=== PATIENT | female | born 1950 | race Caucasian/White ===

== ENCOUNTER 2022-12-08 08:47 | Outpatient (OUT) | payer MEDICARE, BC, SELFPAY ==
--- NOTE | 2022-12-08 08:59 | CT_ITS ---
[address] [address] Patient Name: ANDRZEJ SAAVEDRA MRN: [id number] date: 1950 Sex: F Assigned Patient Location: CT Current Patient Location: CT Accession/Order Number: [id number] Exam Date: 12/08/2022 08:55 Report Date: 12/08/2022 12:56 At the request of: RENE SANCHEZ Procedure: CT lung screening low-dose EXAMINATION: CT lung screening low-dose HISTORY: Nicotine dependence Z87.891 COMPARISON: CTA chest 11/28/2021 TECHNIQUE: Axial, Coronal, and Sagittal images were created without the administration of IV contrast material. Dose reduction techniques were achieved by using automated exposure control and/or adjustment of mA and/or kV according to patient size and/or use of iterative reconstruction technique. FINDINGS: LUNGS: Stable scarring within lateral left lung base. No acute infiltrates or mass. Stable appearance of a few tiny punctate nodules scattered bilaterally. PLEURA: No mass, effusion, or pneumothorax. VASCULATURE: No abnormality. SELIN: No mass or pathologic adenopathy. MEDIASTINUM: No mass or pathologic adenopathy. CARDIAC: No enlargement, pericardial thickening, or significant calcification. AORTA: Stable mild dilation of ascending aorta, 4.4 cm. CHEST WALL: No mass or axillary adenopathy BONES: No bone lesion or fracture. LIMITED ABDOMEN: No suspicious findings. Limited images of the upper abdomen. OTHER: Negative. CT/CT lung screening low-dose IMPRESSION: 1. Lung-RADS Category 1 Negative. No nodules and definitely benign nodules. Continue annual screening with LDCT in 12 months. 2. Stable mild aneurysmal dilation of the ascending aorta, 4.4 cm. Electronically authenticated by: RUTH LINDSEY Date: 12/08/2022 12:56
== END 2022-12-08 08:48 | disposition home or self-care (01) ==
LOC: CT 08:47
PROVIDERS: PCP Internal Medicine; Visit Provider Internal Medicine
DX: Z87.891 Personal history of nicotine dependence (principal)
CPT/HCPCS: 71271

== ENCOUNTER 2023-09-02 08:05 | Outpatient (OUT) | payer MEDICARE, BC, SELFPAY ==
--- NOTE | 2023-09-02 08:12 | MM_ITS ---
Patient Name: ANDRZEJ SAAVEDRA MR#: [id number] : 1950 Exam Date: 09/02/2023 Ordering Doctor: DR Collin Daniel D.O. RADIOLOGY REPORT PROCEDURE: MM TOMOSYNTHESIS SCREENING BI COMPARISON: MG MAMM SCREEN 3D BUZZ CAD, 08/20/2022. MG MAMM SCREEN 3D BUZZ CAD, 08/19/2021. INDICATIONS: Screening Calculator Name NCI Breast Cancer Risk Assessment Tool 5 Year Breast Cancer Risk 1.90% Lifetime Breast Cancer Risk 5.40% Personal Breast Cancer No Personal Ovarian Cancer No Treatments None Family Cancers Father with colon cancer at age 72. LOCATION: [facility] BREAST COMPOSITION: The breasts are heterogeneously dense,which may obscure small masses. FINDINGS: DIAGNOSTIC CATEGORY 2--BENIGN FINDING. NO CHANGE FROM COMPARISON. Scattered benign-appearing nodules are present. Scattered benign-appearing calcifications are present. Scattered benign-appearing lymph nodes are present. RIGHT BREAST: No significant suspicious finding. LEFT BREAST: No significant suspicious finding. RECOMMENDATIONS: ROUTINE MAMMOGRAM AND CLINICAL EVALUATION IN 12 MONTHS. PLEASE NOTE: A NORMAL MAMMOGRAM DOES NOT EXCLUDE THE POSSIBILITY OF BREAST CANCER. A CLINICALLY SUSPICIOUS PALPABLE LUMP SHOULD BE BIOPSIED. Dictated by: Balbir Ulloa MD on 09/02/2023 at 13:30 Approved by: Balbir Ulloa MD on 09/02/2023 at 13:32
[2023-09-02 08:44] LABS: Basophils Percent Auto 0.5 % (0.2-2.0); Eosinophils Absolute Auto 0.2 10^3/uL (0.0-0.7); Eosinophils Percent Auto 2.8 % (0.9-7.0); Hematocrit 42.9 % (36.0-48.0); Immature Granulocytes Abs Auto 0.02 10^3/uL (0.00-0.03); Immature Granulocytes Pct Auto 0.3 % (0.0-0.5); Lymphocytes Absolute Auto 2.2 10^3/uL (1.2-3.8); Lymphocytes Percent Auto 36.5 % (20.5-60.0); Mean Corpuscular HGB Conc 32.6 g/dL (29.9-35.2); Mean Corpuscular Hemoglobin 29.7 pg (26.7-34.0); Mean Corpuscular Volume 91.1 fL (81.0-99.0); Mean Platelet Volume 8.5 fL (9.5-13.5); Monocytes Absolute Auto 0.5 10^3/uL (0.3-0.8); Monocytes Percent Auto 7.4 % (1.7-12.0); Neutrophils Absolute Auto 3.2 10^3/uL (1.4-6.5); Neutrophils Percent Auto 52.5 % (43.0-75.0); Platelet Count 255 10^3/uL (150-450); Red Blood Count 4.71 10^6/uL (4.20-5.40); Red Cell Distribution Width 13.2 % (11.0-15.0); White Blood Count 6.1 10^3/uL (4.0-11.0)
[2023-09-02 09:20] LABS: Alanine Aminotransferase 18 U/L (14-59); Albumin Level 3.5 g/dL (3.4-5.0); Alkaline Phosphatase 52 U/L (46-116); Anion Gap 12.1; Aspartate Amino Transferase 18 U/L (15-37); BUN Creatinine Ratio 30.3; Bilirubin Total 0.7 mg/dL (0.2-1.0); Calcium 9.6 mg/dL (8.5-10.1); Carbon Dioxide 25.9 mmol/L (21.0-32.0); Chloride 105 mmol/L (98-107); Chol HDL Ratio 2.2; Cholesterol 172 mg/dL (<=200); Estimated GFR (African America >60 (>=60); Estimated GFR (Non-African Ame >60 (>=60); Globulin 3.6 g/dL; Glucose 109 mg/dL (74-106); HDL Cholesterol 79 mg/dL (40-60); Sodium 139 mmol/L (136-145); Total Protein 7.1 g/dL (6.4-8.2); Triglycerides 44 mg/dL (<=150); VLDL CHOLESTEROL 8.8 mg/dL
== END 2023-09-02 08:06 | disposition home or self-care (01) ==
LOC: MAMMO 08:07
PROVIDERS: PCP Internal Medicine; Visit Provider Internal Medicine
DX: Z12.31 Encounter for screening mammogram for malignant neoplasm of breast (principal); I10 Essential (primary) hypertension; E78.00 Pure hypercholesterolemia, unspecified; J41.1 Mucopurulent chronic bronchitis; K21.00 Gastro-esophageal reflux disease with esophagitis, without bleeding; Z80.0 Family history of malignant neoplasm of digestive organs
CPT/HCPCS: 36415; 77063; 77067; 80053; 80061; 85025

== ENCOUNTER 2023-12-29 08:30 | Outpatient (OUT) | payer MEDICARE, BC, SELFPAY ==
--- OUTSIDE RECORDS SUMMARY | 2023-12-29 08:33 | XMS_ITS | CCD ---
Author Organization [facility] Care Team Providers Care [place] Name Role Phone Elida Cuadra Unavailable Collin Sanchez Unavailable LAURA, DR LÓPEZ Consulting Unavailable BALL, DR LÓPEZ Primary Care Unavailable BALL, DR LÓPEZ Admitting Unavailable BALL, DR LÓPEZ Attending Unavailable WEST, DR JOAQUIN Crabtree Consulting Unavailable LAURA, DR LÓPEZ Primary Care Unavailable LAURA, DR LÓPEZ Admitting Unavailable BALL, DR LÓPEZ Attending Unavailable LAURA, DR LÓPEZ Consulting Unavailable KASHMIR, DR JOAQUIN Crabtree Consulting Unavailable BALL, DR LÓPEZ Consulting Unavailable LAURA, DR LÓPEZ Primary Care Unavailable BALL, DR LÓPEZ Admitting Unavailable BALL, DR LÓPEZ Attending Unavailable ROSALIA, DR RUTH Bethea Consulting Unavailable Allergies Allergy Classification Reported Allergen(s) Allergy Type Date of Onset Reaction(s) Facility (2 sources) Contrast media Propensity to adverse reactions Unknown [employer] Other (2 sources) Iodine Drug Allergy Unknown [employer] Other (1 source) Iodine (And Iodine Containting Drugs) Drug allergy (disorder) [facility] Repository (1 source) Allergies Reconciled Propensity to adverse reactions Unknown [employer] Other (1 source) patient allergy list reviewed by nurse or physicia Propensity to adverse reactions 3 Comment:Done [employer] Other Medications Current Medications Medication Drug Class(es) Dates Sig (Normalized) Sig (Original) ascorbic acid 1000 mg oral tablet (8 sources) Vitamin C take 1 tablet by mouth every twenty-four hours Vitamin C 1000 MG 1 tablet Orally Once a day Active Aspirin (10 sources) Platelet Aggregation Inhibitor, Nonsteroidal Anti-inflammatory Drug aspirin 81MG 1 daily Active atenolol 25 mg oral tablet (10 sources) beta-Adrenergic Tayler Atenolol 25 MG TAKE 1 TABLET DAILY for 90 Active colestipol hydrochloride 1000 mg oral tablet (10 sources) Bile Acid Sequestrant Colestipol HCl 1 GM TAKE 1 TABLET AT BREAKFAST AND EVENING MEAL for 90 Active CoQ-10 (10 sources) CoQ-10 Not-Takin g fenofibrate 160 mg oral tablet (18 sources) Peroxisome Proliferator Receptor alpha Agonist Start: 05-09-2022 take 1 tablet by mouth every twenty-four hours Fenofibrate 160 MG 1 tablet Orally Once a day for 90 days Apr, Active hydroCHLOROthiazide 25 mg / lisinopril 20 mg oral tablet (10 sources) Thiazide Diuretic, Angiotensin Converting Enzyme Inhibitor Lisinopril-hydr oCHLOROthiazide 20-25 MG TAKE 1 TABLET DAILY for 90 Active Lisinopril-hydro CHLOROthiazide 20-25 MG 1 daily Active Loratadine (10 sources) Loratadine 10MG 1 daily Active Multivitamins (10 sources) Multivitamins 1 daily Active pantoprazole 40 mg delayed release oral tablet (10 sources) Proton Pump Inhibitor take 1 tablet by mouth every twenty-four hours Pantoprazole Sodium 40 MG 1 tablet Orally Once a day Active Vitamin C 1000 MG (2 sources) take 1 tablet by mouth once daily Completed/Discontinued Medications Medication Drug Class(es) Dates Sig (Normalized) Sig (Original) Calcium (10 sources) Phosphate Binder, Calcium Calcium + D3 500 600 1 daily Not-Taking Calcium + D3 500 600 1 daily Active collagenase Clostridium histolyticum (10 sources) Start: 04-30-2022 Xiaflex Apr 0.58 mg doxycycline hyclate 100 mg oral capsule (10 sources) Tetracycline -class Drug Start: 05-02-2022 take 1 capsule by mouth every twelve hours Doxycycline Hyclate 100 MG 1 capsule Orally Twice a day for 5 day(s) Apr, Not-Taking Fish Oils (10 sources) Fish Oil 1000MG 1 daily Not-Taking Fish Oil 1000MG 1 daily Active triamcinolone acetonide 40 mg/ml injectable suspension (2 sources) Corticosteroid Start: 08-07-2022 Kenalog-40 Jul, 60 mg Problems Active Problems Problem Classification Problem Date Documented Date Episodic/Chronic Acute bronchitis (9 sources) Acute bronchitis; Translations: [Acute bronchitis] Episodic Allergic reactions (1 source) Radiographic dye allergy status; Translations: [Radiographic dye allergy status] Episodic Aortic; peripheral; and visceral artery aneurysms (1 source) Thoracic aortic aneurysm, without rupture; Translations: [THORACIC AORTIC ANEUR W/O RUPTURE] Onset: 2 Chronic Biliary tract disease (1 source) Postcholecystectomy syndrome; Translations: [Postcholecystectomy syndrome] Episodic Calculus of urinary tract (1 source) H/O: urinary stone; Translations: [Personal history of urinary calculi] Episodic Chronic obstructive pulmonary disease and bronchiectasis (5 sources) Mucopurulent chronic bronchitis; Translations: [Mucopurulent chronic bronchitis] Chronic Disorders of lipid metabolism (5 sources) Mixed hyperlipidemia; Translations: [Mixed hyperlipidemia] Onset: 3 Chronic Esophageal disorders (2 sources) Gastro-esophageal reflux disease with esophagitis; Translations: [Gastroesophageal reflux disease with esophagitis without hemorrhage] Chronic Esophageal disorders (3 sources) Esophageal disorders; Translations: [Gastro-esophageal reflux disease with esophagitis, without bleeding] Essential hypertension (5 sources) Essential hypertension; Translations: [Essential (primary) hypertension] Onset: 3 Chronic Other aftercare (5 sources) 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; Translations: [OTH LONG-TERM CURRENT DRUG THERAPY] Onset: 3 Episodic Other connective tissue disease (10 sources) Dupuytrens contracture of bilateral hands; Translations: [Palmar fascial fibromatosis [Dupuytren]] Episodic Other connective tissue disease (5 sources) Palmar fascial fibromatosis [Dupuytren] Episodic Other connective tissue disease (1 source) Contracture of palmar fascia; Translations: [Palmar fascial fibromatosis [Dupuytren]] Episodic Other diseases of veins and lymphatics (1 source) Peripheral venous insufficiency; Translations: [Venous insufficiency (chronic) (peripheral)] Episodic Other lower respiratory disease (2 sources) Nodule of lung; Translations: [Solitary pulmonary nodule] Episodic Other lower respiratory disease (2 sources) Solitary pulmonary nodule Episodic Other nutritional; endocrine; and metabolic disorders (1 source) Body mass index 30+ - obesity; Translations: [Obesity, unspecified] Chronic Other nutritional; endocrine; and metabolic disorders (1 source) Obesity, unspecified Chronic Other nutritional; endocrine; and metabolic disorders (1 source) Hypercalcemia; Translations: [Hypercalcemia] Onset: 2 Chronic Other screening for suspected conditions (not mental disorders or infectious disease) (2 sources) Encounter for screening mammogram for malignant neoplasm of breast; Translations: [ENC SCR MAMMO MALIG NEOPLASM BREAST] Onset: 3 Episodic Other upper respiratory disease (1 source) Allergic rhinitis due to pollen; Translations: [Allergic rhinitis due to pollen] Chronic Other upper respiratory disease (1 source) Allergic rhinitis due to pollen Chronic Residual codes; unclassified (3 sources) Obstructive sleep apnea syndrome; Translations: [Obstructive sleep apnea (adult) (pediatric)] Chronic Residual codes; unclassified (1 source) Obstructive sleep apnea (adult) (pediatric) Chronic Residual codes; unclassified (1 source) Family history of malignant neoplasm of digestive organs; Translations: [FAM HX MALIG NEOPLASM DIGESTIV ORGN] Onset: 3 Episodic Substance-related disorders (5 sources) Tobacco dependence in remission; Translations: [Nicotine dependence, cigarettes, in remission] Chronic Unclassified (1 source) Aneurysm of the ascending aorta, without rupture; Translations: [Aneurysm of the ascending aorta, without rupture] Past or Other Problems Problem Classification Problem Date Documented Da te Episodic/Chronic Spondylosis; intervertebral disc disorders; other back problems (4 sources) Dorsalgia, unspecified; Translations: [DORSALGIA UNSPECIFIED] Onset: 09-30-2021 Episodic Unclassified (1 source) Aneurysm of ascending aorta without rupture I71.21 Results Test Name Value Interpretation Reference Range Facil ity CBC AUTO DIFFon 08-20-2022 BASO # 0.0 103/ul Normal 0.0-0.1 [facility] Comment on above: Performed By: #### C BC #### [facility] [address] [place] [address] Dr. Breann Stubbs Basophils/100 WBC (Bld) 0.3 % Normal 0.2-2.0 [facility] Comment on above: Performed By: #### C BC #### [facility] [address] [place] [address] Dr. Breann Stubbs EO # 0.1 103/ul Normal 0.0-0.7 [facility] Comment on above: Performed By: #### C BC #### [facility] [address] [place] [address] Dr. Breann Stubbs Eosinophils/100 WBC (Bld) 1.6 % Normal 0.9-7.0 [facility] Comment on above: Performed By: #### C BC #### [facility] [address] [place] [address] Dr. Breann Stubbs Erythrocyte distribution width (RBC) [Ratio] 13.0 % Normal 11.0-15.0 [facility] Comment on above: Performed By: #### C BC #### [facility] [address] [place] [address] Dr. Breann Stubbs Hematocrit (Bld) [Volume fraction] 47.3 % Normal 36.0-48.0 [facility] Comment on above: Performed By: #### C BC #### [facility] [address] [place] [address] Dr. Breann Stubbs Hemoglobin (Bld) [Mass/Vol] 15.3 g/dL Normal 12.0-16.0 [facility] Comment on above: Performed By: #### C BC #### [facility] [address] [place] [address] Dr. Breann Stubbs IG # 0.03 10e3/ul Normal 0.00-0.03 [facility] Comment on above: Performed By: #### C BC #### [facility] [address] [place] [address] Dr. Breann Stubbs IG % 0.3 % Normal 0.0-0.5 [facility] Comment on above: Performed By: #### C BC #### [facility] [address] [place] [address] Dr. Breann Stubbs LYMPH # 2.8 103/ul Normal 1.2-3.8 [facility] Comment on above: Performed By: #### C BC #### [facility] [address] [place] [address] Dr. Breann Stubbs Lymphocytes/100 WBC (Bld) 32.8 % Normal 20.5-60.0 [facility] Comment on above: Performed By: #### C BC #### [facility] [address] [place] [address] Dr. Breann Stubbs MANUAL DIFF REQ NO Normal [facility] Comment on above: Performed By: #### C BC #### [facility] [address] [address] [address] Breann Stubbs MCH (RBC) [Entitic mass] 29.5 pg Normal 26.7-34.0 [facility] Comment on above: Performed By: #### C BC #### [facility] [address] [address] [address] Breann Stubbs MCHC (RBC) [Mass/Vol] 32.3 g/dL Normal 29.9-35.2 [facility] Comment on above: Performed By: #### C BC #### [facility] [address] [place] [address] Dr. Breann Stubbs MCV (RBC) [Entitic vol] 91.3 fL Normal 81.0-99.0 [facility] Comment on above: Performed By: #### C BC #### [facility] [address] [place] [address] Dr. Breann Stubbs MONO # 0.6 103/ul Normal 0.3-0.8 [facility] Comment on above: Performed By: #### C BC #### [facility] [address] [place] [address] Dr. Breann Stubbs Monocytes/100 WBC (Bld) 7.1 % Normal 1.7-12.0 [facility] Comment on above: Performed By: #### C BC #### [facility] [address] [place] [address] Dr. Breann Stubbs NEUT # 5.0 103/ul Normal 1.4-6.5 [facility] Comment on above: Performed By: #### C BC #### [facility] [address] [place] [address] Dr. Breann Stubbs Neutrophils/100 WBC (Bld) 57.9 % Normal 43.0-75.0 [facility] Comment on above: Performed By: #### C BC #### [facility] [address] [place] [address] Dr. Breann Stubbs Platelet mean volume (Bld) [Entitic vol] 9.1 fL Critically low 9.5-13.5 [facility] Comment on above: Performed By: #### C BC #### [facility] [address] [address] [address] Breann Stubbs PLT 354 103/ul Normal 150-450 [facility] Comment on above: Performed By: #### C BC #### [facility] [address] [place] [address] Dr. Breann Stubbs RBC 5.18 106/ul Normal 4.20-5.40 [facility] Comment on above: Performed By: #### C BC #### [facility] [address] [place] [address] Dr. Breann Stubbs WBC 8.6 103/ul Normal 4.0-11.0 [facility] Comment on above: Performed By: #### C BC #### [facility] [address] [place] [address] Dr. Breann Stubbs LIPID PROFILEon 08-20-2022 CHOL-HDL RATIO NORM SEE BELOW Normal [facility] Comment on above: Result Comment: 3.3 - 4.4 LOW RISK 4.4 - 7.1 AVERAGE RISK 7.1 - 11.0 MODERATE RISK >11.0 HIGH RISK Performed By: #### B MP, LIPID, ALT #### [facility] [address] [place] [address] Dr. Breann Stubbs Cholesterol [Mass/Vol] 152 mg/dL Normal <=200 [facility] Comment on above: Performed By: #### B MP, LIPID, ALT #### [facility] [address] [place] [address] Dr. Breann Stubbs Cholesterol in HDL [Mass/Vol] 61 mg/dL Critically high 40-60 [facility] Comment on above: Performed By: #### B MP, LIPID, ALT #### [facility] [address] [place] [address] Dr. Breann Stubbs Cholesterol in LDL [Mass/Vol] 76.2 mg/dL Normal [facility] Comment on above: Performed By: #### B MP, LIPID, ALT #### [facility] [address] [place] [address] Dr. Breann Stubbs Cholesterol.total/ Cholesterol in HDL [Mass ratio] 2.5 {ratio} Normal [facility] Comment on above: Performed By: #### B MP, LIPID, ALT #### [facility] [address] [address] [address] Breann Stubbs HDL NORMAL > or = 60 mg/dl - LO W CARDIOVASCULAR RISK <40 mg/dl - HIGH CARDIOVASCULAR RISK Normal [facility] Comment on above: Performed By: #### B MP, LIPID, ALT #### [facility] [address] [address] [address] Breann Stubbs LDL CALC NORMAL SEE BELOW Normal [facility] Comment on above: Result Comment: <100 mg/dl OPTIMAL 100 - 129 mg/dl NEAR OR ABOVE OPTIMAL 130 - 159 mg/dl BORDERLINE HIGH 160 - 189 mg/dl HIGH >190 mg/dl VERY HIGH Performed By: #### B MP, LIPID, ALT #### [facility] [address] [address] [address] Breann Stubbs Triglyceride [Mass/Vol] 74 mg/dL Normal <=150 [facility] Comment on above: Performed By: #### B MP, LIPID, ALT #### [facility] [address] [address] [address] Breann Stubbs VLDL CALC 14.8 mg/dL Normal [facility] Comment on above: Performed By: #### B MP, LIPID, ALT #### [facility] [address] [address] [address] Breann Stubbs MG MAMM SCREEN 3D BUZZ CADon 08-20-2022 MG MAMM SCREEN 3D BUZZ CAD Patient: ANDRZEJ SAAVEDRA Exam Date: 08/20/2022 : 1950 Gender:F Ordering : DR COLLIN SANCHEZ D.O. Admission #: [id number] Family : Order #: [id number] CLICK HERE TO VIEW EXAM RADIOLOGY REPORT PROCEDURE: MAMMOGRAM SCREENING 3D BILATERAL CAD COMPARISON: MG MAMM SCREEN 3D BUZZ CAD, 08/17/2020. MG MAMM SCREEN 3D BUZZ CAD, 08/19/2021. INDICATIONS: Screening mammography Calculator Name NCI Breast Cancer Risk Assessment Tool 5 Year Breast Cancer Risk 1.90% Lifetime Breast Cancer Risk 5.60% Personal Breast Cancer No Personal Ovarian Cancer No Treatments None Family Cancers Father with colon cancer at age 72. LOCATION: [facility] BREAST COMPOSITION: Heterogeneously dense,which may obscure small masses. FINDINGS: DIAGNOSTIC CATEGORY 2--BENIGN FINDING. NO CHANGE FROM COMPARISON. Scattered benign-appearing nodules are present. Scattered benign-appearing calcifications are present. Scattered benign-appearing lymph nodes are present. RIGHT BREAST: No significant suspicious finding. LEFT BREAST: No significant suspicious finding. RECOMMENDATIONS: ROUTINE MAMMOGRAM AND CLINICAL EVALUATION IN 12 MONTHS. PLEASE NOTE: A NORMAL MAMMOGRAM DOES NOT EXCLUDE THE POSSIBILITY OF BREAST CANCER. A CLINICALLY SUSPICIOUS PALPABLE LUMP SHOULD BE BIOPSIED. Dictated by: Joaquin Marlow MD on 08/20/2022 at 08:53 Approved by: Joaquin Marlow MD on 08/20/2022 at 08:55 Normal [facility] PROF CHEM 8 (BAS METB)on Anion gap [Moles/Vol] 9.2 mmol/L Normal [facility] Comment on above: Performed By: #### B MP, LIPID, ALT #### [facility] [address] [place] [address] Dr. Breann Stubbs Calcium [Mass/Vol] 9.9 mg/dL Normal 8.5-10.1 [facility] Comment on above: Performed By: #### B MP, LIPID, ALT #### [facility] [address] [place] [address] Dr. Breann Stubbs Chloride [Moles/Vol] 101 mmol/L Normal 98-107 [facility] Comment on above: Performed By: #### B MP, LIPID, ALT #### [facility] [address] [address] [address] Breann Stubbs CO2 [Moles/Vol] 33.7 mmol/L Critically high 21.0-32.0 [facility] Comment on above: Performed By: #### B MP, LIPID, ALT #### [facility] [address] [place] [address] Dr. Breann Stubbs Creatinine [Mass/Vol] 0.79 mg/dL Normal 0.55-1.02 [facility] Comment on above: Performed By: #### B MP, LIPID, ALT #### [facility] [address] [address] [address] Breann Stubbs EGFR-AF CYMRAES >60 Normal >=60 [facility] Comment on above: Performed By: #### B MP, LIPID, ALT #### [facility] [address] [address] [address] Breann Stubbs EGFR-NON AF CYMRAES >60 Normal >=60 [facility] Comment on above: Performed By: #### B MP, LIPID, ALT #### [facility] [address] [address] [address] Breann Stubbs Glucose [Mass/Vol] 97 mg/dL Normal 74-106 [facility] Comment on above: Performed By: #### B MP, LIPID, ALT #### [facility] [address] [address] [address] Breann Stubbs Potassium [Moles/Vol] 3.9 mmol/L Normal 3.5-5.1 [facility] Comment on above: Performed By: #### B MP, LIPID, ALT #### [facility] [address] [address] [address] Breann Stubbs Sodium [Moles/Vol] 140 mmol/L Normal 136-145 [facility] Comment on above: Performed By: #### B MP, LIPID, ALT #### [facility] [address] [address] [address] Breann Stubbs Urea nitrogen [Mass/Vol] 25.0 mg/dL Critically high 7.0-18.0 [facility] Comment on above: Performed By: #### B MP, LIPID, ALT #### [facility] [address] [address] [address] Breann Stubbs Urea nitrogen/Creatinin e [Mass ratio] 31.6 mg/mg Normal [facility] Comment on above: Performed By: #### B MP, LIPID, ALT #### [facility] [address] [address] [address] Breann Stubbs SGPTon 08-20-2022 ALT [Catalytic activity/Vol] 29 U/L Normal 14-59 [facility] Comment on above: Performed By: #### B MP, LIPID, ALT #### [facility] [address] [address] [address] Breann Stubbs CREATININEon 11-28-2021 Creatinine [Mass/Vol] 0.73 mg/dL Normal 0.55-1.02 [facility] Comment on above: Performed By: #### C MAYCOL #### [facility] [address] [address] [address] Breann Stubbs EGFR-AF CYMRAES >60 Normal >=60 [facility] Comment on above: Performed By: #### C MAYCOL #### [facility] [address] [address] [address] Breann Stubbs EGFR-NON AF CYMRAES >60 Normal >=60 [facility] Comment on above: Performed By: #### C MAYCOL #### [facility] [address] [address] [address] Breann Stubbs CTA CHEST WO W CONon 022 CTA CHEST WO W CON EXAMINATION: CTA CHEST WO W CON HISTORY: Aneurysm of ascending aorta , pulmonary nodules COMPARISON: CT lung cancer screening 11/05/2020 TECHNIQUE: Multi-planar CT images were created with IV contrast. Axial, Coronal, and Sagittal images. Dose reduction techniques were achieved by using automated exposure control and/or adjustment of mA and/or kV according to patient size and/or use of iterative reconstruction technique. 3-D reconstruction was performed on a separate workstation. FINDINGS: VASCULATURE: No pulmonary embolism or abnormal opacity. LUNGS: Mild chronic stranding within posterior left lung base. Minimal emphysematous changes. A few tiny punctate nodules scattered within the lungs, stable; no suspicious nodules. PLEURA: No mass, effusion, or pneumothorax. SELIN: No mass or adenopathy. MEDIASTINUM: No mass or adenopathy. CARDIAC: No enlargement, pericardial effusion, or pericardial thickening. AORTA: Mild dilation of ascending aorta, 4.5 cm. Mild dilation of the distal aortic arch, 3.6 cm. CHEST WALL: Prior resection of left thyroid lobe. No axillary mass or adenopathy. BONES: No bone lesion or fracture. LIMITED ABDOMEN: No suspicious findings. Limited images of the upper abdomen. OTHER: Negative. IMPRESSION: 1. Stable mild ectasia of the ascending aorta and distal aortic arch. 2. Stable appearance of a few tiny lung nodules. No suspicious nodules. Consider follow-up imaging in one year if patient is at increased risk for lung cancer. Electronically authenticated by: RUTH LINDSEY Date: 2021-11-28 11:21 Normal [facility] COVID-19 Antigenon 2 COVID-19 Antigen Healthcare Worker?: N Reference Range: Negative Negative results, from patients with symptom onset beyond five days, should be treated as presumptive and confirmation with a molecular assay, if necessary, for patient management, may be performed. Negative results do not rule out COVID-19 and should not be used as the sole basis for treatment or patient management decisions, including infection control decisions. Negative results should be considered in the context of a patient's recent exposures, history and the presence of clinical signs and symptoms consistent with COVID-19. The Jerilyn SARS Antigen ARMANI does not differentiate between SARS-CoV and SARS-CoV-2. This test was developed and its performance characteristic determined by [employer] and validated at [facility]. This test has not been FDA cleared or approved. This test has been authorized by FDA under an Emergency Use Authorization (EUA). This test has been validated in accordance with the FDA's Guidance Document (Policy for Diagnostics Testing in Laboratories Certified to Perform High Complexity Testing under CLIA prior to Emergency Use Authorization for Coronavirus Disease-2019 during the Public Health Emergency) issued on July 28, 2019. This test is only authorized for the duration of time the declaration that circumstances exist justifying the authorization of the emergency use of in vitro diagnostic tests for detection of SARS-CoV-2 virus and/or diagnosis of COVID-19 infection under section 564(b)(1) of the Act, 21 U.S.C. 360bbb-3(b)(1), unless the authorization is terminated or revoked sooner. SARS-CoV+SARS-CoV-2 (COVID-19) Ag [Presence] in Respiratory specimen by Rapid immunoassay Negative for SARS Antigen by ARMANI PERFORMED BY: [facility] [place] [id number] PATHOLOGIST GREENHOUSE TECHNICIAN AISHA LYONS M.D. Normal [facility] Comment on above: Performed By: #### C OVID-19 JERILYN, SOFIANEG #### [facility] [address] [id number] [facility] Jerilyn Ag Negativeon 10-05-19 22 Jerilyn Ag Negative Negative Normal Negative [facility] Comment on above: Result Comment: This is a duplicate Jerilyn SARS Antigen (ARMANI) result to be used for statistical tracking purpose only. PERFORMED BY: [facility] [address] [place] [address] PATHOLOGIST GREENHOUSE TECHNICIAN AISHA LYONS M.D. Performed By: #### C OVID-19 JERILYN, SOFIANEG #### [facility] [id number] [facility] CT ABD/PELVIS WO CONon 09-30 CT ABD/PELVIS WO CON EXAMINATION: CT ABD/PELVIS WO CON, 09/30/2021 11:56 AM EDT HISTORY: Pain in thoracic spine , flank pain COMPARISON: 01/20/2018 TECHNIQUE: CT scan of the abdomen and pelvis was performed without IV contrast. CT dose reduction technique was used, including Automated Exposure Control. FINDINGS: LUNG BASES: No visible pulmonary or pleural disease. LIVER: No enlargement, atrophy, abnormal density, or significant focal lesion. BILIARY: Surgical clips from cholecystectomy PANCREAS: No lesion, fluid collection, ductal dilatation, or atrophy. SPLEEN: No enlargement or focal lesion. ADRENALS: No mass or enlargement. KIDNEYS: Bilateral renal hypodensities, cortical and parapelvic cysts are favored. 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 No obstructing stones BOWEL/MESENTERY: Moderate colonic diverticulosis. Nonobstructive bowel gas pattern. Normal appendix. AORTA/VASCULAR: Moderate atherosclerosis. No aortic aneurysm. RETROPERITONEUM: No mass or adenopathy. LYMPH NODES: No adenopathy. URINARY BLADDER: No visible focal wall thickening, lesion, or calculus. PELVIC ORGANS: Lobular uterus containing calcifications, fibroids are statistically favored ABDOMINAL WALL: No mass or hernia. BONES: No bony lesion or fracture. OTHER: Negative. 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 Bilateral cortical parapelvic cysts with no obstructive uropathy Electronically authenticated by: JOAQUIN MARLOW Date: 2021-09-30 21:30 Normal [facility]19 Antigenon 1 COVID-19 Antigen Healthcare Worker?: N Jerilyn Reference Jerilyn Reference Negative SARS-CoV+SARS-CoV-2 (COVID-19) Ag [Presence] in Respiratory specimen by Rapid immunoassay Negative for SARS Antigen by ARMANI COVID19 Blank Space Jerilyn Disclaimer Negative results, from patients with symptom Jerilny Disclaimer onset beyond five days, should be treated as Jerilyn Disclaimer presumptive and confirmation with a molecular Jerilyn Disclaimer assay, if necessary, for patient management, Jerilyn Disclaimer may be performed. Negative results do not rule Jerilyn Disclaimer out COVID-19 and should not be used as the sole Jerilyn Disclaimer basis for treatment or patient management Jerilyn Disclaimer decisions, including infection control decisions. Jerilyn Disclaimer Negative results should be considered in the Jerilyn Disclaimer context of a patient's recent exposures, history Jerilyn Disclaimer and the presence of clinical signs and symptoms Jerilyn Disclaimer consistent with COVID-19. COVID19 Blank Space Jerilyn Disclaimer The Jerilyn SARS Antigen ARMANI does not differentiate Jerilyn Disclaimer between SARS-CoV and SARS-CoV-2. COVID19 Blank Space Jerilyn Disclaimer This test was developed and its performance Jerilyn Disclaimer characteristic determined by [employer] and Jerilyn Disclaimer validated at [facility]. This Jerilyn Disclaimer test has not been FDA cleared or approved. This Jerilyn Disclaimer test has been authorized by FDA under an Emergency Use Jerilyn Disclaimer Authorization (EUA). This test has been validated Jerilyn Disclaimer in accordance with the FDA's Guidance Document (Policy Jerilyn Disclaimer for Diagnostics Testing in Laboratories Certified to Jerilyn Disclaimer Perform High Complexity Testing under CLIA prior to Jerilyn Disclaimer Emergency Use Authorization for Coronavirus Jerilyn Disclaimer is during the Public Health Emergency) Jerilyn Disclaimer issued on July 28, 2019. This test is only authorized Jerilyn Disclaimer for the duration of time the declaration that Jerilyn Disclaimer circumstances exist justifying the authorization of Jerilyn Disclaimer the emergency use of in vitro diagnostic tests for Jerilyn Disclaimer detection of SARS-CoV-2 virus and/or diagnosis of Jerilyn Disclaimer COVID-19 infection under section 564(b)(1) of the Jerilyn Disclaimer Act, 21 U.S.C. 360bbb-3(b)(1), unless the Jerilyn Disclaimer authorization is terminated or revoked sooner. PERFORMED BY: [place] [address] PATHOLOGIST GREENHOUSE TECHNICIAN AISHA LYONS M.D. Normal [facility] Comment on above: Performed By: #### C OVID-19 JERILYN, SOFIANEG #### [facility] [address] [place] [address] Jerilyn Ag Negativeon 03-27-20 21 Jerilyn Ag Negative Negative Normal Negative [facility] Comment on above: Result Comment: This is a duplicate Jerilyn SARS Antigen (ARMANI) result to be used for statistical tracking purpose only. PERFORMED BY: [place] [address] PATHOLOGIST GREENHOUSE TECHNICIAN AISHA LYONS M.D. Performed By: #### C OVID-19 JERILYN, SOFIANEG #### [facility] [address] [place] [address] Vital Signs Date Time Vital Sign Value Performing Clinician Facility 08-07-2022 09:30-0400 Body height 172.72 cm Collin Ball Other [facility] Other 08-07-2022 09:30-0400 Body mass index (BMI) [Ratio] 36.88 kg/m2 Collin Ball Other [facility] Other 08-07-2022 09:30-0400 Body weight 110.04 kg Collin Ball Other [facility] Other 08-07-2022 09:30-0400 Diastolic blood pressure 84 mm[Hg] Collin Ball Other [facility] Other 08-07-2022 09:30-0400 Respiratory rate 12 /min Collin Ball Other [facility] Other 08-07-2022 09:30-0400 Systolic blood pressure 121 mm[Hg] Collin Ball Other [facility] Other 05-02-2022 09:30-0500 Body height 172.72 cm Elida Calvey Other [facility] Other 05-02-2022 09:30-0500 Body mass index (BMI) [Ratio] 38.01 kg/m2 Elida Calvey Other [facility] Other 05-02-2022 09:30-0500 Body weight 113.4 kg Elida Calvey Other [facility] Other 04-25-2022 11:45-0500 Body height 172.72 cm Elida Calvey Other [facility] Other 04-25-2022 11:45-0500 Body mass index (BMI) [Ratio] 38.01 kg/m2 Elida Calvey Other [facility] Other 04-25-2022 11:45-0500 Body weight 113.4 kg Elida Calvey Other [facility] Other Encounters Encounter Date Encounter Type Care Provider Facility Start: 12-08-2022 End: 12-08-2022 ambulatory Collin Sanchez Other [facility] Other Start: 12-08-2022 Telephone encounter Collin HERNANDEZ [facility] Start: 08-20-2022 End: 08-21-[address] COLLIN SANCHEZ Facility: Start: 08-07-2022 End: 08-07-2022 ambulatory Collin Sanchez Other [facility] Other Start: 08-07-2022 Patient encounter procedure Collin Sanchez [facility] Start: 06-13-2022 End: 06-13-2022 ambulatory Elida Millermay Other [facility] Other Start: 06-13-2022 Office outpatient vi sit 15 minutes Elida Cuadra [facility] Start: 05-16-2022 End: 05-16-2022 ambulatory Elida Cuadra Other [facility] Other Start: 05-16-2022 Postop follow up vis it related to original px Elida Cuadra [facility] Start: 05-14-2022 End: 05-14-2022 ambulatory Collin Sanchez Other [facility] Other Start: 05-14-2022 Telephone encounter Collin Sanchez [facility] Start: 05-09-2022 End: 05-09-2022 ambulatory Collin Sanchez Other [facility] Other Start: 05-09-2022 Telephone encounter Collin Sanchez [facility] Start: 05-02-2022 (Proc F/U) Procedure F/U Elida Cuadra [facility] Start: 05-02-2022 End: 05-02-2022 ambulatory Elida Cuadra Other [facility] Other Start: 05-02-2022 Telephone encounter Elida Cuadra [facility] Start: 04-30-2022 (Proc F/U) Procedure F/U Elida Cuadra [facility] Start: 04-30-2022 End: 04-30-2022 ambulatory Elida Cuadra Other [facility] Other Start: 04-25-2022 End: 04-25-2022 ambulatory Elida Cuadra Other [facility] Other Start: 04-25-2022 Office outpatient vi sit 15 minutes Elida Calvmay [facility] Start: 11-28-2021 End: 11-29-[address] COLLIN SANCHEZ Facility:[facility]1 Start: 09-30-2021 End: 10-01-[address] COLLIN SANCHEZ Facility:[facility] Immunizations Immunization Date Immunization Notes Care Provider [facility] 02-05-2022 influenza virus vaccine, split virus (incl. purified surface antigen) Collin Sanchez Other [facility] Other 02-05-2022 influenza, high dose seasonal, preservative-free Collin Sanchez Other [facility] Other 02-06-2021 influenza virus vaccine, split virus (incl. purified surface antigen) Collin Sanchez Other [facility] Other 07-11-2020 COVID-19 Vaccine Pfi zer - Documentation Purposes Only Collin Sanchez Other [facility] Other 06-25-2020 pneumococcal conjuga te vaccine, 13 valent Collin Sanchez Other [facility] Other 06-20-2020 COVID-19 Vaccine Pfi zer - Documentation Purposes Only Collin Sanchez Other [facility] Other 03-12-2020 influenza virus vaccine, split virus (incl. purified surface antigen) Collin Sanchez Other [facility] Other 03-12-2020 pneumococcal polysaccharide vaccine, 23 valent Collin Sanchez Other [facility] Other 01-26-2014 tetanus and diphther ia toxoids, adsorbed, preservative free, for adult use (5 Lf of tetanus toxoid and 2 Lf of diphtheria toxoid) Collin Sanchez Other [facility] Other 09-02-2013 tetanus toxoid, adsorbed Elida Cuadra Other [facility] Other 03-10-2013 tetanus and diphther ia toxoids, adsorbed, preservative free, for adult use (5 Lf of tetanus toxoid and 2 Lf of diphtheria toxoid) Collin Sanchez Other [facility] Other 03-04-2012 tetanus and diphther ia toxoids, adsorbed, preservative free, for adult use (5 Lf of tetanus toxoid and 2 Lf of diphtheria toxoid) Collin Sanchez Other [facility] Other Payers Date Payer Category Payer [facility] [id number] 1957 Medicare [id number] [id number] [id number] 1950 Unknown [id number] 1950 Unknown [id number] 1950 Unknown [id number] Social History Date Type Detail Facility Unknown if ever smoked [facility] Other Sex Assigned At Sex Assigned At Bir th [facility] Other Evaluation note 12-08-2022 Note Date & Type Note Facility 12-08-2022 Evaluation note Encounter Date Diagnosis Assessment Notes Nov, Simple chronic bronchitis (ICD-10 - J41.0) LDCT without suspicious nodules: 11/2022 14 Nov, 2022 Pulmonary nodule (ICD-10 - R91.1) LDCT: 2020, 11/2021, 11/2022 14 Nov, 2022 Nicotine dependence, cigarettes, in remission (ICD-10 - F17.211) LDCT w/o suspicious nodules: 11/2022Nov, Primary hypertension (ICD-10 - I10) Nov, Elevated cholesterol (ICD-10 - E78.00) Nov, Gastroesophageal reflux disease with esophagitis without hemorrhage (ICD-10 - K21.00) [facility] Other Evaluation note 08-07-2022 Note Date & Type Note Facility 08-07-2022 Evaluation note Encounter Date Diagnosis Assessment Notes Jul, Primary hypertension (ICD-10 - I10) This patient is instructed to consume a healthy, low-fat, low-salt diet. They are also encouraged to continue exercise to achieve/mainta in a normal BMI. Jul, Medicare annual wellness visit, subsequent (ICD-10 - Z00.00) Personalized health advice was given to the beneficiary including a written plan for screenings discussed and provided. Advanced care planning reviewed and/or information given as requested. Additional counseling was provided here today in regards to, [ ]. The above visit was performed by [ ], under direct supervision of [ ]. Document reviewed and amended by provider signed below. Healthy diet and exercise. Reviewed age-appropriat e preventive testing recommended. Jul, Mixed hyperlipidemia (ICD-10 - E78.2) Diet and exercise with continued statin therapy. Jul, Gastroesophageal reflux disease with esophagitis without hemorrhage (ICD-10 - K21.00) Diet instructions: Smaller portions, avoid eating and laying flat, avoid eating or drinking prior to bedtime. Weight loss. Jul, Mucopurulent chronic bronchitis (ICD-10 - J41.1) Mucinex as needed. AZALEA as needed, rare use, mainly w/ seasonal changes. No ER visits for acute exacerbation Jul, Aneurysm of ascending aorta without rupture (ICD-10 - I71.21) Echo: 4.2cm - 03/2021, CT: 4.5cm - 11/2021 Control BP Continue treatment and yearly surveillance CTA Jul, Pulmonary nodule (ICD-10 - R91.1) LDCT: 2020, 11/2021 Yearly LDCT Jul, LAMAR (obstructive sleep apnea) (ICD-10 - G47.33) This patient is aware of the benefits associated with LAMAR: With continued use, the patient reduces the risk for PR, CVA, HTN, cardiac dysrhythmias and sudden cardiac deaths.The patient is also aware of the association between LAMAR and morning headaches, daytime somnolence, fatigue and obesity, which also has been improved with continued use.The patient is compliant with treatment, wearing the equipment every night for greater than 4 hours.The patient is instructed to continue use of the CPAP for LAMAR treatment. Jul, Cigarette nicotine dependence in remission (ICD-10 - F17.211) Jul, Obesity (BMI 30-39.9) (ICD-10 - E66.9) Jul, Screening mammogram for breast cancer (ICD-10 - Z12.31) Jul, High risk medication use (ICD-10 - Z79.899) Jul, Seasonal allergic rhinitis due to pollen (ICD-10 - J30.1) [facility] Other Evaluation note 06-13-2022 Note Date & Type Note Facility 06-13-2022 Evaluation note Encounter Date Diagnosis Assessment Notes May, Dupuytren's contracture of both hands (ICD-10 - M72.0) Continue use of splint x 2 more months. [facility] Other Evaluation note 05-16-2022 Note Date & Type Note Facility 05-16-2022 Evaluation note Encounter Date Diagnosis Assessment Notes Apr, Dupuytren's contracture of both hands (ICD-10 - M72.0) Patient given new TKO splint for the right hand as the one she has is too big and bulky. She will continue to use at night and work on daily exercises [facility] Other Evaluation note 05-02-2022 Note Date & Type Note Facility 05-02-2022 Evaluation note Encounter Date Diagnosis Assessment Notes Apr, Dupuytren's contracture of both hands (ICD-10 - M72.0) Patient was prepped and lidocaine injected to bilateral hands under sterile conditions. Once patient was sufficiently numb, fingers were manipulated straight. Bandaging was applied to skin tears. Patient was instructed on wound care and provided a copy of Dr Cuadra's soaking protocol. Patient instructed to splint the right hand at night and during the day when not doing activities. Rx Doxycycline. Patient given TKO splint [facility] Other Evaluation note 04-30-2022 Note Date & Type Note Facility 04-30-2022 Evaluation note Encounter Date Diagnosis Assessment Notes Apr, Dupuytren's contracture of both hands (ICD-10 - M72.0) Patient was prepped and lidocaine was injected into the palmar aspect of the hand associated with bilateral small fingers under sterile conditions. Once sufficently numb, xiaflex was injected to the area of the bilateral dupuytrens cords under sterile conditions. Patient tolerated well. Will return on 05/02/22 for manipulation. [facility] Other Evaluation note 04-25-2022 Note Date & Type Note Facility 04-25-2022 Evaluation note Encounter Date Diagnosis Assessment Notes Mar, Dupuytren's contracture of both hands (ICD-10 - M72.0) Extensive discussion about current condition and treatment options available. We will plan to proceed with Xiaflex and manipulation. With the weekend following today, we will schedule this for sometime next week. [facility] Other Evaluation note Note Date & Type Note Facility Evaluation note No Information [employer] Other History general Narrative - Reported Note Date & Type Note Facility History general Narrative - Reported Type Medical History HTN Medical History GERD Medical History Allergies Medical History hypertriglyceridemia Medical History aneurysm Surgical History Elbow, left Surgical History Foot x3-benign tumor Surgical History cataract removal Surgical History cholecystectomy Surgical History knee arthroscopy Surgical History oophorectomy Surgical History left foot soft tissue tumor rem oval Hospitalization History See past surgical Hospitalization History Chest pain [facility] Other History general Narrative - Reported Note Date & Type Note Facility History general Narrative - Reported Type Medical History HTN Medical History GERD Medical History Allergies Medical History hypertriglyceridemia Medical History aneurysm Medical History LAMAR Surgical History Elbow, left Surgical History Foot x3-benign tumor Surgical History cataract removal Surgical History cholecystectomy Surgical History knee arthroscopy Surgical History oophorectomy Surgical History left foot soft tissue tumor rem oval Hospitalization History See past surgical Hospitalization History Chest pain [facility] Other Summary Purpose Family History No Family History Records FoundNo Family History Records Found Advance Directives No Advanced Directives Records FoundNo Advanced Directives Records Found Additional Source Comments INFORMATION SOURCE (unrecogn ized section and content) DATE CREATED AUTHOR 10/12/2021 [facility] DATE CREATED AUTHOR AUTHOR'S ORGANIZ ATION 08/23/2022 [facility] REASON FOR VISIT (unrecogniz ed section and content) med refillManipulation Bilat eral HandsXiaflex Right HandRecheck Right Handprescription refillprescription refillRecheck Bilateral HandsRecheck Right HandMEDICARE WELLNESSNo Information FOR RECORDS PERTAINING TO PATIENTS WHO ARE OR HAVE BEEN ENROLLED IN A CHEMICAL DEPENDENCY/SUBSTANCEABUSE PROGRAM, SOME INFORMATION MAY BE OMITTED. This clinical summary was aggregated from multiple sources. Caution should be exercised in using it in the provision of clinical care. This summary normalizes information from multiple sources, and as a consequence, information in this document may materially change the coding, format and clinical context of patient data. In addition, data may be omitted in some cases. CLINICAL DECISIONS SHOULD BE BASED ON THE PRIMARY CLINICAL RECORDS. [employer] provides no warranty or guarantee of the accuracy or completeness of information in this document.
--- NOTE | 2023-12-29 08:46 | CT_ITS ---
[address] [address] Patient Name: ANDRZEJ SAAVEDRA MRN: [id number] date: 1950 Sex: F Assigned Patient Location: CT Current Patient Location: Accession/Order Number: [id number] Exam Date: 12/29/2023 08:40 Report Date: 12/30/2023 06:22 At the request of: RENE SANCHEZ Procedure: CT lung screening low-dose EXAMINATION: CT lung screening low-dose HISTORY: History Of Tobacco Dependence COMPARISON: CT LUNG CANCER SCREENING 12/08/2022 TECHNIQUE: Axial, Coronal, and Sagittal images were created without the administration of IV contrast material. Dose reduction techniques were achieved by using automated exposure control and/or adjustment of mA and/or kV according to patient size and/or use of iterative reconstruction technique. FINDINGS: LUNGS: Stable left lateral lung base scarring. Stable appearance of a few tiny nodules scattered bilaterally. No acute infiltrates or mass. PLEURA: No mass, effusion, or pneumothorax. VASCULATURE: No abnormality. SELIN: No mass or pathologic adenopathy. MEDIASTINUM: No mass or pathologic adenopathy. CARDIAC: No enlargement, pericardial thickening, or pericardial effusion. Coronary Artery calcifications: Coronary calcifications are mild. AORTA: Dilation of ascending thoracic aorta, 4.6 cm. CHEST WALL: No mass or axillary adenopathy BONES: No bone lesion or fracture. LIMITED ABDOMEN: No suspicious findings. Limited images of the upper abdomen. OTHER: Negative. CT/CT lung screening low-dose IMPRESSION: 1. Lung-RADS Category 1 Negative. No nodules and definitely benign nodules. Continue annual screening with LDCT in 12 months. 2. Stable to slight increase in size of thoracic aortic aneurysm, 4.6 cm. Electronically authenticated by: RUTH LINDSEY Date: 12/30/2023 06:22
== END 2023-12-29 08:31 | disposition home or self-care (01) ==
LOC: CT 08:30
PROVIDERS: PCP Internal Medicine; Visit Provider Internal Medicine
DX: I71.20 Thoracic aortic aneurysm, without rupture, unspecified (principal); Z87.891 Personal history of nicotine dependence
CPT/HCPCS: 71271

== ENCOUNTER 2024-01-12 09:22 | Outpatient (OUT) | payer MEDICARE, BC, SELFPAY ==
--- NOTE | 2024-01-12 | XR_ITS ---
The [address] [address] Patient Name: ANDRZEJ SAAVEDRA MRN: [id number] date: 1950 Sex: F Assigned Patient Location: [facility] Current Patient Location: [facility] Accession/Order Number: [id number] Exam Date: 01/12/2024 09:45 Report Date: 01/12/2024 12:19 At the request of: RENE SANCHEZ Procedure: XR chest 2V PROCEDURE: XR chest 2V DATE: 01/12/2024 8:45 AM CDT COMPARISONS: CT chest 12/29/2023 CLINICAL INDICATION: 74 years Female COUGH FINDINGS: The heart is upper normal in size and is stable. The pulmonary vasculature is not congested. The lung alas show mild scattered chronic lung changes, stable. The lungs are otherwise clear. There is no evidence of pleural effusion or pneumothorax. Mild thoracic degenerative spondylosis, stable. XR/XR chest 2V IMPRESSION: Stable chest from 12/29/2023 Electronically authenticated by: HELENE VOGT Date: 01/12/2024 12:19
--- OUTSIDE RECORDS SUMMARY | 2024-01-12 09:43 | XMS_ITS | CCD ---
Author Organization [facility] Care Team Providers Care Hay Buckler Name Role Phone Elida Cuadra Unavailable Collin [...] Contrast media Propensity to adverse reactions Unknown [employer] Other (2 sources) Iodine Drug Allergy Unknown [employer] Other (1 source) Iodine (And Iodine Containting Drugs) Drug allergy (disorder) [facility] Repository (1 source) Allergies Reconciled Propensity to adverse reactions Unknown [employer] Other (1 source) patient allergy list reviewed by nurse or physicia Propensity to adverse reactions 3 Comment:Done [employer] Other Medications Current Medications Medication Drug Class(es) [...] 3 Chronic Other aftercare (5 sources) Other residential (current) drug therapy; Translations: [OTH LONG-TERM CURRENT [...] 08-20-2022 BASO # 0.0 103/ul Normal 0.0-0.1 [facility] Comment on above: Performed By: #### C BC #### [facility] [address] [place] [address] Dr. Breann Stubbs Basophils/100 WBC (Bld) 0.3 % Normal 0.2-2.0 [facility] Comment on above: Performed By: #### C BC #### [facility] [address] [place] [address] Dr. Breann Stubbs EO # 0.1 103/ul Normal 0.0-0.7 [facility] Comment on above: Performed By: #### C BC #### [facility] [address] [place] [address] Dr. Breann Stubbs Eosinophils/100 WBC (Bld) 1.6 % Normal 0.9-7.0 [facility] Comment on above: Performed By: #### C BC #### [facility] [address] [place] [address] Dr. Breann Stubbs Erythrocyte distribution width (RBC) [Ratio] 13.0 % Normal 11.0-15.0 [facility] Comment on above: Performed By: #### C BC #### [facility] [address] [place] [address] Dr. Breann Stubbs Hematocrit (Bld) [Volume fraction] 47.3 % Normal 36.0-48.0 [facility] Comment on above: Performed By: #### C BC #### [facility] [address] [place] [address] Dr. Breann Stubbs Hemoglobin (Bld) [Mass/Vol] 15.3 g/dL Normal 12.0-16.0 [facility] Comment on above: Performed By: #### C BC #### [facility] [address] [place] [address] Dr. Breann Stubbs IG # 0.03 10e3/ul Normal 0.00-0.03 [facility] Comment on above: Performed By: #### C BC #### [facility] [address] [place] [address] Dr. Breann Stubbs IG % 0.3 % Normal 0.0-0.5 [facility] Comment on above: Performed By: #### C BC #### [facility] [address] [place] [address] Dr. Breann Stubbs LYMPH # 2.8 103/ul Normal 1.2-3.8 [facility] Comment on above: Performed By: #### C BC #### [facility] [address] [place] [address] Dr. Breann Stubbs Lymphocytes/100 WBC (Bld) 32.8 % Normal 20.5-60.0 [facility] Comment on above: Performed By: #### C BC #### [facility] [address] [place] [address] Dr. Breann Stubbs MANUAL DIFF REQ NO Normal [facility] Comment on above: Performed By: #### C BC #### [facility] [address] [address] [address] Breann Stubbs MCH (RBC) [Entitic mass] 29.5 pg Normal 26.7-34.0 [facility] Comment on above: Performed By: #### C BC #### [facility] [address] [address] [address] Breann Stubbs MCHC (RBC) [Mass/Vol] 32.3 g/dL Normal 29.9-35.2 [facility] Comment on above: Performed By: #### C BC #### [facility] [address] [place] [address] Dr. Breann Stubbs MCV (RBC) [Entitic vol] 91.3 fL Normal 81.0-99.0 [facility] Comment on above: Performed By: #### C BC #### [facility] [address] [place] [address] Dr. Breann Stubbs MONO # 0.6 103/ul Normal 0.3-0.8 [facility] Comment on above: Performed By: #### C BC #### [facility] [address] [place] [address] Dr. Breann Stubbs Monocytes/100 WBC (Bld) 7.1 % Normal 1.7-12.0 [facility] Comment on above: Performed By: #### C BC #### [facility] [address] [place] [address] Dr. Breann Stubbs NEUT # 5.0 103/ul Normal 1.4-6.5 [facility] Comment on above: Performed By: #### C BC #### [facility] [address] [place] [address] Dr. Breann Stubbs Neutrophils/100 WBC (Bld) 57.9 % Normal 43.0-75.0 [facility] Comment on above: Performed By: #### C BC #### [facility] [address] [place] [address] Dr. Breann Stubbs Platelet mean volume (Bld) [Entitic vol] 9.1 fL Critically low 9.5-13.5 [facility] Comment on above: Performed By: #### C BC #### [facility] [address] [address] [address] Breann Stubbs PLT 354 103/ul Normal 150-450 [facility] Comment on above: Performed By: #### C BC #### [facility] [address] [place] [address] Dr. Breann Stubbs RBC 5.18 106/ul Normal 4.20-5.40 [facility] Comment on above: Performed By: #### C BC #### [facility] [address] [place] [address] Dr. Breann Stubbs WBC 8.6 103/ul Normal 4.0-11.0 [facility] Comment on above: Performed By: #### C BC #### [facility] [address] [place] [address] Dr. Breann Stubbs LIPID PROFILEon 08-20-2022 CHOL-HDL RATIO NORM SEE BELOW Normal [facility] Comment on above: Result Comment: 3.3 - 4.4 LOW RISK 4.4 - 7.1 AVERAGE RISK 7.1 - 11.0 MODERATE RISK >11.0 HIGH RISK Performed By: #### B MP, LIPID, ALT #### [facility] [address] [place] [address] Dr. Breann Stubbs Cholesterol [Mass/Vol] 152 mg/dL Normal <=200 [facility] Comment on above: Performed By: #### B MP, LIPID, ALT #### [facility] [address] [place] [address] Dr. Breann Stubbs Cholesterol in HDL [Mass/Vol] 61 mg/dL Critically high 40-60 [facility] Comment on above: Performed By: #### B MP, LIPID, ALT #### [facility] [address] [place] [address] Dr. Breann Stubbs Cholesterol in LDL [Mass/Vol] 76.2 mg/dL Normal [facility] Comment on above: Performed By: #### B MP, LIPID, ALT #### [facility] [address] [place] [address] Dr. Breann Stubbs Cholesterol.total/ Cholesterol in HDL [Mass ratio] 2.5 {ratio} Normal [facility] Comment on above: Performed By: #### B MP, LIPID, ALT #### [facility] [address] [address] [address] Breann Stubbs HDL NORMAL > or = 60 mg/dl - LO W CARDIOVASCULAR RISK <40 mg/dl - HIGH CARDIOVASCULAR RISK Normal [facility] Comment on above: Performed By: #### B MP, LIPID, ALT #### [facility] [address] [address] [address] Breann Stubbs LDL CALC NORMAL SEE BELOW Normal [facility] Comment on above: Result Comment: <100 mg/dl OPTIMAL 100 - 129 mg/dl NEAR OR ABOVE OPTIMAL 130 - 159 mg/dl BORDERLINE HIGH 160 - 189 mg/dl HIGH >190 mg/dl VERY HIGH Performed By: #### B MP, LIPID, ALT #### [facility] [address] [address] [address] Breann Stubbs Triglyceride [Mass/Vol] 74 mg/dL Normal <=150 [facility] Comment on above: Performed By: #### B MP, LIPID, ALT #### [facility] [address] [address] [address] Breann Stubbs VLDL CALC 14.8 mg/dL Normal [facility] Comment on above: Performed By: #### B MP, LIPID, ALT #### [facility] [address] [address] [address] Breann Stubbs MG MAMM SCREEN 3D BUZZ CADon 08-20-2022 MG MAMM SCREEN 3D BUZZ CAD Patient: ANDRZEJ SAAVEDRA Exam Date: 08/20/2022 : 1950 Gender:F Ordering : DR COLLIN SANCHEZ D.O. Admission #: [id number] Family : Order #: [id number] CLICK HERE TO VIEW EXAM RADIOLOGY REPORT [...] colon cancer at age 74. LOCATION: [facility] BREAST COMPOSITION: Heterogeneously dense,which may obscure [...] Marlow MD on 08/20/2022 at 08:55 Normal [facility] PROF CHEM 8 (BAS METB)on Anion gap [Moles/Vol] 9.2 mmol/L Normal [facility] Comment on above: Performed By: #### B MP, LIPID, ALT #### [facility] [address] [place] [address] Dr. Breann Stubbs Calcium [Mass/Vol] 9.9 mg/dL Normal 8.5-10.[address] [facility] Comment on above: Performed By: #### B MP, LIPID, ALT #### [facility] [address] [place] [address] Dr. Breann Stubbs Chloride [Moles/Vol] 101 mmol/L Normal 98-107 [facility] Comment on above: Performed By: #### B MP, LIPID, ALT #### [facility] [address] [address] [address] Breann Stubbs CO2 [Moles/Vol] 33.7 mmol/L Critically high 21.0-32.0 [facility] Comment on above: Performed By: #### B MP, LIPID, ALT #### [facility] [address] [place] [address] Dr. Breann Stubbs Creatinine [Mass/Vol] 0.79 mg/dL Normal 0.55-1.02 [facility] Comment on above: Performed By: #### B MP, LIPID, ALT #### [facility] [address] [address] [address] Breann Stubbs EGFR-AF UKRAINIAN >60 Normal >=[address] [facility] Comment on above: Performed By: #### B MP, LIPID, ALT #### [facility] [address] [address] [address] Breann Stubbs EGFR-NON AF UKRAINIAN >60 Normal >=60 [facility] Comment on above: Performed By: #### B MP, LIPID, ALT #### [facility] [address] [address] [address] Breann Stubbs Glucose [Mass/Vol] 97 mg/dL Normal 74-[address] [facility] Comment on above: Performed By: #### B MP, LIPID, ALT #### [facility] [address] [address] [address] Breann Stubbs Potassium [Moles/Vol] 3.9 mmol/L Normal 3.5-5.1 [facility] Comment on above: Performed By: #### B MP, LIPID, ALT #### [facility] [address] [address] [address] Breann Stubbs Sodium [Moles/Vol] 140 mmol/L Normal 136-145 [facility] Comment on above: Performed By: #### B MP, LIPID, ALT #### [facility] [address] [address] [address] Breann Stubbs Urea nitrogen [Mass/Vol] 25.0 mg/dL Critically high 7.0-18.0 [facility] Comment on above: Performed By: #### B MP, LIPID, ALT #### [facility] [address] [address] [address] Breann Stubbs Urea nitrogen/Creatinin e [Mass ratio] 31.6 mg/mg Normal [facility] Comment on above: Performed By: #### B MP, LIPID, ALT #### [facility] [address] [address] [address] Breann Stubbs SGPTon 08-20-2022 ALT [Catalytic activity/Vol] 29 U/L Normal 14-59 [facility] Comment on above: Performed By: #### B MP, LIPID, ALT #### [facility] [address] [address] [address] Breann Stubbs CREATININEon 11-28-2021 Creatinine [Mass/Vol] 0.73 mg/dL Normal 0.55-1.02 [facility] Comment on above: Performed By: #### C MAYCOL #### [facility] [address] [address] [address] Breann Stubbs EGFR-AF UKRAINIAN >60 Normal >=60 [facility] Comment on above: Performed By: #### C MAYCOL #### [facility] [address] [address] [address] Breann Stubbs EGFR-NON AF UKRAINIAN >60 Normal >=60 [facility] Comment on above: Performed By: #### C MAYCOL #### [facility] [address] [address] [address] Breann Stubbs CTA CHEST WO W [...] by: RUTH LINDSEY Date: 2021-11-28 11:21 Normal [facility] COVID-19 Antigenon 2 COVID-19 Antigen Healthcare [...] developed and its performance characteristic determined by [employer] and validated at [facility]. This test has not been [...] for SARS Antigen by ARMANI PERFORMED BY: [facility] [place] [address] PATHOLOGIST WASH BARREL LEADER AISHA LYONS M.D. Normal [facility] Comment on above: Performed By: #### C OVID-19 JERILYN, SOFIANEG #### [facility] [address] [id number] [facility] Jerilyn Ag Negativeon 10-05-19 22 Jerilyn Ag Negative Negative Normal Negative [facility] Comment on above: Result Comment: This is a duplicate Jerilyn SARS Antigen (ARMANI) result to be used for statistical tracking purpose only. PERFORMED BY: [facility] [address] [place] [address] PATHOLOGIST WASH BARREL LEADER AISHA LYONS M.D. Performed By: #### C OVID-19 JERILYN, SOFIANEG #### [facility] [id number] [facility] CT ABD/PELVIS WO CONon 09-30 CT ABD/PELVIS [...] by: JOAQUIN MARLOW Date: 2021-09-30 21:30 Normal [facility]19 Antigenon 1 COVID-19 Antigen Healthcare Worker?: N Jerilyn Reference Jerilyn Reference Negative SARS-CoV+SARS-CoV-2 (COVID-19) Ag [Presence] in Respiratory specimen by Rapid immunoassay Negative for SARS Antigen by ARMANI COVID19 Blank Space Jerilyn Disclaimer Negative results, from patients with symptom Jerilyn Disclaimer onset beyond five days, should be [...] its performance Jerilyn Disclaimer characteristic determined by [employer] and Jerilyn Disclaimer validated at [facility]. This Jerilyn Disclaimer test has [...] is terminated or revoked sooner. PERFORMED BY: [place] [address] PATHOLOGIST WASH BARREL LEADER AISHA LYONS M.D. Normal [facility] Comment on above: Performed By: #### C OVID-19 JERILYN, SOFIANEG #### [facility] [address] [place] [address] Jerilyn Ag Negativeon 03-27-20 21 Jerilyn Ag Negative Negative Normal Negative [facility] Comment on above: Result Comment: This is a duplicate Jerilyn SARS Antigen (ARMANI) result to be used for statistical tracking purpose only. PERFORMED BY: [place] [address] PATHOLOGIST WASH BARREL LEADER AISHA LYONS M.D. Performed By: #### C OVID-19 JERILYN, SOFIANEG #### [facility] [address] [place] [address] Vital Signs Date Time Vital Sign Value Performing Clinician Facility 08-07-2022 09:30-0400 Body height 172.72 cm Collin Ball Other [employer] Other 08-07-2022 09:30-0400 Body mass index (BMI) [Ratio] 36.88 kg/m2 Collin Ball Other [employer] Other 08-07-2022 09:30-0400 Body weight 110.04 kg Collni Ball Other [employer] Other 08-07-2022 09:30-0400 Diastolic blood pressure 84 mm[Hg] Collin Ball Other [employer] Other 08-07-2022 09:30-0400 Respiratory rate 12 /min Collin Ball Other [employer] Other 08-07-2022 09:30-0400 Systolic blood pressure 121 mm[Hg] Collin Ball Other [employer] Other 05-02-2022 09:30-0500 Body height 172.72 cm Elida Calvey Other [employer] Other 05-02-2022 09:30-0500 Body mass index (BMI) [Ratio] 38.01 kg/m2 Elida Calvey Other [employer] Other 05-02-2022 09:30-0500 Body weight 113.4 kg Elida Calvey Other [employer] Other 04-25-2022 11:45-0500 Body height 172.72 cm Elida Calvey Other [employer] Other 04-25-2022 11:45-0500 Body mass index (BMI) [Ratio] 38.01 kg/m2 Elida Calvey Other [employer] Other 04-25-2022 11:45-0500 Body weight 113.4 kg Elida Calvey Other [employer] Other Encounters Encounter Date Encounter Type Care Provider Facility Start: 12-08-2022 End: 12-08-2022 ambulatory Collin Sanchez Other [employer] Other Start: 12-08-2022 Telephone encounter Collin HERNANDEZ [facility] Start: 08-20-2022 End: 08-21-[address] COLLIN SANCHEZ Facility: Start: 08-07-2022 End: 08-07-2022 ambulatory Collin Sanchez Other [employer] Other Start: 08-07-2022 Patient encounter procedure Collin Sanchez [facility] Start: 06-13-2022 End: 06-13-2022 ambulatory Elida Millermay Other [employer] Other Start: 06-13-2022 Office outpatient vi sit 15 minutes Elida Cuadra [facility] Start: 05-16-2022 End: 05-16-2022 ambulatory Elida Cuadra Other [employer] Other Start: 05-16-2022 Postop follow up vis it related to original px Elida Cuadra [facility] Start: 05-14-2022 End: 05-14-2022 ambulatory Collin Sanchez Other [employer] Other Start: 05-14-2022 Telephone encounter Collin Sanchez [facility] Start: 05-09-2022 End: 05-09-2022 ambulatory Collin Sanchez Other [employer] Other Start: 05-09-2022 Telephone encounter Collin Sanchez [facility] Start: 05-02-2022 (Proc F/U) Procedure F/U Elida Cuadra [facility] Start: 05-02-2022 End: 05-02-2022 ambulatory Elida Cuadra Other [employer] Other Start: 05-02-2022 Telephone encounter Elida Cuadra [facility] Start: 04-30-2022 (Proc F/U) Procedure F/U Elida Cuadra [facility] Start: 04-30-2022 End: 04-30-2022 ambulatory Elida Cuadra Other [employer] Other Start: 04-25-2022 End: 04-25-2022 ambulatory Elida Cuadra Other [employer] Other Start: 04-25-2022 Office outpatient vi sit 15 minutes Elida Calvmay [facility] Start: 11-28-2021 End: 11-29-[address] COLLIN SANCHEZ Facility:[facility] Start: 09-30-2021 End: 10-01-[address] COLLIN SANCHEZ Facility:[facility] Immunizations Immunization Date Immunization Notes Care Provider Fa [facility] 02-05-2022 influenza virus vaccine, split virus (incl. purified surface antigen) Collin Sanchez Other [employer] Other 02-05-2022 influenza, high dose seasonal, preservative-free Collin Sanchez Other [employer] Other 02-06-2021 influenza virus vaccine, split virus (incl. purified surface antigen) Collin Sanchez Other [employer] Other 07-11-2020 COVID-19 Vaccine Pfi zer - Documentation Purposes Only Collin Sanchez Other [employer] Other 06-25-2020 pneumococcal conjuga te vaccine, 13 valent Collin Sanchez Other [employer] Other 06-20-2020 COVID-19 Vaccine Pfi zer - Documentation Purposes Only Collin Sanchez Other [employer] Other 03-12-2020 influenza virus vaccine, split virus (incl. purified surface antigen) Collin Sanchez Other [employer] Other 03-12-2020 pneumococcal polysaccharide vaccine, 23 valent Collin Sanchez Other [employer] Other 01-26-2014 tetanus and diphther ia toxoids, adsorbed, preservative free, for adult use (5 Lf of tetanus toxoid and 2 Lf of diphtheria toxoid) Collin Sanchez Other [employer] Other 09-02-2013 tetanus toxoid, adsorbed Elida Cuadra Other [employer] Other 03-10-2013 tetanus and diphther ia toxoids, adsorbed, preservative free, for adult use (5 Lf of tetanus toxoid and 2 Lf of diphtheria toxoid) Collin Sanchez Other [employer] Other 03-04-2012 tetanus and diphther ia toxoids, adsorbed, preservative free, for adult use (5 Lf of tetanus toxoid and 2 Lf of diphtheria toxoid) Collin Sanchez Other [employer] Other Payers Date Payer Category Payer [facility] [id number] 1957 Medicare [id number] [id number] [id number] 1950 Unknown [id number] 1950 Unknown [id number] 1950 Unknown [id number] Social History Date Type Detail Facility Unknown if ever smoked [employer] Other Sex Assigned At Sex Assigned At Bir th [employer] Other Evaluation note 12-08-2022 Note Date & [...] with esophagitis without hemorrhage (ICD-10 - K21.00) [employer] Other Evaluation note 08-07-2022 Note Date & [...] use, the patient reduces the risk for IL, CVA, HTN, cardiac dysrhythmias and sudden cardiac [...] 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 [employer] Other Evaluation note 05-16-2022 Note Date & Type Note Facility 05-16-2022 Evaluation note Encounter Date Diagnosis Assessment Notes Apr, Dupuytren's contracture of both hands (ICD-10 - M72.0) Patient given new TKO splint for the right hand as the one she has is too big and bulky. She will continue to use at night and work on daily exercises [employer] Other Evaluation note 05-02-2022 Note Date & [...] activities. Rx Doxycycline. Patient given TKO splint [employer] Other Evaluation note 04-30-2022 Note Date & [...] well. Will return on 05/02/22 for manipulation. [employer] Other Evaluation note 04-25-2022 Note Date & Type Note Facility 04-25-2022 Evaluation note Encounter Date Diagnosis Assessment Notes Mar, Dupuytren's contracture of both hands (ICD-10 - M72.0) Extensive discussion about current condition and treatment options available. We will plan to proceed with Xiaflex and manipulation. With the weekend following today, we will schedule this for sometime next week. [employer] Other Evaluation note Note Date & Type Note Facility Evaluation note No Information [employer] Other History general Narrative - Reported Note [...] See past surgical Hospitalization History Chest pain [facility] Other History general Narrative - Reported Note [...] See past surgical Hospitalization History Chest pain [facility] Other Summary Purpose Family History No Family History Records FoundNo Family History Records Found Advance Directives No Advanced Directives Records FoundNo Advanced Directives Records Found Additional Source Comments INFORMATION SOURCE (unrecogn ized section and content) DATE CREATED AUTHOR 10/12/2021 [facility] DATE CREATED AUTHOR AUTHOR'S ORGANIZ ATION 08/23/2022 [...] BE BASED ON THE PRIMARY CLINICAL RECORDS. [employer] provides no warranty or guarantee of the accuracy or completeness of information in this document.
== END 2024-01-12 09:23 | disposition home or self-care (01) ==
LOC: RAD 09:25
PROVIDERS: PCP Internal Medicine; Visit Provider Internal Medicine
DX: R05.9 Cough, unspecified (principal)
CPT/HCPCS: 71046

== ENCOUNTER 2024-06-29 08:15 | Outpatient (OUT) | payer MEDICARE, BC, SELFPAY ==
--- NOTE | 2024-06-29 08:32 | CT_ITS ---
The [address] [address] Patient Name: ANDRZEJ SAAVEDRA MRN: [id number] date: 1950 Sex: F Assigned Patient Location: LAB Current Patient Location: LAB Accession/Order Number: [id number] Exam Date: 06/29/2024 15:53 Report Date: 06/29/2024 15:56 At the request of: RENE SANCHEZ DO Procedure: CT angio chest CTA chest CLINICAL DATA: Aortic aneurysm.. TECHNIQUE: Intravenous contrast-enhanced CT angiography of the chest was performed. Axial, sagittal, coronal, and 3D-dimensional reconstructions were created and reviewed. These CT exams were performed using one or more of the following dose reduction techniques: Automated exposure control, adjustment of the mA and/or kV according to patient size, or use of iterative reconstruction technique. COMPARISON: CT chest 11/28/2021. FINDINGS: Chest: Mediastinum:Ascending thoracic aorta measures 4.2 cm on today's study. Mild constipation the thoracic aorta without dissection or rupture. Pulmonary trunk appears nondilated. No pleural effusion. No lymphadenopathy. The esophagus is grossly unremarkable. Lungs:No consolidation pneumothorax or pleural effusion. Bibasilar atelectasis. Abd: No acute findings.[ Soft tissues/Bones: No acute findings. Osseous structures demonstrate degenerative change. CT/CT angio chest IMPRESSION: No evidence of thoracic aortic aneurysm by ACR criteria. Impression dictated by: Radu Horowitz Jr., D.O.06/29/2024 3:56 PM Dictation Location: [facility] Electronically authenticated by: [id number] Y Date: 06/29/2024 15:56
[2024-06-29 08:40] LABS: Estimated GFR (African America >60 (>=60 mL/min/1.73m^2); Estimated GFR (Non-African Ame >60 (>=60 mL/min/1.73m^2)
== END 2024-06-29 08:16 | disposition home or self-care (01) ==
LOC: LAB 08:16
PROVIDERS: PCP Internal Medicine; Visit Provider Internal Medicine
DX: I71.21 Aneurysm of the ascending aorta, without rupture (principal)
CPT/HCPCS: 36415; 71275; 82565; Q9967

== ENCOUNTER 2024-09-12 07:36 | Outpatient (OUT) | payer MEDICARE, BC, SELFPAY ==
--- OUTSIDE RECORDS SUMMARY | 2024-09-12 07:43 | XMS_ITS | CCD ---
Author Organization [facility] Care Team Providers Care Applied Behavior Science Specialist Name Role Phone Elida Cuadra Unavailable Collin Sanchez Unavailable FREDY, DR LÓPEZ Consulting Unavailable BALL, DR LÓPEZ Primary Care Unavailable BALL, DR LÓPEZ Admitting Unavailable BALL, DR LÓPEZ Attending Unavailable WEST, DR JOAQUIN Crabtree Consulting Unavailable BALL, DR LÓPEZ Primary Care Unavailable BALL, DR LÓPEZ Admitting Unavailable BALL, DR LÓPEZ Attending Unavailable BALL, DR LÓPEZ Consulting Unavailable WEST, DR JOAQUIN Crabtree Consulting Unavailable FREDY, DR LÓPEZ Consulting Unavailable BALL, DR LÓPEZ Primary Care Unavailable BALL, DR LÓPEZ Admitting Unavailable BALL, DR LÓPEZ Attending Unavailable ROSALIA, DR RUTH Bethea Consulting Unavailable MARTINA BUI Attending Unavailable Unavailable Primary Care Provider Unavailabl e Allergies Allergy Classification Reported Allergen(s) Allergy Type Date of Onset Reaction(s) Facility (2 sources) Contrast media Propensity to adverse reactions Unknown [facility] Other (2 sources) Iodine Drug Allergy Unknown [facility] Other (1 source) Iodine (And Iodine Containting Drugs) Drug allergy (disorder) [facility] Repository (1 source) Allergies Reconciled Propensity to adverse reactions Unknown [facility] Other (1 source) patient allergy list reviewed by nurse or physicia Propensity to adverse reactions 3 Comment:Done [facility] Other (2 sources) Iodinated Contrast Media Drug Allergy 4 [facility] Medications Current Medications Medication Drug Class(es) Dates Sig (Normalized) Sig (Original) ascorbic acid 1000 mg oral tablet (11 sources) Vitamin C take 1 tablet by mouth once daily Ascorbic Acid (vitamin C) 1000 MG tablet Take 1,000 mg by mouth Daily Active aspirin 81 mg delayed release oral tablet (13 sources) Platelet Aggregation Inhibitor, Nonsteroidal Anti-inflammatory Drug take 1 tablet by mouth once daily aspirin (Aspirin Adult Low Dose) 81 MG EC tablet Take 81 mg by mouth Daily Active aspirin 81MG 1 d aily Active atenolol 25 mg oral tablet (13 sources) beta-Adrenergic Tayler take 1 tablet by mouth once daily atenolol (Tenormin) 25 MG tablet Take 25 mg by mouth Daily Active colestipol hydrochloride 1000 mg oral tablet (13 sources) Bile Acid Sequestrant take 2 tablets by mouth once daily colestipol (Colestid) 1 g tablet Take 2 tablets by mouth Daily Take at least 1 hour after or 4 hours before other medications. Active Colestipol HCl 1 GM TAKE 1 TABLET AT BREAKFAST AND EVENING MEAL for 90 Active CoQ-10 (10 sources) CoQ-10 Not-Takin g fenofibrate 160 mg oral tablet (20 sources) Peroxisome Proliferator Receptor alpha Agonist Start: 05-09-2022 take 1 tablet by mouth every twenty-four hours Fenofibrate 160 MG 1 tablet Orally Once a day for 90 days Apr, Active Fish Oils (13 sources) take 1 capsule by mouth once daily omega-3 (fish oil) 1200 MG capsule Take 1 capsule by mouth Daily Active Fish Oil 1000MG 1 daily Not-Taking Fish Oil 1000MG 1 daily Active hydroCHLOROthiazide 25 mg / lisinopril 20 mg oral tablet (13 sources) Thiazide Diuretic, Angiotensin Converting Enzyme Inhibitor take 1 tablet by mouth once daily lisinopril-hydroCHLOROthiazide 20-25 MG tablet Take 1 tablet by mouth Daily Active Lisinopril-hydro CHLOROthiazide 20-25 MG 1 daily Active loratadine 10 mg oral tablet (13 sources) take 1 tablet by once daily loratadine (Claritin) 10 MG tablet Take 10 mg by mouth Daily Active Loratadine 10MG 1 daily Active Multivitamins (10 sources) Multivitamins 1 daily Active pantoprazole 40 mg delayed release oral tablet (13 sources) Proton Pump Inhibitor take 1 tablet by mouth before mealtime pantoprazole (ProtoNix) 40 MG EC tablet Take 40 mg by mouth in the morning. Take before meals. Do not crush, chew, or split.. Active Vitamin C 1000 MG (2 sources) take 1 tablet by mouth once daily Completed/Discontinued Medications Medication Drug Class(es) Dates Sig (Normalized) Sig (Original) Calcium (10 sources) Phosphate Binder, Calcium Calcium + D3 500 600 1 daily Not-Taking Calcium + D3 500 600 1 daily Active collagenase Clostridium histolyticum (10 sources) Start: 04-30-2022 Xiaflex Apr, 0.58 mg doxycycline hyclate 100 mg oral capsule (10 sources) Tetracycline-class Drug Start: 05-02-2022 take 1 capsule by mouth every twelve hours Doxycycline Hyclate 100 MG 1 capsule Orally Twice a day for 5 day(s) Apr, Not-Taking triamcinolone acetonide 40 mg/ml injectable suspension (2 [...] 3 Chronic Other aftercare (5 sources) Other ad terminal 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 operator (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) drug therapy; Translations: [OTH CEMENTER HAND CURRENT DRUG THERAPY] Onset: 3 Episodic Other [...] (2 sources) Solitary pulmonary nodule Episodic Other lower respiratory disease (2 sources) Snoring; Translations: [Snoring] 01-28-2024 Episodic Other nutritional; endocrine; and metabolic disorders (1 source) Body mass index 30+ - obesity; Translations: [Obesity, unspecified] Chronic Other nutritional; endocrine; and metabolic disorders (1 source) Obesity, unspecified Chronic Other nutritional; endocrine; and metabolic disorders (1 source) Hypercalcemia; Translations: [Hypercalcemia] Onset: 2 Chronic Other nutritional; endocrine; and metabolic disorders (3 sources) Obesity caused by energy imbalance; Translations: [Other obesity due to excess calories] Onset: 4 01-24-2024 Chronic Other nutritional; endocrine; and metabolic disorders (2 sources) Obesity; Translations: [Obesity, unspecified] 01-28-2024 Chronic Other screening for suspected conditions (not [...] due to pollen Chronic Residual codes; unclassified (8 sources) Obstructive sleep apnea syndrome; Translations: [Obstructive sleep apnea (adult) (pediatric)] Onset: 4 01-24-2024 Chronic Residual codes; unclassified (1 source) Obstructive sleep apnea (adult) (pediatric) Chronic Residual codes; unclassified (5 sources) Hypersomnia; Translations: [Hypersomnia, unspecified] Onset: 4 01-24-2024 Chronic Residual codes; unclassified (1 source) Family history of malignant neoplasm of digestive organs; Translations: [FAM HX MALIG NEOPLASM DIGESTIV ORGN] Onset: Episodic Substance-related disorders (5 sources) Tobacco dependence [...] 08-20-2022 BASO # 0.0 103/ul Normal 0.0-0.1 [facility] [place] [facility] Comment on above: Performed By: #### C BC #### [facility] [address] [address] [address] Breann Stubbs Basophils/100 WBC (Bld) 0.3 % Normal 0.2-2.0 [facility] [place] [facility] Comment on above: Performed By: #### C BC #### [facility] [address] [address] [address] Breann Stubbs EO # 0.1 103/ul Normal 0.0-0.7 [facility] [place] [facility] Comment on above: Performed By: #### C BC #### [facility] [address] [address] [address] Breann Stubbs Eosinophils/100 WBC (Bld) 1.6 % Normal 0.9-7.0 [facility] [place] [facility] Comment on above: Performed By: #### C BC #### [facility] [address] [address] [address] Breann Stubbs Erythrocyte distribution width (RBC) [Ratio] 13.0 % Normal 11.0-15.0 [facility] [place] [facility] Comment on above: Performed By: #### C BC #### [facility] [address] [address] [address] Breann Stubbs Hematocrit (Bld) [Volume fraction] 47.3 % Normal 36.0-48.0 [facility] [place] [facility] Comment on above: Performed By: #### C BC #### [facility] [address] [address] [address] Breann Stubbs Hemoglobin (Bld) [Mass/Vol] 15.3 g/dL Normal 12.0-16.0 [facility] [place] [facility] Comment on above: Performed By: #### C BC #### [facility] [address] [address] [address] Breann Stubbs IG # 0.03 10e3/ul Normal 0.00-0.03 [facility] [place] [facility] Comment on above: Performed By: #### C BC #### [facility] [address] [place] [address] Dr. Breann Stubbs IG % 0.3 % Normal 0.0-0.5 [facility] [place] [facility] Comment on above: Performed By: #### C BC #### [facility] [address] [place] [address] Dr. Breann Stubbs LYMPH # 2.8 103/ul Normal 1.2-3.8 [facility] [place] [facility] Comment on above: Performed By: #### C BC #### [facility] [address] [place] [address] Dr. Breann Stubbs Lymphocytes/100 WBC (Bld) 32.8 % Normal 20.5-60.0 [facility] [place] [facility] Comment on above: Performed By: #### C BC #### [facility] [address] [place] [address] Dr. Breann Stubbs MANUAL DIFF REQ NO Normal [facility] Comment on above: Performed By: #### C BC #### [facility] [address] [place] [address] Dr. Breann Stubbs MCH (RBC) [Entitic mass] 29.5 pg Normal 26.7-34.0 [facility] Comment on above: Performed By: #### C BC #### [facility] [address] [place] [address] Dr. Breann Stubbs MCHC (RBC) [Mass/Vol] 32.3 g/dL Normal 29.9-35.2 [facility] Comment on above: Performed By: #### C BC #### [facility] [address] [address] [address] Breann Stubbs MCV (RBC) [Entitic vol] 91.3 fL Normal 81.0-99.0 [facility] [place] [facility] Comment on above: Performed By: #### C BC #### [facility] [address] [address] [address] Breann Stubbs MONO # 0.6 103/ul Normal 0.3-0.8 [facility] [place] [facility] Comment on above: Performed By: #### C BC #### [facility] [address] [place] [address] Dr. Breann Stubbs Monocytes/100 WBC (Bld) 7.1 % Normal 1.7-12.0 [facility] [place] [facility] Comment on above: Performed By: #### C BC #### [facility] [address] [place] [address] Dr. Breann Stubbs NEUT # 5.0 103/ul Normal 1.4-6.5 [facility] [place] [facility] Comment on above: Performed By: #### C BC #### [facility] [address] [place] [address] Dr. Breann Stubbs Neutrophils/100 WBC (Bld) 57.9 % Normal 43.0-75.0 [facility] [place] [facility] Comment on above: Performed By: #### C BC #### [facility] [address] [place] [address] Dr. Breann Stubbs Platelet mean volume (Bld) [Entitic vol] 9.1 fL Critically low 9.5-13.5 [facility] Comment on above: Performed By: #### C BC #### [facility] [address] [place] [address] Dr. Breann Stubbs PLT 354 103/ul Normal 150-450 [facility] Comment on above: Performed By: #### C BC #### [facility] [address] [place] [address] Dr. Breann Stubbs RBC 5.18 106/ul Normal 4.20-5.40 [facility] Comment on above: Performed By: #### C BC #### [facility] [address] [address] [address] Breann Stubbs WBC 8.6 103/ul Normal 4.0-11.0 [facility] [place] [facility] Comment on above: Performed By: #### C BC #### [facility] [address] [address] [address] Breann Stubbs LIPID PROFILEon 08-20-2022 CHOL-HDL RATIO NORM SEE BELOW Normal [facility] [place] [facility] Comment on above: Result Comment: 3.3 - 4.4 LOW RISK 4.4 - 7.1 AVERAGE RISK 7.1 - 11.0 MODERATE RISK >11.0 HIGH RISK Performed By: #### B MP, LIPID, ALT #### [facility] [address] [address] [address] Breann Stubbs Cholesterol [Mass/Vol] 152 mg/dL Normal <=200 [facility] [place] [facility] Comment on above: Performed By: #### B MP, LIPID, ALT #### [facility] [address] [address] [address] Breann Stubbs Cholesterol in HDL [Mass/Vol] 61 mg/dL Critically high 40-60 [facility] [place] [facility] Comment on above: Performed By: #### B MP, LIPID, ALT #### [facility] [address] [address] [address] Breann Stubbs Cholesterol in LDL [Mass/Vol] 76.2 mg/dL Normal [facility] [place] [facility] Comment on above: Performed By: #### B MP, LIPID, ALT #### [facility] [address] [address] [address] Breann Stubbs Cholesterol.total/ Cholesterol in HDL [Mass ratio] 2.5 {ratio} Normal [facility] [place] [facility] Comment on above: Performed By: #### B MP, LIPID, ALT #### [facility] [address] [address] [address] Breann Stubbs HDL NORMAL > or = 60 mg/dl - LO W CARDIOVASCULAR RISK <40 mg/dl - HIGH CARDIOVASCULAR RISK Normal [facility] Comment on above: Performed By: #### B MP, LIPID, ALT #### [facility] [address] [address] [address] Breann Stubbs LDL CALC NORMAL SEE BELOW Normal [facility] Comment on above: Result Comment: <100 mg/dl OPTIMAL 100 - 129 mg/dl NEAR OR ABOVE OPTIMAL 130 - 159 mg/dl BORDERLINE HIGH 160 - 189 mg/dl HIGH >190 mg/dl VERY HIGH Performed By: #### B MP, LIPID, ALT #### [facility] [address] [place], [place] [address] Dr. Breann Stubbs Triglyceride [Mass/Vol] 74 mg/dL Normal <=150 [facility] Comment on above: Performed By: #### B MP, LIPID, ALT #### [facility] [address] [place], [place] [address] Dr. Breann Stubbs VLDL CALC 14.8 mg/dL Normal [facility] [place] [facility] Comment on above: Performed By: #### B MP, LIPID, ALT #### [facility] [address] [place], [place] [address] Dr. Breann Stubbs MG MAMM SCREEN 3D BUZZ CADon 08-20-2022 MG MAMM SCREEN 3D BUZZ CAD Patient: KELLY CHOUAntonia Exam Date: 08/20/2022 : 1950 Gender:F Ordering : DR COLLIN SANCHEZ D.O. Admission #: [id number] Family : Order #: [id number] CLICK HERE TO VIEW EXAM RADIOLOGY REPORT [...] colon cancer at age 74. LOCATION: [facility] BREAST COMPOSITION: Heterogeneously dense,which may obscure [...] Marlow MD on 08/20/2022 at 08:55 Normal [facility] PROF CHEM 8 (BAS METB)on Anion gap [Moles/Vol] 9.2 mmol/L Normal [facility] [place] [facility] Comment on above: Performed By: #### B MP, LIPID, ALT #### [facility] [address] [place] [address] Dr. Breann Stubbs Calcium [Mass/Vol] 9.9 mg/dL Normal 8.5-10.1 [facility] Comment on above: Performed By: #### B MP, LIPID, ALT #### [facility] [address] [place] [address] Dr. Breann Stubbs Chloride [Moles/Vol] 101 mmol/L Normal 98-107 [facility] [place] [facility] Comment on above: Performed By: #### B MP, LIPID, ALT #### [facility] [address] [place] [address] Dr. Breann Stubbs CO2 [Moles/Vol] 33.7 mmol/L Critically high 21.0-32.0 [facility] [place] [facility] Comment on above: Performed By: #### B MP, LIPID, ALT #### [facility] [address] [place] [address] Dr. Breann Stubbs Creatinine [Mass/Vol] 0.79 mg/dL Normal 0.55-1.02 [facility] [place] [facility] Comment on above: Performed By: #### B MP, LIPID, ALT #### [facility] [address] [place] [address] Dr. Breann Stubbs EGFR-AF SERBIAN >60 Normal >=60 [facility] Comment on above: Performed By: #### B MP, LIPID, ALT #### [facility] [address] [place] [address] Dr. Breann Stubbs EGFR-NON AF SERBIAN >60 Normal >=60 [facility] [place] [facility] Comment on above: Performed By: #### B MP, LIPID, ALT #### [facility] [address] [place] [address] Dr. Breann Stubbs Glucose [Mass/Vol] 97 mg/dL Normal 74-106 [facility] Comment on above: Performed By: #### B MP, LIPID, ALT #### [facility] [address] [address] [address] Breann Stubbs Potassium [Moles/Vol] 3.9 mmol/L Normal 3.5-5.1 [facility] Comment on above: Performed By: #### B MP, LIPID, ALT #### [facility] [address] [address] [address] Breann Stubbs Sodium [Moles/Vol] 140 mmol/L Normal 136-145 [facility] Comment on above: Performed By: #### B MP, LIPID, ALT #### [facility] [address] [address] [address] Breann Stubbs Urea nitrogen [Mass/Vol] 25.0 mg/dL Critically high 7.0-18.0 [facility] [place] [facility] Comment on above: Performed By: #### B MP, LIPID, ALT #### [facility] [address] [place] [address] Dr. Breann Stubbs Urea nitrogen/Creatinin e [Mass ratio] 31.6 mg/mg Normal [facility] Comment on above: Performed By: #### B MP, LIPID, ALT #### [facility] [address] [place] [address] Dr. Breann Stubbs SGPTon 08-20-2022 ALT [Catalytic activity/Vol] 29 U/L Normal 14-59 [facility] Comment on above: Performed By: #### B MP, LIPID, ALT #### [facility] [address] [place] [address] Dr. Breann Stubbs CREATININEon 11-28-2021 Creatinine [Mass/Vol] 0.73 mg/dL Normal 0.55-1.02 [facility] Comment on above: Performed By: #### C MAYCOL #### [facility] [address] [place] [address] Dr. Brenan Stubbs EGFR-AF SERBIAN >60 Normal >=60 [facility] Comment on above: Performed By: #### C MAYCOL #### [facility] [address] [place], [place] [address] Dr. Breann Stubbs EGFR-NON AF SERBIAN >60 Normal >=60 [facility] [place] [facility] Comment on above: Performed By: #### C MAYCOL #### [facility] [address] [place], [place] [address] Dr. Breann Stubbs CTA CHEST WO W [...] by: RUTH LINDSEY Date: 2021-11-28 11:21 Normal [facility] COVID-19 Antigenon 2 COVID-19 Antigen Healthcare [...] developed and its performance characteristic determined by [employer] and validated at [facility]. This test has not been FDA cleared [...] for SARS Antigen by ARMANI PERFORMED BY: [place] [address] PATHOLOGIST FOOD HANDLER AISHA LYONS M.D. Normal [facility] Comment on above: Performed By: #### C OVID-19 JERILYN, SOFIANEG #### [address] Jerilyn Ag Negativeon 10-05-19 22 Jerilyn Ag Negative Negative Normal Negative [facility] Comment on above: Result Comment: This is a duplicate Jerilyn SARS Antigen ([employer]MAN[employer]) result to be used for statistical tracking purpose only. PERFORMED BY: [place] [address] PATHOLOGIST FOOD HANDLER AISHA LYONS M.D. Performed By: #### C OVID-19 JERILYN, SOFIANEG #### [address] [place] [address] [facility] CT ABD/PELVIS WO CONon 09-30 CT ABD/PELVIS [...] by: JOAQUIN MARLOW Date: 2021-09-30 21:30 Normal [facility] COVID-19 Antigenon 1 COVID-19 Antigen Healthcare Worker?: N [...] its performance Jerilyn Disclaimer characteristic determined by [employer] and Jerilyn Disclaimer validated at [facility]. This Jerilyn Disclaimer test has not been [...] Emergency Use Authorization for Coronavirus Jerilyn Disclaimer iseas2019 during the Public Health Emergency) Jerilyn Disclaimer [...] is terminated or revoked sooner. PERFORMED BY: [place] [address] PATHOLOGIST FOOD HANDLER AISHA LYONS M.D. Normal [facility] Comment on above: Performed By: #### C OVID-19 JERILYN, SOFIANEG #### [address] Jerilyn Ag Negativeon 03-27-20 21 Jerilyn Ag Negative Negative Normal Negative [facility] Comment on above: Result Comment: This is a duplicate Jerilyn SARS Antigen ([employer]MANI) result to be used for statistical tracking purpose only. PERFORMED BY: [place] [address] PATHOLOGIST FOOD HANDLER AISHA LYONS M.D. Performed By: #### C OVID-19 JERILYN, SOFIANEG #### [place] [id number] [facility] Vital Signs Date Time Vital Sign Value Performing Clinician Facility 01-28-2024 08:220400 Body height 172.7 cm Martina Bui [employer] Work Phone: [facility] 01-28-2024 08:22-0400 Body mass index (BMI) [Ratio] 36.04 kg/m2 Martina Bui [employer] Work Phone: [facility] 01-28-2024 [id number] Body weight 107.5 kg Martina Bui [employer] Work Phone: [facility] 01-28-2024 08:22-0400 Diastolic blood pressure 78 mm[Hg] Martina Bui [employer] Work Phone: [facility] 01-28-2024 08:22-0400 Systolic blood pressure 122 mm[Hg] Martina Bui [employer] Work Phone: [facility] 08-07-2022 09:30-0400 Body height 172.72 cm Collin Ball Other [facility] Other 08-07-2022 09:30-0400 Body mass index (BMI) [Ratio] 36.88 kg/m2 Collin Ball Other [facility] Other 08-07-2022 09:30-0400 Body weight 110.04 kg Collin Ball Other [facility] Other 08-07-2022 09:30-0400 Diastolic blood pressure 84 mm[Hg] Collin Ball Other [facility] Other 08-07-2022 09:30-0400 Respiratory rate 12 /min Collin Ball Other [facility] Other 08-07-2022 09:30-0400 Systolic blood pressure 121 mm[Hg] Collin Ball Other [facility] Other 05-02-2022 09:30-0500 Body height 172.72 cm Elidacallum Cuadra Other [facility] Other 05-02-2022 09:30-0500 Body mass index (BMI) [Ratio] 38.01 kg/m2 Elida Calvey Other [facility] Other 05-02-2022 09:30-0500 Body weight 113.4 kg Elida Calvmay Other [facility] Other 04-25-2022 11:45-0500 Body height 172.72 cm Elida Calvmay Other [facility] Other 04-25-2022 11:45-0500 Body mass index (BMI) [Ratio] 38.01 kg/m2 Elida Cuadra Other [facility] Other 04-25-2022 11:45-0500 Body weight 113.4 kg Elida Cuadra Other [facility] Other Encounters Encounter Date Encounter Type Care Provider Facility Start: 01-28-2024 End: 01-28-2024 Bamboo flowsheet Martina Bui [employer] Work Phone: [facility] Start: 01-28-2024 End: 01-28-2024 Bamboo flowsheet Martina Bui [employer] Work Phone: [facility] Start: 01-28-2024 End: 01-28-2024 Office outpatient visit 25 minutes Martina Bui [employer] Work Phone: [facility] Comment on above: LAMAR (obstructive sle ep apnea) (Primary Dx); Hypersomnia; Snoring; Obesity, unspecified class, unspecified obesity type, unspecified whether serious comorbidity present Start: 01-28-2024 End: 01-28-2024 ambulatory MARTINA BUI Not Available Start: 12-08-2022 End: 12-08-2022 ambulatory Collin Sanchez Other [facility] Other Start: 12-08-2022 Telephone encounter [facility] Start: 08-20-2022 End: 08-21-[address] COLLIN SANCHEZ Facility: Start: 08-07-2022 End: 08-07-2022 ambulatory Collin Sanchez Other [facility] Other Start: 08-07-2022 Patient encounter procedure [facility] Start: 06-13-2022 End: 06-13-2022 ambulatory Elida Cuadra Other [facility] Other Start: 06-13-2022 Office outpatient vi sit 15 minutes Elida Calvey [facility] [place] [facility] Start: 05-16-2022 End: 05-16-2022 ambulatory Elida Calvey Other [facility] Other Start: 05-16-2022 Postop follow up vis it related to original px Elidacallum Cuadra [facility] [place] [facility] Start: 05-14-2022 End: 05-14-2022 ambulatory Collin Sanchez Other [facility] Other Start: 05-14-2022 Telephone encounter Collin Sanchez [facility] Start: 05-09-2022 End: 05-09-2022 ambulatory Collin Sanchez Other [facility] Other Start: 05-09-2022 Telephone encounter Collin Sanchez FP [facility] Start: 05-02-2022 (Proc F/U) Procedure F/U Elida Angelaey [facility] Start: 05-02-2022 End: 05-02-2022 ambulatory Elida Calvey Other [facility] Other Start: 05-02-2022 Telephone encounter Elida Cuadra [facility] Start: 04-30-2022 (Proc F/U) Procedure F/U Elida Calvey [facility] Start: 04-30-2022 End: 04-30-2022 ambulatory Elida Calvey Other [facility] Other Start: 04-25-2022 End: 04-25-2022 ambulatory Elida Calvmay Other [facility] Other Start: 04-25-2022 Office outpatient vi sit 15 minutes Elida Angelaey [facility] Start: 11-28-2021 End: 11-29-[address] COLLIN SANCHEZ Facility:[facility] Start: 09-30-2021 End: 10-01-[address] COLLIN SANCHEZ Facility:[facility] Plan of Treatment Date Care Activity Detail Author Start: 03-14-2025 End: 03-14-2025 Patient encounter procedure 03/14/2025 8:15 AM EST [facility] [address] [place] [address] Breana Mullins [address] [place] [address] [facility] [address] Start: 01-28-2024 End: 01-28-2024 Patient encounter procedure 01/28/2024 8:20 AM EDT [facility] [address] [place] [address] Martina Bui NP [address] [place] Arrived [facility] [address] Comment on above: Arrived Start: 12-27-2023 Influenza vaccination Influenz a Vaccine (#1) [facility] Start: 1992 Screening for malign ant neoplasm of breast Mammogram [facility] Start: 1950 Screening for malign ant neoplasm of colon [facility] Immunizations Immunization Date Immunization Notes Care Provider Fa cili 02-06-2023 influenza virus vaccine, unspecified formulation Martina Bui NP Work Phone: [facility] 02-05-2022 influenza virus vaccine, split virus (incl. purified surface antigen) Collin Sanchez Other [facility] Other 02-05-2022 influenza, high dose seasonal, preservative-free Collin Sanchez Other [facility] Other 02-06-2021 influenza virus vaccine, split virus (incl. purified surface antigen) oCllin Sanchez Other [facility] Other 07-11-2020 COVID-19 Vaccine Pfi zer - Documentation Purposes Only Collin Sanchez Other [facility] Other 06-25-2020 pneumococcal conjuga te vaccine, 13 valent Collin Sanchez Other [facility] Other 06-20-2020 COVID-19 Vaccine Pfi zer - Documentation Purposes Only Collin Sanchez Other [facility] Other 03-12-2020 influenza virus vaccine, split virus (incl. purified surface antigen) Collin Sanchez Other [facility] Other 03-12-2020 pneumococcal polysaccharide vaccine, 23 valent Collin Sanchez Other [facility] Other 01-26-2014 tetanus and diphther ia toxoids, adsorbed, preservative free, for adult use (5 Lf of tetanus toxoid and 2 Lf of diphtheria toxoid) Collin Fredy Other [facility] Other 09-02-2013 tetanus toxoid, adsorbed Elidacallum Cuadra Other [facility] Other 03-10-2013 tetanus and diphther ia toxoids, adsorbed, preservative free, for adult use (5 Lf of tetanus toxoid and 2 Lf of diphtheria toxoid) Collin Fredy Other [facility] Other 03-04-2012 tetanus and diphther ia toxoids, adsorbed, preservative free, for adult use (5 Lf of tetanus toxoid and 2 Lf of diphtheria toxoid) Collin Sanchez Other [facility] Other Payers Date Payer Category Payer Medicare MEDICARE MEDICAR E PART B [id number] 2016-Present [address] [address] [place] [address] Medicare [id number] 2016 Unknown BCBS BCBS [id number] 2016-Present [phone] [address] [place] [address] [id number] [facility]92 [id number] 1957 Medicare [id number] 1952 Unknown [id number] 1952 Unknown [id number] 1952 Unknown [id number] 1950 Unknown [id number] Social History Date Type Detail Facility Unknown if ever smoked [facility] Other Start: 01-24-2024 End: 01-28-2024 Sex Assigned At [facility] Other Start: 01-24-2024 End: 01-28-2024 Tobacco smoking status [facility] Ex-smoker [facility] History of tobacco use Current smoker [facility] History of tobacco use Cigarette Smoker [facility] Start: 01-24-2024 End: 01-28-2024 Alcoholic beverage intake Current drinker of alcohol (finding) [facility] Start: 01-24-2024 End: 01-28-2024 History of Social function [facility] How often to you hav e a drink containing alcohol? Monthly or less [facility] How many standard drinks containing alcohol do you have on a typical day? 1 or 2 [facility] How often do you hav e 6 or more drinks on 1 occasion? Never [facility] Start: 01-24-2024 Alcohol Comment caffeine: 1-2 cups per day [facility] Start: 1950 Sex assigned at Not on file [facility] Start: 01-28-2024 Tobacco use and exposure Smokeless tobacco non-user [facility] Clinical Notes 04-25-2022 to 12-08-2022 Note Date & Type Note Facility [...] with esophagitis without hemorrhage (ICD-10 - K21.00) [facility] Other 04-13-2023 Evaluation note* Encounter Date Diagnosis Assessment Notes Treatment Notes Treatment Clinical Notes Jul, Primary hypertension (ICD-10 - I10) This patient is instructed to consume a healthy, low-fat, low-salt diet. They are also encouraged to continue exercise to achieve/maintain a normal BMI. Jul, Medicare annual wellness [...] signed below. Healthy diet and exercise. Reviewed age-appropriate preventive testing recommended. Jul, Mixed hyperlipidemia (ICD-10 [...] visits for acute exacerbation Jul, Aneurysm of ascendin g aorta without rupture (ICD-10 - I71.21) Echo: 4.2cm - 03/2021, CT: 4.5cm - 11/2021 Control BP Continue treatment and yearly surveillance CTA Jul, Pulmonary nodule (ICD-10 - R91.1) LDCT: 2020, 11/2021 Yearly LDCT Jul, LAMAR (obstructive sle ep apnea) (ICD-10 - G47.33) This patient is aware of the benefits associated with LAMAR: With continued use, the patient reduces the risk for DE, CVA, HTN, cardiac dysrhythmias and sudden cardiac [...] remission (ICD-10 - F17.211) Jul, Obesity (BMI 30-39.9 ) (ICD-10 - E66.9) Jul, Screening mammogram for breast cancer (ICD-10 - Z12.31) Jul, High risk medication use (ICD-10 - Z79.899) Jul, Seasonal allergic rhinitis due to pollen (ICD-10 - J30.1) [facility] Other 02-17-2023 Evaluation note* Encounter Date Diagnosis Assessment Notes Treatment Notes Treatment Clinical Notes May, Dupuytren's contracture of both hands (ICD-10 - M72.0) Continue use of splint x 2 more months. [facility] Other 01-20-2023 Evaluation note* Encounter Date Diagnosis Assessment Notes Treatment Notes Treatment Clinical Notes Apr, Dupuytren's contracture of both hands (ICD-10 - M72.0) Patient given new TKO splint for the right hand as the one she has is too big and bulky. She will continue to use at night and work on daily exercises [facility] Other 01-06-2023 Evaluation note* Encounter Date Diagnosis Assessment Notes Treatment Notes Treatment Clinical Notes 06 Leon, 2023 Dupuytren's contracture of both hands (ICD-10 - [...] activities. Rx Doxycycline. Patient given TKO splint [facility] Other 01-04-2023 Evaluation note* Encounter Date Diagnosis Assessment Notes Treatment Notes Treatment Clinical Notes Apr, Dupuytren's contracture of both hands (ICD-10 - M72.0) Patient was prepped and lidocaine was injected into the palmar aspect of the hand associated with bilateral small fingers under sterile conditions. Once sufficently numb, xiaflex was injected to the area of the bilateral dupuytrens cords under sterile conditions. Patient tolerated well. Will return on 05/02/22 for manipulation. [facility] Other 12-30-2022 Evaluation note* Encounter Date Diagnosis Assessment Notes Treatment Notes Treatment Clinical Notes Mar, Dupuytren's contracture of both hands (ICD-10 - M72.0) Extensive discussion about current condition and treatment options available. We will plan to proceed with Xiaflex and manipulation. With the iday weekend following today, we will schedule this for sometime next week. [facility] Other Evaluation noteNo InformationNort Outline Other Evaluation note* Diagnosis LAMAR (obstructive sleep apnea)- Primary Obstructive sleep apnea (adult) (pediatric) Hypersomnia Hypersomnia, unspecified Snoring Other dyspnea and respiratory abnormality Obesity, unspecified class, unspecified obesity type, unspecified whether serious comorbidity present documented in this encounter [facility] - Reported* Type Description Date Medical History HTN Medical History GERD Medical History Allergies Medical History hypertriglyceridemia Medical History aneurysm Surgical History Elbow, left Surgical History Foot x3-benign tumor Surgical History cataract removal Surgical History cholecystectomy Surgical History knee arthroscopy Surgical History oophorectomy Surgical History left foot soft tissue tumor rem oval Hospitalization History See past surgical Hospitalization History Chest pain [facility] Other History general Narrative - Reported* Type Description Date Medical History HTN Medical History GERD Medical History Allergies Medical History hypertriglyceridemia Medical History aneurysm Medical History LAMAR Surgical History Elbow, left Surgical History Foot x3-benign tumor Surgical History cataract removal Surgical History cholecystectomy Surgical History knee arthroscopy Surgical History oophorectomy Surgical History left foot soft tissue tumor rem oval Hospitalization History See past surgical Hospitalization History Chest pain [facility] Other Summary Purpose Family History No Family History Records FoundNo Family History Records FoundNo Family History Records Found Advance Directives No Advanced Directives Records FoundNo Advanced Directives Records FoundNo Advanced Directives Records Found Additional Source Comments INFORMATION SOURCE (unrecogn ized section and content) DATE CREATED AUTHOR 10/12/2021 [facility] DATE CREATED AUTHOR AUTHOR'S ORGANIZ ATION 08/23/2022 [facility] DATE CREATED AUTHOR AUTHOR'S ORGANIZ ATION 01/29/2024 [facility] EPIC REASON FOR VISIT (unrecogniz ed section and content) Reason Comments Sleep Apnea FOR RECORDS PERTAINING TO PATIENTS WHO ARE [...] BE BASED ON THE PRIMARY CLINICAL RECORDS. [employer] provides no warranty or guarantee of the accuracy or completeness of information in this document.
[2024-09-12 07:55] LABS: Basophils Percent Auto 0.6 % (0.2-2.0); Eosinophils Absolute Auto 0.2 10^3/uL (0.0-0.7); Eosinophils Percent Auto 4.1 % (0.9-7.0); Hematocrit 40.8 % (36.0-48.0); Hemoglobin 14.1 g/dL (12.0-16.0); Immature Granulocytes Abs Auto 0.01 10^3/uL (0.00-0.03); Immature Granulocytes Pct Auto 0.2 % (0.0-0.5); Lymphocytes Percent Auto 41.8 % (20.5-60.0); Mean Corpuscular HGB Conc 34.6 g/dL (29.9-35.2); Mean Corpuscular Volume 89.7 fL (81.0-99.0); Monocytes Absolute Auto 0.4 10^3/uL (0.3-0.8); Monocytes Percent Auto 7.5 % (1.7-12.0); Neutrophils Absolute Auto 2.1 10^3/uL (1.4-6.5); Neutrophils Percent Auto 45.8 % (43.0-75.0); Platelet Count 239 10^3/uL (150-450); Red Blood Count 4.55 10^6/uL (4.20-5.40); Red Cell Distribution Width 12.8 % (11.0-15.0); White Blood Count 4.7 10^3/uL (4.0-11.0)
--- NOTE | 2024-09-12 07:56 | MM_ITS ---
Patient Name: ANDRZEJ SAAVEDRA MR#: [id number] : 1950 Exam Date: 09/12/2024 Ordering Doctor: DR RENE SANCHEZ D.O. RADIOLOGY REPORT PROCEDURE: MM TOMOSYNTHESIS SCREENING BI COMPARISON: MM TOMOSYNTHESIS SCREENING BI, 09/02/2023. MG MAMM SCREEN 3D BUZZ CAD, 08/20/2022. MG MAMM SCREEN 3D BUZZ CAD, 08/19/2021. MG MAMM BUZZ SCRN W CAD DIG, 07/22/2013. INDICATIONS: Screening Calculator Name NCI Breast Cancer Risk Assessment Tool 5 Year Breast Cancer Risk 2.00% Lifetime Breast Cancer Risk 5.10% Personal Breast Cancer No Personal Ovarian Cancer No Treatments None Family Cancers Father with colon cancer at age 72. LOCATION: [facility] BREAST COMPOSITION: The breasts are almost entirely fatty. FINDINGS: RIGHT BREAST: No significant suspicious finding. Similar focal asymmetries are present. Benign-appearing calcifications are present. Benign-appearing lymph nodes are noted along the chest wall. LEFT BREAST: No significant suspicious finding. Similar focal asymmetries are present. Benign-appearing calcifications are present. Benign-appearing lymph nodes are noted along the chest wall. DIAGNOSTIC CATEGORY 2--BENIGN FINDING: RECOMMENDATIONS: ROUTINE MAMMOGRAM AND CLINICAL EVALUATION IN 12 MONTHS. PLEASE NOTE: A NORMAL MAMMOGRAM DOES NOT EXCLUDE THE POSSIBILITY OF BREAST CANCER. A CLINICALLY SUSPICIOUS PALPABLE LUMP SHOULD BE BIOPSIED. Dictated by: Srini Osullivan MD on 09/12/2024 at 17:00 Approved by: Srini Osullivan MD on 09/12/2024 at 17:03
[2024-09-12 08:54] LABS: Alanine Aminotransferase 31 U/L (14-59); Albumin Level 3.4 g/dL (3.4-5.0); Alkaline Phosphatase 59 U/L (46-116); Aspartate Amino Transferase 25 U/L (15-37); BUN Creatinine Ratio 21.7; Bilirubin Total 0.5 mg/dL (0.2-1.0); Calcium 9.1 mg/dL (8.5-10.1); Chloride 107 mmol/L (98-107); Chol HDL Ratio 3.1; Cholesterol 154 mg/dL (<=200); Estimated GFR (African America >60 (>=60 mL/min/1.73m^2); Estimated GFR (Non-African Ame >60 (>=60 mL/min/1.73m^2); Globulin 3.5 g/dL; Glucose 106 mg/dL (74-106); HDL Cholesterol 50 mg/dL (40-60); Potassium 3.5 mmol/L (3.5-5.1); Sodium 144 mmol/L (136-145); Total Protein 6.9 g/dL (6.4-8.2); Triglycerides 140 mg/dL (<=150)
[2024-09-12 09:01] LABS: Anion Gap 12.4; Carbon Dioxide 28.1 mmol/L (21.0-32.0)
== END 2024-09-12 07:37 | disposition home or self-care (01) ==
LOC: LAB 07:39
PROVIDERS: PCP Internal Medicine; Visit Provider Internal Medicine
DX: Z12.31 Encounter for screening mammogram for malignant neoplasm of breast (principal); I71.21 Aneurysm of the ascending aorta, without rupture; I10 Essential (primary) hypertension; E78.00 Pure hypercholesterolemia, unspecified; J41.1 Mucopurulent chronic bronchitis; Z78.0 Asymptomatic menopausal state; Z80.0 Family history of malignant neoplasm of digestive organs; M85.80 Other specified disorders of bone density and structure, unspecified site
CPT/HCPCS: 36415; 77063; 77067; 77080; 80053; 80061; 85025

== ENCOUNTER 2024-11-17 09:51 | Outpatient (OUT) | payer MEDICARE, BC, SELFPAY ==
--- OUTSIDE RECORDS SUMMARY | 2024-11-17 09:56 | XMS_ITS | Clinical Summary ---
Author Organization [facility] Address [address] [place] [address] Care Team Providers Care Clother In Name Role Phone Unavailable Primary Care Provider Unavailabl e Social History Tobacco Use Types Packs/Day Years Used Date Smoking Tobacco: Never Assessed [place] Safety & Environment Answer Date Rec orded Fear of Current or Ex-Partner Not on file Emotionally Abused Not on file 06/18/2023 Physically Abused Not on file 06/18/2023 Sexually Abused Not on file 06/18/2023 Physically or Sexually Abused Not on file Comments Unknown Sex and Gender Information Value Date Recorded Sex Assigned at Not on file Legal Sex Female 11:23 PM EDT Gender Identity Not on file Sexual Orientation Not on file Plan of Treatment Not on file
--- OUTSIDE RECORDS SUMMARY | 2024-11-17 09:56 | XMS_ITS | Clinical Summary ---
Author Organization [facility] Address [address] [place] [address] Care Team Providers Care Transport Engineer Name Role Phone Unavailable Primary Care Provider Unavailabl e Allergies Active Allergy Reactions Criticality Noted Date Comments Iodinated Contrast Media 01/12/2024 Other Reaction(s): Unknown Reaction Medications Ascorbic Acid (vitamin C) 1000 MG tablet Take 1,000 mg by mouth Daily Active omega-3 (fish oil) 1200 MG capsule Take 1 capsule by mouth Daily Active aspirin (Aspirin Adult Low Dose) 81 MG EC tablet Take 81 mg by mouth Daily Active colestipol (Colestid) 1 g tablet Take 2 tablets by mouth Daily Take at least 1 hour after or 4 hours before other medications. Active fenofibrate (Triglide) 160 MG tablet Take 160 mg by mouth Daily Active atenolol (Tenormin) 25 MG tablet Take 25 mg by mouth Daily Active pantoprazole (ProtoNix) 40 MG EC tablet Take 40 mg by mouth in the morning. Take before meals. Do not crush, chew, or split.. Active loratadine (Claritin) 10 MG tablet Take 10 mg by mouth Daily Active lisinopril-hydr oCHLOROthiazide 20-25 MG tablet Take 1 tablet by mouth Daily Active Active Problems Problem Noted Date Diagnosed Date LAMAR (obstructive sleep apnea) 01/24/2024 Hypersomnia 01/24/2024 Obesity due to excess calories 01/24/2024 Family History Medical History Relation Name Comments Cancer Father Hypertension Father Coronary artery disease Mother Diabetes Mother Hypertension Mother Osteoporosis Mother Relation Name Status Comments Father Mother Social History Tobacco Use Types Packs/Day Years Used Date Smoking Tobacco: Former Cigarettes Smokeless Tobacco: Never Tobacco Cessation:Counseling Given: Not Answered Alcohol Use Standard Drinks/Week Comments Yes 0 (1 standard drink = 0.6 oz pur e alcohol) caffeine: 1-2 cups per day AUDIT-C Answer Date Recorded Q1: How often do you have a drink containing alc ohol? Monthly or less 01/24/2024 Q2: How many drinks containi ng alcohol do you have on a typical day when you are drinking? 1 or 2 01/24/2024 Q3: How often do you have si x or more drinks on one occasion? Never 01/24/2024 Comments Unknown Sex and Gender Information Value Date Recorded Sex Assigned at Not on file Legal Sex Female 6:36 PM EDT Gender Identity Not on file Sexual Orientation Not on file Last Filed Vital Signs Vital Sign Reading Time Taken Comments Blood Pressure 122/78 01/28/2024 8:22 AM EDT Pulse - - Temperature - - Respiratory Rate - - Oxygen Saturation - - Inhaled Oxygen Concentration - - Weight 108 kg (237 lb) 01/28/2024 8:22 AM EDT Height 172.7 cm (5' 8 ) 01/28/2024 8:22 AM EDT Body Mass Index 36.04 01/28/2024 8:22 AM EDT Plan of Treatment Health Maintenance Due Date Last Done Comments CT Colonography 1950 Colonoscopy 1950 Colorectal Cancer Screening 1950 FIT-DNA 1950 FIT 1950 FOBT 1950 Sigmoidoscopy 1950 Mammogram 1992 Influenza Vaccine (#1) 2024 02/05/2022, 2019 Pneumococcal Vaccine: 65+ Years Completed , 03/12/2020 Insurance MEDICARE [facility]
--- OUTSIDE RECORDS SUMMARY | 2024-11-17 10:11 | XMS_ITS | CCD ---
Author Organization [facility] ion Partnership [facility] Care Team Providers Care Fuel Cell Repairer Name Role Phone Elida Cuadra Unavailable Collin Daniel Unavailable FREDY, DR LÓPEZ Consulting Unavailable FREDY, DR LÓPEZ Primary Care Unavailable FREDY, DR LÓPEZ Admitting Unavailable FREDY, DR LÓPEZ Attending Unavailable KASHMIR, DR JOAQUIN Crabtree Consulting Unavailable FREDY, DR LÓPEZ Primary Care Unavailable FREDY, DR LÓPEZ Admitting Unavailable BALL, DR LÓPEZ Attending Unavailable BALL, DR LÓPEZ Consulting Unavailable WEST, DR JOAQUIN Crabtree Consulting Unavailable FREDY, DR LÓPEZ Consulting Unavailable FREDY, DR LÓPEZ Primary Care Unavailable FREDY, DR LÓPEZ Admitting Unavailable BALL, DR LÓPEZ Attending Unavailable ANNYEBCHEYANNE, DR RUTH Bethea Consulting Unavailable GILLMORMARTINA Attending Unavailable Unavailable Primary Care Provider Unavailabl e Collin Daniel DO Primary Care Provider [phone] Collin Daniel DO Attending Provider Allergies Allergy Classification Reported Allergen(s) Allergy Type Date of Onset Reaction(s) Facility (2 sources) Contrast media Propensity to adverse reactions Unknown [facility] Other (2 sources) Iodine Drug Allergy Unknown [facility] Other (1 source) Iodine (And Iodine Containting Drugs) Drug allergy (disorder) [facility] (1 source) Allergies Reconciled Propensity to adverse reactions Unknown [facility]ot[facility] Other (1 source) patient allergy list reviewed by nurse or physicia Propensity to adverse reactions 3 Comment:Done [facility]Quotient Other (3 sources) Iodinated Contrast Media Drug Allergy 4 Unknown Reaction [facility] (1 source) Gadolinium-Cont aining Contrast Medi Allergy to substance 5 Unknown Reaction [facility] Medications Current Medications Medication Drug Class(es) Dates Sig (Normalized) Sig (Original) [id number] 200 actuat albuterol 0.09 mg/actuat metered dose inhaler (1 source) beta2-Adrenergic Agonist Start: 01-06-2024 take 1 puff(s) by inhalation every six hours as needed for wheezing Albuterol Sulfate 90 mcg/actuation HFA aerosol inhaler Active 2 PUFF INHALATION Every 6 hours as needed for shortness of breath or wheezing 8.5 30 January 06, 2024 12:00am Complies with drug therapy ascorbic acid 500 mg oral tablet (12 sources) Vitamin C Start: 10-07-2021 take 1 tablet by mouth once daily Ascorbic Acid (Vitamin C) (Vitamin C) 500 mg Tablet Active 500 MG PO Daily October 07, 2021 12:00am Complies with drug therapy take 1 tablet by mouth once yordy y Ascorbic Acid (vitamin C) 1000 MG tablet Take 1,000 mg by mouth Daily Active aspirin 81 mg chewable tablet (14 sources) Platelet Aggregation Inhibitor, Nonsteroidal Anti-inflammatory Drug Start: 10-07-2021 take 1 tablet by mouth once daily Aspirin 81 mg Tablet,Chewable Active 81 MG PO Daily October 07, 2021 12:00am Complies with drug therapy take 1 tablet by mouth once yordy y aspirin (Aspirin Adult Low Dose) 81 MG EC tablet Take 81 mg by mouth Daily Active aspirin 81MG 1 d aily Active atenolol 25 mg oral tablet (16 sources) beta-Adrenergic Tayler Start: 08-04-2023 End: 06-10-2024 take 1 tablet by mouth once daily Atenolol 25 mg tablet Active 0 .ROUTE .COMPLEX June 10, 2024 2:12pm TAKE 1 TABLET BY MOUTH DAILY Complies with drug therapy Start: 10-07-2021 End: 08-04-2023 take 1 tablet by mouth once daily Atenolol 25 mg tablet Discontinued 25 MG PO Daily October 07, 2021 12:00am August 04, 2023 12:58pm calcium carbonate 1500 mg / cholecalciferol 0.01 mg oral tablet (1 source) Vitamin D Start: 10-07-2021 take 1 tablet by mouth once daily Calcium Carbonate-Vitamin D3 (Calcium 600 + D(3)) 600 mg-10 mcg (400 unit) Tablet Active 1 TAB PO Daily October 07, 2021 12:00am Complies with drug therapy colestipol hydrochloride 1000 mg oral tablet (16 sources) Bile Acid Sequestrant Start: 06-21-2024 take 1 tablet by mouth at dinner Colestipol 1 gram tablet Active 0 .ROUTE .COMPLEX 180 June 21, 2024 7:55am TAKE 1 TABLET BY MOUTH AT BREAKFAST AND EVENING MEAL Complies with drug therapy Start: 08-07-2023 End: 06-21-2024 Colestipol 1 gram tablet Discontinued 1 GM PO Twice daily August 07, 2023 8:35am June 21, 2024 7:55am Start: 10-07-2021 End: 08-07-2023 Colestipol 1 gram tablet Discontinued 1 GM PO Daily October 07, 2021 12:00am August 07, 2023 8:36am take 2 tablets by mo uth once daily colestipol (Colestid) 1 g tablet Take 2 tablets by mouth Daily Take at least 1 hour after or 4 hours before other medications. Active Colestipol HCl 1 GM TAKE 1 TABLET AT BREAKFAST AND EVENING MEAL for 90 Active CoQ-10 (10 sources) CoQ-10 Not-Takin g [place] 3-Amk-Ebz-Fish Oil (1 source) Start: 10-07-2021 take 300-1000 mg by mouth once daily [place] 4-Rie-Fuc-Fish Oil (Fish Oil) 300-1,000 mg Capsule Active 1 CAP PO Daily October 07, 2021 12:00am Complies with drug therapy doxycycline hyclate 100 mg oral capsule (11 sources) Tetracyclin e-class Drug Start: 06-03-2024 take 1 capsule by mouth twice daily Doxycycline Hyclate 100 mg capsule Active 100 MG PO Twice daily June 03, 2024 1:00am Complies with drug therapy Start: 05-02-2022 take 1 capsule by mo ut every twelve hours Doxycycline Hyclate 100 MG 1 capsule Orally Twice a day for 5 day(s) Apr, Not-Taking fenofibrate 160 mg oral tablet (20 sources) Peroxisome Proliferator Receptor alpha Agonist Start: 02-08-2024 take 1 tablet by mouth once daily Fenofibrate 160 mg tablet Active 0 .ROUTE .COMPLEX 90 February 08, 2024 5:50pm TAKE 1 TABLET BY MOUTH ONCE DAILY Complies with drug therapy Start: 10-07-2021 End: 02-08-2024 take 1 tablet by mouth every twenty-four hours Fenofibrate 160 MG 1 tablet Orally Once a day for 90 days Apr, Active Fish Oils (13 sources) take 1 capsule by [facility] once daily omega-3 (fish oil) 1200 MG capsule Take 1 capsule by mouth Daily Active Fish Oil 1000MG 1 daily Not-Taking Fish Oil 1000MG 1 daily Active hydroCHLOROthiazide 12.5 mg / lisinopril 10 mg oral tablet (17 sources) Thiazide Diuretic, Angiotensin Converting Enzyme Inhibitor Start: 02-12-2024 End: 04-05-2024 take 1 tablet by mouth once daily Lisinopril-Hydrochlorothiazide 10-12.5 mg tablet Active 1 TAB PO Daily April 05, 2024 11:01am Complies with drug therapy Start: 08-04-2023 End: 02-12-2024 take 1 tablet by mouth once daily Lisinopril-Hydrochlorothiazide 20-25 mg tablet Discontinued 0 .ROUTE .COMPLEX August 04, 2023 12:58pm February 12, 2024 12:10pm TAKE 1 TABLET BY MOUTH DAILY Start: 10-07-2021 End: 08-04-2023 take 1 tablet by mouth once daily Lisinopril-Hydrochlorothiazide 20-25 mg tablet Discontinued 1 TAB PO Daily October 07, 2021 12:00am August 04, 2023 12:58pm Lisinopril-hydro CHLOROthiazide 20-25 MG 1 daily Active loratadine 10 mg oral tablet (14 sources) Start: 10-07-2021 take 1 tablet by mouth once daily as needed Loratadine 10 mg Tablet Active 10 MG PO Daily as needed for Allergy Symptoms October 07, 2021 12:00am Complies with drug therapy Loratadine 10MG 1 daily Active Multivitamin Tablet (1 source) Start: 10-07-2021 take 1 tablet by mouth once daily Multivitamin Tablet Active 1 TAB PO Daily October 07, 2021 12:00am Complies with drug therapy Multivitamins (10 sources) Multivitamins 1 daily Active pantoprazole 40 mg delayed release oral tablet (15 sources) Proton Pump Inhibitor Start: 02-03-2024 take 1 tablet by mouth once daily Pantoprazole 40 mg tablet,delayed release (DR/EC) Active 0 .ROUTE .COMPLEX February 03, 2024 10:31am TAKE 1 TABLET BY MOUTH DAILY Complies with drug therapy Start: 10-07-2021 End: 02-03-2024 take 1 tablet by mouth once daily Pantoprazole 40 mg tablet,delayed release (DR/EC) Discontinued 40 MG PO Daily October 07, 2021 12:00am February 03, 2024 10:31am ubidecarenone 100 mg oral capsule (1 source) Start: 08-07-2023 Coenzyme Q10 (Coq-10) 100 mg capsule Active 100 MG PO Daily August 07, 2023 12:00am Complies with drug therapy Vitamin C 1000 MG (2 sources) take 1 tablet by mouth once daily Completed/Discontinued Medications Medication Drug Class(es) Dates Sig (Normalized) Sig (Original) amoxicillin 875 mg / clavulanate 125 mg oral tablet (1 source) Penicillin-class Antibacterial Start: 01-12-2024 End: 06-03-2024 take 1 tablet by mouth every twelve hours Amoxicillin-Pot Clavulanate 875-125 mg tablet Discontinued 1 TAB PO Every 12 hours 10 January 12, 2024 12:00am June 03, 2024 3:17pm azithromycin 250 mg oral tablet (1 source) Macrolide Antimicrobial Start: 01-06-2024 End: 01-12-2024 Azithromycin 250 mg tablet Discontinued 250 MG PO As Directed 09 29January 06, 2024 12:00am January 12, 2024 11:29am Calcium (10 sources) Phosphate Binder, Calcium Calcium + D3 500 600 1 daily Not-Taking Calcium + D3 500 600 1 daily Active collagenase Clostridium histolyticum (10 sources) Start: 04-30-2022 Xiaflex Apr 0.58 mg predniSONE 10 mg oral tablet (3 sources) Start: 06-27-2024 End: 08-09-2024 take 5 tablets by mouth every hour Prednisone 10 mg tablet Discontinued 10 MG PO .COMPLEX 15 June 27, 2024 1:00am August 09, 2024 9:12am 5 tabs (50mg) taken 13, 7 and 1 hour w/ food prior to CT scan. Start: 01-12-2024 End: 08-09-2024 Prednisone 20 mg tablet Disc ontinued 20 MG PO As Directed June 03, 2024 1:00am August 09, 2024 9:12am 1 tab tid w/ food x 3 days, then bid w/ food x 3 days, then qd w/ food x 3 days triamcinolone acetonide 40 mg/ml injectable suspension (2 sources) Corticosteroid Start: 08-07-2022 Kenalog-40 Jul, 60 mg Problems Active Problems Problem Classification Problem Date Documented Date Episodic/Chronic Acute bronchitis (9 sources) Acute bronchitis; Translations: [Acute bronchitis] Episodic Allergic reactions (1 source) Radiographic dye allergy status; Translations: [Radiographic dye allergy status] Episodic Aortic; peripheral; and visceral artery aneurysms (5 sources) Thoracic aortic aneurysm, without rupture; Translations: [Aortic aneurysm] Onset: 2 10-30-2024 Chronic Comment on above: CT ascending aorta: 4.4cm - 11/2022, 4.6cm - 11/2023.CTA ascending aorta: 4.2cm - 06/2024 Biliary tract disease (1 source) Postcholecystectomy syndrome; Translations: [Postcholecystectomy syndrome] Episodic Calculus of urinary tract (1 source) H/O: urinary stone; Translations: [Personal history of urinary calculi] Episodic Chronic obstructive pulmonary disease and bronchiectasis (8 sources) Mucopurulent chronic bronchitis; Translations: [Mucopurulent chronic bronchitis] Chronic Disorders of lipid metabolism (8 sources) Mixed hyperlipidemia; Translations: [Mixed hyperlipidemia] Onset: 3 Chronic Esophageal disorders (5 sources) Gastro-esophageal reflux disease with esophagitis; Translations: [Gastroesophageal reflux disease with esophagitis without hemorrhage] 08-08-2023 Chronic Esophageal disorders (3 sources) Esophageal disorders; Translations: [Gastro-esophageal reflux disease with esophagitis, without bleeding] Essential hypertension (8 sources) Essential hypertension; Translations: [Essential (primary) hypertension] Onset: 3 Chronic Other aftercare (5 sources) Other long-term (current) drug therapy; Translations: [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 EHR Cmte Other connective tissue disease (10 sources) Dupuytrens [...] (chronic) (peripheral)] Episodic Other lower respiratory disease (4 sources) Nodule of lung; Translations: [Solitary pulmonary nodule] 10-30-2024 Episodic Comment on above: No suspicious nodule s: 11/2022, 11/2023, 06/2024 Other lower respiratory disease (2 sources) Solitary [...] conditions (not mental disorders or infectious disease) (3 sources) Encounter for screening mammogram for malignant neoplasm of breast; Translations: [Patient encounter status] Onset: 3 Episodic Other upper respiratory disease (2 sources) Allergic rhinitis due to pollen; Translations: [Allergic rhinitis due to pollen] 08-10-2023 Chronic Other upper respiratory disease (1 source) Allergic rhinitis due to pollen Chronic Residual codes; unclassified (11 sources) Obstructive sleep apnea syndrome; Translations: [Obstructive sleep apnea (adult) (pediatric)] Onset: 4 01-24-2024 Chronic Residual codes; unclassified (1 source) Obstructive sleep apnea (adult) (pediatric) Chronic Residual codes; unclassified (5 sources) Hypersomnia; Translations: [Hypersomnia, unspecified] Onset: 4 01-24-2024 Chronic Residual codes; unclassified (1 source) Family history of malignant neoplasm of digestive organs; Translations: [FAM HX MALIG NEOPLASM DIGESTIV ORGN] Onset: 3 Episodic Residual codes; unclassified (2 sources) Menopause present; Translations: [Asymptomatic menopausal state] 08-09-2024 Episodic Substance-related disorders (8 sources) Tobacco dependence in remission; Translations: [Nicotine dependence, cigarettes, in remission] Chronic Comment on above: started age 22, 1 pp d, quit 2013LDCT: no suspicious nodules - 11/2022, 11/2023 Unclassified (1 source) Aneurysm of the ascending [...] Results Test Name Value Interpretation Reference Range Facility Basophils Auto (Bld) [#/Vol] on 09-12-2024 Basophils (Bld) [#/Vol] 0.0 10 3/uL 0.0-0.1 [facility] Basophils/100 WBC Auto (Bld) on 09-12-2024 Basophils/100 WBC (Bld) 0.6 % 0.2-2.0 [facility] Cholesterol in LDL Calc [Mas s/Vol]on 09-12-2024 Cholesterol in LDL [Mass/Vol] 76.0 mg/dL [facility] Comment on above: <100 mg/dl [id number] 0-129 mg/dl NEAR OR ABOVE [id number] mg/dl BORDERLINE [id number] mg/dl HIGH>190 mg/dl VERY HIGH Cholesterol in VLDL Calc [Ma ss/Vol]on 09-12-2024 Cholesterol in VLDL [Mass/Vol] 28.0 mg/dL [facility] Eosinophils/100 WBC Auto (Bl d)on 09-12-2024 Eosinophils/100 WBC (Bld) 4.1 % 0.9-7.0 [facility] Erythrocyte distribution wid th Auto (RBC) [Ratio]on 09-12-2024 Erythrocyte distribution width (RBC) [Ratio] 12.8 % 11.0-15.0 [facility] Estimated glomerular filtrat ion rate (GFR) non- Americanon 09-12-2024 GFR/1.73 sq M.predicted among non-blacks MDRD (S/P/Bld) [Vol rate/Area] mL/min/{1.73_m2} >=60 mL/min/1.73m 2 [facility] Globulin Calc (S) [Mass/Vol] on 09-12-2024 Globulin (S) [Mass/Vol] 3.5 g/dL [facility] Hematocrit Auto (Bld) [Volum e fraction]on 09-12-2024 Hematocrit (Bld) [Volume fraction] 40.8 % 36.0-48.0 [facility] Hemoglobin [Mass/volume] in Bloodon 09-12-2024 Hemoglobin (Bld) [Mass/Vol] 14.1 g/dL 12.0-16.0 [facility] Laboratory - Chemistry and C hemistry - challengeon 09-12-2024 Albumin [Mass/Vol] 3.4 g/dL 3.4-5.0 [facility] ALP [Catalytic activity/Vol] 59 U/L 46-116 [facility] ALT [Catalytic activity/Vol] 31 U/L 14-59 [facility] AST [Catalytic activity/Vol] 25 U/L 15-37 [facility] Bilirubin [Mass/Vol] 0.5 mg/dL 0.2-1.0 [facility] Calcium [Mass/Vol] 9.1 mg/dL 8.5-10.1 [facility] Chloride [Moles/Vol] 107 mmol/L 98-107 [facility] Cholesterol [Mass/Vol] 154 mg/dL <=200 [facility] Cholesterol in HDL [Mass/Vol] 50 mg/dL 40-60 [facility] Comment on above: > or =60 mg/dl - LOW CARDIOVASCULAR RISK<40 mg/dl - HIGH CARDIOVASCULAR RISK CO2 [Moles/Vol] 28.1 mmol/L 21.0-32.0 [facility] Creatinine [Mass/Vol] 0.69 mg/dL 0.55-1.02 [facility] GFR/1.73 sq M.predicted MDRD (S/P/Bld) [Vol rate/Area] mL/min/{1.73_m2} >=60 mL/min/1.73m 2 [facility] Glucose [Mass/Vol] 106 mg/dL 74-106 [facility] Potassium [Moles/Vol] 3.5 mmol/L 3.5-5.1 [facility] Protein [Mass/Vol] 6.9 g/dL 6.4-8.2 [facility] Sodium [Moles/Vol] 144 mmol/L 136-145 [facility] Triglyceride [Mass/Vol] 140 mg/dL <=150 [facility] Urea nitrogen [Mass/Vol] 15.0 mg/dL 7.0-18.0 [facility] Urea nitrogen/Creatinine [Mass ratio] 21.7 mg/mg [facility] Laboratory - Hematology and Cell countson 09-12-2024 Immature granulocytes/100 WBC (Bld) 0.2 % 0.0-0.5 [facility] Leukocytes [#/volume] correc aristeo for nucleated erythrocytes in Blood by Automated counon 09-12-2024 WBC corrected for nucl RBC Auto (Bld) [#/Vol] 4.7 10 3/uL 4.0-11.0 [facility] Lymphocytes Auto (Bld) [#/Vo l]on 09-12-2024 Lymphocytes (Bld) [#/Vol] 2.0 10 3/uL 1.2-3.8 [facility] Lymphocytes/100 WBC Auto (Bl d)on 09-12-2024 Lymphocytes/100 WBC (Bld) 41.8 % 20.5-60.0 [facility] MCH Auto (RBC) [Entitic mass ]on 09-12-2024 MCH (RBC) [Entitic mass] 31.0 pg 26.7-34.0 [facility] MCHC Auto (RBC) [Mass/Vol]on 09-12-2024 MCHC (RBC) [Mass/Vol] 34.6 g/dL 29.9-35.2 [facility] MCV Auto (RBC) [Entitic vol] on 09-12-2024 MCV (RBC) [Entitic vol] 89.7 fL 81.0-99.0 [facility] Monocytes Auto (Bld) [#/Vol] on 09-12-2024 Monocytes (Bld) [#/Vol] 0.4 10 3/uL 0.3-0.8 [facility] Monocytes/100 WBC Auto (Bld) on 09-12-2024 Monocytes/100 WBC (Bld) 7.5 % 1.7-12.0 [facility] Neutrophils Auto (Bld) [#/Vo l]on 09-12-2024 Neutrophils (Bld) [#/Vol] 2.1 10 3/uL 1.4-6.5 [facility] Neutrophils/100 WBC Auto (Bl d)on 09-12-2024 Neutrophils/100 WBC (Bld) 45.8 % 43.0-75.0 [facility] No Panel Informationon 09-12 Eosinophils # (Auto) 0.2 10 3/uL 0.0-0.7 [facility] Immature Granulocyte # (Auto) 0.01 10 3/uL 0.00-0.03 [facility] Platelet mean volume Auto (B ld) [Entitic vol]on 09-12-2024 Platelet mean volume (Bld) [Entitic vol] 9.0 fL Low 9.5-13.5 [facility] Platelets Auto (Bld) [#/Vol] on 09-12-2024 Platelets (Bld) [#/Vol] 239 10 3/uL 150-450 [facility] RBC Auto (Bld) [#/Vol]on RBC (Bld) [#/Vol] 4.55 10 6/uL 4.20-5.40 [facility] Serum or plasma albumin/glob ulin mass ratioon 09-12-2024 Albumin/Globulin [Mass ratio] 1.0 {ratio} [facility] Serum or plasma anion gap de terminationon 09-12-2024 Anion gap [Moles/Vol] 12.4 mmol[facility] or plasma total choles terol/high density lipoprotein (HDL) cholesterol mass boyd 09-12-2024 Cholesterol.total/Cho lesterol in HDL [Mass ratio] 3.1 {ratio} [facility] Comment on above: 3.3 - 4.4 LOW RISK4. 4 - 7.1 AVERAGE RISK7.1 - 11.0 MODERATE RISK>11.0 HIGH RISK CBC AUTO DIFFon 08-20-2022 BASO # 0.0 103/ul Normal 0.0-0.1 [facility] Comment on above: Performed By: #### C BC #### [facility] [address] [address] [address] Breann Stubbs Basophils/100 WBC (Bld) 0.3 % Normal 0.2-2.0 [facility] Comment on above: Performed By: #### C BC #### [facility] [address] [address] [address] Breann Stubbs EO # 0.1 103/ul Normal 0.0-0.7 [facility] Comment on above: Performed By: #### C BC #### [facility] [address] [address] [address] Breann Stubbs Eosinophils/100 WBC (Bld) 1.6 % Normal 0.9-7.0 [facility] Comment on above: Performed By: #### C BC #### [facility] [address] [place] [address] Dr. Breann Stubbs Erythrocyte distribution width (RBC) [Ratio] 13.0 % Normal 11.0-15.0 [facility] Comment on above: Performed By: #### C BC #### [facility] [address] [address] [address] Breann Stubbs Hematocrit (Bld) [Volume fraction] 47.3 % Normal 36.0-48.0 [facility] Comment on above: Performed By: #### C BC #### [facility] [address] [place] [address] Dr. Breann Stubbs Hemoglobin (Bld) [Mass/Vol] 15.3 g/dL Normal 12.0-16.0 [facility] Comment on above: Performed By: #### C BC #### [facility] [address] [place] [address] Dr. Breann Stubbs IG # 0.03 10e3/ul Normal 0.00-0.03 [facility] Comment on above: Performed By: #### C BC #### [facility] [address] [place] [address] Dr. Breann Stubbs IG % 0.3 % Normal 0.0-0.5 [facility] Comment on above: Performed By: #### C BC #### [facility] [address] [place] [address] Dr. Breann Stubbs LYMPH # 2.8 103/ul Normal 1.2-3.8 [facility] Comment on above: Performed By: #### C BC #### [facility] [address] [place] [address] Dr. Breann Stubbs Lymphocytes/100 WBC (Bld) 32.8 % Normal 20.5-60.0 [facility] Comment on above: Performed By: #### C BC #### [facility] [address] [place] [address] Dr. Breann Stubbs MANUAL DIFF REQ NO Normal [facility] Comment on above: Performed By: #### C BC #### [facility] [address] [place] [address] Dr. Breann Stubbs MCH (RBC) [Entitic mass] 29.5 pg Normal 26.7-34.0 [facility] Comment on above: Performed By: #### C BC #### [facility] [address] [place] [address] Dr. Breann Stubbs MCHC (RBC) [Mass/Vol] 32.3 g/dL Normal 29.9-35.2 [facility] Comment on above: Performed By: #### C BC #### [facility] [address] [place] [address] Dr. Breann Stubbs MCV (RBC) [Entitic vol] 91.3 fL Normal 81.0-99.0 [facility] Comment on above: Performed By: #### C BC #### [facility] [address] [place] [address] Dr. Breann Stubbs MONO # 0.6 103/ul Normal 0.3-0.8 [facility] Comment on above: Performed By: #### C BC #### [facility] [address] [place] [address] Dr. Breann Stubbs Monocytes/100 WBC (Bld) 7.1 % Normal 1.7-12.0 [facility] Comment on above: Performed By: #### C BC #### [facility] [address] [place] [address] Dr. Breann Stubbs NEUT # 5.0 103/ul Normal 1.4-6.5 [facility] Comment on above: Performed By: #### C BC #### [facility] [address] [place] [address] Dr. Breann Stubbs Neutrophils/100 WBC (Bld) 57.9 % Normal 43.0-75.0 [facility] Comment on above: Performed By: #### C BC #### [facility] [address] [place] [address] Dr. Breann Stubbs Platelet mean volume (Bld) [Entitic vol] 9.1 fL Critically low 9.5-13.5 [facility] Comment on above: Performed By: #### C BC #### [facility] [address] [place] [address] Dr. Breann Stubbs PLT 354 103/ul Normal 150-450 [facility] Comment on above: Performed By: #### C BC #### [facility] [address] [place] [address] Dr. Breann Stubbs RBC 5.18 106/ul Normal 4.20-5.40 [facility] Comment on above: Performed By: #### C BC #### [facility] [address] [place] [address] Dr. Breann Stubbs WBC 8.6 103/ul Normal 4.0-11.0 [facility] Comment on above: Performed By: #### C BC #### [facility] [address] [place] [address] Dr. Breann Stubbs LIPID PROFILEon 08-20-2022 CHOL-HDL RATIO NORM SEE BELOW Normal [facility] Comment on above: Result Comment: 3.3 - 4.4 LOW RISK 4.4 - 7.1 AVERAGE RISK 7.1 - 11.0 MODERATE RISK >11.0 HIGH RISK Performed By: #### B MP, LIPID, ALT #### [facility] [address] [address] [address] Breann Stubbs Cholesterol [Mass/Vol] 152 mg/dL Normal <=200 [facility] Comment on above: Performed By: #### B MP, LIPID, ALT #### [facility] [address] [address] [address] Breann Stubbs Cholesterol in HDL [Mass/Vol] 61 mg/dL Critically high 40-60 [facility] Comment on above: Performed By: #### B MP, LIPID, ALT #### [facility] [address] [address] [address] Breann Stubbs Cholesterol in LDL [Mass/Vol] 76.2 mg/dL Normal [facility] Comment on above: Performed By: #### B MP, LIPID, ALT #### [facility] [address] [address] [address] Breann Stubbs Cholesterol.total/Cho lesterol in HDL [Mass ratio] 2.5 {ratio} Normal [facility] Comment on above: Performed By: #### B MP, LIPID, ALT #### [facility] [address] [address] [address] Breann Stubbs HDL NORMAL > or = 60 mg/dl - LOW CARDIOVASCULAR RISK <40 mg/dl - HIGH CARDIOVASCULAR RISK Normal [facility] Comment on above: Performed By: #### B MP, LIPID, ALT #### [facility] [address] [address] [address] Breann Stubbs LDL CALC NORMAL SEE BELOW Normal [facility] Comment on above: Result Comment: <100 mg/dl OPTIMAL 100 - 129 mg/dl NEAR OR ABOVE OPTIMAL 130 - 159 mg/dl BORDERLINE HIGH 160 - 189 mg/dl HIGH >190 mg/dl VERY HIGH Performed By: #### B MP, LIPID, ALT #### [facility] [address] [address] [address] Breann Stubbs Triglyceride [Mass/Vol] 74 mg/dL Normal <=150 [facility] Comment on above: Performed By: #### B MP, LIPID, ALT #### [facility] [address] [address] [address] Breann Stubbs VLDL CALC 14.8 mg/dL Normal [facility] Comment on above: Performed By: #### B MP, LIPID, ALT #### [facility] [id number] Breann Stubbs MG MAMM SCREEN 3D BUZZ CADon 08-20-2022 MG MAMM SCREEN 3D BUZZ CAD Patient: KELLY SAAVEDRA Exam Date: 08/20/2022 : 1950 Gender:F Ordering : DR COLLIN DANIEL D.O. Admission #: [id number] Family : Order #: [id number] CLICK HERE TO VIEW EXAM RADIOLOGY REPORT [...] colon cancer at age 74. LOCATION: The [facility] BREAST COMPOSITION: Heterogeneously dense,which may obscure small [...] MD on 08/20/2022 at 08:55 Normal The [facility] CHEM 8 (BAS METB)on Anion gap [Moles/Vol] 9.2 mmol/L Normal [facility] Comment on above: Performed By: #### B MP, LIPID, ALT #### [facility] [address] [address] [address] Breann Stubbs Calcium [Mass/Vol] 9.9 mg/dL Normal 8.5-10.1 [facility] Comment on above: Performed By: #### B MP, LIPID, ALT #### [facility] [address] [address] [address] Breann Stubbs Chloride [Moles/Vol] 101 mmol/L Normal 98-107 The [facility] Comment on above: Performed By: #### B MP, LIPID, ALT #### [facility] [address] [address] [address] Breann Stubbs CO2 [Moles/Vol] 33.7 mmol/L Critically high 21.0-32.0 [facility] Comment on above: Performed By: #### B MP, LIPID, ALT #### [facility] [address] [address] [address] Breann Stubbs Creatinine [Mass/Vol] 0.79 mg/dL Normal 0.55-1.02 [facility] Comment on above: Performed By: #### B MP, LIPID, ALT #### [facility] [address] [address] [address] Breann Stubbs EGFR-AF AUSTRALIAN >60 Normal >=60 [facility] Comment on above: Performed By: #### B MP, LIPID, ALT #### [facility] [address] [address] [address] Breann Stubbs EGFR-NON AF AUSTRALIAN >60 Normal >=60 The [facility] Comment on above: Performed By: #### B MP, LIPID, ALT #### [facility] [address] [address] [address] Breann Stubbs Glucose [Mass/Vol] 97 mg/dL Normal 74-106 [facility] Comment on above: Performed By: #### B MP, LIPID, ALT #### [facility] [address] [address] [address] Breann Stubbs Potassium [Moles/Vol] 3.9 mmol/L Normal 3.5-5.1 The [facility] Comment on above: Performed By: #### B MP, LIPID, ALT #### [facility] [address] [address] [address] Breann Stubbs Sodium [Moles/Vol] 140 mmol/L Normal 136-145 [facility] Comment on above: Performed By: #### B MP, LIPID, ALT #### [facility] [address] [place] [address] Dr. Breann Stubbs Urea nitrogen [Mass/Vol] 25.0 mg/dL Critically high 7.0-18.0 [facility] Comment on above: Performed By: #### B MP, LIPID, ALT #### [facility] [address] [place] [address] Dr. Breann Stubbs Urea nitrogen/Creatinine [Mass ratio] 31.6 mg/mg Normal [facility] Comment on above: Performed By: #### B MP, LIPID, ALT #### [facility] [address] [place] [address] Dr. Breann Stubbs SGPTon 08-20-2022 ALT [Catalytic activity/Vol] 29 U/L Normal 14-59 [facility] Comment on above: Performed By: #### B MP, LIPID, ALT #### [facility] [address] [place] [address] Dr. Breann Stubbs CREATININEon 11-28-2021 Creatinine [Mass/Vol] 0.73 mg/dL Normal 0.55-1.02 [facility] Comment on above: Performed By: #### C MAYCOL #### [facility] [address] [place] [address] Dr. Breann Stubbs EGFR-AF AUSTRALIAN >60 Normal >=60 [facility] Comment on above: Performed By: #### C MAYCOL #### [facility] [address] [place] [address] Dr. Breann Stubbs EGFR-NON AF AUSTRALIAN >60 Normal >=60 [facility] Comment on above: Performed By: #### C MAYCOL #### [facility] [address] [place] [address] Dr. Breann Stubbs CTA CHEST WO W [...] by: RUTH LINDSEY Date: 2021-11-28 11:21 Normal [facility] COVID-19 Antigenon 2 COVID-19 Antigen Healthcare [...] developed and its performance characteristic determined by [employer] and validated at [facility]. This test has not been FDA cleared [...] for SARS Antigen by ARMANI PERFORMED BY: [place] [address] PATHOLOGIST AUTOGRAPHER AISHA LYONS M.D. [facility] Comment on above: Performed By: #### C OVID-19 JERILYN, SOFIANEG #### [address] Jerilyn Ag Negativeon 10-05-19 22 Jerilyn Ag Negative Negative Normal Negative [facility] Comment on above: Result Comment: This is a duplicate Jerilyn SARS Antigen (ARMANI) result to be used for statistical tracking purpose only. PERFORMED BY: [place] [address] PATHOLOGIST AUTOGRAPHER AISHA LYONS M.D. Performed By: #### C OVID-19 JERILYN, SOFIANEG #### [address] ABD/PELVIS WO CONon 09-30 CT ABD/PELVIS [...] by: JOAQUIN MARLOW Date: 2021-09-30 21:30 Normal [facility] COVID-19 Antigenon 1 COVID-19 Antigen Healthcare [...] its performance Jerilyn Disclaimer characteristic determined by [employer] and Jerilyn Disclaimer validated at [facility]. This Jerilyn Disclaimer test has not been [...] Emergency Use Authorization for Coronavirus Jerilyn Disclaimer iseas during the Public Health Emergency) Jerilyn Disclaimer [...] is terminated or revoked sooner. PERFORMED BY: [facility] [address] [place] [address] PATHOLOGIST AUTOGRAPHER AISHA LYONS M.D. [facility] Comment on above: Performed By: #### C OVID-19 JERILYN, SOFIANEG #### [facility] [address] [place], [place] [id number] [facility] Jerilyn Ag Negativeon 03-27-20 Jerilyn Ag Negative Negative Normal Negative [facility] Comment on above: Result Comment: This is a duplicate Jerilyn SARS Antigen (ARMANI) result to be used for statistical tracking purpose only. PERFORMED BY: [address] [id number] PATHOLOGIST AUTOGRAPHER AISHA LYONS M.D. Performed By: #### C OVID-19 JERILYN, SOFIANEG #### [address] [address] [facility] Vital Signs Date Time Vital Sign Value Performing Clinician Facility 11-02-2024 09:38-0400 Body height 172.72 cm Collin Ball DO Work Phone: [facility] 11-02-2024 09:38-0400 Body mass index (BMI) [Ratio] 37.5 kg/m2 Collin Ball DO Work Phone: [facility] 11-02-2024 09:38-0400 Body weight 112.15 kg Collin Ball DO Work Phone: [facility] 11-02-2024 09:38-0400 Diastolic blood pressure 80 mm[Hg] Collin Ball DO Work Phone: [facility] 11-02-2024 09:38-0400 Heart rate 75 /min Collin Ball DO Work Phone: [facility] 11-02-2024 09:38-0400 Respiratory rate 12 /min Collin Ball DO Work Phone: [facility] 11-02-2024 09:38-0400 Systolic blood pressure 143 mm[Hg] Collin Ball DO Work Phone: [facility] 08-09-2024 08:42-0400 Body height 172.72 cm Collin Ball DO Work Phone: [facility] 08-09-2024 08:42-0400 Body mass index (BMI) [Ratio] 37.7 kg/m2 Collin Ball DO Work Phone: [facility] 08-09-2024 08:42-0400 Body weight 112.49 kg Collin Ball DO Work Phone: [facility] 08-09-2024 08:42-0400 Diastolic blood pressure 80 mm[Hg] Collin Ball DO Work Phone: [facility] 08-09-2024 08:42-0400 Heart rate 69 /min Collin Ball DO Work Phone: [facility] 08-09-2024 08:42-0400 Respiratory rate 12 /min Collin Ball DO Work Phone: [facility] 08-09-2024 08:42-0400 Systolic blood pressure 120 mm[Hg] Collin Ball DO Work Phone: [facility] 01-28-2024 08:22-0400 Body height 172.7 cm Martina Madera [employer] Work Phone: [facility] 01-28-2024 08:22-0400 Body mass index (BMI) [Ratio] 36.04 kg/m2 Martina Kyleemor [employer] Work Phone: [facility] 01-28-2024 08:22-0400 Body weight 107.5 kg Martina Kyleemor [employer] Work Phone: [facility] 01-28-2024 08:22-0400 Diastolic blood pressure 78 mm[Hg] Martina Kyleemor [employer] Work Phone: [facility] 01-28-2024 08:22-0400 Systolic blood pressure 122 mm[Hg] Martina Kyleemor [employer] Work Phone: [facility] 08-07-2022 09:30-0400 Body height 172.72 cm Collin Ball Other [facility] Other 08-07-2022 09:30-0400 Body mass index (BMI) [Ratio] 36.88 kg/m2 Collin Ball Other [facility] Other 08-07-2022 09:30-0400 Body weight 110.04 kg Collin Ball Other [facility] Other 08-07-2022 09:30-0400 Diastolic blood pressure 84 mm[Hg] Collin Ball Other [facility] Other 08-07-2022 09:30-0400 Respiratory rate 12 /min Collin Ball Other [facility] Other 08-07-2022 09:30-0400 Systolic blood pressure 121 mm[Hg] Collin Ball Other [facility] Other 05-02-2022 09:30-0500 Body height 172.72 cm Elidacallum uCadra Other [facility] Other 05-02-2022 09:30-0500 Body mass index (BMI) [Ratio] 38.01 kg/m2 Elida Calvey Other [facility] Other 05-02-2022 09:30-0500 Body weight 113.4 kg Elida Calvey Other [facility] Other 04-25-2022 11:45-0500 Body height 172.72 cm Elida Calvey Other [facility] Other 04-25-2022 11:45-0500 Body mass index (BMI) [Ratio] 38.01 kg/m2 Elida Calvey Other [facility] Other 04-25-2022 11:45-0500 Body weight 113.4 kg Elida Cuadra Other [facility] Other Encounters Encounter Date Encounter Type Care Provider Facility Start: 11-02-2024 End: 11-02-2024 ambulatory Collin Daniel DO Work Phone: [facility] Work Phone: Start: 11-02-2024 End: 11-02-2024 Patient encounter procedure Collin Daniel DO -[facility] Work Phone: Start: 11-02-2024 End: 11-02-2024 Patient encounter status Collin Daniel DO [facility] Start: 09-12-2024 Non-patient / Non-visit Collin garcía DO -[employer] Work Phone: Start: 08-09-2024 End: 08-09-2024 Patient encounter procedure Collin Daniel DO -[facility] Work Phone: Start: 01-28-2024 End: 01-28-2024 Bamboo flowsheet Martina Madera [employer] Work Phone: [facility] Start: 01-28-2024 End: 01-28-2024 Bamboo flowsheet Martina Qureshir [employer] Work Phone: [facility] Start: 01-28-2024 End: 01-28-2024 Office outpatient visit 25 minutes Martina Madera [employer] Work Phone: [facility] Comment on above: LAMAR (obstructive sle ep apnea) (Primary Dx); Hypersomnia; Snoring; Obesity, unspecified class, unspecified obesity type, unspecified whether serious comorbidity present Start: 01-28-2024 End: 01-28-2024 ambulatory MARTINA MADERA Not Available Start: 12-08-2022 End: 12-08-2022 ambulatory Collin Daniel Other [facility] Other Start: 12-08-2022 Telephone encounter Collin HERNANDEZ [facility] Start: 08-20-2022 End: 08-21-[address] COLLIN DANIEL Facility:[facility] Start: 08-07-2022 End: 08-07-2022 ambulatory Collin Daniel Other [facility] Other Start: 08-07-2022 Patient encounter procedure Collin Fredy [facility] Start: 06-13-2022 End: 06-13-2022 ambulatory Elida Cuadra Other [facility] Other Start: 06-13-2022 Office outpatient vi sit 15 minutes Elida Cuadra [facility] Start: 05-16-2022 End: 05-16-2022 ambulatory Elida Cuadra Other [facility] Other Start: 05-16-2022 Postop follow up vis it related to original px Elidacallum Cuadra [facility] Start: 05-14-2022 End: 05-14-2022 ambulatory Collin Daniel Other [facility] Other Start: 05-14-2022 Telephone encounter Collin Fredy HERNANDEZ [facility] Start: 05-09-2022 End: 05-09-2022 ambulatory Collin Daniel Other [facility] Other Start: 05-09-2022 Telephone encounter Collin Fredy HERNANDEZ [facility] Start: 05-02-2022 (Proc F/U) Procedure F/U Elidacallum Cuadra [facility] Start: 05-02-2022 End: 05-02-2022 ambulatory Elida Cuadra Other [facility] Other Start: 05-02-2022 Telephone encounter Elida Cuadra [facility] Start: 04-30-2022 (Proc F/U) Procedure F/U Elida Angelaey [facility] Start: 04-30-2022 End: 04-30-2022 ambulatory Elida Cuadra Other [facility] Other Start: 04-25-2022 End: 04-25-2022 ambulatory Elida Cuarda Other [facility] Other Start: 04-25-2022 Office outpatient vi sit 15 minutes Elida Cuadra [facility] Start: 11-28-2021 End: 11-29-[address] COLLIN DANIEL Facility:[facility] Start: 09-30-2021 End: 10-01-[address] COLLIN DANIEL Facility:[facility] Plan of Treatment Date Care Activity Detail Author Start: 03-14-2025 End: 03-14-2025 Patient encounter procedure 03/14/2025 8:15 AM EST [facility] [address] [place] [id number] Brenaa Mullins DO [address], [facility] Start: 01-28-2024 End: 01-28-2024 Patient encounter procedure 01/28/2024 8:20 AM EDT [facility] [address] [address] [place] [address] Martina Madera NP [address] [place], [place] Arrived [facility] Comment on above: Arrived Start: 12-27-2023 Influenza vaccination Influenz a Vaccine (#1) [facility] Start: 1992 Screening for malign ant neoplasm of breast Mammogram [facility] Start: 1950 Screening for malign ant neoplasm of colon [facility] Comprehensive metabo lic 2000 panel - Serum or Plasma [facility] DXA Skeletal system. axial Views for bone density [facility] MG Breast - bilatera l Screening [facility] Immunizations Immunization Date Immunization Notes Care Provider Fa cility 02-08-2024 influenza, high dose seasonal, preservative-free Collin Daniel DO Work Phone: [facility] 10-13-2023 influenza virus vaccine, unspecified formulation Martina Madera [employer] Work Phone: [facility] 02-05-2022 influenza virus vaccine, split virus (incl. purified surface antigen) Collin Daniel Other [facility] [employer] Other 02-05-2022 influenza virus vaccine, unspecified formulation Collin Daniel DO Work Phone: [facility] 02-05-2022 influenza, high dose seasonal, preservative-free Collin Daniel Other [facility] Other 02-06-2021 influenza virus vaccine, split virus (incl. purified surface antigen) Collin Daniel Other [facility] Other 02-06-2021 influenza virus vaccine, unspecified formulation Collin Daniel DO Work Phone: [facility] 07-11-2020 COVID-19 Vaccine Pfi zer - Documentation Purposes Only Collin Daniel Other [facility] 06-25-2020 pneumococcal conjuga te vaccine, 13 valent Collin Daniel Other [facility] 06-20-2020 COVID-19 Vaccine Pfi zer - Documentation Purposes Only Collin Daniel Other [facility] 03-12-2020 influenza virus vaccine, split virus (incl. purified surface antigen) Collin Daniel Other [facility] Other 03-12-2020 influenza virus vaccine, unspecified formulation Collin Daniel DO Work Phone: [facility] 03-12-2020 pneumococcal polysaccharide vaccine, 23 valent Collin Daniel Other [facility] 01-26-2014 tetanus and diphther ia toxoids, adsorbed, preservative free, for adult use (5 Lf of tetanus toxoid and 2 Lf of diphtheria toxoid) Collin Daniel Other [facility] 09-02-2013 tetanus toxoid, adsorbed Elida Cuadra Other [facility] 03-10-2013 tetanus and diphther ia toxoids, adsorbed, preservative free, for adult use (5 Lf of tetanus toxoid and 2 Lf of diphtheria toxoid) Collin Daniel Other [facility] 03-04-2012 tetanus and diphther ia toxoids, adsorbed, preservative free, for adult use (5 Lf of tetanus toxoid and 2 Lf of diphtheria toxoid) Collin Daniel Other [facility] Payers Date Payer Category Payer Medicare MEDICARE MEDICAR E PART B [id number] 2016-Present [address] [address] [place] [address] Medicare [id number] 2016 Unknown BCBS BCBS xxxxxx [id number] 2016-Present [phone] [address] [place] [address] [id number] 1959 [facility] [id number] 1959 Medicare [id number] 1950 Unknown [id number] 1950 Unknown [id number] 1950 Unknown [id number] 1950 Unknown [id number] Social History Date Type Detail Facility Unknown if ever smoked [facility] Other Start: 01-24-2024 End: 01-28-2024 Sex Assigned At [facility] [employer] Other Start: 01-24-2024 End: 08-09-2024 Tobacco smoking status NHIS Ex-smoker [facility] History of tobacco use [...] and exposure Smokeless tobacco non-user [facility] Sex Female (finding) [facility] Start: 1950 Sex Assigned At Female F [facility] Clinical Notes 04-25-2022 to 08-09-2024 Note Date & Type Note Facility 08-09-2024 Evaluation note Diagnosis Onset Date Resolution Cigarette nicotine dependence in remission acute August 092024 8:22am Elevated cholesterol acute Apri l 2024 8:22am GERD (gastroesophageal reflux disease) acute August 09, 2024 8:22am Hypertension acute August 09, 2024 8:22am Menopause acute August 09 8:22am Mucopurulent chronic bronchitis acute August 09, 2024 8:22am LAMAR (obstructive sleep apnea) acute August 09, 2024 8:22am Aorta aneurysm inactive July 8:22am Medicare annual wellness visit, subsequent noneactive August 09, 2024 8:22am Screening mammogram for breast cancer noneactive August 09, 2024 8:22am Ascending aorta dilatation acute November 02, 2024 9 :27am Cigarette nicotine dependence in remission acute October 9:27am Elevated cholesterol acute November 02, 2024 9:27am GERD (gastroesophageal reflux disease) acute November 02, 2024 9 :27am Hypertension acute November 02 9:27am Mucopurulent chronic bronchitis acute November 02, 2024 9 :27am LAMAR (obstructive sleep apnea) acute November 02, 2024 9 :27am Pulmonary nodule acute October 9:27am Preop exam for internal medicine noneactive November 02, 2024 9 :27am [facility] Work Phone: 1(152) 475-425308-14-2023 Evaluation note* Encounter Date Diagnosis Assessment Notes Treatment Notes Treatment Clinical Notes Nov, Simple chronic bronchitis (ICD-10 - J41.0) LDCT without suspicious nodules: 11/2022Nov, Pulmonary nodule (ICD-10 - R91.1) LDCT: 2020, 11/2021, 11/2022Nov, Nicotine dependence, cigarettes, in remission (ICD-10 - F17.211) LDCT w/o suspicious nodules: 11/2022Nov, Primary hypertension (ICD-10 - I10) Nov, Elevated cholesterol (ICD-10 - E78.00) Nov, Gastroesophageal ref lux disease with esophagitis without hemorrhage (ICD-10 - K21.00) [facility] Other 04-13-2023 Evaluation note* Encounter Date Diagnosis [...] use, the patient reduces the risk for SC, CVA, HTN, cardiac dysrhythmias and sudden cardiac [...] rhinitis due to pollen (ICD-10 - J30.1) [facility] Other 02-17-2023 Evaluation note* Encounter Date Diagnosis Assessment Notes Treatment Notes Treatment Clinical Notes May, Dupuytren's contracture of both hands (ICD-10 - M72.0) Continue use of splint x 2 more months. [facility] Other 01-20-2023 Evaluation note* Encounter Date Diagnosis Assessment Notes Treatment Notes Treatment Clinical Notes Apr, Dupuytren's contracture of both hands (ICD-10 - M72.0) Patient given new TKO splint for the right hand as the one she has is too big and bulky. She will continue to use at night and work on daily exercises [facility] Other 01-06-2023 Evaluation note* Encounter Date Diagnosis [...] activities. Rx Doxycycline. Patient given TKO splint [facility] Other 01-04-2023 Evaluation note* Encounter Date Diagnosis [...] well. Will return on 05/02/22 for manipulation. [facility] Other 12-30-2022 Evaluation note* Encounter Date Diagnosis Assessment Notes Treatment Notes Treatment Clinical Notes Mar, Dupuytren's contracture of both hands (ICD-10 - M72.0) Extensive discussion about current condition and treatment options available. We will plan to proceed with Xiaflex and manipulation. With the holiday weekend following today, we will schedule this for sometime next week. [facility] Other Evaluation noteNo InformationN[employer] Other Evaluation note* Diagnosis LAMAR (obstructive sleep [...] See past surgical Hospitalization History Chest pain [facility] Other History general Narrative - Reported* Type [...] See past surgical Hospitalization History Chest pain [facility] Other Reason for referral (narrative)No reason for referral [facility] Work Phone: Summary Purpose Family History Relationship Condition Age at Onset Recorded Date/T freddy mother Diabetes mellitus Unknown father Malignant neoplasm of colon Unknown Malignant neoplasm of liver Unknown father Family history of colon cancer Unknown Unknown mother Heart disease Unknown Diabetes mellitus Unknown Advance Directives Advance Directive Response Recorded Date/ Time Advance Directives No June 03, 2024 10:11am Chief Complaint and Reason for Visit Chief Complaint Admit Date 6 month f/u August 09, 2024 8:2 2am Surgical Clearance November 02, 2024 9:27a m Reason for Visit Admit Date Cigarette nicotine dependence in [facility] on August 09, 2024 8:22am Elevated cholesterol August 09, 2024 8: 22am GERD (gastroesophageal reflux disease) A pril 2024 8:22am Hypertension August 09, 2024 8:2 2am Menopause August 09, 2024 8:2 2am Mucopurulent chronic bronchitis August 092024 8:22am LAMAR (obstructive sleep apnea) July 8:22am Aorta aneurysm August 09, 2024 8:2 2am Medicare annual wellness visit, subseque nt August 09, 2024 8:22am Screening mammogram for breast cancer Ap ril 2024 8:22am Ascending aorta dilatation November 02 9:27am Cigarette nicotine dependence in [place] on November 02, 2024 9:27am Elevated cholesterol November 02, 2024 9:27 am GERD (gastroesophageal reflux disease) J lazara 2024 9:27am Hypertension November 02, 2024 9:27a m Mucopurulent chronic bronchitis October 9:27am LAMAR (obstructive sleep apnea) November 02, 2024 9:27am Pulmonary nodule November 02, 2024 9:27a m Preop exam for internal medicine October 9:27am Additional Source Comments INFORMATION SOURCE (unrecogn ized section and content) DATE CREATED AUTHOR 10/12/2021 [facility] DATE CREATED AUTHOR AUTHOR'S ORGANIZ ATION 08/23/2022 [facility] DATE CREATED AUTHOR AUTHOR'S ORGANIZ ATION 01/29/2024 [facility] EPIC REASON FOR VISIT (unrecogniz ed section and content) Reason Comments Sleep Apnea Care Teams (unrecognized sec tion and content) Team Status: Active Member Role Status Dates Collin Daniel DO Primary Care Provider Active Team Status: Inactive Member Role Status Dates Collin Daniel DO Primary Care Provider Active Start: August 09, 2024 End: August 09, 2024 Collin Daniel DO Attending Provider Active Sta rt: August 09, 2024 End: August 09, 2024 Team Status: Active Member Role Status Dates Collin Daniel DO Primary Care Provider Active Start: September 12, 2024 Collin Daniel DO Attending Provider Active Sta rt: September 12, 2024 Team Status: Inactive Member Role Status Dates Collin Daniel DO Primary Care Provider Active Start: November 02, 2024 End: November 02, 2024 Collin Daniel DO Attending Provider Active Sta rt: November 02, 2024 End: November 02, 2024 Goals (unrecognized section and content) Goals may be documented in a n alternate section FOR RECORDS PERTAINING TO PATIENTS WHO ARE [...] BE BASED ON THE PRIMARY CLINICAL RECORDS. [facility] [employer] [facility]. provides no warranty or guarantee of the accuracy or completeness of information in this document.
[2024-11-17 10:14] LABS: Hematocrit 42.8 % (36.0-48.0); Hemoglobin 14.4 g/dL (12.0-16.0); Immature Granulocytes Abs Auto 0.02 10^3/uL (0.00-0.03); Immature Granulocytes Pct Auto 0.3 % (0.0-0.5); Lymphocytes Absolute Auto 2.3 10^3/uL (1.2-3.8); Mean Corpuscular HGB Conc 33.6 g/dL (29.9-35.2); Mean Corpuscular Hemoglobin 29.9 pg (26.7-34.0); Mean Corpuscular Volume 88.8 fL (81.0-99.0); Platelet Count 250 10^3/uL (150-450); Red Blood Count 4.82 10^6/uL (4.20-5.40); White Blood Count 5.9 10^3/uL (4.0-11.0)
== END 2024-11-17 09:52 | disposition home or self-care (01) ==
LOC: LAB 09:54
PROVIDERS: PCP Internal Medicine; Visit Provider Ophthalmology
DX: H02.834 Dermatochalasis of left upper eyelid (principal); H02.831 Dermatochalasis of right upper eyelid
CPT/HCPCS: 36415; 85025

== ENCOUNTER 2025-02-20 10:46 | Outpatient (OUT) | payer MEDICARE, BC, SELFPAY ==
--- OUTSIDE RECORDS SUMMARY | 2025-02-14 05:12 | XMS_ITS | Continuity of Care Document ---
Author Organization [facility] Address [address] [place] [address] Phone Care Team Providers Care Seed Sales Manager Name Role Phone Collin Daniel DO Primary Care Provider [phone] Srini Anderson MD Attending Provider Collin Daniel DO Attending Provider [phone] Care Teams Patient Care Team Team Status: Active Member Role/Relationship Status Dates Collin Daniel DO Primary Care Provider Active Patient Care Team Team Status: Active Member Role/Relationship Status Dates Collin Daniel DO Primary Care Provider Active Start: November 17, 2024 Nick Cline ProviderActiveStart: November 17, 2024 Patient Care Team Team Status: Inactive Member Role/Relationship Status Dates Collin Daniel DO Primary Care Provider Active Start: February 14, 2025 End: February 14diony Daniel DOAttcharles ProviderActiveStart: February 14, 2025 End: February 14, 2025 Chief Complaint and Reason for Visit Chief Complaint Admit Date 6 mo f/u February 14, 2025 8 :22am Reason for Visit Admit Date Ascending aorta dilatation February 14, 2025 8:22am Cigarette nicotine dependence in [place] on February 14, 2025 8:22am GERD (gastroesophageal reflux disease) O ctober 2024 8:22am Hypertension February 14, 2025 8 :22am Hypertriglyceridemia February 14, 2025 8:22am Knee pain February 14, 2025 8 :22am Menopause February 14, 2025 8 :22am Mucopurulent chronic bronchitis February 14, 2025 8:22am LAMAR (obstructive sleep apnea) February 142024 8:22am Allergies, Adverse Reactions, Alerts Allergen Type Severity Reaction Last Updated Verified Status Iodinated Contrast Media Allergy Unknown Unknown Reaction February 14, 2025 8:27am Yes Active Gadolinium-Containi ng Contrast Medi Allergy Unknown Unknown Reaction February 14, 2025 8:27am Yes Active Social History Smoking Status Status Start Date End Date Date of Observa tion Ex-smoker (finding) August 09, 2024 9:03am Observation Status Observation Response Date of Response Legal Sex Female (finding) Sex Assigned At BirthFemaleSeptember 1949 Family History Relationship Condition Age at Onset Recorded Date/T freddy mother Diabetes mellitus Unknown fatherMalignant neoplasm of colonUnknownMalignant neoplasm of liverUnknownfather Family history of colon cancerUnknownDeceasedUnknownmotherHeart diseaseUnknown DeceasedUnknownDiabetes mellitusUnknown Problems Active Problems Problem Diagnosis/Recorded Date Onset Date Status C omments LAMAR (obstructive sleep apnea) August 07, 2023 8:34am Unkn own Active Cigarette nicotine dependence in remissionApril 2023 8:34amUnknownActive started age 22, 1 ppd, quit 2014LDCT: no suspicious nodules - 11/2022, 11/2023 MenopauseApril 2024 9:09amUnknownActiveMucopurulent chronic bronchitis August 07, 2023 8:34amUnknownActiveHypertriglyceridemiaOctober 2024 9:05amUnknownActiveElevated cholesterolApril 2023 8:34amUnknownActive Pulmonary noduleApril 2023 8:34amUnknownActiveNo suspicious nodules: 11/2022, 11/2023, 06/2024OsteopeniaOctober 2024 9:11pmUnknownActiveDEXA: 01/2025Seasonal allergic rhinitis due to pollenApril 2023 9:59amUnknown ActiveAscending aorta dilatationJuly 2024 8:27amUnknownActiveCT ascending aorta: 4.4cm - 11/2022, 4.6cm - 11/2023.CTA ascending aorta: 4.2cm - 06/2024Knee painOctober 2024 8:57amUnknownActiveGERD (gastroesophageal reflux disease) October 07, 2021 2:58pmUnknownActiveHypertensionJune 2021 2:58pmUnknown ActiveInactive/Resolved Problems Problem Diagnosis/Recorded Date Onset Date Status C omments Aorta aneurysm October 07, 2021 3:00pm Unknown Resolved CT ascending aorta: 4.4cm - 11/2022, 4.6cm - 11/2023.CTA ascending aorta: 4.2cm - 06/2024 Personal history of colonic polyps October 08, 2021 8:12am Unknown Resolved Problem L ist clean-up per request of Phys. EHR Cmte Medications Medication Status Dose Units Route Directions Qty Days Refills S tart Date Stop Date End Date Reason(s) Instructions Adherence Lisinopril-Hydrochlorothiazide 20-25 mg tablet Discont inued 0 .ROUTE.REDEKXW313Mthaq 2023 12:58pmOctober 2023 12:10pmTAKE 1 TABLET BY MOUTH DAILYAtenolol 25 mg tabletDiscontinued0.ROUTE.JYIIXKL229Iwsny 2023 12:58pmFebruary 2024 2:13pmTAKE 1 TABLET BY MOUTH DAILYPantoprazole 40 mg tablet,delayed release (DR/EC)Discontinued0.ROUTE.UCNPDSI201Bpywexe 2023 10:31amAugust 2024 7:43amTAKE 1 TABLET BY MOUTH DAILYFenofibrate 160 mg tabletDiscontinued0.ROUTE.TBNSHAU627Nmjvbvy2023 5:50pmAugust 2024 7:43amTAKE 1 TABLET BY MOUTH ONCE DAILYLisinopril-Hydrochlorothiazide 10-12.5 mg fotxyhItugpjnllwsc4KWQSUVhpeb81632Oybztia 2023 12:00amDecember 2023 11:01amLisinopril-Hydrochlorothiazide 10-12.5 mg kbogbxNzjbwsxncljk6SYWAQOtatx39 903Deceer 2023 11:01amOctober 2024 8:53amAtenolol 25 mg tablet Active0.ROUTE.UUXQDZA220Ewgezfyo 2024 2:12pmTAKE 1 TABLET BY MOUTH DAILY Complies with drug therapyColestipol 1 gram tabletActive0.ROUTE.JGBZHJN6909 June 21, 2024 7:55amTAKE 1 TABLET BY MOUTH AT BREAKFAST AND EVENING MEAL Complies with drug therapyPrednisone 10 mg zhuidhJbdyjipvyhmh80DCRH.PCALBYW3633 June 27, 2024 1:00amApril 2024 9:12am5 tabs (50mg) taken 13, 7 and 1 hour w/ food prior to CT scan.Fenofibrate 160 mg tabletActive0.ROUTE.RASUKKL328 December 09, 2024 7:43amTAKE 1 TABLET BY MOUTH ONCE DAILYComplies with drug therapyPantoprazole 40 mg tablet,delayed release (DR/EC)Active0.ROUTE.CRUWMIJ216 December 09, 2024 7:43amTAKE 1 TABLET BY MOUTH DAILYComplies with drug therapy Multivitamin MljpibTcqqxp9HDNWNMssjpIsws 2021 12:00amComplies with drug therapyAtenolol 25 mg ilxopzRjwjwqtibity16AUSNWnwcgUshq 2021 12:00amApril 2023 12:58pmAscorbic Acid (Vitamin C) (Vitamin C) 500 mg XjwotiNcborz875NQ PODailyJune 2021 12:00amComplies with drug therapyPantoprazole 40 mg tablet,delayed release (DR/EC)Ooegibcxvnlt87KBSDRmaftIieg 2021 12:00am February 03, 2024 10:31amLisinopril-Hydrochlorothiazide 20-25 mg tablet Sehaxpfpmsxz5CQJPKZwdduExfd 2021 12:00amApril 2023 12:58pmAspirin 81 mg Tablet,LejotolqYvmvuw05EMGZOxufpIixc 2021 12:00amComplies with drug therapyColestipol 1 gram jgdqxfZabbxutjkovg8OJQFNetacKtwj 2021 12:00am August 07, 2023 8:36amLoratadine 10 mg AzcqutZvtkpa43KLHMZjevi as needed for Allergy SymptomsJune 2021 12:00amComplies with drug therapyFenofibrate 160 mg igaxjiRmgsbhkavxfq449FHTJBqsyaZvtt 2021 12:00amOctober 2023 5:50pmCalcium Carbonate-Vitamin D3 (Calcium 600 + D(3)) 600 mg-10 mcg (400 unit) IfgggoZhdfsq9IUVLGDbxfyMvyi 2021 12:00amComplies with drug therapyOmega 8-Ivi-Mpo-Fish Oil (Fish Oil) 300-1,000 mg WznkfaiNbronm7JUWNQQzahiMqnk 2021 12:00amComplies with drug therapyColestipol 1 gram tgpzoiOkczwsjusner2LUJZ Twice dailyApril 2023 8:35amFebruary 2024 7:55amAzithromycin 250 mg hwdgepNlbbkblfhlub213JBHJZr Xdiizcbd680Mzwbrkdec 2023 12:00amSeptember 2023 11:29amAlbuterol Sulfate 90 mcg/actuation HFA aerosol inhalerActive2 PUFFINHALATIONEvery 6 hours as needed for shortness of breath or wheezing8.530January 06, 2024 12:00amComplies with drug therapyPrednisone 20 mg tablet Uirwlfmbkfxe74EFOBCp Rcfifvxv185Hhdeadhhr 2023 12:00amFebruary 2024 3:17pm1 tab tid w/ food x 3 days, then bid w/ food x 3 days, then qd w/ food x 3 daysAmoxicillin-Pot Clavulanate 875-125 mg ljdnrjTixlvfksfzat4PJTSGNists 12 zpyfr0074Oyzqidihb 2023 12:00amFebruary 2024 3:17pmCoenzyme Q10 (Coq- 10) 100 mg kccmipbBjgxxd217HWKPNoxfwNxqhe 2023 12:00amComplies with drug therapyPrednisone 20 mg brqfacKndtedqsvvec82KOBJEz Mzvkfilk932Ynuixwoo 2024 1:00amApril 2024 9:12am1 tab tid w/ food x 3 days, then bid w/ food x 3 days, then qd w/ food x 3 daysDoxycycline Hyclate 100 mg dbazyjsKbezoc487XBMO Twice wvuxk372Wxfqajmd 2024 1:00amComplies with drug therapyLisinopril- Hydrochlorothiazide 10-12.5 mg hnoaoxDtgurzophnar0AZHPNRtiwl75265Mqgrjxg 2024 8:52amOctober 2024 8:55amLisinopril-Hydrochlorothiazide 20-25 mg bmiyopOqdzhakagriu0NBBBSVdmyw69666Kjjhaun 2024 12:00amOctober 2024 8:56amLisinopril-Hydrochlorothiazide 10-12.5 mg vgxkwqUxkzlnixozii1LWCLONwzqy86 903October 2024 8:53amOctober 2024 8:55amLisinopril- Hydrochlorothiazide 20-25 mg tgvqasJkvtzx1HHWEMBpxih68598Haboxqg 2024 8:56amComplies with drug therapy Immunizations Immunization Event Date Not Given Reason Dose Number Music Mixer Lot Number Reason(s) Given Vaccine Information Statement (VIS) Detail Administration Location COVID-19 mRNA, Comirnaty ([employer]) June 20, 2020 COVID-19 mRNA, Comirnaty ([employer])July 11, 2020Fluzone TIV High-Dose 65YR+ February 08, [id number] HospitalFl[facility] TIV High-Dose 65YR+ February 14, [id number] Hospitalinfluenza, unspecified formulationNovember 2019influenza, unspecified formulationOctober 2020influenza, unspecified formulationOctober 2021influenza, unspecified formulationOctober neumococcal Conjugate Vaccine, 13 valentMarch neumococcal Polysacc. Vaccine, 23 valentNovember 2019Tetanus, Diphtheria adult, 5 Lf pres free absNovember , 2011Tetanus, Diphtheria adult, 5 Lf pres free absNovember , 2012Tetanus, Diphtheria adult, 5 Lf pres free absOctober 2013Tetanus toxoidMay 2013 Relevant Diagnostic Tests and/or Laboratory Data Laboratory Results Test Collection Date/Time Result Date/Time Result Interpretation Reference Range Result Comment Performing Site Basophils # (Auto) November 17, 2024 10:07am November 17, 2024 10:07am 0.0 10 3/uL 0.0-0.1Basophils (%) (Auto)November 17, 2024 10:07amJuly 2024 10:07am0.5 % 0.2-2.0Eosinophils # (Auto)November 17, 2024 10:07amJuly 2024 10:07am0.3 10 3/uL0.0-0.7Eosinophils (%) (Auto)November 17, 2024 10:07amJuly 2024 10:07am 4.2 %0.9-7.0HematocritJuly 2024 10:07amJuly 2024 10:07am42.8 % 36.0-48.0HemoglobinJuly 2024 10:07amJuly 2024 10:07am14.4 g/dL 12.0-16.0Immature Granulocyte # (Auto)November 17, 2024 10:07amJuly 2024 10:07am0.02 10 3/uL0.00-0.03Immature Granulocyte % (Auto)November 17, 2024 10:07am November 17, 2024 10:07am0.3 %0.0-0.5Lymphocytes # (Auto)November 17, 2024 10:07am November 17, 2024 10:07am2.3 10 3/uL1.2-3.8Lymphocytes (%) (Auto)November 17, 2024 10:07amJuly 2024 10:07am38.4 %20.5-60.0Mean Corpuscular HemoglobinJuly 2024 10:07amJuly 2024 10:07am29.9 pg26.7-34.0Mean Corpuscular Hemoglobin ConcentJuly 2024 10:07amJuly 2024 10:07am33.6 g/dL 29.9-35.2Mean Corpuscular VolumeJuly 2024 10:07amJuly 2024 10:07am 88.8 fL81.0-99.0Monocytes # (Auto)November 17, 2024 10:07amJuly 2024 10:07am 0.5 10 3/uL0.3-0.8Monocytes (%) (Auto)November 17, 2024 10:07amJuly 2024 10:07am7.9 %1.7-12.0Mean Platelet VolumeJuly 2024 10:07amJuly 2024 10:07am8.9 fLBelow low normal9.5-13.5Neutrophils # (Auto)November 17, 2024 10:07am November 17, 2024 10:07am2.9 10 3/uL1.4-6.5Neutrophils (%) (Auto)November 17, 2024 10:07amJuly 2024 10:07am48.7 %43.0-75.0Platelet CountJuly 2024 10:07amJuly 2024 10:25ue887 10 3/gM043-282Qdg Blood CountJuly 2024 10:07amJuly 2024 10:07am4.82 10 6/uL4.20-5.40Red Cell Distribution Width November 17, 2024 10:07amJuly 2024 10:07am12.6 %11.0-15.0Corrected White Blood CountJuly 2024 10:07amJuly 2024 10:07am5.9 10 3/uL4.0-11.0 Vital Signs Vital Reading Result Reference Range Collection Date/Time Height 68 [in_i] February 14, 2025 8:87khJhegcb847.03 kgOctober 2024 8:30amHeart Rate60 /kdr26-550Wjdxmjh 21st, 2025 8:30amRespiratory rate12 /dch03-11Wjnrcre 21st, 2025 8:30amBP Yfoydejd271 mm[Hg]100-140October 2024 8:30amBP Juwwoniug08 mm[Hg]60-100October 2024 8:30amBMI (Body Mass Index)37.5 kg/l8Aqvwpey2024 8:30am Advance Directives Advance Directive Response Recorded Date/ Time Advance Directives No June 03, 2024 10:11am Insurance Providers Guarantor Da Garcia Address [address] [place] [id number] Info.Home Phone: Payer Group Member ID Coverage Type Subscriber Relationship to Subscriber Effective Date Expiration Date Lam BC/BS Id: [id number] Wilder , D Id: [id number] [address] [facility] Home Phone: SelfMedicare [id number] Wilder , D Id: [id number] [address] [facility] Home Phone: Self Encounters Encounter Location(s) Arrival/Admit Date Discharge/Departure Date Discharge/Departure Disposition Provider(s) Non-patient / Non-visit -[facility] Adolph haile 2024 10:07am Srini Anderson , MDDeparted Physician/Provider [facility] 2024 9:11amDischarged to home care or self care (routine discharge)Collin Daniel , Recent Diagnosis Onset Date Admit Date Ascending aorta dilatation Unknown Janob er 2024 8:22am Cigarette nicotine dependence in remission Unkno wn February 14, 2025 8:22am GERD (gastroesophageal reflux disease) Unknown February 14, 2025 8:22am Hypertension Unknown February 14 8:22am Hypertriglyceridemia Unknown January 8:22am Knee pain Unknown February 14 8:22am Menopause Unknown February 14 8:22am Mucopurulent chronic bronchitis Unknown February 14, 2025 8:22am LAMAR (obstructive sleep apnea) Unknown Oc tober 2024 8:22am Assessments Diagnosis Onset Date Resolution Status Admit Date Ascending aorta dilatation acuteOctober 2024 8:22amCigarette nicotine dependence in remissionacute February 14, 2025 8:22amGERD (gastroesophageal reflux disease)acuteOctober 2024 8:22amHypertensionacuteOctober 2024 8:22amHypertriglyceridemia acuteOctober 2024 8:22amKnee painacuteOctober 2024 8:22amMenopause acuteOctober 2024 8:22amMucopurulent chronic bronchitisacuteOctober 2024 8:22amOSA (obstructive sleep apnea)acuteOctober 2024 8:22am Plan of Treatment Author Collin Daniel [facility] BeachwoodAuthoredOctcl[facility] 2024 9:07amI have instructed this patient to consume a healthy, low-fat, low-salt diet. I have also encouraged them to continue exercise with weight loss to achieve/maintain a BMI < 30. I have instructed this patient on the correct procedure for obtaining home BP measurements:? - rest for 5 minutes w/o talking. - positioned w/ feet on floor and arms supported. - average best 2/3 readings w/ goal < 135/85. - update office w/ home readings in 2 weeks. Continue Lisinopril/HCTZ without interruption Mucolytics as needed to clear secretions. No ER visits for AECOPD AZALEA as needed for cough and wheezing, but rarely used UTD w/ vaccines I have instructed this patient to avoid lying flat after eating.?? I have also recommended to avoid eating 2 hours prior to bedtime.?? They were also informed that smaller, frequent meals may be better tolerated. I have discussed additional treatment options for persistent symptoms, which includes: weight loss, H2 blockers and PPI. I have also instructed them to notify the office with any pain or difficulty swallowing. Continue Pantoprazole without interruption This patient is aware of the benefits associated with LAMAR: With continued use, the patient reduces the risk for DC, CVA, HTN, cardiac dysrhythmias and sudden cardiac deaths. The patient is also aware of the association between LAMAR and morning headaches, daytime somnolence, fatigue and obesity, which also has been improved with continued use. The patient is compliant with treatment, wearing the equipment every night for greater than 4 hours. The patient is instructed to continue use of the CPAP for LAMAR treatment. Compliant Continue abstinence. Continue CT chest yearly Instructed on healthy diet and exercise Schedule for DEXA I have instructed this patient on a low fat, high fiber diet and exercise. I have discussed the primary and secondary prevention benefits attributed to lowering LDL cholesterol. I have also discussed the medical treatment of elevated cholesterol, which is based on the 10 year ASCVD risk. Continue Fenofibrate without interruption Strict control of BP Continue yearly surveillance Instructed on quad exercises, ice and Tylenol. XR to determine degree of arthritis. Refer to Orthopedics Future Tests Future scheduled test information is unavailable Pending Tests Test Name Ordered Date Scheduled Date XR knee LT 4V* February 14, 2025 8:56am Future Visits Future appointment information is unavailable Future Procedures Future procedure information is unavailable Future Medications Future medication information is unavailable Patient Instructions Patient instructions are unavailable
--- OUTSIDE RECORDS SUMMARY | 2025-02-20 10:51 | XMS_ITS | Clinical Summary ---
Author Organization [facility] Healthcare Address [address] [place] [address] Care Team Providers Care Workplace Rehabilitation Officer Name Role Phone Unavailable Primary Care Provider Unavailabl e Allergies Active AllergyReactionsCriticalityNoted DateCommentsIodinated Contrast Media 01/12/2024 Other Reaction(s): Unknown Reaction Medications MedicationSigDispense QuantityRefillsLast FilledStart DateEnd DateStatus Ascorbic Acid (vitamin C) 1000 MG tablet Take 1,000 mg by mouth DailyActive omega-3 (fish oil) 1200 MG capsule Take 1 capsule by mouth DailyActive aspirin (Aspirin Adult Low Dose) 81 MG EC tablet Take 81 mg by mouth DailyActive colestipol (Colestid) 1 g tablet Take 2 tablets by mouth Daily Take at least 1 hour after or 4 hours before other medications.Active fenofibrate (Triglide) 160 MG tablet Take 160 mg by mouth DailyActive atenolol (Tenormin) 25 MG tablet Take 25 mg by mouth DailyActive pantoprazole (ProtoNix) 40 MG EC tablet Take 40 mg by mouth in the morning. Take before meals. Do not crush, chew, or split..Active loratadine (Claritin) 10 MG tablet Take 10 mg by mouth DailyActive lisinopril-hydroCHLOROthiazide 20-25 MG tablet Take 1 tablet by mouth DailyActive Active Problems ProblemNoted DateDiagnosed DateOSA (obstructive sleep apnea)01/24/2024 Nmwgvjyqbkv25/29/2024Obesity due to excess zjrqorlg86/29/2024 Family History Medical HistoryRelationNameCommentsCancerFatherHypertensionFatherCoronary artery diseaseMotherDiabetesMotherHypertensionMotherOsteoporosisMotherRelationName StatusCommentsFatherMother Social History Tobacco UseTypesPacks/DayYears UsedDateSmoking Tobacco: FormerCigarettes Smokeless Tobacco: Never Tobacco Cessation:Counseling Given: Not Answered Alcohol UseStandard Drinks/WeekCommentsYes0 (1 standard drink = 0.6 oz pure alcohol)caffeine: 1-2 cups per dayAUDIT-CAnswerDate RecordedQ1: How often do you have a drink containing alcohol?Monthly or less01/24/2024Q2: How many drinks containing alcohol do you have on a typical day when you are drinking?1 or 2 01/24/2024Q3: How often do you have six or more drinks on one occasion?Never 01/24/2024CommentsUnknownSex and Gender InformationValueDate RecordedSex Assigned at BirthNot on fileLegal GfpGvflzm41/15/2023 6:36 PM EDTGender Identity Not on fileSexual OrientationNot on file Last Filed Vital Signs Vital SignReadingTime TakenCommentsBlood Diuzijtf537/7810 8:22 AM EDT Pulse--Temperature--Respiratory Rate--Oxygen Saturation--Inhaled Oxygen Concentration--Ctmthy205 kg (237 lb)01/28/2024 8:22 AM HMULcmflu522.7 cm (5' 8 ) 01/28/2024 8:22 AM EDTBody Mass Index36.041 8:22 AM EDT Plan of Treatment Not on file Insurance
--- OUTSIDE RECORDS SUMMARY | 2025-02-20 10:51 | XMS_ITS | Clinical Summary ---
Author Organization [facility] Address [address] [place] [address] Care Team Providers Care Street Light Inspector Name Role Phone Unavailable Primary Care Provider Unavailabl e Social History Tobacco UseTypesPacks/DayYears UsedDateSmoking Tobacco: Never AssessedUT Safety & EnvironmentAnswerDate RecordedFear of Current or Ex-PartnerNot on file 06/18/2023Emotionally AbusedNot on file06/18/2023hysically AbusedNot on file 06/18/2023Sexually AbusedNot on file4Physically or Sexually AbusedNot on file06/18/2023CommentsUnknownSex and Gender InformationValueDate RecordedSex Assigned at BirthNot on fileLegal FvuAuihhx88/29/2022 11:23 PM EDT Gender IdentityNot on fileSexual OrientationNot on file Plan of Treatment Not on file
--- NOTE | 2025-02-20 10:54 | XR_ITS ---
The [address] [address] Patient Name: ANDRZEJ SAAVEDRA MRN: [id number] date: 1950 Sex: F Assigned Patient Location: [facility] Current Patient Location: [facility] Accession/Order Number: [id number] Exam Date: 02/20/2025 11:02 Report Date: 02/20/2025 11:40 At the request of: RENE SANCHEZ DO Procedure: XR knee LT 4V LEFT KNEE - 4 views COMPARISON: None CLINICAL DATA: Chronic left knee pain laterally for the past 2 years. No injury. AP, lateral and both oblique views were obtained. There is osteopenia. No acute fracture or dislocation is identified. There is moderate to severe narrowing at the lateral tibiofemoral joint compartment where there is moderate marginal spurring. There is also spurring at the posterior patella and to lesser extent the medial compartment. There is a trace amount joint fluid. No focal soft tissue swelling is noted. XR/XR knee LT 4V IMPRESSION: OSTEOPENIA AND DEGENERATIVE CHANGES, GREATEST LATERALLY. Impression dictated by: Ekaterina Monzon M.D. 02/20/2025 11:40 AM Dictation Location: [place] [address] Electronically authenticated by: [id number] Date: 02/20/2025 11:40
--- OUTSIDE RECORDS SUMMARY | 2025-02-20 10:57 | XMS_ITS | CCD ---
Author Organization [facility] Care Team Providers Care Culinary Assistant Name Role Phone Elida Cuadra Unavailable Collin Daniel Unavailable FREDY, DR LÓPEZ Consulting Unavailable BALL, DR LÓPEZ Primary Care Unavailable BALL, DR LÓPEZ Admitting Unavailable BALL, DR LÓPEZ Attending Unavailable WEST, DR JOAQUIN Crabtree Consulting Unavailable BALL, DR LÓPEZ Primary Care Unavailable BALL, DR LÓPEZ Admitting Unavailable BALL, DR LÓPEZ Attending Unavailable BALL, DR LÓPEZ Consulting Unavailable WEST, DR JOAQUIN Crabtree Consulting Unavailable BALL, DR LÓPEZ Consulting Unavailable BALL, DR LÓPEZ Primary Care Unavailable BALL, DR LÓPEZ Admitting Unavailable BALL, DR LÓPEZ Attending Unavailable ZIEBER, DR RUTH Bethea Consulting Unavailable GILLMORMARTINA Attending Unavailable Unavailable Primary Care Provider Unavailabl e Collin Daniel DO Primary Care Provider Collin Daniel DO Attending Provider Collin Daniel DO Primary Care Provider Srini Anderson MD Attending Provider [phone] Collin Daniel DO Attending Provider Allergies Allergy ClassificationReported Allergen(s)Allergy TypeDate of OnsetReaction(s) Facility (2 sources)Contrast mediaPropensity to adverse reactionsUnkJumpLinc Other (2 sources)IodineDrug AllergyUnkJumpLinc Other (1 source)Iodine (And Iodine Containting Drugs)Drug allergy (disorder)[facility] (1 source)Allergies ReconciledPropensity to adverse reactionsUnkWhyd Other (1 source)patient allergy list reviewed by nurse or physiciaPropensity to adverse verumsomo40-60-0496Icyowfy:[facility] HospitalLuckyFish Games Other (4 sources)Iodinated Contrast MediaDrug Ulgspzq87-35-1249Wyrubkp ReactionSaint Joseph Hospital of [facility] (2 sources)Gadolinium-Containing Contrast MediAllergy to -[phone] Unknown ReactionAvita Health System Medications Current Medications MedicationDrug Class(es)DatesSig (Normalized)Sig (Original)[id number] 200 actuat albuterol 0.09 mg/actuat metered dose inhaler (2 sources)beta2-Adrenergic AgonistStart: 28-88-5823ibgw 1 puff(s) by inhalation every six hours as needed for wheezingAlbuterol Sulfate 90 mcg/actuation HFA aerosol inhaler Active 2 PUFF INHALATION Every 6 hours as needed for shortness of breath or wheezing 8.5 30 0 January 06, 2024 12:00am Complies with drug therapyascorbic acid 500 mg oral tablet (13 sources)Vitamin CStart: 17-68-7258uirs 1 tablet by mouth once dailyAscorbic Acid (Vitamin C) (Vitamin C) 500 mg Tablet Active 500 MG PO Daily October 07, 2021 12:00am Complies with drug therapytake 1 tablet by mouth once dailyAscorbic Acid (vitamin C) 1000 MG tablet Take 1,000 mg by mouth Daily Activeaspirin 81 mg chewable tablet (15 sources)Platelet Aggregation Inhibitor, Nonsteroidal Anti-inflammatory Drug Start: 91-48-9671nbys 1 tablet by mouth once dailyAspirin 81 mg Tablet,Chewable Active 81 MG PO Daily October 07, 2021 12:00am Complies with drug therapytake 1 tablet by mouth once dailyaspirin (Aspirin Adult Low Dose) 81 MG EC tablet Take 81 mg by mouth Daily Activeaspirin 81MG 1 daily Activeatenolol 25 mg oral tablet (19 sources)beta-Adrenergic BlockerStart: 08-04-2023 End: 48-27-1336wfbf 1 tablet by mouth once dailyAtenolol 25 mg tablet Active 0 .ROUTE .COMPLEX 90 3 June 10, 2024 2:12pm TAKE 1 TABLET BY MOUTH DAILY Complies with drug therapyStart: 10-07-2021 End: 50-28-1360vavm 1 tablet by mouth once dailyAtenolol 25 mg tablet Discontinued 25 MG PO Daily October 07, 2021 12:00am August 04, 2023 12:58pm calcium carbonate 1500 mg / cholecalciferol 0.01 mg oral tablet (2 sources)Vitamin DStart: 05-31-1087zeoe 1 tablet by mouth once dailyCalcium Carbonate-Vitamin D3 (Calcium 600 + D(3)) 600 mg-10 mcg (400 unit) Tablet Active 1 TAB PO Daily October 07, 2021 12:00am Complies with drug therapycolestipol hydrochloride 1000 mg oral tablet (19 sources)Bile Acid SequestrantStart: 87-72-2856aulk 1 tablet by mouth at dinnerColestipol 1 gram tablet Active 0 .ROUTE .COMPLEX 180 3 June 21, 2024 7:55am TAKE 1 TABLET BYMOUTH AT BREAKFAST AND EVENING MEAL Complies with drug therapyStart: 08-07-2023 End: 46-24-1344Yxncjjbigm 1 gram tablet Discontinued 1 GM PO Twice daily August 07, 2023 8:35am June 21, 2024 7:55amStart: 10-07-2021 End: 87-59-0077Yjloxsxxuk 1 gram tablet Discontinued 1 GM PO Daily October 07, 2021 12:00am August 07, 2023 8:36amtake 2 tablets by mouth once dailycolestipol (Colestid) 1 g tablet Take 2 tablets by mouth Daily Take at least 1 hour after or 4 hours before other medications. ActiveColestipol HCl 1 GM TAKE 1 TABLET AT BREAKFAST AND EVENING MEAL for 90 ActiveCoQ-10 (10 sources)CoQ-10 Not-TakingOmega 7-Uyg-Muo-Fish Oil (2 sources)Start: 85-93-6048pejn 300-1000 mg by mouth once dailyOmega 8-Aus-Cht-Fish Oil (Fish Oil) 300-1,000 mg Capsule Active 1 CAP PO Daily October 07, 2021 12:00am Complies with drug therapydoxycycline hyclate 100 mg oral capsule (12 sources)Tetracycline-class DrugStart: 90-70-5715almg 1 capsule by mouth twice dailyDoxycycline Hyclate 100 mg capsule Active 100 MG PO Twice daily 10 June 03, 2024 1:00am Complies with drug therapyStart: 85-69-9276puxt 1 capsule by mouth every twelve hoursDoxycycline Hyclate 100 MG 1 capsule Orally Twice a day for 5 day(s) Apr, Not-Takingfenofibrate 160 mg oral tablet (20 sources)Peroxisome Proliferator Receptor alpha AgonistStart: 02-08-2024 End: 90-15-9010tfqh 1 tablet by mouth once dailyFenofibrate 160 mg tablet Active 0 .ROUTE .COMPLEX 90 3 December 09, 2024 7:43am TAKE 1 TABLET BY MOUTH ONCE DAILY Complies with drug therapyStart: 10-07-2021 End: 35-65-0895zbqh 1 tablet by mouth once dailyFenofibrate 160 mg tablet Discontinued 160 MG PO Daily October 07, 2021 12:00am February 08, 2024 5:50pm Fish Oils (13 sources)take 1 capsule by mouth once dailyomega-3 (fish oil) 1200 MG capsule Take 1 capsule by mouth Daily ActiveFish Oil 1000MG 1 daily Not-TakingFish Oil 1000MG 1 daily Activeloratadine 10 mg oral tablet (15 sources)Start: 46-97-9018ywgz 1 tablet by mouth once daily as needed Loratadine 10 mg Tablet Active 10 MG PO Daily as needed for Allergy Symptoms October 07, 2021 12:00am Complies with drug therapyLoratadine 10MG 1 daily Active Multivitamin Tablet (2 sources)Start: 63-31-5599xwan 1 tablet by mouth once dailyMultivitamin Tablet Active 1 TAB PO Daily October 07, 2021 12:00am Complies with drug therapy Multivitamins (10 sources)Multivitamins 1 daily Activepantoprazole 40 mg delayed release oral tablet (18 sources)Proton Pump InhibitorStart: 02-03-2024 End: 67-31-4375qeas 1 tablet by mouth once dailyPantoprazole 40 mg tablet,delayed release (DR/EC) Active 0 .ROUTE .COMPLEX 90 3 December 09, 2024 7:43am TAKE 1 TABLET BY MOUTH DAILY Complies with drug therapyStart: 10-07-2021 End: 23-40-5735lgfg 1 tablet by mouth once dailyPantoprazole 40 mg tablet,delayed release (DR/EC) Discontinued 40 MG PO Daily October 07, 2021 12:00am February 03, 2024 10:31amubidecarenone 100 mg oral capsule (2 sources)Start: 59-51-1696Okivrkwx Q10 (Coq-10) 100 mg capsule Active 100 MG PO Daily August 07, 2023 12:00am Complies with drug therapyVitamin C 1000 MG (2 sources)take 1 tablet by mouth once daily Completed/Discontinued Medications MedicationDrug Class(es)DatesSig (Normalized)Sig (Original)amoxicillin 875 mg / clavulanate 125 mg oral tablet (2 sources)Penicillin-class AntibacterialStart: 01-12-2024 End: 38-30-0658gtkq 1 tablet by mouth every twelve hoursAmoxicillin-Pot Clavulanate 875-125 mg tablet Discontinued 1 TAB PO Every 12 hours 10 5 0 2023 12:00am June 03, 2024 3:17pmazithromycin 250 mg oral tablet (2 sources)Macrolide AntimicrobialStart: 01-06-2024 End: 22-90-2386Hgaqvbpuxbud 250 mg tablet Discontinued 250 MG PO As Directed 6 5 0 January 06, 2024 12:00am January 12, 2024 11:29amCalcium (10 sources)Phosphate Binder, CalciumCalcium + D3 500 600 1 daily Not-Taking Calcium + D3 500 600 1 daily Activecollagenase Clostridium histolyticum (10 sources)Start: 36-08-5165Xooamew Apr, 0.58 mghydroCHLOROthiazide 12.5 mg / lisinopril 10 mg oral tablet (20 sources)Thiazide Diuretic, Angiotensin Converting Enzyme InhibitorStart: 02-14-2025 End: 13-74-2385hkvi 1 tablet by mouth once dailyLisinopril-Hydrochlorothiazide 20-25 mg tablet Active 1 TAB PO Daily 90 90 February 14, 2025 8:56am Complies with drug therapyStart: 02-12-2024 End: 14-15-7234rvtt 1 tablet by mouth once dailyLisinopril-Hydrochlorothiazide 10-12.5 mg tablet Discontinued 1 TAB PO Daily 90 90 February 14, 2025 8:53am February 14, 2025 8:55amStart: 08-04-2023 End: 61-61-1335ztrh 1 tablet by mouth once dailyLisinopril-Hydrochlorothiazide 20-25 mg tablet Discontinued 0 .ROUTE .COMPLEX 90 3 August 04, 2023 12:58pm February 12, 2024 12:10pm TAKE 1 TABLET BY MOUTH DAILYStart: 10-07-2021 End: 12-56-8728icdh 1 tablet by mouth once dailyLisinopril-Hydrochlorothiazide 20-25 mg tablet Discontinued 1 TAB PO Daily October 07, 2021 12:00am August 04, 2023 12:58pmLisinopril-hydroCHLOROthiazide 20-25 MG 1 daily ActivepredniSONE 10 mg oral tablet (6 sources)Start: 06-27-2024 End: 91-56-0926owez 5 tablets by mouth every hourPrednisone 10 mg tablet Discontinued 10 MG PO .COMPLEX 15 1 June 27, 2024 1:00am August 09, 2024 9:12am 5 tabs (50mg) taken 13, 7 and 1 hour w/ food prior to CT scan.Start: 01-12-2024 End: 50-36-2911Gazjukqcbf 20 mg tablet Discontinued 20 MG PO As Directed 18 June 03, 2024 1:00am August 09, 2024 9:12am 1 tab tid w/ food x 3 days, then bid w/ food x 3 days, then qd w/ food x 3 daystriamcinolone acetonide 40 mg/ml injectable suspension (2 sources)CorticosteroidStart: 01-94-9072Rciuxnu-40 Jul, 60 mg Problems Active Problems Problem ClassificationProblemDateDocumented DateEpisodic/ChronicAcute bronchitis (9 sources)Acute bronchitis; Translations: [Acute bronchitis]EpisodicAllergic reactions (1 source)Radiographic dye allergy status; Translations: [Radiographic dye allergy status]EpisodicAortic; peripheral; and visceral artery aneurysms (8 sources)Thoracic aortic aneurysm, without rupture; Translations: [Aortic aneurysm]Onset: 399296-24-5463JpbioqtWpdcnuo on above:CT ascending aorta: 4.4cm - 11/2022, 4.6cm - 11/2023.CTA ascending aorta: 4.2cm - iliary tract disease (1 source)Postcholecystectomy syndrome; Translations: [Postcholecystectomy syndrome]EpisodicCalculus of urinary tract (1 source)H/O: urinary stone; Translations: [Personal history of urinary calculi]EpisodicChronic obstructive pulmonary disease and bronchiectasis (10 sources)Mucopurulent chronic bronchitis; Translations: [Mucopurulent chronic bronchitis]ChronicDisorders of lipid metabolism (11 sources)Mixed hyperlipidemia; Translations: [Mixed hyperlipidemia]Onset: 47-69-2395JbtwrhfTrnoovjptu disorders (7 sources)Gastro-esophageal reflux disease with esophagitis; Translations: [Gastroesophageal reflux disease with esophagitis without hemorrhage]08-08-2023 ChronicEsophageal disorders (3 sources)Esophageal disorders; Translations: [Gastro-esophageal reflux disease with esophagitis, without bleeding]Essential hypertension (10 sources)Essential hypertension; Translations: [Essential (primary) hypertension]Onset: 40-94-9551KrtqlibIayta aftercare (5 sources)Other skilled nursing (current) drug therapy; Translations: [OTH REAL ESTATE SPECIALIST CURRENT DRUG THERAPY]Onset: 57-52-4385FigenqiyEngat and unspecified benign neoplasm (2 sources)History of polyp of colon; Translations: [History of colonic polyps] 85-87-9946RrojzgqtStcxyjs on above:Problem List clean-up per request of Phys. EHR CmteOther bone disease and musculoskeletal deformities (1 source)Osteopenia; Translations: [Other specified disorders of bone density and structure, unspecified site]41-60-6793VbbzqlzePwzbfnr on above:DEXA: 01/2025 Other connective tissue disease (10 sources)Dupuytrens contracture of bilateral hands; Translations: [Palmar fascial fibromatosis [Dupuytren]]EpisodicOther connective tissue disease (5 sources)Palmar fascial fibromatosis [Dupuytren]EpisodicOther connective tissue disease (1 source)Contracture of palmar fascia; Translations: [Palmar fascial fibromatosis [Dupuytren]]EpisodicOther diseases of veins and lymphatics (1 source)Peripheral venous insufficiency; Translations: [Venous insufficiency (chronic) (peripheral)]EpisodicOther lower respiratory disease (5 sources)Nodule of lung; Translations: [Solitary pulmonary nodule]10-30-2024 EpisodicComment on above:No suspicious nodules: 11/2022, 11/2023, 06/2024Other lower respiratory disease (2 sources)Solitary pulmonary noduleEpisodicOther lower respiratory disease (2 sources)Snoring; Translations: [Snoring]38-45-7955FbmhvlztVmfui non-traumatic joint disorders (2 sources)Pain in unspecified knee; Translations: [Knee pain]59-59-0956Jvcbvenl Other nutritional; endocrine; and metabolic disorders (1 source)Body mass index 30+ - obesity; Translations: [Obesity, unspecified] ChronicOther nutritional; endocrine; and metabolic disorders (1 source)Obesity, unspecifiedChronicOther nutritional; endocrine; and metabolic disorders (1 source)Hypercalcemia; Translations: [Hypercalcemia]Onset: 40-35-8089Tafdsrc Other nutritional; endocrine; and metabolic disorders (3 sources)Obesity caused by energy imbalance; Translations: [Other obesity due to excess calories]Onset: 505355-24-6946FiflnteYiboy nutritional; endocrine; and metabolic disorders (2 sources)Obesity; Translations: [Obesity, unspecified]22-93-7806JscffpiSjmqg screening for suspected conditions (not mental disorders or infectious disease) (3 sources)Encounter for screening mammogram for malignant neoplasm of breast; Translations: [Patient encounter status]Onset: 86-90-8412NruvoigfWkhzs upper respiratory disease (3 sources)Allergic rhinitis due to pollen; Translations: [Allergic rhinitis due to pollen]60-93-7576HfqhvyaThzoh upper respiratory disease (1 source)Allergic rhinitis due to pollenChronicResidual codes; unclassified (13 sources)Obstructive sleep apnea syndrome; Translations: [Obstructive sleep apnea (adult) (pediatric)]Onset: 302651-53-4946JzjalqnChypfszq codes; unclassified (1 source)Obstructive sleep apnea (adult) (pediatric)ChronicResidual codes; unclassified (5 sources)Hypersomnia; Translations: [Hypersomnia, unspecified]Onset: 711423-19-6215ZeiigmtKobhlkgx codes; unclassified (1 source)Family history of malignant neoplasm of digestive organs; Translations: [FAM HX MALIG NEOPLASM DIGESTIV ORGN]Onset: 30-77-0953Mmcresdq Residual codes; unclassified (4 sources)Menopause present; Translations: [Asymptomatic menopausal state] 10-30-0281JkjnyfrkNyumuabks-related disorders (10 sources)Tobacco dependence in remission; Translations: [Nicotine dependence, cigarettes, in remission]ChronicComment on above:started age 22, 1 ppd, quit 2014LDCT: no suspicious nodules - 11/2022, 11/2023Unclassified (1 source)Aneurysm of the ascending aorta, without rupture; Translations: [Aneurysm of the ascending aorta, without rupture] Past or Other Problems Problem ClassificationProblemDateDocumented DateEpisodic/ChronicSpondylosis; intervertebral disc disorders; other back problems (4 sources)Dorsalgia, unspecified; Translations: [DORSALGIA UNSPECIFIED]Onset: 29-15-9307IosyspnrGozxwyikphqk (1 source)Aneurysm of ascending aorta without rupture I71.21 Results Test NameValueInterpretationReference RangeFacilityBasophils Auto (Bld) [#/Vol] Ordered By: Srini Anderson on 53-34-4254Dghdeoaxj (Bld) [#/Vol]0.0 10 3/uL0.0-0.1 [facility] SystemBasophils/100 WBC Auto (Bld)Ordered By: Srini Anderson on 55-36-4967Wgbltrgvi/100 WBC (Bld)0.5 %0.2-2.0[facility] SystemEosinophils/100 WBC Auto (Bld)Ordered By: Srini Anderson on 50-34-0250Iyxwdsoxvfr/100 WBC (Bld)4.2 %0.9-7.0[facility] Erythrocyte distribution width Auto (RBC) [Ratio]Ordered By: Srini Anderson on 60-55-7943Mcdrzjiwnml distribution width (RBC) [Ratio]12.6 %11.0-15.0[facility] SystemHematocrit Auto (Bld) [Volume fraction]Ordered By: Srini Anderson on 08-67-6347Fozfhvaeee (Bld) [Volume fraction]42.8 %36.0-48.0[facility] SystemHemoglobin [Mass/volume] in BloodOrdered By: Srini Anderson on 27-56-5318Ufkrqndldq (Bld) [Mass/Vol]14.4 g/dL12.0-16.0[facility] SystemLaboratory - Hematology and Cell countsOrdered By: Srini Anderson on 32-65-9305Hqanmyny granulocytes/100 WBC (Bld)0.3 %0.0-0.5FSt. Francis HospitalLeukocytes [#/volume] corrected for nucleated erythrocytes in Blood by Automated counOrdered By: Srini Anderson on 97-81-3409QXN corrected for nucl RBC Auto (Bld) [#/Vol]5.9 10 3/uL4.0-11.0[facility] Lymphocytes Auto (Bld) [#/Vol]Ordered By: Srini Anderson on 81-03-0035Brrjbhxdgol (Bld) [#/Vol]2.3 10 3/uL1.2-3.8[facility] SystemLymphocytes/100 WBC Auto (Bld)Ordered By: Srini Anderson on 25-55-3019Aerrkjnnzsy/100 WBC (Bld) 38.4 %20.5-60.0[facility] SystemMCH Auto (RBC) [Entitic mass] Ordered By: Srini Anderson on 05-97-7175JWB (RBC) [Entitic mass]29.9 pg26.7-34.0 [facility] SystemMCHC Auto (RBC) [Mass/Vol]Ordered By: Srini Anderson on 54-81-8853XDGM (RBC) [Mass/Vol]33.6 g/dL29.9-35.2FSt. Francis HospitalMCV Auto (RBC) [Entitic vol]Ordered By: Srini Anderson on 11-17-2024 MCV (RBC) [Entitic vol]88.8 fL81.0-99.0[facility] Monocytes Auto (Bld) [#/Vol]Ordered By: Srini Anderson on 16-33-0231Fptzlnivv (Bld) [#/Vol]0.5 10 3/uL0.3-0.8[facility] SystemMonocytes/100 WBC Auto (Bld)Ordered By: Srini Anderson on 26-24-0945Ngeijfceh/100 WBC (Bld)7.9 % 1.7-12.0[facility] SystemNeutrophils Auto (Bld) [#/Vol]Ordered By: Srini Anderson on 60-91-0197Nigkqptcqbo (Bld) [#/Vol]2.9 10 3/uL1.4-6.5 [facility] SystemNeutrophils/100 WBC Auto (Bld)Ordered By: Srini Anderson on 89-96-7366Rpbtnmodvyq/100 WBC (Bld)48.7 %43.0-75.0[facility] SystemNo Panel InformationOrdered By: Srini Anderson on 11-17-2024 Eosinophils # (Auto)0.3 10 3/uL0.0-0.7FSt. Francis HospitalImmature Granulocyte # (Auto)0.02 10 3/uL0.00-0.03[facility] Platelet mean volume Auto (Bld) [Entitic vol]Ordered By: Srini Anderson on 51-08-0200Tycuyaji mean volume (Bld) [Entitic vol]8.9 fLLow9.5-13.5FSt. Francis HospitalPlatelets Auto (Bld) [#/Vol]Ordered By: Srini Anderson on 48-13-4993Jlofjrttt (Bld) [#/Vol]250 10 3/zB496-002AhkqkpgndAvita Health SystemRBC Auto (Bld) [#/Vol]Ordered By: Srini Anderson on 86-26-0507DJB (Bld) [#/Vol]4.82 10 6/uL4.20-5.40[facility] SystemBasophils Auto (Bld) [#/Vol]on 92-10-2868Nzxlezqnh (Bld) [#/Vol]0.0 10 3/uL0.0-0.1FSt. Francis HospitalBasophils/100 WBC Auto (Bld)on 53-09-3823Ehpkvxtna/100 WBC (Bld)0.6 %0.2-2.0[facility] SystemCholesterol in LDL Calc [Mass/Vol]on 72-61-2727Cntoqefusnh in LDL [Mass/Vol]76.0 mg/dLAvita Health SystemComment on above:<100 mg/dl UBZVGWI751-055 mg/dl NEAR OR ABOVE TJGJQUA465-854 mg/dl BORDERLINE FCGX927-336 mg/dl HIGH>190 mg/dl VERY HIGH Cholesterol in VLDL Calc [Mass/Vol]on 97-58-6119Pogftyshjgb in VLDL [Mass/Vol] 28.0 mg/dLAvita Health SystemEosinophils/100 WBC Auto (Bld)on 90-86-8865Qlvsjdizbrs/100 WBC (Bld)4.1 %0.9-7.0[facility] Erythrocyte distribution width Auto (RBC) [Ratio]on 65-16-0807Qpczqmbnhev distribution width (RBC) [Ratio]12.8 %11.0-15.0[facility] Estimated glomerular filtration rate (GFR) non- Americanon 09-12-2024 GFR/1.73 sq M.predicted among non-blacks MDRD (S/P/Bld) [Vol rate/Area] mL/min/{1.73_m2}>=60 mL/min/1.73m 2FSt. Francis HospitalGlobulin Calc (S) [Mass/Vol]on 99-48-2295Ohysgmdl (S) [Mass/Vol]3.5 g/dLAvita Health SystemHematocrit Auto (Bld) [Volume fraction]on 09-12-2024 Hematocrit (Bld) [Volume fraction]40.8 %36.0-48.0[facility] SystemHemoglobin [Mass/volume] in Bloodon 48-09-7930Kfnfnsgdmp (Bld) [Mass/Vol] 14.1 g/dL12.0-16.0[facility] SystemLaboratory - Chemistry and Chemistry - challengeon 03-43-4042Puhnlqd [Mass/Vol]3.4 g/dL3.4-5.0[facility] SystemALP [Catalytic activity/Vol]59 U/X07-992PdvhkqikqAvita Health SystemALT [Catalytic activity/Vol]31 U/X41-80BjbxfwocuAvita Health SystemAST [Catalytic activity/Vol]25 U/K45-48WjjkipksoAvita Health SystemBilirubin [Mass/Vol]0.5 mg/dL0.2-1.0[facility] Calcium [Mass/Vol]9.1 mg/dL8.5-10.1FSt. Francis HospitalChloride [Moles/Vol]107 mmol/E43-188LlwblqbwiAvita Health SystemCholesterol [Mass/Vol]154 mg/dL<=200[facility] SystemCholesterol in HDL [Mass/Vol]50 mg/lN42-28HwslegiytAvita Health SystemComment on above:> or =60 mg/dl - LOW CARDIOVASCULAR RISK<40 mg/dl - HIGH CARDIOVASCULAR RISKCO2 [Moles/Vol]28.1 mmol/L21.0-32.0[facility] SystemCreatinine [Mass/Vol]0.69 mg/dL0.55-1.02[facility] SystemGFR/1.73 sq M.predicted MDRD (S/P/Bld) [Vol rate/Area]mL/min/{1.73_m2}>=60 mL/min/1.73m 2 [facility] SystemGlucose [Mass/Vol]106 mg/hI43-583OowvtvujpAvita Health SystemPotassium [Moles/Vol]3.5 mmol/L3.5-5.1FSt. Francis HospitalProtein [Mass/Vol]6.9 g/dL6.4-8.2FSt. Francis Hospital Sodium [Moles/Vol]144 mmol/Z676-986HmaghvtchAvita Health SystemTriglyceride [Mass/Vol]140 mg/dL<=150[facility] SystemUrea nitrogen [Mass/Vol]15.0 mg/dL7.0-18.0[facility] SystemUrea nitrogen/Creatinine [Mass ratio]21.7 mg/mgAvita Health System Laboratory - Hematology and Cell countson 56-57-3875Piggfmvs granulocytes/100 WBC (Bld)0.2 %0.0-0.5FSt. Francis HospitalLeukocytes [#/volume] corrected for nucleated erythrocytes in Blood by Automated counon 59-57-7795QMH corrected for nucl RBC Auto (Bld) [#/Vol]4.7 10 3/uL4.0-11.0[facility] SystemLymphocytes Auto (Bld) [#/Vol]on 36-06-6210Yyensogtwez (Bld) [#/Vol]2.0 10 3/uL1.2-3.8[facility] SystemLymphocytes/100 WBC Auto (Bld)on 52-64-3533Vxbnyguwmoa/100 WBC (Bld)41.8 %20.5-60.0[facility] SystemMCH Auto (RBC) [Entitic mass]on 26-81-6212GGF (RBC) [Entitic mass]31.0 pg26.7-34.0[facility] SystemMCHC Auto (RBC) [Mass/Vol]on 45-80-3801OIDL (RBC) [Mass/Vol]34.6 g/dL29.9-35.2FSt. Francis HospitalMCV Auto (RBC) [Entitic vol]on 80-88-3383WRX (RBC) [Entitic vol] 89.7 fL81.0-99.0[facility] SystemMonocytes Auto (Bld) [#/Vol]on 65-80-9992Qgfmydiof (Bld) [#/Vol]0.4 10 3/uL0.3-0.8[facility] SystemMonocytes/100 WBC Auto (Bld)on 94-58-8560Sqyntqkwp/100 WBC (Bld)7.5 % 1.7-12.0[facility] SystemNeutrophils Auto (Bld) [#/Vol]on 88-93-1616Byjeewizfel (Bld) [#/Vol]2.1 10 3/uL1.4-6.5FSt. Francis HospitalNeutrophils/100 WBC Auto (Bld)on 37-41-4372Eeoqozzejot/100 WBC (Bld)45.8 % 43.0-75.0[facility] SystemNo Panel Informationon 09-12-2024 Eosinophils # (Auto)0.2 10 3/uL0.0-0.7FSt. Francis HospitalImmature Granulocyte # (Auto)0.01 10 3/uL0.00-0.03[facility] Platelet mean volume Auto (Bld) [Entitic vol]on 55-15-2532Kveisakz mean volume (Bld) [Entitic vol]9.0 fLLow9.5-13.5FSt. Francis HospitalPlatelets Auto (Bld) [#/Vol]on 10-47-8449Bjkalyeke (Bld) [#/Vol]239 10 3/lW267-495 [facility] SystemRBC Auto (Bld) [#/Vol]on 19-57-5495LDD (Bld) [#/Vol]4.55 10 6/uL4.20-5.40[facility] Andersonerum or plasma albumin/globulin mass ratioon 91-67-1226Likjdqk/Globulin [Mass ratio]1.0 {ratio} [facility] Andersonerum or plasma anion gap determinationon 94-81-0084Rnbrc gap [Moles/Vol]12.4 mmol/LFCleveland Clinic Avon Hospitalerum or plasma total cholesterol/high density lipoprotein (HDL) cholesterol mass rat on 08-79-8474Atuzvrsndih.total/Cholesterol in HDL [Mass ratio]3.1 {ratio} [facility] SystemComment on above:3.3 - 4.4 LOW RISK4.4 - 7.1 AVERAGE RISK7.1 - 11.0 MODERATE RISK>11.0 HIGH RISKCBC AUTO DIFFon 08-20-2022 BASO #0.0 103/ulNormal0.0-0.1[facility] HospitalComment on above:Performed By: #### CBC #### [facility] [address] [place] [address] Dr. Breann StubbsBasophils/100 WBC (Bld)0.3 %Normal0.2-2.0[facility] Comment on above:Performed By: #### CBC #### [facility] [address] [place] [address] Dr. Breann Jimenez #0.1 103/ulNormal0.0-0.7The [facility] HospitalComment on above: Performed By: #### CBC #### [facility] [address] [place] [address] Dr. Breann Andresosinophils/100 WBC (Bld)1.6 %Normal0.9-7.0[facility] Comment on above:Performed By: #### CBC #### [facility] [address] [place] [address] Dr. Breann Andresrythrocyte distribution width (RBC) [Ratio]13.0 %Rtjbuf47.0-15.0 [facility] County Community HospitalComment on above:Performed By: #### CBC #### [facility] [address] [place] [address] Dr. Yilan ChangHematocrit (Bld) [Volume fraction]47.3 %Ezmiwk82.0-48.0The [facility] HospitalComment on above:Performed By: #### CBC #### [facility] [address] [place] [address] Dr. Breann StubbsHemoglobin (Bld) [Mass/Vol]15.3 g/zGHpbvhu87.0-16.0The [facility] HospitalComment on above:Performed By: #### CBC #### [facility] [address] [place] [address] Dr. Breann StubbsIG #0.03 10e3/ulNormal0.00-0.03The [facility] HospitalComment on above:Performed By: #### CBC #### [facility] [address] [place] [address] Dr. Breann StubbsIG %0.3 %Normal0.0-0.5The [facility] [place] [facility] HospitalComment on above: Performed By: #### CBC #### [facility] [address] [place] [address] Dr. Breann Ramesh #2.8 103/ulNormal1.2-3.8The [facility] [place] [facility] HospitalComment on above:Performed By: #### CBC #### [facility] [address] [place] [address] Dr. Breann Betancurmphocytes/100 WBC (Bld)32.8 %Udqqnt53.5-60.0The [facility] [place] [facility] HospitalComment on above:Performed By: #### CBC #### [facility] [address] [place] [address] Dr. Breann StubbsMANUAL DIFF REQNONormalThe [facility] [place] [facility] HospitalComment on above: Performed By: #### CBC #### [facility] [address] [place] [address] Dr. Breann Norwood (RBC) [Entitic mass]29.5 uwGruscb80.7-34.0The [facility] HospitalComment on above:Performed By: #### CBC #### [facility] [address] [place] [address] Dr. Breann RaoHC (RBC) [Mass/Vol]32.3 g/iTBzltzs29.9-35.2The [facility] [place] [facility] HospitalComment on above:Performed By: #### CBC #### [facility] [address] [address] [address] Breann RaoV (RBC) [Entitic vol]91.3 zALvvgmt77.0-99.0The [facility] [place] [facility] HospitalComment on above:Performed By: #### CBC #### [facility] [address] [address] [address] Breann Mann #0.6 103/ulNormal0.3-0.8The [facility] [place] [facility] HospitalComment on above:Performed By: #### CBC #### [facility] [address] [address] [address] Breann Acostaocytes/100 WBC (Bld)7.1 %Normal1.7-12.0The [facility] Comment on above:Performed By: #### CBC #### [facility] [address] [place] [address] Dr. Breann GarlandUT #5.0 103/ulNormal1.4-6.5The [facility] [place] [facility] HospitalComment on above:Performed By: #### CBC #### [facility] [address] [address] [address] Breann Garlandutrophils/100 WBC (Bld)57.9 %Fuscct52.0-75.0The [facility] [place] [facility] HospitalComment on above:Performed By: #### CBC #### [facility] [address] [address] [address] Breann Davislet mean volume (Bld) [Entitic vol]9.1 fLCritically low 9.5-13.5The [facility] [place] [facility] HospitalComment on above:Performed By: #### CBC #### [facility] [address] [address] [address] Breann StubbsPLT354 103/sdHcbrla070-824Mbk [facility] HospitalComment on above: Performed By: #### CBC #### [facility] [address] [address] [address] Breann StubbsRBC5.18 106/ulNormal4.20-5.40The [facility] [place] [facility] HospitalComment on above:Performed By: #### CBC #### [facility] [address] [place] [address] Dr. Breann StubbsWBC8.6 103/ulNormal4.0-11.0The [facility] [place] [facility] HospitalComment on above: Performed By: #### CBC #### [facility] [address] [place] [address] Dr. Breann StubbsLIPID PROFILEon 75-17-8126QIXR-HDL RATIO NORMSEE [facility] HospitalComment on above:Result Comment: 3.3 - 4.4 LOW RISK 4.4 - 7.1 AVERAGE RISK 7.1 - 11.0 MODERATE RISK >11.0 HIGH RISKPerformed By: #### BMP, LIPID, ALT #### [facility] [address] [place] [address] Dr. Breann Becwkithesterol [Mass/Vol]152 mg/dLNormal<=200The [facility] Comment on above:Performed By: #### BMP, LIPID, ALT #### [facility] [address] [place] [address] Dr. Breann Beckwithesterol in HDL [Mass/Vol]61 mg/dLCritically ntci32-26Xyy [facility] HospitalComment on above:Performed By: #### BMP, LIPID, ALT #### [facility] [address] [place] [address] Dr. Breann Beckwithesterol in LDL [Mass/Vol]76.2 mg/dLWexner Medical CenterComment on above:Performed By: #### BMP, LIPID, ALT #### [facility] [address] [place] [address] Dr. Breann Dahl.total/Cholesterol in HDL [Mass ratio]2.5 {ratio} NormalThe [facility] HospitalComment on above:Performed By: #### BMP, LIPID, ALT #### [facility] [address] [place] [address] Dr. Breann Barrera NORMAL> or = 60 mg/dl - LOW CARDIOVASCULAR RISK <40 mg/dl - HIGH CARDIOVASCULAR RISKWexner Medical CenterComment on above:Performed By: #### BMP, LIPID, ALT #### [facility] [address] [address] [address] Breann Yun CALC NORMALSEE BELOWNoFlower HospitalComment on above:Result Comment: <100 mg/dl OPTIMAL 100 - 129 mg/dl NEAR OR ABOVE OPTIMAL 130 - 159 mg/dl BORDERLINE HIGH 160 - 189 mg/dl HIGH >190 mg/dl VERY HIGH Performed By: #### BMP, LIPID, ALT #### [facility] [address] [address] [address] Breann StubbsTriglyceride [Mass/Vol]74 mg/dLNormal<=150[facility] Comment on above:Performed By: #### BMP, LIPID, ALT #### [facility] [address] [address] [address] Breann StubbsVLDL CALC14.8 mg/dLNoFlower HospitalComment on above: Performed By: #### BMP, LIPID, ALT #### [facility] [address] [address] [address] Breann StubbsMG MAMM SCREEN 3D BUZZ CADon 97-83-2399VH MAMM SCREEN 3D BUZZ CAD Patient: KELLY SAAVEDRA Exam Date: 08/20/2022 : 1950 Gender:F Ordering : DR COLLIN DANIEL D.O. Admission #: [id number] Family : Order #: [id number] CLICK HERE TO VIEW EXAM RADIOLOGY REPORT [...] colon cancer at age 74. LOCATION: [facility] BREAST COMPOSITION: Heterogeneously dense,which may obscure [...] by: Joaquin Marlow MD on 08/20/2022 at 08:55Wexner Medical CenterPROF CHEM 8 (BAS METB)on 69-41-8654Bawhv gap [Moles/Vol]9.2 mmol/LNormalMercer County Community HospitalComment on above:Performed By: #### BMP, LIPID, ALT #### [facility] [address] [place] [address] Dr. Breann StubbsCalcium [Mass/Vol]9.9 mg/dLNormal8.5-10.1[facility] Comment on above:Performed By: #### BMP, LIPID, ALT #### [facility] [address] [address] [address] Breann StubbsChloride [Moles/Vol]101 mmol/OUcvpbp04-777XulMercer County Community Hospital Comment on above:Performed By: #### BMP, LIPID, ALT #### [facility] [address] [address] [address] Breann StubbsCO2 [Moles/Vol]33.7 mmol/LCritically high21.0-32.0The [facility] [place] [facility] HospitalComment on above:Performed By: #### BMP, LIPID, ALT #### [facility] [address] [address] [address] Breann StubbsCreatinine [Mass/Vol]0.79 mg/dLNormal0.55-1.02The [facility] [place] [facility] HospitalComment on above:Performed By: #### BMP, LIPID, ALT #### [facility] [address] [address] [address] Crain ChangEGFR-AF SERBIAN>60Normal>=60The [facility] HospitalComment on above:Performed By: #### BMP, LIPID, ALT #### [facility] [address] [address] [address] Breann Carlton-NON AF SERBIAN>60Normal>=60The [facility] [place] [facility] HospitalComment on above:Performed By: #### BMP, LIPID, ALT #### [facility] [address] [address] [address] Breann StubbsGlucose [Mass/Vol]97 mg/lSKdiric48-866Sts [facility] Comment on above:Performed By: #### BMP, LIPID, ALT #### [facility] [address] [address] [address] Breann StubbsPotassium [Moles/Vol]3.9 mmol/LNormal3.5-5.1[facility] Comment on above:Performed By: #### BMP, LIPID, ALT #### [facility] [address] [place] [address] Dr. Breann Leum [Moles/Vol]140 mmol/GPuixmn690-019Qdj [facility] Comment on above:Performed By: #### BMP, LIPID, ALT #### [facility] [address] [place] [address] Dr. Breann Larios nitrogen [Mass/Vol]25.0 mg/dLCritically high7.0-18.0[facility] HospitalComment on above:Performed By: #### BMP, LIPID, ALT #### [facility] [address] [place] [address] Dr. Breann Larios nitrogen/Creatinine [Mass ratio]31.6 mg/mgNormalThe [facility] HospitalComment on above:Performed By: #### BMP, LIPID, ALT #### [facility] [address] [place] [address] Dr. Breann Fuentes 11-72-9476EGL [Catalytic activity/Vol]29 U/VCvydzm37-64Qte [facility] HospitalComment on above:Performed By: #### BMP, LIPID, ALT #### [facility] [address] [place] [address] Dr. Breann ArzolaINEon 65-50-9022Vwuuyhibrx [Mass/Vol]0.73 mg/dLNormal 0.55-1.02The [facility] HospitalComment on above:Performed By: #### CREA #### [facility] [address] [address] [address] Crain ChangEGFR-AF SERBIAN>60Normal>=60The [facility] HospitalComment on above:Performed By: #### CREA #### [facility] [address] [address] [address] Crain ChangEGFR-NON AF SERBIAN>60Normal>=60The [facility] HospitalComment on above:Performed By: #### CREA #### [facility] [address] [place] [address] Dr. Breann StubbsCTRoz CHEST WO W CONon 74-68-6279XXT CHEST WO W CONEXAMINATION: CTA CHEST WO W CON HISTORY: Aneurysm [...] Electronically authenticated by: RUTH LINDSEY Date: 2021-11-28 11:21Wexner Medical CenterCOVID-19 Antigenon 65-63-9027NIBAZ-19 AntigenHealthcare Worker?: N Reference Range: Negative Negative results, [...] developed and its performance characteristic determined by [employer] and validated at [facility]. This test has not been FDA cleared [...] for SARS Antigen by ARMANI PERFORMED BY: [address] [place] [address] PATHOLOGIST DIRECTOR TELEVISION NEWS AISHA LYONS M.D.[facility] HospitalComment on above: Performed By: #### COVID-19 JAKE JEAN-BAPTISTEEG #### [address] [place] [address] USASofia Ag Negativeon 56-70-0592Ywksk Ag NegativeNegative NormalNegativeAvita Health SystemComment on above:Result Comment: This is a duplicate Jerilyn SARS Antigen (ARMANI) result to be used for statistical tracking purpose only. PERFORMED BY: [facility] [address] [place] [address] PATHOLOGIST DIRECTOR TELEVISION NEWS AISHA LYONS M.D.Performed By: #### COVID-19 JERILYN, SOFIANEG #### [facility] [address] [place] [address] USACT ABD/PELVIS WO CONon 35-86-0594IF ABD/PELVIS WO CON EXAMINATION: CT ABD/PELVIS WO [...] Electronically authenticated by: JOAQUIN MARLOW Date: 2021-09-30 21:30[facility]ner Medical CenterCOVID-19 Antigenon 86-63-3303CHRGD-19 AntigenHealthcare Worker?: N Jerilyn Reference Jerilyn Reference Negative [...] its performance Jerilyn Disclaimer characteristic determined by [employer] and Jerilyn Disclaimer validated at [facility]. This Jerilyn Disclaimer test has not been [...] is terminated or revoked sooner. PERFORMED BY: [place] [address] PATHOLOGIST DIRECTOR TELEVISION NEWS AISHA LYONS M.D.NormalAvita Health SystemComment on above: Performed By: #### COVID-19 JERILYN, SOFIANEG #### [address] [id number] USASofia Ag Negativeon 29-83-4888Mmtux Ag NegativeNegative NormalNegativeAvita Health SystemComment on above:Result Comment: This is a duplicate Jerilyn SARS Antigen (ARMANI) result to be used for statistical tracking purpose only. PERFORMED BY: [address] [id number] PATHOLOGIST DIRECTOR TELEVISION NEWS AISHA LYONS M.D.Performed By: #### COVID-19 JERILYN, SOFIANEG #### [facility] [address] [place], [place] [address] [facility] Vital Signs Date TimeVital SignValuePerforming DnztyqmapQhbvxkbl91-13-2724 08:30-0400Body .72 cmBenjamin Ball DO Work Phone: [phone]10-21-2025 08:30-0400 Body mass index (BMI) [Ratio]37.5 kg/i2Eqzqhraf Ball DO Work Phone: 1(984)[address] [place], [place] 9920710-21-2025 08:30-0400 Body .03 kgBenjamin Ball DO Work Phone: [phone])[address] [place], [place] 9920710-21-2025 08:30-0400 Diastolic blood jqvqfkgy21 mm[Hg]Collin Ball DO Work Phone: 1(419)[address] [place], [place] 9920710-21-2025 08:30-0400 Heart rate60 /minBenjamin Ball DO Work Phone: [phone])[address] [place], [place] 9920710-21-2025 08:30-0400 Respiratory rate12 /minBenjamin Ball DO Work Phone: [phone])[address] [place], [place] 9920710-21-2025 08:30-0400 Systolic blood vvdnnrad306 mm[Hg]Collin Ball DO Work Phone: 1(419)[address] [place], [place] 9920707-09-2025 09:38-0400 Body .72 cmBenjamin Ball DO Work Phone: 1(767)[address] [place], [place] 9920707-09-2025 09:38-0400 Body mass index (BMI) [Ratio]37.5 kg/w8Afwkfnfx Ball DO Work Phone: 1(430)[address] [place], [place] 9920707-09-2025 09:38-0400 Body gglvob029.15 kgBenjamin Ball DO Work Phone: [phone])[address] [place], [place] 9920707-09-2025 09:38-0400 Diastolic blood pkfdhoul81 mm[Hg]Collin Ball DO Work Phone: [phone])[address] [place], [place] 9920707-09-2025 09:38-0400 Heart rate75 /minBenjamin Ball DO Work Phone: [phone])[address] [place], [place] 9920707-09-2025 09:38-0400 Respiratory rate12 /minBenjamin Ball DO Work Phone: 1(850)[address] [place], [place] 9920707-09-2025 09:38-0400 Systolic blood hquqzjpv551 mm[Hg]Collin Ball DO Work Phone: 1(783)[address] [place], [place] 9920704-15-2025 08:42-0400 Body .72 cmBenjamin Ball DO Work Phone: 1(679)[facility] [place], [place] 7058604-15-2025 08:42-0400 Body mass index (BMI) [Ratio]37.7 kg/j8Sghojsez Ball DO Work Phone: [phone]04-15-2025 08:42-0400 Body poiznp142.49 kgBenjamin Ball DO Work Phone: 1(422)[address] [place], [place] 9920704-15-2025 08:42-0400 Diastolic blood terjmcax47 mm[Hg]Collin Ball DO Work Phone: 1(986)[address] [place], [place] 9920704-15-2025 08:42-0400 Heart rate69 /minBenjamin Ball DO Work Phone: 1(536)[address] [place], [place] 9920704-15-2025 08:42-0400 Respiratory rate12 /minBenjamin Ball DO Work Phone: 1(082)[address] [place], [place] 9920704-15-2025 08:42-0400 Systolic blood jlgtibfh699 mm[Hg]Collin Ball DO Work Phone: 1(140)[address] [place], [place] 9920710-03-2024 08:22-0400 Body dugwtc417.7 cmAngela Cassy TERADATA SOLUTION ARCHITECT Work Phone: [facility] KirkwoodMcygnhxgvo64-35-9994 08:22-0400Body mass index (BMI) [Ratio]36.04 kg/i5Urocwg Kyleemor TERADATA SOLUTION ARCHITECT Work Phone: [facility] KirkwoodLrexcbysek75-97-0297 08:22-0400Body dhatlq271.5 kgAngela Kyleemor TERADATA SOLUTION ARCHITECT Work Phone: [facility]OP[facility] HealthFcbayjcasx99-70-8838 08:22-0400Diastolic blood ugpfwkzi19 mm[Hg]Martina Madera TERADATA SOLUTION ARCHITECT Work Phone: [facility] KirkwoodUmvenkozzi80-31-6298 08:22-0400Systolic blood mm[Hg]Martina Pichardomiya TERADATA SOLUTION ARCHITECT Work Phone: noPhelps HealthKllqlenmcv64-10-7883 09:30-0400Body xywxnw865.72 cmBenjamin Ball Other [employer] Other 04-13-2023 09:30-0400Body mass index (BMI) [Ratio] 36.88 kg/x8Caiehccn Ball Other [facility] Other 04-13-2023 09:30-0400Body riijmj888.04 kgBenjamin Ball Other [facility] Other 04-13-2023 09:30-0400Diastolic blood jviaopxw46 mm[Hg] Collin Ball Other [facility] Other 04-13-2023 09:30-0400Respiratory rate12 /minBenjamin Ball Other [facility] Other 04-13-2023 09:30-0400Systolic blood hzlvcdip430 mm[Hg] Collin Ball Other [facility] Other 01-06-2023 09:30-0500Body nxisjz902.72 cmColleen Venecia Other [facility] Other 01-06-2023 09:30-0500Body mass index (BMI) [Ratio] 38.01 kg/f3Lixcdeppeterson Cuadra Other [facility] Other 01-06-2023 09:30-0500Body .4 kgCollpeterson Cuadra Other [facility] Other 12-30-2022 11:45-0500Body hyisrs718.72 cmCelmer Cuadra Other [facility] Other 12-30-2022 11:45-0500Body mass index (BMI) [Ratio] 38.01 kg/u5NforqwvElida Cuadra Other [employer] Other 12-30-2022 11:45-0500Body mgqwxe579.4 kgComahesh Cuadra Other [employer] Other Encounters Encounter DateEncounter TypeCare ProviderFacilityStart: 02-14-2025 End: 21-59-4671ppubtagxaqZiwmysss Ball DO Work Phone: [facility] 02-14-2025 End: 69-35-6370Cvzuwrq encounter procedureBenmarcello Daniel DO-[facility] Work Phone: Start: 79-96-8968Bnj-patient / Non-visitSrini Anderson MD-[facility] Work Phone: Start: 11-02-2024 End: 09-69-7820cycibwjdbaKpudnhnm Ball DO Work Phone: [facility] Work Phone: Start: 11-02-2024 End: 35-00-0751Qalejyk encounter procedureBenmarcello Daniel DO-[facility] Work Phone: Start: 11-02-2024 End: 47-41-0704Copcpuo encounter statusBenmarcello [facility] Hospitaltart: 13-41-2906Ekh-patient / Non-visitBepeñamarcello Daniel DO-[facility] Work Phone: Start: 08-09-2024 End: 52-13-6522Phbmbes encounter procedureBenmarcello Daniel DO-[facility] Work Phone: Start: 01-28-2024 End: 62-84-5866Ifuzap Pasquale Madera TERADATA SOLUTION ARCHITECT Work Phone: [facility] [place] [address] R[address]TEStart: 01-28-2024 End: 81-56-7449Hfbwbr flowsRony Qureshir TERADATA SOLUTION ARCHITECT Work Phone: [facility] [place] [address] R[address]TEStart: 01-28-2024 End: 36-64-3161Nixtbp outpatient visit 25 minutesMartina Madera TERADATA SOLUTION ARCHITECT Work Phone: noms [place] STATE ROUTEComment on above:LAMAR (obstructive sleep apnea) (Primary Dx); Hypersomnia; Snoring; Obesity, unspecified class, unspecified obesity type, unspecified whether serious comorbidity presentStart: 01-28-2024 End: 40-71-5298qncygaulhsTTULLA ELVIRNot AvailableStart: 12-08-2022 End: 01-72-1864fasbqefbqwXjyrcthr Ball Other [employer] Other Start: 04-83-8412Cashljquz encounterBenjamin ElmerG [facility] ClinicStart: 08-20-2022 End: 26-24-8535aqhovuilbvTM COLLIN BALLFacility:G0Lnper: 08-07-2022 End: 50-15-7118mgwyurqfzxJrcolywa Ball Other [employer] Other Start: 02-57-1700Tyhtnll encounter procedureBenjamin BallFPG [facility] ClinicStart: 06-13-2022 End: 63-05-1976tqmrukkzxyBtwqgeo [place] Other [employer] Other Start: 68-07-1597Mjvruo outpatient visit 15 minutes Elida [facility]icsStart: 05-16-2022 End: 92-85-3154fxkkgkdimmZbjapsx [place] Other [employer] Other Start: 60-93-9820Hjacts follow up visit related to original pxColleen JenniferG [place] OrthopedicsStart: 05-14-2022 End: 34-22-9367lngvhlevlbHhhocrol Ball Other [employer] Other Start: 10-91-8484Mwxidwujg encounterBenjaallyson BallMARYG [facility] ClinicStart: 05-09-2022 End: 41-18-9881xnkasufupbHogyqbyd Ball Other [employer] Other Start: 81-22-9895Uvdmvaewh encounterBenmarcello BallFPG [facility] ClinicStart: 05-02-2022(Proc F/U) Procedure F/UColleen JenniferG [place] OrthopedicsStart: 05-02-2022 End: 61-20-9559hbjoviwpzsVyucfqy Calvmay Other [facility] Other Start: 00-36-7928Fjjigwrij encounterColleen Juan Carlos [facility] OrthopedicsStart: 04-30-2022(Proc F/U) Procedure F/UColleen CalvmayFPG [place] OrthopedicsStart: 04-30-2022 End: 35-65-0221jqnpjgrqofElczovm [place] Other [employer] Other Start: 04-25-2022 End: 83-16-9769heusbwhqsiOzugazs [place] Other [employer] Other Start: 50-30-8750Zfkvut outpatient visit 15 minutes Elida Juan Carlos [facility] OrthopedicsStart: 11-28-2021 End: 79-22-6056uuaqitaneuIF COLLIN BALLFacility:M2Bkpfw: 09-30-2021 End: 45-04-4568cdnvpqjgfwKI COLLIN BALLFacility:H1 Plan of Treatment DateCare ActivityDetailAuthorStart: 03-14-2025 End: 04-32-1549Zrfwwlk encounter dqyjclrrf21/18/2025 8:15 AM EST [facility] [address] [place] [address] Breana Mullins DO [address] [place], [place] [id number] [facility] R[facility]TEStart: 01-28-2024 End: 00-62-2823Esfuaah encounter ubushpkjn75/03/2024 8:20 AM EDT Office Visit NOMJose [address] [place] [address] Martina Madera, KWABENA [address] [place], [place] ArrivedSUMMA HEALTH WADSWORTH - [facility] ROUTEComment on above: ArrivedStart: 43-47-0641Anocysxpn vaccinationInfluenza Vaccine (#1)[facility] HealthcareStart: 34-02-5480Yqdbrfalx for malignant neoplasm of breastMammogram [facility] HealthcareStart: 43-91-2917Hdhzjlntb for malignant neoplasm of colonNOMS HealthcareComprehensive metabolic 2000 panel - Serum or PlasmaAvita Health SystemDXA Skeletal system.axial Views for bone densityAvita Health SystemMG Breast - bilateral ScreeningAvita Health SystemXR Knee - left 4 ViewsAvita Health System Immunizations Immunization DateImmunizationNotesCare TozoqcxgOzjdbtzq21-10-5029jwnknzxji, high dose seasonal, preservative-freeBenjamin Ball DO Work Phone: [facility]10-14-2024influenza, high dose seasonal, preservative-freeBenjamin Ball DO Work Phone: [facility]10-13-2023influenza virus vaccine, unspecified formulationMartina Madera NP Work Phone: [facility]10-12-2022influenza virus vaccine, split virus (incl. purified surface antigen)Collin Daniel Other [employer] Other 10798908-25-5636gukvrgyjq virus vaccine, unspecified formulationBenjamin Ball DO Work Phone: [facility]10-12-2022influenza, high dose seasonal, preservative-freeBenjamin Ball Other [employer] Other 10-455667-14-5645fxznzoioc virus vaccine, split virus (incl. purified surface antigen)Collin Daniel Other [facility] [employer] Other 10-223343-30-4808tmbmfdkce virus vaccine, unspecified formulationBenjamin Ball DO Work Phone: [facility]03-17-2021COVID-19 Vaccine Pfizer - Documentation Purposes OnlyBenjamin Fredy Other [facility]03-01-2021 pneumococcal conjugate vaccine, 13 valentBenjamin Ball Other [facility]02-24-2021COVID-19 Vaccine Pfizer - Documentation Purposes OnlyBenjamin Ball Other [facility]11-16-2020influenza virus vaccine, split virus (incl. purified surface antigen)Collin Daniel Other [facility] [employer] Other 893869-87-0328wgnvrrtvw virus vaccine, unspecified formulationBenjamin Ball DO Work Phone: [facility]11-16-2020 pneumococcal polysaccharide vaccine, 23 valentBenjamin Ball Other [facility]10-02-2014tetanus and diphtheria toxoids, adsorbed, preservative free, for adult use (5 Lf of tetanus toxoid and 2 Lf of diphtheria toxoid)Collin Daniel Other [facility]05-09-2014tetanus toxoid, adsorbedCollpeterson Cuadra Other [facility]11-14-2013tetanus and diphtheria toxoids, adsorbed, preservative free, for adult use (5 Lf of tetanus toxoid and 2 Lf of diphtheria toxoid)Collin Daniel Other [facility]11-08-2012tetanus and diphtheria toxoids, adsorbed, preservative free, for adult use (5 Lf of tetanus toxoid and 2 Lf of diphtheria toxoid)Collin Daniel Other [facility] Payers DatePayer CategoryPayerPolicy ID2017MedicareMEDICARE MEDICARE PART B [id number] 2016-Present [address] [address] [place] [address] Medicare [id number] [facility] [id number] 2016-Present [phone] [address] [place] [address] [id number] [id number] [id number] [id number] Social History DateTypeDetailFacilityUnknown if ever smokedNomercy hospital [facility] Other Start: 01-24-2024 End: [id number] Assigned At [facility] Other Start: 01-24-2024 End: [id number] smoking status NHISEx-smokerNOMS HealthcareHistory of tobacco useCurrent smokerNOMS HealthcareHistory of tobacco useCigarette Smoker [facility] HealthcareStart: 01-24-2024 End: [id number] beverage intakeCurrent drinker of alcohol (finding)[facility] HealthcareStart: 01-24-2024 End: 52-48-2278Rvcfnzi of Social functionNOMS HealthcareHow often to you have a drink containing alcohol?Monthly or lessNOMS HealthcareHow many standard drinks containing alcohol do you have on a typical day?1 or 2NOMS HealthcareHow often do you have 6 or more drinks on 1 occasion?NeverNOMS HealthcareStart: 01-24-2024 Alcohol Commentcaffeine: 1-2 cups per dayNOMS HealthcareStart: [id number] assigned at [facility]-salemNot on fileNOKY HealthcareStart: 89-51-9876Iekfceq use and exposureSmokeless tobacco non-userNOMS HealthcareSexFemale (finding)[facility] Andersontart: [id number] Assigned At [facility] Clinical Notes 04-25-2022 to 08-09-2024 Note Date & [id number] Evaluation note* Diagnosis Onset Date Resolution Status Admit Date Cigarette nicotine dependence in [place] on acuteApril 2024 8:22amElevated cholesterolacuteApril 2024 8:22amGERD (gastroesophageal reflux disease)acuteApr2024 8:22amHypertensionacute Anni 2024 8:22amMenopauseacuteApril 2024 8:22amMucopurulent chronic bronchitisacuteApril 2024 8:22amOSA (obstructive sleep apnea)acuteApr2024 8:22amAorta aneurysminactiveApril 2024 8:22amMedicare annual wellness visit, subsequentnoneactiveApril 2024 8:22amScreening mammogram for breast cancernoneactiveApril 2024 8:22amAscending aorta dilatation acuteJuly 2024 9:27amCigarette nicotine dependence in remissionacuteJuly 2024 9:27amElevated cholesterolacuteJuly 2024 9:27amGERD (gastroesophageal reflux disease)acuteJuly 2024 9:27amHypertensionacuteJuly 2024 9:27amMucopurulent chronic bronchitisacuteJuly 2024 9:27amOSA (obstructive sleep apnea)acuteJuly 2024 9:27amPulmonary noduleacuteJuly 2024 9:27amPreop exam for internal medicinenoneactively 2024 9:27am [facility] Work Phone: 1(104) 200-330008-14-2023 Evaluation note* Encounter Date Diagnosis Assessment Notes Treatment Notes Treatment Clinical Notes Nov, 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) LDCT without suspicious nodules: 11/2022ulmonary nodule (ICD-10 - R91.1)LDCT: 2020, 11/2021, 11/2022 14 Nov, 2022Nicotine dependence, cigarettes, in remission (ICD-10 - F17.211)LDCT w/o suspicious nodules: 11/2022rimary hypertension (ICD-10 - I10) Nov,Elevated cholesterol (ICD-10 - E78.00) Nov,astroesophageal reflux disease with esophagitis without hemorrhage (ICD-10 - K21.00) [facility] Other 04-13-2023 Evaluation note* Encounter Date Diagnosis Assessment Notes Treatment Notes Treatment Clinical Notes Jul, Primary hypertension (ICD-10 - I 10) This patient is instructed to consume a healthy, low-fat, low-salt diet. They are also encouraged to continue exercise to achieve/maintain a normal BMI. 13 Jul, 2022Medicare annual wellness visit, subsequent (ICD-10 - Z00.00) [...] and exercise. Reviewed age-appropriate preventive testing recommended. Jul,Mixed hyperlipidemia (ICD-10 - E78.2)Diet and exercise with continued statin therapy. Jul,astroesophageal reflux disease with esophagitis without hemorrhage (ICD-10 - K21.00)Diet instructions: Smaller portions, avoid eating and laying flat, avoid eating or drinking prior to bedtime. Weight loss. Jul,Mucopurulent chronic bronchitis (ICD-10 - J41.1)Mucinex as needed. AZALEA as needed, rare use, mainly w/ seasonal changes. No ER visits for acute exacerbation Jul,neurysm of ascending aorta without rupture (ICD-10 - I71.21)Echo: 4.2cm - 03/2021, CT: 4.5cm - 11/2021 Control BP Continue treatment and yearly surveillance CTA Jul,ulmonary nodule (ICD-10 - R91.1)LDCT: 2020, 11/2021Yearly LDCT Jul,OSA (obstructive sleep apnea) (ICD-10 - G47.33)This patient is aware of the benefits associated with LAMAR: With continued use, the patient reduces the risk for RI, CVA, HTN, cardiac dysrhythmias and sudden cardiac deaths.The patient is also aware of the association between LAMAR and morning headaches, daytime somnolence, fatigue and obesity, whichalso has been improved with continued use.The patient is compliant with treatment, wearing the equipment every night for greater than 4 hours.The patient is instructed to continue use of the CPAP forOSA treatment. 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 [facility] Other 01-20-2023 Evaluation note* Encounter Date Diagnosis Assessment Notes Treatment Notes Treatment Clinical Notes Apr, Dupuytren's contracture of both hands (ICD-10 - M72.0) Patient given new TKO splint for the right hand as the one she has is too big and bulky. She will continue to use at night and work on daily exercises [facility] Other 01-06-2023 Evaluation note* Encounter Date Diagnosis [...] activities. Rx Doxycycline. Patient given TKO splint [facility] Other 01-04-2023 Evaluation note* Encounter Date Diagnosis [...] under sterile conditions. Patient tolerated well. Will returnon 05/02/22 for manipulation. [facility] Other 12-30-2022 Evaluation note* Encounter Date Diagnosis Assessment Notes Treatment Notes Treatment Clinical Notes Mar, Dupuytren's contracture of both hands (ICD-10 - M72.0) Extensive discussion about current condition and treatment options available. We will plan to proceed with Xiaflex and manipulation. With the holiday weekend following today, we will schedule this for sometime next week. [facility] Other Evaluation noteNo InformationNortLuckyFish Games Other Evaluation note* Diagnosis LAMAR (obstructive sleep apnea)- Primary Obstructive sleep apnea (adult) (pediatric) Hypersomnia Hypersomnia, unspecified Snoring Other dyspnea and respiratory abnormality Obesity, unspecified class, unspecified obesity type, unspecified whether serious comorbidity present documented in this encounter [facility] HealthcareEvaluation note* Diagnosis Onset Date Resolution Status Admit Date Ascending aorta dilatation acuteOctober 2024 8:22amCigarette nicotine dependence in remissionacute February 14, 2025 8:22amGERD (gastroesophageal reflux disease)acuteOct2024 8:22amHypertensionacuteOctober 2024 8:22amHypertriglyceridemia acuteOctober 2024 8:22amKnee painacuteOctober 2024 8:22amMenopause acuteOctober 2024 8:22amMucopurulent chronic bronchitisacuteOct2024 8:22amOSA (obstructive sleep apnea)acuteOctober 2024 8:22am [facility] Work Phone: History general Narrative - Reported* Type Description Date Medical History HTN Medical HistoryGERDMedical HistoryAllergiesMedical Historyhypertriglyceridemia Medical HistoryaneurysmSurgical HistoryElbow, leftSurgical HistoryFoot x3-benign tumorSurgical Historycataract removalSurgical HistorycholecystectomySurgical Historyknee arthroscopySurgical HistoryoophorectomySurgical Historyleft foot soft tissue tumor removalHospitalization HistorySee past surgicalHospitalization HistoryChest pain [facility] Other History general Narrative - Reported* Type Description Date Medical History HTN Medical HistoryGERDMedical HistoryAllergiesMedical Historyhypertriglyceridemia Medical HistoryaneurysmMedical HistoryOSASurgical HistoryElbow, leftSurgical HistoryFoot x3-benign tumorSurgical Historycataract removalSurgical History cholecystectomySurgical Historyknee arthroscopySurgical Historyoophorectomy Surgical Historyleft foot soft tissue tumor removalHospitalization HistorySee past surgicalHospitalization HistoryChest pain [facility] Other Reason for referral (narrative)No reason for referral information availablePromedica Memorial Hospital Work Phone: Summary Purpose Family History Relationship Condition Age at Onset Recorded Date/T freddy mother Diabetes mellitus Unknown fatherMalignant neoplasm of colonUnknownMalignant neoplasm of liverUnknownfather Family history of colon cancerUnknownDeceasedUnknownmotherHeart diseaseUnknown Diabetes mellitusUnknown Advance Directives Advance Directive Response Recorded Date/ Time Advance Directives No June 03, 2024 10:11am Chief Complaint and Reason for Visit Chief Complaint Admit Date 6 month f/u August 09, 2024 8:2 2am Surgical Clearance November 02, 2024 9:27a m Reason for Visit Admit Date Cigarette nicotine dependence in [facility] on August 09, 2024 8:22am Elevated cholesterol [...] November 02 9:27am [facility] November 02, 2024 9:27am Elevated cholesterol November 02, 2024 9:27 am GERD (gastroesophageal reflux disease) J lazara 2024 9:27am Hypertension November 02, 2024 9:27a m Mucopurulent chronic bronchitis October 9:27am LAMAR (obstructive sleep apnea) November 02, 2024 9:27am Pulmonary nodule November 02, 2024 9:27a m Preop exam for internal medicine October 9:27am Chief Complaint Admit Date 6 mo f/u February 14, 2025 8 :22am Reason for Visit Admit Date Ascending aorta dilatation February 14, 2025 8:22am Cigarette nicotine dependence in [place] on February 14, 2025 8:22am GERD (gastroesophageal reflux disease) O ct2024 8:22am Hypertension February 14, 2025 8 :22am Hypertriglyceridemia February 14, 2025 8:22am Knee pain February 14, 2025 8 :22am Menopause February 14, 2025 8 :22am Mucopurulent chronic bronchitis February 14, 2025 8:22am LAMAR (obstructive sleep apnea) February 142024 8:22am Additional Source Comments INFORMATION SOURCE (unrecogn ized section and content) DATE CREATED AUTHOR 10/12/2021 [facility] DATE CREATED AUTHOR AUTHOR'S ORGANIZ ATION 08/23/2022 [facility] DATE CREATED AUTHOR AUTHOR'S ORGANIZ ATION 01/29/2024 [facility] EPIC REASON FOR VISIT (unrecogniz ed section and content) ReasonCommentsSleep Apnea Care Teams (unrecognized sec tion and content) Team Status: Active Member Role Status Dates Collin Daniel DO Primary Care Provider Active Team Status: Inactive Member Role Status Dates Collin Daniel DO Primary Care Provider Active Start: August 09, 2024 End: August 09Hubert Dave ProviderActiveStart: August 09, 2024 End: August 09, 2024 Team Status: Active Member Role Status Dates Collin Daniel DO Primary Care Provider Active Start: September 12, 2024 Hubert Garza ProviderActiveStart: September 12, 2024 Team Status: Inactive Member Role Status Dates Collin Daniel DO Primary Care Provider Active Start: November 02, 2024 End: November 02Hubert Dave ProviderActiveStart: November 02, 2024 End: November 02, 2024 Team Status: Active Member Role/Relationship Status Dates Collin Daniel DO Primary Care Provider Active Team Status: Active Member Role/Relationship Status Dates Collin Daniel DO Primary Care Provider Active Start: November 17, 2024 Nick Cline ProviderActiveStart: November 17, 2024 Team Status: Inactive Member Role/Relationship Status Dates Collin Daniel DO Primary Care Provider Active Start: February 14, 2025 End: February 14michellallyson Daniel DOAttcharles ProviderActiveStart: February 14, 2025 End: February 14, 2025 Goals (unrecognized section and content) Goals may [...] BE BASED ON THE PRIMARY CLINICAL RECORDS. [facility] [employer] provides no warranty or guarantee of the accuracy or completeness of information in this document.
== END 2025-02-20 10:47 | disposition home or self-care (01) ==
LOC: RAD 10:48
PROVIDERS: PCP Internal Medicine; Visit Provider Internal Medicine
DX: M25.562 Pain in left knee (principal); M85.88 Other specified disorders of bone density and structure, other site
CPT/HCPCS: 73564

== ENCOUNTER 2025-03-27 09:49 | Outpatient (OUT) | payer MEDICARE, BC, SELFPAY ==
--- OUTSIDE RECORDS SUMMARY | 2025-03-14 03:31 | XMS_ITS | Continuity of Care Document ---
Author Organization [facility] Address [address] [place] [address] Phone Care Team Providers Care Tankerman Name Role Phone Fredy Collin HOOK Primary Care Provider Collin Sanchez DO Attending Provider Narayan Cheney DO Attending Provider [phone] Breana Mullins DO Attending Provider Care Teams Patient Care Team Team Status: Active Member Role/Relationship Status Dates Collin Sanchez DO Primary Care Provider Active Visit Care Team Team Status: Inactive Member Role/Relationship Status Dates Collin Sanchez DO Primary Care Provider Active Start: February 14, 2025 End: February 14diony Sanchez DOAttcharles ProviderActiveStart: February 14, 2025 End: February 14, 2025 Visit Care Team Team Status: Inactive Member Role/Relationship Status Dates Collin Sanchez DO Primary Care Provider Active Start: March 09, 2025 End: March 09diony Sanchez DOAttending ProviderActiveStart: March 09, 2025 End: March 09, 2025 Visit Care Team Team Status: Inactive Member Role/Relationship Status Dates Collin Sanchez DO Primary Care Provider Active Start: March 13, 2025 End: March 13, 2025Jukrystal Cheney DOAttcharles ProviderActiveStart: March 13, 2025 End: March 13, 2025 Patient Care Team Team Status: Inactive Member Role/Relationship Status Dates Collin Sanchez DO Primary Care Provider Active Start: March 14, 2025 End: March 14, 2025Nicmer Mullins DOAttending ProviderActiveStart: March 14, 2025 End: March 14, 2025 Chief Complaint and Reason for Visit Chief Complaint Admit Date 6 mo f/u February 14, 2025 8 :22am Cough/COV- March 09, 2025 9:02am TBH DR SANCHEZ LT KNEE PAIN WX TBH PUSHED N ovember 2024 10:48am 1 year f/u March 14, 2025 8:06am Reason for Visit Admit Date Ascending aorta dilatation February 14, 2025 8:22am Cigarette nicotine dependence in remissi on February 14, 2025 8:22am GERD (gastroesophageal reflux disease) O ctober 2024 8:22am Hypertension February 14, 2025 8 :22am Hypertriglyceridemia February 14, 2025 8:22am Menopause February 14, 2025 8 :22am Mucopurulent chronic bronchitis February 14, 2025 8:22am LAMAR (obstructive sleep apnea) February 142024 8:22am Knee pain February 14, 2025 8 :22am Acute bronchitis due to other specified organisms March 09, 2025 9:02am Acute exacerbation of chroni c obstructive pulmonary disease March 09, 2025 9:02am Primary osteoarthritis of left knee Nove mber 2024 10:48am Allergies, Adverse Reactions, Alerts Allergen Type Severity Reaction Last Updated Verified Status Iodinated Contrast Media Allergy Unknown Unknown Reaction March 14, 2025 8:13am Yes Active Gadolinium-Contain ing Contrast Medi Allergy Unknown Unknown Reaction February 8:13am Yes Active Social History Smoking Status Status Start Date End Date Date of Observa tion Ex-smoker (finding) August 09, 2024 9:03am Observation Status Observation Response Date of Response Legal Sex Female (finding) Sex Assigned At BirthFemaleSept1949 Family History Relationship Condition Age at Onset Recorded Date/T freddy mother Diabetes mellitus Unknown fatherMalignant neoplasm of colonUnknownMalignant neoplasm of liverUnknownfather Family history of colon cancerUnknownDeceasedUnknownmotherHeart diseaseUnknown DeceasedUnknownDiabetes mellitusUnknown Problems Active Problems Problem Diagnosis/Recorded Date Onset Date Status C omments LAMAR (obstructive sleep apnea) August 07, 2023 7:34am Unkn own Active Primary osteoarthritis of left kneeNov2024 7:43amUnknownActive Cigarette nicotine dependence in remissionApril 2023 7:34amUnknownActive started age 22, 1 ppd, quit 2014LDCT: no suspicious nodules - 11/2022, 11/2023 MenopauseApril 2024 8:09amUnknownActiveMucopurulent chronic bronchitis August 07, 2023 7:34amUnknownActiveHypertriglyceridemiaOctober 2024 8:05amUnknownActiveElevated cholesterolApril 2023 7:34amUnknownActive Pulmonary noduleApril 2023 7:34amUnknownActiveNo suspicious nodules: 11/2022, 11/2023, 06/2024OsteopeniaOctober 2024 8:11pmUnknownActiveDEXA: 01/2025Seasonal allergic rhinitis due to pollenApril 2023 8:59amUnknown ActiveAscending aorta dilatationJuly 2024 7:27amUnknownActiveCT ascending aorta: 4.4cm - 11/2022, 4.6cm - 11/2023.CTA ascending aorta: 4.2cm - 06/2024Left knee painNovember 2024 5:30pmUnknownActiveGERD (gastroesophageal reflux disease)October 07, 2021 1:58pmUnknownActiveHypertensionJune 2021 1:58pm UnknownActiveInactive/Resolved Problems Problem Diagnosis/Recorded Date Onset Date Status C omments Aorta aneurysm October 07, 2021 2:00pm Unknown Resolved CT ascending aorta: 4.4cm - 11/2022, 4.6cm - 11/2023.CTA ascending aorta: 4.2cm - 06/2024 Personal history of colonic polyps October 08, 2021 7:12am Unknown Resolved Problem L ist clean-up per request of Phys. EHR Cmte Medications Medication Status Dose Units Route Directions Qty Days Refills S tart Date Stop Date End Date Reason(s) Instructions Adherence Lisinopril-Hydrochlorothiazide 20-25 mg tablet Discont inued 0 .ROUTE.WTREDVB328Eudkb 2023 11:58amOctober 2023 11:10amTAKE 1 TABLET BY MOUTH DAILYAtenolol 25 mg tabletDiscontinued0.ROUTE.YWRCZQF092Gsrei 2023 11:58amFebruary 2024 1:13pmTAKE 1 TABLET BY MOUTH DAILYPantoprazole 40 mg tablet,delayed release (DR/EC)Discontinued0.ROUTE.WBLUWSW334Ttvvuer2023 9:31amAugust 2024 6:43amTAKE 1 TABLET BY MOUTH DAILYFenofibrate 160 mg tabletDiscontinued0.ROUTE.UBASSUU398Vpxbbrv 14th, 2024 4:50pmAugust 2024 6:43amTAKE 1 TABLET BY MOUTH ONCE DAILYLisinopril-Hydrochlorothiazide 10-12.5 mg mvihfwGcjuohbyrlmb1HAVHDRvfhm60851Yteuqjo 2023 11:00pmDecember 2023 10:01amLisinopril-Hydrochlorothiazide 10-12.5 mg olsvbeDlijrshhwspd8TAROMInzua90 903Deceer 2023 10:01amOctober 2024 7:53amAtenolol 25 mg tablet Active0.ROUTE.BZPERUT999Azhegudi 2024 1:12pmTAKE 1 TABLET BY MOUTH DAILY Complies with drug therapyColestipol 1 gram tabletActive0.ROUTE.NAUHXNH8110 June 21, 2024 6:55amTAKE 1 TABLET BY MOUTH AT BREAKFAST AND EVENING MEAL Complies with drug therapyPrednisone 10 mg dtrdukAenahyvdswqv13EJIV.LBTIISR2473 June 27, 2024 12:00amApril 2024 8:12am5 tabs (50mg) taken 13, 7 and 1 hour w/ food prior to CT scan.Fenofibrate 160 mg tabletActive0.ROUTE.ALTOJPN785 December 09, 2024 6:43amTAKE 1 TABLET BY MOUTH ONCE DAILYComplies with drug therapyPantoprazole 40 mg tablet,delayed release (DR/EC)Active0.ROUTE.HTCMXPJ159 December 09, 2024 6:43amTAKE 1 TABLET BY MOUTH DAILYComplies with drug therapy Multivitamin PfbsvpGtgfue4FSIXTKfhgkJlfb 2021 11:00pmComplies with drug therapyAtenolol 25 mg kylswnNjkkenuzhlvy73ZFUJVbctdPxuf 2021 11:00pmApril 2023 11:58amAscorbic Acid (Vitamin C) (Vitamin C) 500 mg PbsznvCzxbfy398FC PODailyJune 2021 11:00pmComplies with drug therapyPantoprazole 40 mg tablet,delayed release (DR/EC)Kykelmslyoof85XOMXQlsytRkoi 2021 11:00pm February 03, 2024 9:31amLisinopril-Hydrochlorothiazide 20-25 mg tablet Bmuuhghdyvvg5OVPGLLvenwHmic 2021 11:00pmApril 2023 11:58amAspirin 81 mg Tablet,DjoukitaLnfuzq30MWZWSxsruUgsf 2021 11:00pmComplies with drug therapyColestipol 1 gram jyntiqOrnxkxqscdtq3YTIDSxgqdPihy 2021 11:00pm August 07, 2023 7:36amLoratadine 10 mg XlfjwtUhjmcx52CUSDNvfqj as needed for Allergy SymptomsJune 2021 11:00pmComplies with drug therapyFenofibrate 160 mg jssrgeWcjwqytsukdr019FALJExkitBnrj 2021 11:00pmOctober 2023 4:50pmCalcium Carbonate-Vitamin D3 (Calcium 600 + D(3)) 600 mg-10 mcg (400 unit) JrofjbTcamtr8FRFSZKztavLias 2021 11:00pmComplies with drug therapyOmega 6-Mte-Xuh-Fish Oil (Fish Oil) 300-1,000 mg JrztmelIabitt7MYHOZPvimbCzyp 2021 11:00pmComplies with drug therapyColestipol 1 gram lfcuifJgvslrqafgaa6LFUG Twice dailyApril 2023 7:35amFebruary 2024 6:55amAzithromycin 250 mg tstwpqSpaptkohcoxd738FIEITn Sbabuzhy566Kbhvlmnfr 2023 11:00pmSeptember 2023 10:29amAlbuterol Sulfate 90 mcg/actuation HFA aerosol inhalerActive2 PUFFINHALATIONEvery 6 hours as needed for shortness of breath or wheezing8.5300 January 05, 2024 11:00pmComplies with drug therapyPrednisone 20 mg tablet Uqhdvbrzjubz65AVPYQd Slguqhif958Jlooshmcb 2023 11:00pmFebruary 2024 2:17pm1 tab tid w/ food x 3 days, then bid w/ food x 3 days, then qd w/ food x 3 daysAmoxicillin-Pot Clavulanate 875-125 mg axegdmAnhbtbldvfzr2XSRVDVxfkn 12 ljdar5025Hkqrsbihc 2023 11:00pmFebruary 2024 2:17pmCoenzyme Q10 (Coq- 10) 100 mg vqdkslzSfbqywyrsmwr399XKESQmpzwWlaxg 2023 11:00pmNovember 2024 8:15amPrednisone 20 mg qsmqsiJkzdmqfgdblm38JFEMFz Cefiyesi752Jcutdjfh 2024 12:00amApril 2024 8:12am1 tab tid w/ food x 3 days, then bid w/ food x 3 days, then qd w/ food x 3 daysDoxycycline Hyclate 100 mg capsuleDiscontinued 100MGPOTwice keiad858Bjaeukvd 2024 12:00amNovember 2024 9:41am Lisinopril-Hydrochlorothiazide 10-12.5 mg dhppymHjheimnwzbpq7AQMLBUsbuk67458 February 14, 2025 7:52amOctober 2024 7:55amLisinopril-Hydrochlorothiazide 20-25 mg wfkqytAhitjwdtkcfd7NNXXWFwwel23011Axdbtpc 20th, 2025 11:00pmOctober 2024 7:56amLisinopril-Hydrochlorothiazide 10-12.5 mg tabletDiscontinued1 CXMPMAisho08824Vijpmtl 21st, 2025 7:53amOctober 2024 7:55amLisinopril- Hydrochlorothiazide 20-25 mg azmawsJpsmuq1FRVODXalqa02967Sljfbgv 2024 7:56amComplies with drug therapyDoxycycline Hyclate 100 mg capsuleDiscontinued 100MGPOTwice adgeu3617Txrppwce2024 9:41amNovember 2024 8:16am Prednisone 20 mg leaezoMdxfczeuygor20UDEI.UEZSLVJ481Mwfsvony 13th, 2025 12:00am March 14, 2025 8:16am20 mg: take bid w/ food x 3 days, then qd w/ food x 2 days Immunizations Immunization Event Date Not Given Reason Dose Number Lab Rep Lot Number Reason(s) Given Vaccine Information Statement (VIS) Detail Administration Location COVID-19 Norberto Adrian ([employer]) June 20, 2020 COVID-19 mRNANorberto ([employer])July 11, 2020Fluzone TIV High-Dose 65YR+ February 08, [id number] CenterFl[facility] 65YR+ February 14, [id number] Centerinfluenza, unspecified formulationNovember 2019influenza, unspecified formulationOctober 2020influenza, unspecified formulationOctober 2021influenza, unspecified formulationOctober , neumococcal Conjugate Vaccine, 13 valentMarch neumococcal Polysacc. Vaccine, 23 valentNovember , 2019Tetanus, Diphtheria adult, 5 Lf pres free absNovember , 2011Tetanus, Diphtheria adult, 5 Lf pres free absNovember , 2012Tetanus, Diphtheria adult, 5 Lf pres free absOctober , 2013Tetanus toxoidMay 2013 Procedures Procedure Date Performed Status XR knee LT 4V* February 14, 2025 7:56am comple aristeo Vital Signs Vital Reading Result Reference Range Collection Date/Time Height 68 [in_i] February 14, 2025 7:46wkQtdzsp193.03 kgFebruary 14, 2025 7:30amHeart Rate60 /pet07-650YouvfocFebruary 14, 2025 7:30amRespiratory rate12 /tib19-46Rgowxtm 21st, 2025 7:30amBP Zkyklglf732 mm[Hg]100-140February 14, 2025 7:30amBP Hdamykhej89 mm[Hg]60-100Oct2024 7:30amBMI (Body Mass Index)37.5 kg/g7EhrbaxjFebruary 14, 2025 7:23ozBzoeaz70 [in_i]March 09, 2025 9:48lmGfpern045.60 kg March 09, 2025 9:10amHeart Rate70 /vat48-623YnpdbqbuMarch 09, 2025 9:10am Respiratory rate12 /nae99-29Xvzjdfvs 13th, 2025 9:10amBP Pmlkhlia139 mm[Hg] 100-140March 09, 2025 9:10amBP Rkxjmgqcn82 mm[Hg]60-100March 09, 2025 9:10amBMI (Body Mass Index)37.7 kg/s1BuspbxduMarch 09, 2025 9:10hzAduxvm64 [in_i] March 14, 2025 8:88iuXwapof061.58 kgMarch 14, 2025 8:11amHeart Rate63 /ihk18-763ToemypvrMarch 14, 2025 8:11amOxygen saturation by Pulse oyzbilew42 % 95-100March 14, 2025 8:11amBP Vwnichbf611 mm[Hg]100-140March 14, 2025 8:11amBP Ogfouxass84 mm[Hg]60-100March 14, 2025 8:11amBMI (Body Mass Index) 37.4 kg/i0NdeblzujMarch 14, 2025 8:11am Advance Directives Advance Directive Response Recorded Date/ Time Advance Directives No June 03, 2024 9:11am Insurance Providers Guarantor Da Garcia Address [address] [facility] [id number] Info.Home Phone: Payer Group Member ID Coverage Type Subscriber Relationship to Subscriber Effective Date Expiration Date Lam PEREZ/KARIE Id: [id number] Wilder , D Id: [id number] [address] [place] [id number] Home Phone: SelfMedicare [id number] Wilder , D Id: [id number] [address] [facility] [facility] Home Phone: Self Encounters Encounter Location(s) Arrival/Admit Date Discharge/Departure Date Discharge/Departure Disposition Provider(s) Departed Physician/ Provider Office Visit -[facility] February 14, 2025 8:22am February 14, 2025 9:11am Discharged to home care or self care (routine discharge) Collin Sanchez DO Departed Physician/ Provider Office Visit -[facility] March 09, 2025 9:02am March 09, 2025 9:43am Discharged to home care or self care (routine discharge) Collin Sanchez DO Departed Physician/ Provider Office Visit -[facility] Orthopedics [place] March 13, 2025 10:48am March 13, 2025 11:11am Discharged to home care or self care (routine discharge) Narayan Cheney DO Departed Physician/ Provider Office Visit -[facility] Neurology [place] March 14, 2025 8:06am March 14, 2025 8:30am Discharged to home care or self care (routine discharge) Breana Mullins DO Recent Diagnosis Onset Date Admit Date Ascending aorta dilatation Unknown 2024 8:22am Cigarette nicotine dependence in remission Unkno wn February 14, 2025 8:22am GERD (gastroesophageal reflux disease) Unknown February 14, 2025 8:22am Hypertension Unknown February 14 8:22am Hypertriglyceridemia Unknown January 8:22am Menopause Unknown February 14 8:22am Mucopurulent chronic bronchitis Unknown February 14, 2025 8:22am LAMAR (obstructive sleep apnea) Unknown Oc tob2024 8:22am Knee pain Unknown February 14 8:22am Acute bronchitis due to othe r specified organisms Unknown March 09, 2025 9:02am Acute exacerbation of chroni c obstructive pulmonary disease Unknown March 09, 2025 9:02am Primary osteoarthritis of left knee Unknown March 13, 2025 10:48am Assessments Diagnosis Onset Date Resolution Status Admit Date Ascending aorta dilatation acuteOct2024 8:22amCigarette nicotine dependence in remissionacute February 14, 2025 8:22amGERD (gastroesophageal reflux disease)acuteOctober 2024 8:22amHypertensionacuteOctober 2024 8:22amHypertriglyceridemia acuteOctober 2024 8:22amMenopauseacuteOctober 2024 8:22am Mucopurulent chronic bronchitisacuteOctober 2024 8:22amOSA (obstructive sleep apnea)acuteOctober 2024 8:22amKnee paindeletedOctober 2024 8:22amAcute bronchitis due to other specified organismsdeletedNovember th, 2025 9:02amAcute exacerbation of chronic obstructive pulmonary diseasedeleted March 09, 2025 9:02amPrimary osteoarthritis of left kneeacuteNov2024 10:48am Plan of Treatment Author Collin Sanchez [facility]AuthoredOctober 2024 8:07amI have instructed this patient to consume a [...] use, the patient reduces the risk for [place], CVA, HTN, cardiac dysrhythmias and sudden cardiac [...] determine degree of arthritis. Refer to Orthopedics Author Narayan Cheney [facility]Authored[facility] 2024 12:05pmSusapeña presents with left knee DJD. At this juncture we have discussed the findings and diagnosis as well as personally reviewed appropriate imaging and performed interpretation of related testing and examination with the patient in office today. Prior medical notes from Collin Sanchez DO and history have been reviewed. Today we have discussed degenerative joint disease of the knee and its treatment. Imaging was discussed and explained to the patient. We discussed recommended conservative therapies including physical therapy, anti-inflammatory medications, and weight loss strategies. We also discussed other treatment options including cortisone injections, Visco supplementation injections which are options for treatment. I have laid out the course of knee DJD including the end- stage treatment of total joint arthroplasty. The patient recognizes and understands our options and goals and we will move forward with our treatment. Today we have initiated surgical scheduling and clearance procedures. At this juncture we have discussed the findings and diagnosis. Surgical intervention is recommended. Surgical versus non-operative management have been discussed in detail and non- operative management was given as an option and exhausted. The risks of surgical intervention in the form of total joint arthroplasty were given. Pre-operative optimization will be done prior to surgical procedure to limit hi-operative risks. I have discussed the planned procedure, how and who performs the procedure, and the personnel involved. We discussed the hospital procedure for total joint replacements. Cardiovascular, pulmonary, and other life-threatening episodes can occur during surgery although there is a low risk of these happening. Surgical risks including bleeding, neurovascular injury, wound closure problems and infection were discussed. Hi- operative risks including infection, bleeding, wound healing problems, and need for further surgery were discussed. It was discussed that there is a possibility of blood transfusion with any surgical procedure and the risks involved in receiving a blood transfusion. The surgical procedure including anesthesia, staff, and hospitalization have been discussed in detail. Possibility of, and need for, future bracing or DME use, physical or occupational therapy, mental therapy, rehabilitation, pain management and need for secondary procedures was discussed. There is possibility of component malfunction or wear and tear requiring future procedures. I have warned against smoking and the use of tobacco products due to the risks associated with them, in particular, poor healing. Obtaining or maintaining a healthy BMI was discussed. I have advised against the intermediate use of narcotic pain medication. I have advised to follow all post-operative instructions in order to obtain the best outcome. Informed consent has been verbally affirmed and signed as indicated. Plan for same-day discharge: Outpatient bed, same-day discharge. Needs PT evaluation in recovery room, okay for TB Antibiotics: Doxycycline 100 mg twice daily x7 days Anticoagulation: ASA 81 mg twice daily Follow-up: 2 weeks postoperatively Same Day Discharge- In my medical opinion, this patient does not have medical comorbidities prohibiting them from going home the same day as their joint replacement surgery. The patient also has family/friends that are willing/able to help them in the postoperative period. The patient has been involved in our cooperative treatment plan and agrees to move forward with treatment at this time. Images and pain etiology were discussed with the patient. Many of the symptoms are coming from arthritis in the knee. Treatment modalities were discussed including conservative treatment in the form of oral anti-inflammatories, corticosteroid injection, hyaluronic injection, or physical therapy. Surgical interventions were discussed in the form of arthroplasty. Patient has exhausted conservative treatment at this time and is interested in pursuing surgical intervention in the form of total knee arthroplasty. Patient given AAOS information handout and post op medication sheet, patient will be given post op prescriptions the day of surgery. Note scribed by PAU Collins, reviewed and amended by myself Narayan Cheney D.O. Author Collin Sanchez [facility] HospitalAuthoredNovember 2024 9:44amI have instructed this patient to use Robitussin or Mucinex for cough, saline and Flonase NS for congestion and Tylenol for pain and fever. Continue antibiotics until all the medication has been taken. Report to the ER if develop any CP or SOB Instructed to rest w/ HOB elevated Push fluids and use Mucinex DM Rx Prednisone to taper over 6 days ER for CP or SOB Future Tests Future scheduled test information is unavailable Pending Tests Pending diagnostic test information is unavailable Future Visits Future appointment information is unavailable Future Procedures Future procedure information is unavailable Future Medications Future medication information is unavailable Patient Instructions Patient instructions are unavailable
--- OUTSIDE RECORDS SUMMARY | 2025-03-27 09:52 | XMS_ITS | Clinical Summary ---
Author Organization [facility] Healthcare Address [address] [place] [address] Care Team Providers Care Registered Nurse First Assistant Name Role Phone Unavailable Primary Care Provider [...] Problems ProblemNoted DateDiagnosed DateOSA (obstructive sleep apnea)01/24/2024 Tbyhrpeedsg98/29/2024Obesity due to excess toimzlmi32/29/2024 Family History Medical HistoryRelationNameCommentsCancerFatherHypertensionFatherCoronary artery diseaseMotherDiabetesMotherHypertensionMotherOsteoporosisMotherRelationName StatusCommentsFatherMother [...] InformationValueDate RecordedSex Assigned at BirthNot on fileLegal DesUllnsg95/15/2023 6:36 PM EDTGender Identity Not on fileSexual OrientationNot on file Last Filed Vital Signs Vital SignReadingTime TakenCommentsBlood Aykietcy773/7810 8:22 AM EDT Pulse--Temperature--Respiratory Rate--Oxygen Saturation--Inhaled Oxygen Concentration--Iahnhk400 kg (237 lb)01/28/2024 8:22 AM QCEKkxrjq862.7 cm (5' 8 ) 01/28/2024 8:22 AM EDTBody Mass Index36.041 8:22 AM EDT Plan of Treatment Not on file Insurance
--- OUTSIDE RECORDS SUMMARY | 2025-03-27 09:52 | XMS_ITS | Clinical Summary ---
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 Name Role Phone Unavailable Primary Care Provider Unavailabl e Social History Tobacco UseTypesPacks/DayYears UsedDateSmoking Tobacco: Never AssessedUT Safety & EnvironmentAnswerDate RecordedFear of Current or Ex-PartnerNot on file 06/18/2023Emotionally AbusedNot on file06/18/2023hysically AbusedNot on file 06/18/2023Sexually AbusedNot on file4Physically or Sexually AbusedNot on file06/18/2023CommentsUnknownSex and Gender InformationValueDate RecordedSex Assigned at BirthNot on fileLegal XwhEhlwja11/29/2022 11:23 PM EDT Gender IdentityNot on fileSexual OrientationNot on file Plan of Treatment Not on file
--- NOTE | 2025-03-27 09:57 | ECG_ITS ---
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
--- OUTSIDE RECORDS SUMMARY | 2025-03-27 09:58 | XMS_ITS | CCD ---
Author Organization [facility] Care Team Providers Care Button Reclaimer Name Role Phone Elida Cuadra Unavailable Collin [...] DR JOAQUIN Crabtree Consulting Unavailable BALL, DR LÓEPZ Consulting Unavailable BALL, DR LÓPEZ Primary Care Unavailable BALL, DR LÓPEZ Admitting Unavailable BALL, DR LÓPEZ Attending Unavailable ZIEBER, DR RUTH Bethea Consulting Unavailable GILLMORMARTINA Attending Unavailable Unavailable Primary Care Provider Unavailabl e Collin Daniel DO Primary Care Provider Collin Dainel DO Attending Provider Collin Daniel DO Primary Care Provider Srini Anderson MD Attending Provider Collin Daniel DO Attending Provider Allergies Allergy ClassificationReported Allergen(s)Allergy TypeDate of OnsetReaction(s) Facility (2 sources)Contrast mediaPropensity to adverse reactionsUnkIdomoo Other (2 sources)IodineDrug AllergyUnkIdomoo Other (1 source)Iodine (And Iodine Containting Drugs)Drug allergy (disorder)[facility] Repository (1 source)Allergies ReconciledPropensity to adverse reactionsUnkWhite Rabbit Brewing Other (1 source)patient allergy list reviewed by nurse or physiciaPropensity to adverse ktahxhebt75-06-9532Rfghesl:[facility] HospitalLeapSky Wireless Other (4 sources)Iodinated Contrast MediaDrug Fwjpcgh21-96-0993Vbqmyej ReactionParkland Health Center (2 sources)Gadolinium-Containing Contrast MediAllergy to -[phone] Unknown ReactionParkwood Hospital Medications Current Medications MedicationDrug Class(es)DatesSig (Normalized)Sig (Original)[id number] 200 actuat albuterol 0.09 mg/actuat metered dose inhaler (2 sources)beta2-Adrenergic AgonistStart: 63-26-8040zajo 1 puff(s) by inhalation every six hours as needed for wheezingAlbuterol Sulfate 90 mcg/actuation HFA aerosol inhaler Active 2 PUFF INHALATION Every 6 hours as needed for shortness of breath or wheezing 8.5 30 0 January 06, 2024 12:00am Complies with drug therapyascorbic acid 500 mg oral tablet (13 sources)Vitamin CStart: 04-21-2579qsbc 1 tablet by mouth once dailyAscorbic Acid (Vitamin C) (Vitamin C) 500 mg Tablet Active 500 MG PO Daily October 07, 2021 12:00am Complies with drug therapytake 1 tablet by mouth once dailyAscorbic Acid (vitamin C) 1000 MG tablet Take 1,000 mg by mouth Daily Activeaspirin 81 mg chewable tablet (15 sources)Platelet Aggregation Inhibitor, Nonsteroidal Anti-inflammatory Drug Start: 45-39-0532bvcb 1 tablet by mouth once dailyAspirin 81 mg Tablet,Chewable Active 81 MG PO Daily October 07, 2021 12:00am Complies with drug therapytake 1 tablet by mouth once dailyaspirin (Aspirin Adult Low Dose) 81 MG EC tablet Take 81 mg by mouth Daily Activeaspirin 81MG 1 daily Activeatenolol 25 mg oral tablet (19 sources)beta-Adrenergic BlockerStart: 08-04-2023 End: 97-36-0297vtkf 1 tablet by mouth once dailyAtenolol 25 mg tablet Active 0 .ROUTE .COMPLEX 90 3 June 10, 2024 2:12pm TAKE 1 TABLET BY MOUTH DAILY Complies with drug therapyStart: 10-07-2021 End: 52-40-3295mori 1 tablet by mouth once dailyAtenolol 25 mg tablet Discontinued 25 MG PO Daily October 07, 2021 12:00am August 04, 2023 12:58pm calcium carbonate 1500 mg / cholecalciferol 0.01 mg oral tablet (2 sources)Vitamin DStart: 76-49-3461sbsg 1 tablet by mouth once dailyCalcium Carbonate-Vitamin D3 (Calcium 600 + D(3)) 600 mg-10 mcg (400 unit) Tablet Active 1 TAB PO Daily October 07, 2021 12:00am Complies with drug therapycolestipol hydrochloride 1000 mg oral tablet (19 sources)Bile Acid SequestrantStart: 19-12-9382lujr 1 tablet by mouth at dinnerColestipol 1 gram tablet Active 0 .ROUTE .COMPLEX 180 3 June 21, 2024 7:55am TAKE 1 TABLET BYMOUTH AT BREAKFAST AND EVENING MEAL Complies with drug therapyStart: 08-07-2023 End: 87-79-9426Eareuthvpi 1 gram tablet Discontinued 1 GM PO Twice daily August 07, 2023 8:35am June 21, 2024 7:55amStart: 10-07-2021 End: 04-80-6734Itvxpjfomr 1 gram tablet Discontinued 1 GM PO Daily October 07, 2021 12:00am August 07, 2023 8:36amtake 2 tablets by mouth once dailycolestipol (Colestid) 1 g tablet Take 2 tablets by mouth Daily Take at least 1 hour after or 4 hours before other medications. ActiveColestipol HCl 1 GM TAKE 1 TABLET AT BREAKFAST AND EVENING MEAL for 90 ActiveCoQ-10 (10 sources)CoQ-10 Not-TakingOmega 0-Fbl-Vdq-Fish Oil (2 sources)Start: 52-88-3821oapu 300-1000 mg by mouth once dailyOmega 8-Ohe-Ncx-Fish Oil (Fish Oil) 300-1,000 mg Capsule Active 1 CAP PO Daily October 07, 2021 12:00am Complies with drug therapydoxycycline hyclate 100 mg oral capsule (12 sources)Tetracycline-class DrugStart: 25-52-7557lwos 1 capsule by mouth twice dailyDoxycycline Hyclate 100 mg capsule Active 100 MG PO Twice daily 10 June 03, 2024 1:00am Complies with drug therapyStart: 92-27-0758bitb 1 capsule by mouth every twelve hoursDoxycycline Hyclate 100 MG 1 capsule Orally Twice a day for 5 day(s) Apr, Not-Takingfenofibrate 160 mg oral tablet (20 sources)Peroxisome Proliferator Receptor alpha AgonistStart: 02-08-2024 End: 55-72-1504earb 1 tablet by mouth once dailyFenofibrate 160 mg tablet Active 0 .ROUTE .COMPLEX 90 3 December 09, 2024 7:43am TAKE 1 TABLET BY MOUTH ONCE DAILY Complies with drug therapyStart: 10-07-2021 End: 89-81-0105kvie 1 tablet by mouth once dailyFenofibrate 160 mg tablet Discontinued 160 MG PO Daily October 07, 2021 12:00am February 08, 2024 5:50pm Fish Oils (13 sources)take 1 capsule by mouth once dailyomega-3 (fish oil) 1200 MG capsule Take 1 capsule by mouth Daily ActiveFish Oil 1000MG 1 daily Not-TakingFish Oil 1000MG 1 daily Activeloratadine 10 mg oral tablet (15 sources)Start: 68-15-1796qqcv 1 tablet by mouth once daily as needed Loratadine 10 mg Tablet Active 10 MG PO Daily as needed for Allergy Symptoms October 07, 2021 12:00am Complies with drug therapyLoratadine 10MG 1 daily Active Multivitamin Tablet (2 sources)Start: 22-12-9170xqch 1 tablet by mouth once dailyMultivitamin Tablet Active 1 TAB PO Daily October 07, 2021 12:00am Complies with drug therapy Multivitamins (10 sources)Multivitamins 1 daily Activepantoprazole 40 mg delayed release oral tablet (18 sources)Proton Pump InhibitorStart: 02-03-2024 End: 13-93-8680tkoa 1 tablet by mouth once dailyPantoprazole 40 mg tablet,delayed release (DR/EC) Active 0 .ROUTE .COMPLEX 90 3 December 09, 2024 7:43am TAKE 1 TABLET BY MOUTH DAILY Complies with drug therapyStart: 10-07-2021 End: 30-36-7233hbjk 1 tablet by mouth once dailyPantoprazole 40 mg tablet,delayed release (DR/EC) Discontinued 40 MG PO Daily October 07, 2021 12:00am February 03, 2024 10:31amubidecarenone 100 mg oral capsule (2 sources)Start: 51-67-3399Wbspyhoh Q10 (Coq-10) 100 mg capsule Active 100 MG PO Daily August 07, 2023 12:00am Complies with drug therapyVitamin C 1000 MG (2 sources)take 1 tablet by mouth once daily Completed/Discontinued Medications MedicationDrug Class(es)DatesSig (Normalized)Sig (Original)amoxicillin 875 mg / clavulanate 125 mg oral tablet (2 sources)Penicillin-class AntibacterialStart: 01-12-2024 End: 10-66-2847oefh 1 tablet by mouth every twelve hoursAmoxicillin-Pot Clavulanate 875-125 mg tablet Discontinued 1 TAB PO Every 12 hours 10 5 0 2023 12:00am June 03, 2024 3:17pmazithromycin 250 mg oral tablet (2 sources)Macrolide AntimicrobialStart: 01-06-2024 End: 48-34-2274Hxunpnawiccp 250 mg tablet Discontinued 250 MG PO As Directed 6 5 0 January 06, 2024 12:00am January 12, 2024 11:29amCalcium (10 sources)Phosphate Binder, CalciumCalcium + D3 500 600 1 daily Not-Taking Calcium + D3 500 600 1 daily Activecollagenase Clostridium histolyticum (10 sources)Start: 11-59-8959Cjwmwvu Apr, 0.58 mghydroCHLOROthiazide 12.5 mg / lisinopril 10 mg oral tablet (20 sources)Thiazide Diuretic, Angiotensin Converting Enzyme InhibitorStart: 02-14-2025 End: 11-89-3271kjnz 1 tablet by mouth once dailyLisinopril-Hydrochlorothiazide 20-25 mg tablet Active 1 TAB PO Daily 90 90 February 14, 2025 8:56am Complies with drug therapyStart: 02-12-2024 End: 74-04-1393jxnd 1 tablet by mouth once dailyLisinopril-Hydrochlorothiazide 10-12.5 mg tablet Discontinued 1 TAB PO Daily 90 90 February 14, 2025 8:53am February 14, 2025 8:55amStart: 08-04-2023 End: 69-60-5970wpuc 1 tablet by mouth once dailyLisinopril-Hydrochlorothiazide 20-25 mg tablet Discontinued 0 .ROUTE .COMPLEX 90 3 August 04, 2023 12:58pm February 12, 2024 12:10pm TAKE 1 TABLET BY MOUTH DAILYStart: 10-07-2021 End: 84-50-3157lefk 1 tablet by mouth once dailyLisinopril-Hydrochlorothiazide 20-25 mg tablet Discontinued 1 TAB PO Daily October 07, 2021 12:00am August 04, 2023 12:58pmLisinopril-hydroCHLOROthiazide 20-25 MG 1 daily ActivepredniSONE 10 mg oral tablet (6 sources)Start: 06-27-2024 End: 73-19-7881gubr 5 tablets by mouth every hourPrednisone 10 mg tablet Discontinued 10 MG PO .COMPLEX 15 1 June 27, 2024 1:00am August 09, 2024 9:12am 5 tabs (50mg) taken 13, 7 and 1 hour w/ food prior to CT scan.Start: 01-12-2024 End: 86-78-1922Ogiauutfrb 20 mg tablet Discontinued 20 MG PO As Directed 18 June 03, 2024 1:00am August 09, 2024 9:12am 1 tab tid w/ food x 3 days, then bid w/ food x 3 days, then qd w/ food x 3 daystriamcinolone acetonide 40 mg/ml injectable suspension (2 sources)CorticosteroidStart: 61-40-7161Kngihic-40 Jul, 60 mg Problems Active Problems Problem ClassificationProblemDateDocumented DateEpisodic/ChronicAcute bronchitis (9 sources)Acute bronchitis; Translations: [Acute bronchitis]EpisodicAllergic reactions (1 source)Radiographic dye allergy status; Translations: [Radiographic dye allergy status]EpisodicAortic; peripheral; and visceral artery aneurysms (8 sources)Thoracic aortic aneurysm, without rupture; Translations: [Aortic aneurysm]Onset: 429288-38-8842KjstczfXvxeskq on above:CT ascending aorta: 4.4cm - 11/2022, 4.6cm - 11/2023.CTA ascending aorta: 4.2cm - iliary tract disease (1 source)Postcholecystectomy syndrome; Translations: [Postcholecystectomy syndrome]EpisodicCalculus of urinary tract (1 source)H/O: urinary stone; Translations: [Personal history of urinary calculi]EpisodicChronic obstructive pulmonary disease and bronchiectasis (10 sources)Mucopurulent chronic bronchitis; Translations: [Mucopurulent chronic bronchitis]ChronicDisorders of lipid metabolism (11 sources)Mixed hyperlipidemia; Translations: [Mixed hyperlipidemia]Onset: 94-24-3633PqawtnpIsnzkdwuji disorders (7 sources)Gastro-esophageal reflux disease with esophagitis; Translations: [Gastroesophageal reflux disease with esophagitis without hemorrhage]08-08-2023 ChronicEsophageal disorders (3 sources)Esophageal disorders; Translations: [Gastro-esophageal reflux disease with esophagitis, without bleeding]Essential hypertension (10 sources)Essential hypertension; Translations: [Essential (primary) hypertension]Onset: 64-42-8027IectiopWfrob aftercare (5 sources)Other correction (current) drug therapy; Translations: [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 EHR CmteOther bone disease and musculoskeletal deformities (1 source)Osteopenia; Translations: [Other specified disorders of bone density and structure, unspecified site]23-52-6163XydomeknVvvgcth on above:DEXA: 01/2025 Other connective tissue disease [...] noduleEpisodicOther lower respiratory disease (2 sources)Snoring; Translations: [Snoring]26-02-6472BqyxrxkgZlhow non-traumatic joint disorders (2 sources)Pain in unspecified knee; Translations: [Knee pain]53-51-8895Rznpmvjg Other nutritional; endocrine; and metabolic disorders (1 source)Body mass index 30+ - obesity; Translations: [Obesity, unspecified] ChronicOther nutritional; endocrine; and metabolic disorders (1 source)Obesity, unspecifiedChronicOther nutritional; endocrine; and metabolic disorders (1 source)Hypercalcemia; Translations: [Hypercalcemia]Onset: 51-89-1748Dzetggy Other nutritional; endocrine; and metabolic disorders (3 sources)Obesity caused by energy imbalance; Translations: [Other obesity due to excess calories]Onset: 457008-31-2442UhfeiilKscez nutritional; endocrine; and metabolic disorders (2 sources)Obesity; Translations: [Obesity, unspecified]12-79-7176CqxchhuPibzd screening for suspected conditions (not mental disorders or infectious disease) (3 sources)Encounter for screening mammogram for malignant neoplasm of breast; Translations: [Patient encounter status]Onset: 41-31-0164GnyyjrwgWwitg upper respiratory disease (3 sources)Allergic rhinitis due to pollen; Translations: [Allergic rhinitis due to pollen]13-34-3965LhwzxdiTovdh upper respiratory disease (1 source)Allergic rhinitis due to pollenChronicResidual codes; unclassified (13 sources)Obstructive sleep apnea syndrome; Translations: [Obstructive sleep apnea (adult) (pediatric)]Onset: 796061-77-9074VnyfmkrXccddmto codes; unclassified (1 source)Obstructive sleep apnea (adult) (pediatric)ChronicResidual codes; unclassified (5 sources)Hypersomnia; Translations: [Hypersomnia, unspecified]Onset: 414179-13-4025UtwynncNuuhsfkn codes; unclassified (1 source)Family history of malignant neoplasm of digestive organs; Translations: [FAM HX MALIG NEOPLASM DIGESTIV ORGN]Onset: 12-98-3050Cpovfqdr Residual codes; unclassified (4 sources)Menopause present; Translations: [Asymptomatic menopausal state] 50-04-0649KgdeodnoNtuekxohz-related disorders (10 sources)Tobacco dependence in remission; Translations: [Nicotine dependence, cigarettes, in remission]ChronicComment on above:started age 22, 1 ppd, quit 2014LDCT: no suspicious nodules - 11/2022, 11/2023Unclassified (1 source)Aneurysm of the ascending aorta, without rupture; Translations: [Aneurysm of the ascending aorta, without rupture] Past or Other Problems Problem ClassificationProblemDateDocumented DateEpisodic/ChronicSpondylosis; intervertebral disc disorders; other back problems (4 sources)Dorsalgia, unspecified; Translations: [DORSALGIA UNSPECIFIED]Onset: 54-06-4160EbkyzoetNjkewuapmqjr (1 source)Aneurysm of ascending aorta without rupture I71.21 Results Test NameValueInterpretationReference RangeFacilityBasophils Auto (Bld) [#/Vol] Ordered By: Srini Anderson on 78-48-3120Bwpgzxjuk (Bld) [#/Vol]0.0 10 3/uL0.0-0.1 [facility] HospitalBasophils/100 WBC Auto (Bld)Ordered By: Srini Anderson on 29-45-2475Eafdbcmgu/100 WBC (Bld)0.5 %0.2-2.0[facility] HospitalEosinophils/100 WBC Auto (Bld)Ordered By: Srini Anderson on 04-52-8849Mcopxqcnnrw/100 WBC (Bld)4.2 %0.9-7.0[facility] Erythrocyte distribution width Auto (RBC) [Ratio]Ordered By: Srini Anderson on 88-43-8230Lkzdcxifeyd distribution width (RBC) [Ratio]12.6 %11.0-15.0[facility] HospitalHematocrit Auto (Bld) [Volume fraction]Ordered By: Srini Anderson on 78-70-3786Pkioaovyel (Bld) [Volume fraction]42.8 %36.0-48.0[facility] HospitalHemoglobin [Mass/volume] in BloodOrdered By: Srini Anderson on 93-99-3060Slefdfadvp (Bld) [Mass/Vol]14.4 g/dL12.0-16.0[facility] HospitalLaboratory - Hematology and Cell countsOrdered By: Srini Anderson on 73-54-5462Wchvchqf granulocytes/100 WBC (Bld)0.3 %0.0-0.5FToledo HospitalLeukocytes [#/volume] corrected for nucleated erythrocytes in Blood by Automated counOrdered By: Srini Anderson on 92-18-1121FSR corrected for nucl RBC Auto (Bld) [#/Vol]5.9 10 3/uL4.0-11.0[facility] Lymphocytes Auto (Bld) [#/Vol]Ordered By: Srini Anderson on 72-60-5000Bddifkcuqhp (Bld) [#/Vol]2.3 10 3/uL1.2-3.8[facility] HospitalLymphocytes/100 WBC Auto (Bld)Ordered By: Srini Anderson on 27-06-1406Souzpwieskb/100 WBC (Bld) 38.4 %20.5-60.0[facility] HospitalMCH Auto (RBC) [Entitic mass] Ordered By: Srini Anderson on 52-93-3226CBU (RBC) [Entitic mass]29.9 pg26.7-34.0 [facility] HospitalMCHC Auto (RBC) [Mass/Vol]Ordered By: Srini Anderson on 66-26-9735DYHZ (RBC) [Mass/Vol]33.6 g/dL29.9-35.2FToledo HospitalMCV Auto (RBC) [Entitic vol]Ordered By: Srini Anderson on 11-17-2024 MCV (RBC) [Entitic vol]88.8 fL81.0-99.0[facility] Monocytes Auto (Bld) [#/Vol]Ordered By: Srini Anderson on 48-59-8153Cdaslfype (Bld) [#/Vol]0.5 10 3/uL0.3-0.8[facility] HospitalMonocytes/100 WBC Auto (Bld)Ordered By: Srini Anderson on 53-88-5598Cuesxczqh/100 WBC (Bld)7.9 % 1.7-12.0[facility] HospitalNeutrophils Auto (Bld) [#/Vol]Ordered By: Srini Anderson on 43-57-1944Liuwqjcizmf (Bld) [#/Vol]2.9 10 3/uL1.4-6.5 [facility] HospitalNeutrophils/100 WBC Auto (Bld)Ordered By: Srini Anderson on 26-39-9411Oqdxqgsmzcb/100 WBC (Bld)48.7 %43.0-75.0[facility] HospitalNo Panel InformationOrdered By: Srini Anderson on 11-17-2024 Eosinophils # (Auto)0.3 10 3/uL0.0-0.7FToledo HospitalImmature Granulocyte # (Auto)0.02 10 3/uL0.00-0.03[facility] Platelet mean volume Auto (Bld) [Entitic vol]Ordered By: Srini Anderson on 29-55-6783Dtuxcxgq mean volume (Bld) [Entitic vol]8.9 fLLow9.5-13.5FToledo HospitalPlatelets Auto (Bld) [#/Vol]Ordered By: Srini Anderson on 01-17-7090Eawjuvxyd (Bld) [#/Vol]250 10 3/fK732-516GwwqtoiabParkwood HospitalRBC Auto (Bld) [#/Vol]Ordered By: Srini Anderson on 24-50-7498TWI (Bld) [#/Vol]4.82 10 6/uL4.20-5.40[facility] HospitalBasophils Auto (Bld) [#/Vol]on 11-48-0844Dqiingxrq (Bld) [#/Vol]0.0 10 3/uL0.0-0.1FToledo HospitalBasophils/100 WBC Auto (Bld)on 37-32-6023Kxypclnnn/100 WBC (Bld)0.6 %0.2-2.0[facility] HospitalCholesterol in LDL Calc [Mass/Vol]on 88-06-6187Dizimkwvrxc in LDL [Mass/Vol]76.0 mg/dLParkwood HospitalComment on above:<100 mg/dl HNOZHJG565-799 mg/dl NEAR OR ABOVE HEVQUHE542-351 mg/dl BORDERLINE ZWHQ171-621 mg/dl HIGH>190 mg/dl VERY HIGH Cholesterol in VLDL Calc [Mass/Vol]on 01-74-1493Bfqgpjdeszm in VLDL [Mass/Vol] 28.0 mg/dLParkwood HospitalEosinophils/100 WBC Auto (Bld)on 75-50-9152Mohcfrmqfhk/100 WBC (Bld)4.1 %0.9-7.0[facility] Erythrocyte distribution width Auto (RBC) [Ratio]on 95-94-0664Qhlynkudtjh distribution width (RBC) [Ratio]12.8 %11.0-15.0[facility] Estimated glomerular filtration rate (GFR) non- Americanon 09-12-2024 GFR/1.73 sq M.predicted among non-blacks MDRD (S/P/Bld) [Vol rate/Area] mL/min/{1.73_m2}>=60 mL/min/1.73m 2FToledo HospitalGlobulin Calc (S) [Mass/Vol]on 62-11-2651Zygutchs (S) [Mass/Vol]3.5 g/dLParkwood HospitalHematocrit Auto (Bld) [Volume fraction]on 09-12-2024 Hematocrit (Bld) [Volume fraction]40.8 %36.0-48.0[facility] HospitalHemoglobin [Mass/volume] in Bloodon 61-84-8508Mktphvwqnw (Bld) [Mass/Vol] 14.1 g/dL12.0-16.0[facility] HospitalLaboratory - Chemistry and Chemistry - challengeon 49-49-4899Mpiwbem [Mass/Vol]3.4 g/dL3.4-5.0[facility] HospitalALP [Catalytic activity/Vol]59 U/M90-947TnotfenimParkwood HospitalALT [Catalytic activity/Vol]31 U/K08-53OvbelhencParkwood HospitalAST [Catalytic activity/Vol]25 U/R01-45VepnayisbParkwood HospitalBilirubin [Mass/Vol]0.5 mg/dL0.2-1.0[facility] Calcium [Mass/Vol]9.1 mg/dL8.5-10.1FToledo HospitalChloride [Moles/Vol]107 mmol/H34-459HogknzkxdParkwood HospitalCholesterol [Mass/Vol]154 mg/dL<=200Park[facility] HospitalCholesterol in HDL [Mass/Vol]50 mg/mJ09-94OnadnyytlParkwood HospitalComment on above:> or =60 mg/dl - LOW CARDIOVASCULAR RISK<40 mg/dl - HIGH CARDIOVASCULAR RISKCO2 [Moles/Vol]28.1 mmol/L21.0-32.0[facility] HospitalCreatinine [Mass/Vol]0.69 mg/dL0.55-1.02Park[facility] HospitalGFR/1.73 sq M.predicted MDRD (S/P/Bld) [Vol rate/Area]mL/min/{1.73_m2}>=60 mL/min/1.73m 2 [facility] HospitalGlucose [Mass/Vol]106 mg/uN18-009AspdwempaParkwood HospitalPotassium [Moles/Vol]3.5 mmol/L3.5-5.1FToledo HospitalProtein [Mass/Vol]6.9 g/dL6.4-8.2FToledo Hospital Sodium [Moles/Vol]144 mmol/G745-368BeborqjpeParkwood HospitalTriglyceride [Mass/Vol]140 mg/dL<=150Parkwood HospitalUrea nitrogen [Mass/Vol]15.0 mg/dL7.0-18.0[facility] HospitalUrea nitrogen/Creatinine [Mass ratio]21.7 mg/mgParkwood Hospital Laboratory - Hematology and Cell countson 33-83-4046Pxeqawnw granulocytes/100 WBC (Bld)0.2 %0.0-0.5FToledo HospitalLeukocytes [#/volume] corrected for nucleated erythrocytes in Blood by Automated counon 33-54-1135SBX corrected for nucl RBC Auto (Bld) [#/Vol]4.7 10 3/uL4.0-11.0[facility] HospitalLymphocytes Auto (Bld) [#/Vol]on 16-38-4397Wmiedsztnlg (Bld) [#/Vol]2.0 10 3/uL1.2-3.8[facility] HospitalLymphocytes/100 WBC Auto (Bld)on 39-80-1791Wtthnicgwwh/100 WBC (Bld)41.8 %20.5-60.0[facility] HospitalMCH Auto (RBC) [Entitic mass]on 43-93-8740EDF (RBC) [Entitic mass]31.0 pg26.7-34.0[facility] HospitalMCHC Auto (RBC) [Mass/Vol]on 47-59-1309NPBG (RBC) [Mass/Vol]34.6 g/dL29.9-35.2FToledo HospitalMCV Auto (RBC) [Entitic vol]on 10-40-8701SJR (RBC) [Entitic vol] 89.7 fL81.0-99.0[facility] HospitalMonocytes Auto (Bld) [#/Vol]on 68-17-9493Dhdyvxsvf (Bld) [#/Vol]0.4 10 3/uL0.3-0.8[facility] HospitalMonocytes/100 WBC Auto (Bld)on 99-30-5814Eotdthjfa/100 WBC (Bld)7.5 % 1.7-12.0[facility] HospitalNeutrophils Auto (Bld) [#/Vol]on 74-92-7085Fpbvatuvtrk (Bld) [#/Vol]2.1 10 3/uL1.4-6.5FToledo HospitalNeutrophils/100 WBC Auto (Bld)on 94-44-2778Xwrygbjhszf/100 WBC (Bld)45.8 % 43.0-75.0[facility] HospitalNo Panel Informationon 09-12-2024 Eosinophils # (Auto)0.2 10 3/uL0.0-0.7FToledo HospitalImmature Granulocyte # (Auto)0.01 10 3/uL0.00-0.03[facility] Platelet mean volume Auto (Bld) [Entitic vol]on 90-21-8808Hcqishem mean volume (Bld) [Entitic vol]9.0 fLLow9.5-13.5FToledo HospitalPlatelets Auto (Bld) [#/Vol]on 38-53-0630Rxfwgmapc (Bld) [#/Vol]239 10 3/jR443-343 [facility] HospitalRBC Auto (Bld) [#/Vol]on 40-91-5708QWP (Bld) [#/Vol]4.55 10 6/uL4.20-5.40[facility] Systemerum or plasma albumin/globulin mass ratioon 36-74-6904Psdovuv/Globulin [Mass ratio]1.0 {ratio} [facility] Systemerum or plasma anion gap determinationon 26-72-4518Osqnq gap [Moles/Vol]12.4 mmol/LFLakeHealth Beachwood Medical Centererum or plasma total cholesterol/high density lipoprotein (HDL) cholesterol mass rat on 86-98-0674Sfmtxjawhaq.total/Cholesterol in HDL [Mass ratio]3.1 {ratio} [facility] HospitalComment on above:3.3 - 4.4 LOW RISK4.4 - 7.1 AVERAGE RISK7.1 - 11.0 MODERATE RISK>11.0 HIGH RISKCBC AUTO DIFFon 08-20-2022 BASO #0.0 103/ulNormal0.0-0.1[facility] HospitalComment on above:Performed By: #### CBC #### [facility] [address] [place] [address] Dr. Breann StubbsBasophils/100 WBC (Bld)0.3 %Normal0.2-2.0[facility] Comment on above:Performed By: #### CBC #### [facility] [address] [place] [address] Dr. Breann Jimenez #0.1 103/ulNormal0.0-0.7The [facility] HospitalComment on above: Performed By: #### CBC #### [facility] [address] [place] [address] Dr. Breann Andresosinophils/100 WBC (Bld)1.6 %Normal0.9-7.0[facility] Comment on above:Performed By: #### CBC #### [facility] [address] [place] [address] Dr. Breann Andresrythrocyte distribution width (RBC) [Ratio]13.0 %Vczdra56.0-15.0 [facility] HospitalComment on above:Performed By: #### CBC #### [facility] [address] [place] [address] Dr. Yilan ChangHematocrit (Bld) [Volume fraction]47.3 %Qoowhg09.0-48.0[facility] HospitalComment on above:Performed By: #### CBC #### [facility] [address] [place] [address] Dr. Breann StubbsHemoglobin (Bld) [Mass/Vol]15.3 g/aEQuyyff63.0-16.0[facility] HospitalComment on above:Performed By: #### CBC #### [facility] [address] [place] [address] Dr. Breann StubbsIG #0.03 10e3/ulNormal0.00-0.03The [facility] HospitalComment on above:Performed By: #### CBC #### [facility] [address] [place] [address] Dr. Breann StubbsIG %0.3 %Normal0.0-0.5The [facility] HospitalComment on above: Performed By: #### CBC #### [facility] [address] [place] [address] Dr. Breann Ramesh #2.8 103/ulNormal1.2-3.8The [facility] HospitalComment on above:Performed By: #### CBC #### [facility] [address] [place] [address] Dr. Breann Betancurmphocytes/100 WBC (Bld)32.8 %Kymzoi84.5-60.0The [facility] Ontario HospitalComment on above:Performed By: #### CBC #### [facility] [address] [place] [address] Dr. Breann StubbsMANUAL DIFF REQNONormalThe [facility] Ontario HospitalComment on above: Performed By: #### CBC #### [facility] [address] [place] [address] Dr. Breann Norwood (RBC) [Entitic mass]29.5 ayEzijxv56.7-34.0The [facility] HospitalComment on above:Performed By: #### CBC #### [facility] [address] [place] [address] Dr. Breann RaoHC (RBC) [Mass/Vol]32.3 g/nLVtlkpk91.9-35.2The [facility] HospitalComment on above:Performed By: #### CBC #### [facility] [address] [address] [address] Breann RaoV (RBC) [Entitic vol]91.3 nPZzgwre74.0-99.0The [facility] HospitalComment on above:Performed By: #### CBC #### [facility] [address] [address] [address] Breann Mann #0.6 103/ulNormal0.3-0.8The [facility] HospitalComment on above:Performed By: #### CBC #### [facility] [address] [address] [address] Breann Acostaocytes/100 WBC (Bld)7.1 %Normal1.7-12.0The [facility] Comment on above:Performed By: #### CBC #### [facility] [address] [place] [address] Dr. Breann GarlandUT #5.0 103/ulNormal1.4-6.5The [facility] HospitalComment on above:Performed By: #### CBC #### [facility] [address] [address] [address] Breann Garlandutrophils/100 WBC (Bld)57.9 %Sgbwcd25.0-75.0The [facility] HospitalComment on above:Performed By: #### CBC #### [facility] [address] [address] [address] Breann Davislet mean volume (Bld) [Entitic vol]9.1 fLCritically low 9.5-13.5The [facility] HospitalComment on above:Performed By: #### CBC #### [facility] [address] [address] [address] Breann StubbsPLT354 103/kqGmfpfq982-195Qta [facility] HospitalComment on above: Performed By: #### CBC #### [facility] [address] [address] [address] Breann StubbsRBC5.18 106/ulNormal4.20-5.40The [facility] HospitalComment on above:Performed By: #### CBC #### [facility] [address] [place] [address] Dr. Breann StubbsWBC8.6 103/ulNormal4.0-11.0The [facility] HospitalComment on above: Performed By: #### CBC #### [facility] [address] [place] [address] Dr. Breann StubbsLIPID PROFILEon 71-70-6809UCWK-HDL RATIO NORMSEE Newark HospitalComment on above:Result Comment: 3.3 - 4.4 LOW RISK 4.4 - 7.1 AVERAGE RISK 7.1 - 11.0 MODERATE RISK >11.0 HIGH RISKPerformed By: #### BMP, LIPID, ALT #### [facility] [address] [place] [address] Dr. Breann Beckwithesterol [Mass/Vol]152 mg/dLNormal<=200The [facility] Comment on above:Performed By: #### BMP, LIPID, ALT #### [facility] [address] [place] [address] Dr. Breann Beckwithesterol in HDL [Mass/Vol]61 mg/dLCritically keeg99-78Ysb [facility] HospitalComment on above:Performed By: #### BMP, LIPID, ALT #### [facility] [address] [place] [address] Dr. Breann Beckwithesterol in LDL [Mass/Vol]76.2 mg/dLKettering Health MiamisburgComment on above:Performed By: #### BMP, LIPID, ALT #### [facility] [address] [place] [address] Dr. Breann Dahl.total/Cholesterol in HDL [Mass ratio]2.5 {ratio} NormalThe [facility] Ontario HospitalComment on above:Performed By: #### BMP, LIPID, ALT #### [facility] [address] [place] [address] Dr. Breann Barrera NORMAL> or = 60 mg/dl - LOW CARDIOVASCULAR RISK <40 mg/dl - HIGH CARDIOVASCULAR RISKKettering Health MiamisburgComment on above:Performed By: #### BMP, LIPID, ALT #### [facility] [address] [address] [address] Breann Yun CALC NORMALSEE BELOWNoGood Samaritan HospitalComment on above:Result Comment: <100 mg/dl OPTIMAL 100 - 129 mg/dl NEAR OR ABOVE OPTIMAL 130 - 159 mg/dl BORDERLINE HIGH 160 - 189 mg/dl HIGH >190 mg/dl VERY HIGH Performed By: #### BMP, LIPID, ALT #### [facility] [address] [address] [address] Breann StubbsTriglyceride [Mass/Vol]74 mg/dLNormal<=150[facility] Comment on above:Performed By: #### BMP, LIPID, ALT #### [facility] [address] [address] [address] Breann StubbsVLDL CALC14.8 mg/dLNoGood Samaritan HospitalComment on above: Performed By: #### BMP, LIPID, ALT #### [facility] [address] [address] [address] Breann StubbsMG MAMM SCREEN 3D BUZZ CADon 19-72-2380BW MAMM SCREEN 3D BUZZ CAD Patient: KELLY SAAVEDRA Exam Date: 08/20/2022 : 1950 Gender:F Ordering : DR COLLIN DANIEL D.O. Admission #: [id number] Family : Order #: [id number] CLICK HERE TO VIEW EXAM RADIOLOGY REPORT [...] by: Joaquin Marlow MD on 08/20/2022 at 08:55[facility] Health MiamisburgPROF CHEM 8 (BAS METB)on 26-26-4073Cprkg gap [Moles/Vol]9.2 mmol/LNormalMercy Health Defiance HospitalComment on above:Performed By: #### BMP, LIPID, ALT #### [facility] [address] [place] [address] Dr. Breann StubbsCalcium [Mass/Vol]9.9 mg/dLNormal8.5-10.1[facility] Comment on above:Performed By: #### BMP, LIPID, ALT #### [facility] [address] [address] [address] Breann StubbsChloride [Moles/Vol]101 mmol/CRhjmmf81-578GsoMercy Health Defiance Hospital Comment on above:Performed By: #### BMP, LIPID, ALT #### [facility] [address] [address] [address] Breann StubbsCO2 [Moles/Vol]33.7 mmol/LCritically high21.0-32.0The [facility] HospitalComment on above:Performed By: #### BMP, LIPID, ALT #### [facility] [address] [address] [address] Breann StubbsCreatinine [Mass/Vol]0.79 mg/dLNormal0.55-1.02The [facility] HospitalComment on above:Performed By: #### BMP, LIPID, ALT #### [facility] [address] [address] [address] Crain ChangEGFR-AF MAURITANIAN>60Normal>=60The [facility]ainbridge HospitalComment on above:Performed By: #### BMP, LIPID, ALT #### [facility] [address] [address] [address] Breann Carlton-NON AF MAURITANIAN>60Normal>=60The [facility] HospitalComment on above:Performed By: #### BMP, LIPID, ALT #### [facility] [address] [address] [address] Breann StubbsGlucose [Mass/Vol]97 mg/hTFnynlg12-561Tfr [facility] Comment on above:Performed By: #### BMP, LIPID, ALT #### [facility] [address] [address] [address] Breann StubbsPotassium [Moles/Vol]3.9 mmol/LNormal3.5-5.1[facility] Comment on above:Performed By: #### BMP, LIPID, ALT #### [facility] [address] [place] [address] Dr. Breann eLum [Moles/Vol]140 mmol/MGglhbr583-709Hhn [facility] Comment on above:Performed By: #### BMP, LIPID, ALT #### [facility] [address] [place] [address] Dr. Breann Larios nitrogen [Mass/Vol]25.0 mg/dLCritically high7.0-18.0[facility] HospitalComment on above:Performed By: #### BMP, LIPID, ALT #### [facility] [address] [place] [address] Dr. Breann Larios nitrogen/Creatinine [Mass ratio]31.6 mg/mgNormalThe [facility] HospitalComment on above:Performed By: #### BMP, LIPID, ALT #### [facility] [address] [place] [address] Dr. Breann Fuentes 97-67-5236MPX [Catalytic activity/Vol]29 U/PLtibdu50-53Mrv [facility] HospitalComment on above:Performed By: #### BMP, LIPID, ALT #### [facility] [address] [place] [address] Dr. Breann ArzolaINEon 82-97-9494Kjxyyqbchp [Mass/Vol]0.73 mg/dLNormal 0.55-1.02The [facility] HospitalComment on above:Performed By: #### CREA #### [facility] [address] [address] [address] Crain ChangEGFR-AF MAURITANIAN>60Normal>=60The [facility] HospitalComment on above:Performed By: #### CREA #### [facility] [address] [address] [address] Crain ChangEGFR-NON AF MAURITANIAN>60Normal>=60The [facility] HospitalComment on above:Performed By: #### CREA #### [facility] [address] [place] [address] Dr. Breann StubbsCTRoz CHEST WO W CONon 79-18-5513OLJ CHEST WO W CONEXAMINATION: CTA CHEST WO [...] Electronically authenticated by: RUTH LINDSEY Date: 2021-11-28 11:21[facility] MiamisburgCOVID-19 Antigenon 08-60-8270UHTMH-19 AntigenHealthcare Worker?: N Reference Range: Negative Negative [...] developed and its performance characteristic determined by [employer] and validated at [facility]. This test has not been FDA [...] for SARS Antigen by ARMANI PERFORMED BY: [address] [place] [address] PATHOLOGIST MOLECULAR BIOLOGY SCIENTIST AISHA LYONS M.D.Sal[facility] City HospitalComment on above: Performed By: #### COVID-19 JAKE JEAN-BAPTISTEEG #### [address] [place] [address] USASofia Ag Negativeon 15-20-2806Xmyor Ag NegativeNegative NormalNegativeParkwood HospitalComment on above:Result Comment: This is a duplicate Jerilyn SARS Antigen (ARMANI) result to be used for statistical tracking purpose only. PERFORMED BY: [facility] [address] [facility] [place] [address] PATHOLOGIST MOLECULAR BIOLOGY SCIENTIST AISHA LYONS M.D.Performed By: #### COVID-19 JERILYN, SOFIANEG #### [facility] [address] [place] [address] USACT ABD/PELVIS WO CONon 63-23-5829LJ ABD/PELVIS WO CON EXAMINATION: CT ABD/PELVIS WO [...] Electronically authenticated by: JOAQUIN MARLOW Date: 2021-09-30 21:30[facility] MiamisburgCOVID-19 Antigenon 48-46-8544BUYCZ-19 AntigenHealthcare Worker?: N Jerilyn Reference Jerilyn Reference [...] its performance Jerilyn Disclaimer characteristic determined by [employer] and Jerilyn Disclaimer validated at [facility]. This Jerilyn Disclaimer test has not [...] is terminated or revoked sooner. PERFORMED BY: [place] [address] PATHOLOGIST MOLECULAR BIOLOGY SCIENTIST AISHA LYONS M.D.NormalParkwood HospitalComment on above: Performed By: #### COVID-19 JERILYN, SOFIANEG #### [id number] USASofia Ag Negativeon 96-02-2847Xrcpt Ag NegativeNegative NormalNegativeParkwood HospitalComment on above:Result Comment: This is a duplicate Jerilyn SARS Antigen (ARMANI) result to be used for statistical tracking purpose only. PERFORMED BY: [address] [id number] PATHOLOGIST MOLECULAR BIOLOGY SCIENTIST AISHA LYONS M.D.Performed By: #### COVID-19 JERILYN, SOFIANEG #### [facility] [address] [place], [place] [id number] [facility] Vital Signs Date TimeVital SignValuePerforming XmikdtvfvIfievkjy42-75-6860 08:30-0400Body yqsfvu486.72 cmBenjamin Ball DO Work Phone: [phone]10-21-2025 08:30-0400 Body mass index (BMI) [Ratio]37.5 kg/a5Qnuorgfm Ball DO Work Phone: 1(343)[address] [place], [place] 3319010-21-2025 08:30-0400 Body .03 kgBenjamin Ball DO Work Phone: [phone])[address] [place], [place] 3319010-21-2025 08:30-0400 Diastolic blood mm[Hg]Collin Ball DO Work Phone: 1(419)[address] [place], [place] 3319010-21-2025 08:30-0400 Heart rate60 /minBenjamin Ball DO Work Phone: [phone])[address] [place], [place] 3319010-21-2025 08:30-0400 Respiratory rate12 /minBenjamin Ball DO Work Phone: [phone])[address] [place], [place] 3319010-21-2025 08:30-0400 Systolic blood kmaapqpg068 mm[Hg]Collin Ball DO Work Phone: 1(419)[address] [place], [place] 3319007-09-2025 09:38-0400 Body .72 cmBenjamin Ball DO Work Phone: 1(086)[address] [place], [place] 3319007-09-2025 09:38-0400 Body mass index (BMI) [Ratio]37.5 kg/d9Fxmbiyml Ball DO Work Phone: 1(435)[address] [place], [place] 3319007-09-2025 09:38-0400 Body .15 kgBenjamin Ball DO Work Phone: [phone])[address] [place], [place] 3319007-09-2025 09:38-0400 Diastolic blood gwengruy79 mm[Hg]Collin Ball DO Work Phone: [phone])[address] [place], [place] 3319007-09-2025 09:38-0400 Heart rate75 /minBenjamin Ball DO Work Phone: [phone])[address] [place], [place] 3319007-09-2025 09:38-0400 Respiratory rate12 /minBenjamin Ball DO Work Phone: 1(630)[address] [place], [place] 3319007-09-2025 09:38-0400 Systolic blood nmppsifu070 mm[Hg]Collin Ball DO Work Phone: 1(212)[address] [place], [place] 3319004-15-2025 08:42-0400 Body .72 cmBenjamin Ball DO Work Phone: 1(373)[facility] [place], [place] 2940404-15-2025 08:42-0400 Body mass index (BMI) [Ratio]37.7 kg/r9Ijxrmbzc Ball DO Work Phone: [phone]04-15-2025 08:42-0400 Body .49 kgBenjamin Ball DO Work Phone: 1(367)[address] [place], [place] 3319004-15-2025 08:42-0400 Diastolic blood asooyqtz14 mm[Hg]Collin Ball DO Work Phone: 1(187)[address] [place], [place] 3319004-15-2025 08:42-0400 Heart rate69 /minBenjamin Ball DO Work Phone: 1(466)[address] [place], [place] 3319004-15-2025 08:42-0400 Respiratory rate12 /minBenjamin Ball DO Work Phone: 1(443)[address] [place], [place] 3319004-15-2025 08:42-0400 Systolic blood gezxcotk195 mm[Hg]Collin Ball DO Work Phone: 1(213)[address] [place], [place] 3319010-03-2024 08:22-0400 Body shomus260.7 cmAngela Cassy [employer] Work Phone: [facility] CenterXthegloipi63-25-1871 08:22-0400Body mass index (BMI) [Ratio]36.04 kg/c1Hywceg Kyleemor [employer] Work Phone: [facility] CenterKqtyeyqlvp73-79-0285 08:22-0400Body legykj518.5 kgAngela Kyleemor [employer] Work Phone: [facility]OMober[facility] CenterUrkkpchgse43-87-2317 08:22-0400Diastolic blood mm[Hg]Martina Madera [employer] Work Phone: [facility] CenterDddwpskemf17-61-9544 08:22-0400Systolic blood lnncaxkq612 mm[Hg]Martina Pichardomiya [employer] Work Phone: noMoberly Regional Medical CenterZleyornfhb09-06-5003 09:30-0400Body fggird205.72 cmBenjamin Ball Other [employer] Other 04-13-2023 09:30-0400Body mass index (BMI) [Ratio] 36.88 kg/d4Zxarjqlz Ball Other [facility] Other 04-13-2023 09:30-0400Body .04 kgBenjamin Ball Other [facility] Other 04-13-2023 09:30-0400Diastolic blood rdxeksva81 mm[Hg] Collin Ball Other [facility] Other 04-13-2023 09:30-0400Respiratory rate12 /minBenjamin Ball Other [facility] Other 04-13-2023 09:30-0400Systolic blood jwydpybg481 mm[Hg] Collin Ball Other [facility] Other 01-06-2023 09:30-0500Body qpjuhn590.72 cmColleen Venecia Other [facility] Other 01-06-2023 09:30-0500Body mass index (BMI) [Ratio] 38.01 kg/r2Xiggmbwpeterson Cuadra Other [facility] Other 01-06-2023 09:30-0500Body .4 kgCollpeterson Cuadra Other [facility] Other 12-30-2022 11:45-0500Body uwypmo719.72 cmCelmer Cuadra Other [facility] Other 12-30-2022 11:45-0500Body mass index (BMI) [Ratio] 38.01 kg/u9PqaebnfElida Cuadra Other [facility] Other 12-30-2022 11:45-0500Body .4 kgComahesh Cuadra Other [facility] Other Encounters Encounter DateEncounter TypeCare ProviderFacilityStart: 02-14-2025 End: 89-02-1024ugedxecaokSyadufjq Ball DO Work Phone: -[facility]: 02-14-2025 End: 28-95-5152Nsvbtpl encounter procedureBenmarcello Daniel DO-[facility] Work Phone: Start: 83-88-5037Krv-patient / Non-visitSrini Anderson MD-[facility] Work Phone: Start: 11-02-2024 End: 70-69-4871tonhwkobgcGpgeaebx Ball DO Work Phone: [facility] Work Phone: Start: 11-02-2024 End: 12-77-2607Pyjknmg encounter procedureBenmarecllo Daniel DO-[facility] Work Phone: Start: 11-02-2024 End: 35-33-9088Qmxbkbl encounter statusBenmarcello [facility] Hospitaltart: 58-67-2154Eru-patient / Non-visitBepeñamarcello Daniel DO-[facility] Work Phone: Start: 08-09-2024 End: 67-79-2114Gthhzsm encounter procedureBenmarcello Daniel DO-[facility] Work Phone: Start: 01-28-2024 End: 20-04-2463Oovvto Pasquale Madera [employer] Work Phone: [facility] [place] [address] R[address]TEStart: 01-28-2024 End: 67-55-7334Shvndi flowsRony Qureshir [employer] Work Phone: [facility] [place] [address] ROUTEStart: 01-28-2024 End: 70-85-2156Fodnlz outpatient visit 25 minutesMartina Madera [employer] Work Phone: noms [place] STATE ROUTEComment on above:LAMAR (obstructive sleep apnea) (Primary Dx); Hypersomnia; Snoring; Obesity, unspecified class, unspecified obesity type, unspecified whether serious comorbidity presentStart: 01-28-2024 End: 61-35-2626mechvqzgmrPHHXZI ELVIRNot AvailableStart: 12-08-2022 End: 19-09-2346jlknogxeqgFzvazsnj Ball Other [employer] Other Start: 54-62-0996Ishzwyoik encounterBenjamin ElmerG [facility] ClinicStart: 08-20-2022 End: 26-81-2551jwjpwoasbcLA COLLIN BALLFacility:E9Yjdvs: 08-07-2022 End: 46-17-2905dtmuchhzyiKvvynmbx Ball Other [employer] Other Start: 19-14-3946Sloadqz encounter procedureBenjamin BallFPG [facility] ClinicStart: 06-13-2022 End: 60-34-7901zgnwfcjpfoJrwtiut [place] Other [employer] Other Start: 45-12-3539Lehvhc outpatient visit 15 minutes Elida [facility]icsStart: 05-16-2022 End: 05-84-0280kmldypdswxPjuhftg [place] Other [employer] Other Start: 16-55-6009Ggugqa follow up visit related to original pxColleen JenniferG [place] OrthopedicsStart: 05-14-2022 End: 43-39-5958uiltvxdnfnJxnatmqh Ball Other [employer] Other Start: 78-52-9276Xcldlukjq encounterBenjaallyson BallMARYG [facility] ClinicStart: 05-09-2022 End: 40-73-2760ectabacxobKbezjgag Ball Other [employer] Other Start: 37-38-0637Pcaijlmgu encounterBenmarcello BallFPG [facility] ClinicStart: 05-02-2022(Proc F/U) Procedure F/UColleen JenniferG [place] OrthopedicsStart: 05-02-2022 End: 01-06-9918ciknctsjezEvwrauo Calvmay Other [facility] Other Start: 53-36-8018Ubfemnrym encounterColleen Juan [place] [facility] OrthopedicsStart: 04-30-2022(Proc F/U) Procedure F/UColleen CalvmayFPG [place] OrthopedicsStart: 04-30-2022 End: 22-03-4950xosjrmgyhvTxomdly [place] Other [facility] Other Start: 04-25-2022 End: 39-40-8241tbmoyfkmpbOqqlpqe [place] Other [employer] Other Start: 30-24-4519Uwczza outpatient visit 15 minutes Elida Juan [place] [facility] OrthopedicsStart: 11-28-2021 End: 10-30-5117novwifwainPN COLLIN BALLFacility:Y3Deisz: 09-30-2021 End: 71-78-9042nbtumzsspmOJ COLLIN BALLFacility:H1 Plan of Treatment DateCare ActivityDetailAuthorStart: 03-14-2025 End: 02-61-1251Dwtmkuy encounter /18/2025 8:15 AM EST [facility] [address] [place] [address] Breana Mullins DO [address] [place], [place] [id number] [facility] ROUTEStart: 01-28-2024 End: 20-51-2669Simgfzn encounter zikdkudfs39/03/2024 8:20 AM EDT Office Visit NOMJose [address] [place] [address] Martina Madera, KWABENA [address] [place], [place] ArrivedLANCASTER MUNICIPAL HOSPITAL ROUTEComment on above: ArrivedStart: 09-39-6900Celofmlwp vaccinationInfluenza Vaccine (#1)[facility] HealthcareStart: 13-76-2269Iwaeempij for malignant neoplasm of breastMammogram [facility] HealthcareStart: 66-07-6177Musjpavzb for malignant neoplasm of colonNOMS HealthcareComprehensive metabolic 2000 panel - Serum or PlasmaParkwood HospitalDXA Skeletal system.axial Views for bone densityParkwood HospitalMG Breast - bilateral ScreeningParkwood HospitalXR Knee - left 4 ViewsParkwood Hospital Immunizations Immunization DateImmunizationNotesCare IluoxyxcKrnrqhbp65-85-3538cwonmajce, high dose seasonal, preservative-freeBenjamin Ball DO Work Phone: [facility]10-14-2024influenza, high dose seasonal, preservative-freeBenjamin Ball DO Work Phone: [facility]10-13-2023influenza virus vaccine, unspecified formulationMartina Madera NP Work Phone: [facility]10-12-2022influenza virus vaccine, split virus (incl. purified surface antigen)Collin Daniel Other [place] [employer] Other 10776184-64-8464xfrhuuctn virus vaccine, unspecified formulationBenjamin Ball DO Work Phone: [facility]10-12-2022influenza, high dose seasonal, preservative-freeBenjamin Ball Other [place] [employer] Other 10-557315-73-5664oriscqqad virus vaccine, split virus (incl. purified surface antigen)Collin Daniel Other [facility] [employer] Other 10-168699-14-6221zergunovb virus vaccine, unspecified formulationBenjamin Ball DO Work Phone: [facility]03-17-2021COVID-19 Vaccine Pfizer - Documentation Purposes OnlyBenjamin Fredy Other [facility]03-01-2021 pneumococcal conjugate vaccine, 13 valentBenjamin Ball Other [facility]02-24-2021COVID-19 Vaccine Pfizer - Documentation Purposes OnlyBenjamin Ball Other [facility]11-16-2020influenza virus vaccine, split virus (incl. purified surface antigen)Collin Daniel Other [facility] [employer] Other 617558-77-4435hxdbbutwy virus vaccine, unspecified formulationBenjamin Ball DO Work Phone: [facility]11-16-2020 pneumococcal polysaccharide vaccine, 23 valentBenjamin Ball Other [facility]10-02-2014tetanus and diphtheria toxoids, adsorbed, preservative free, for adult use (5 Lf of tetanus toxoid and 2 Lf of diphtheria toxoid)Collin Daniel Other [facility]05-09-2014tetanus toxoid, adsorbedCollpeterson Cuadra Other [facility]11-14-2013tetanus and diphtheria toxoids, adsorbed, preservative free, for adult use (5 Lf of tetanus toxoid and 2 Lf of diphtheria toxoid)Collin Daniel Other [facility]11-08-2012tetanus and diphtheria toxoids, adsorbed, preservative free, for adult use (5 Lf of tetanus toxoid and 2 Lf of diphtheria toxoid)Collin Daniel Other [facility] Payers DatePayer CategoryPayerPolicy ID2017MedicareMEDICARE MEDICARE PART B [id number] 2016-Present [address] [address] [place] [address] Medicare [id number] [facility] [id number] 2016-Present [phone] [address] [place] [address] [id number] [facility]amos Medical Center [id number] [id number] Social History DateTypeDetailFacilityUnknown if ever smokedNosaint joseph hospital of [facility] [employer] Other Start: 01-24-2024 End: 38-01-8584Fza Assigned At [facility] [employer] Other Start: 01-24-2024 End: 43-78-0942Uullckr smoking status NHISEx-smokerNOMS HealthcareHistory of tobacco useCurrent smokerNOMS HealthcareHistory of tobacco useCigarette Smoker [facility] HealthcareStart: 01-24-2024 End: 03-84-3355Jhrvvlwqx beverage intakeCurrent drinker of alcohol (finding)NOMS HealthcareStart: 01-24-2024 End: 61-96-6600Tvogrzw of Social functionNOMS HealthcareHow often to you have a drink containing alcohol?Monthly or lessNOMS HealthcareHow many standard drinks containing alcohol do you have on a typical day?1 or 2NOMS HealthcareHow often do you have 6 or more drinks on 1 occasion?NeverNOMS HealthcareStart: 01-24-2024 Alcohol Commentcaffeine: 1-2 cups per dayNOMS HealthcareStart: 10-29-8975Xvo assigned at [facility] hospitalNot on fileNOAK HealthcareStart: [id number] use and exposureSmokeless tobacco non-userNOMS HealthcareSexFemale (finding)[facility] Health Systemtart: [phone] Assigned At [facility] Clinical Notes 04-25-2022 to 08-09-2024 Note Date & [id number] Evaluation note* Diagnosis Onset Date Resolution Status [...] 9:27amPreop exam for internal medicinenoneactively 2024 9:27am [facility] Work Phone: [phone]) 834-364708-14-2023 Evaluation note* Encounter Date Diagnosis Assessment Notes [...] with esophagitis without hemorrhage (ICD-10 - K21.00) [facility] Other 04-13-2023 Evaluation note* Encounter Date Diagnosis [...] use, the patient reduces the risk for GA, CVA, HTN, cardiac dysrhythmias and sudden cardiac [...] rhinitis due to pollen (ICD-10 - J30.1) [facility] Other 02-17-2023 Evaluation note* Encounter Date Diagnosis Assessment Notes Treatment Notes Treatment Clinical Notes May, Dupuytren's contracture of both hands (ICD-10 - M72.0) Continue use of splint x 2 more months. [facility] Other 01-20-2023 Evaluation note* Encounter Date Diagnosis Assessment Notes Treatment Notes Treatment Clinical Notes Apr, Dupuytren's contracture of both hands (ICD-10 - M72.0) Patient given new TKO splint for the right hand as the one she has is too big and bulky. She will continue to use at night and work on daily exercises [facility] Other 01-06-2023 Evaluation note* Encounter Date Diagnosis [...] activities. Rx Doxycycline. Patient given TKO splint [facility] Other 01-04-2023 Evaluation note* Encounter Date Diagnosis [...] tolerated well. Will returnon 05/02/22 for manipulation. [facility] Other 12-30-2022 Evaluation note* Encounter Date Diagnosis Assessment Notes Treatment Notes Treatment Clinical Notes Mar, Dupuytren's contracture of both hands (ICD-10 - M72.0) Extensive discussion about current condition and treatment options available. We will plan to proceed with Xiaflex and manipulation. With the holiday weekend following today, we will schedule this for sometime next week. [facility] Other Evaluation noteNo InformationNortLeapSky [employer] Other Evaluation note* Diagnosis LAMAR (obstructive sleep [...] bronchitisacuteOct2024 8:22amOSA (obstructive sleep apnea)acuteOctober 2024 8:22am [facility] Work Phone: History general Narrative - Reported* Type Description Date Medical History HTN Medical HistoryGERDMedical HistoryAllergiesMedical Historyhypertriglyceridemia Medical HistoryaneurysmSurgical HistoryElbow, leftSurgical HistoryFoot x3-benign tumorSurgical Historycataract removalSurgical HistorycholecystectomySurgical Historyknee arthroscopySurgical HistoryoophorectomySurgical Historyleft foot soft tissue tumor removalHospitalization HistorySee past surgicalHospitalization HistoryChest pain [facility] Other History general Narrative - Reported* Type Description Date Medical History HTN Medical HistoryGERDMedical HistoryAllergiesMedical Historyhypertriglyceridemia Medical HistoryaneurysmMedical HistoryOSASurgical HistoryElbow, leftSurgical HistoryFoot x3-benign tumorSurgical Historycataract removalSurgical History cholecystectomySurgical Historyknee arthroscopySurgical Historyoophorectomy Surgical Historyleft foot soft tissue tumor removalHospitalization HistorySee past surgicalHospitalization HistoryChest pain [facility] Other Reason for referral (narrative)No reason for referral information availableMary [facility] Work Phone: Summary Purpose Family History [...] Visit Admit Date Cigarette nicotine dependence in [facility] on August 09, 2024 8:22am Elevated cholesterol [...] November 02 9:27am [facility] 9:27am Elevated cholesterol [...] section and content) DATE CREATED AUTHOR 10/12/2021 [facility] DATE CREATED AUTHOR AUTHOR'S ORGANIZ ATION 08/23/2022 [facility] DATE CREATED AUTHOR AUTHOR'S ORGANIZ ATION 01/29/2024 [facility] EPIC REASON FOR VISIT (unrecogniz [...] BE BASED ON THE PRIMARY CLINICAL RECORDS. [facility] [employer] provides no warranty or guarantee of the accuracy or completeness of information in this document.
--- NOTE | 2025-03-27 10:47 | PM.PRESUREVA ---
History of Present Illness History of Present Illness Chief complaint: Knee Pain Narrative: Patient presents for presurgical testing. Please see HPI from Dr. Cheney dated March 13, 2025. Review of Systems ROS Narrative Please see ROS from Dr. Cheney dated March 13, 2025. [facility] Medical History (Updated 03/27/25 @ 10:22 by Maru Lance NP) Shoulder pain ?M25.519 - Pain in unspecified shoulder (ICD-10) LAMAR on CPAP ?G47.33 - Obstructive sleep apnea (adult) (pediatric) (ICD-10) Sleep apnea ?G47.30 - Sleep apnea, unspecified (ICD-10) Reactive airway disease ?J45.909 - Unspecified asthma, uncomplicated (ICD-10) Migraine ?G43.909 - Migraine, unspecified, not intractable, without status migrainosus (ICD-10) Kidney stones ?N20.0 - Calculus of kidney (ICD-10) Seasonal allergies ?J30.2 - Other seasonal allergic rhinitis (ICD-10) GERD (gastroesophageal reflux disease) ?K21.9 - Gastro-esophageal reflux disease without esophagitis (ICD-10) AAA (abdominal aortic aneurysm) ?I71.40 - Abdominal aortic aneurysm, without rupture, unspecified (ICD-10) High cholesterol ?E78.00 - Pure hypercholesterolemia, unspecified (ICD-10) Hypertension ?I10 - Essential (primary) hypertension (ICD-10) Knee osteoarthritis ?M17.9 - Osteoarthritis of knee, unspecified (ICD-10) Knee pain ?M25.569 - Pain in unspecified knee (ICD-10) Surgical History (Updated 03/27/25 @ 10:18 by Maru Lance NP) H/O hand surgery ?Z98.890 - Other specified postprocedural states (ICD-10) H/O unilateral oophorectomy ?Z90.721 - Acquired absence of ovaries, unilateral (ICD-10) History of cholecystectomy ?Z90.49 - Acquired absence of other specified parts of digestive tract (ICD-10) S/P cubital tunnel release ?Z98.890 - Other specified postprocedural states (ICD-10) History of foot surgery ?Z98.890 - Other specified postprocedural states (ICD-10) History of foot surgery ?Z98.890 - Other specified postprocedural states (ICD-10) H/O blepharoplasty ?Z98.890 - Other specified postprocedural states (ICD-10) S/P cataract extraction and insertion of intraocular lens ?Z98.49 - Cataract extraction status, unspecified eye (ICD-10) ?Z96.1 - Presence of intraocular lens (ICD-10) History of arthroscopy of knee ?Z98.890 - Other specified postprocedural states (ICD-10) History of colonoscopy ?Z98.890 - Other specified postprocedural states (ICD-10) Family History (Updated 03/27/25 @ 10:17 by Maru Lance NP) Other Family history of colon cancer Family history of heart disease Family history of hypertension Social History (Updated 03/27/25 @ 10:08 by Maru Lance NP) Within the past year, how often did you have a drink containing alcohol: monthly or less Smoking status: Former smoker Non-prescribed substance use: denies use Highest level of school completed/degree received: high school graduate Meds Home Medications and Allergies Home Medications ?Medication ?Instructions ?Recorded ?Confirmed ?Type ascorbic acid (vitamin C) 1,000 mg 1 g PO DAILY 03/27/25 03/27/25 History capsule aspirin 81 mg tablet,delayed 81 mg PO DAILY 03/27/25 03/27/25 History release (Adult Aspirin Regimen) atenolol 25 mg tablet 25 mg PO QPM 03/27/25 03/27/25 History calcium 600 mg (as 1 tab PO DAILY 03/27/25 03/27/25 History carbonate)-vitamin D3 5 mcg (200 unit) tablet (Calcium 600 + D(3)) colestipol 1 gram tablet 1 g PO DAILY 03/27/25 03/27/25 History fenofibrate 160 mg tablet 160 mg PO QPM 03/27/25 03/27/25 History lisinopril 20 1 tab PO DAILY 03/27/25 03/27/25 History mg-hydrochlorothiazide 25 mg tablet loratadine 10 mg tablet 10 mg PO DAILY 03/27/25 03/27/25 History multivitamin (Daily Multi-Vitamin 1 tab PO DAILY 03/27/25 03/27/25 History tablet) omega 4-afp-bxb-fish oil 1,200 mg 1 cap PO DAILY 03/27/25 03/27/25 History (144 mg-216 mg) capsule (Fish Oil) pantoprazole 40 mg tablet,delayed 40 mg PO DAILY 03/27/25 03/27/25 History release Allergies Allergy/AdvReac Type Severity Reaction Status Date / Time Iodinated Contrast Media Allergy facial Verified 03/27/25 10:09 drooping Exam Narrative Exam Narrative: Constitutional: Awake, alert, comfortable, well-appearing, nontoxic, interactive, vital signs as charted Head: Normocephalic, atraumatic Neck: Supple, normal appearance, normal range of motion, no meningeal signs, no lymphadenopathy Respiratory: No respiratory distress, breath sounds clear Cardiovascular: Regular rate and rhythm, strong and regular heart tones Abdomen: Nontender, normal bowel sounds, soft Skin: No rashes or induration, no lesions, only visible skin inspected Neuro: No neurological deficits, normal sensation Psychiatric: Oriented ?3, normal affect Assessment and Plan Assessment and Plan (1) Knee osteoarthritis: (2) Knee pain: Plan Left total knee arthroplasty scheduled with Dr. Cleary April 10, 2025.
[2025-03-27 11:10] LABS: Hematocrit 42.5 % (36.0-48.0); Hemoglobin 14.1 g/dL (12.0-16.0); Immature Granulocytes Abs Auto 0.01 10^3/uL (0.00-0.03); Immature Granulocytes Pct Auto 0.2 % (0.0-0.5); Lymphocytes Absolute Auto 2.0 10^3/uL (1.2-3.8); Mean Corpuscular HGB Conc 33.2 g/dL (29.9-35.2); Mean Corpuscular Hemoglobin 29.7 pg (26.7-34.0); Mean Corpuscular Volume 89.7 fL (81.0-99.0); Platelet Count 243 10^3/uL (150-450); Red Blood Count 4.74 10^6/uL (4.20-5.40); White Blood Count 5.6 10^3/uL (4.0-11.0)
[2025-03-27 11:25] LABS: Alanine Aminotransferase 39 U/L (14-59); Albumin Globulin Ratio 0.9; Albumin Level 3.2 g/dL (3.4-5.0); Alkaline Phosphatase 52 U/L (46-116); Anion Gap 11.8; Aspartate Amino Transferase 30 U/L (15-37); Blood Urea Nitrogen 16.0 mg/dL (7.0-18.0); Calcium 8.9 mg/dL (8.5-10.1); Carbon Dioxide 27.9 mmol/L (21.0-32.0); Chloride 106 mmol/L (98-107); Estimated GFR (African America >60 (>=60 mL/min/1.73m^2); Estimated GFR (Non-African Ame >60 (>=60 mL/min/1.73m^2); Globulin 3.6 g/dL; Glucose 128 mg/dL (74-106); Potassium 3.7 mmol/L (3.5-5.1); Sodium 142 mmol/L (136-145); Total Protein 6.8 g/dL (6.4-8.2)
== END 2025-03-27 09:50 | disposition home or self-care (01) ==
LOC: PST 09:49
PROVIDERS: PCP Internal Medicine; Visit Provider Orthopaedic Surgery Orthopaedic Trauma
DX: Z01.810 Encounter for preprocedural cardiovascular examination (principal); Z01.812 Encounter for preprocedural laboratory examination; Z01.818 Encounter for other preprocedural examination; M25.562 Pain in left knee; I45.19 Other right bundle-branch block
CPT/HCPCS: 36415; 80053; 85025; 93005; G0463

== ENCOUNTER 2025-04-10 06:06 | Day surgery (SDC) | payer MEDICARE, BC, SELFPAY ==
[2025-03-27 10:37] VITALS: BP 127/80; PULSE 70; TEMP 36.6; O2SAT 97; BMI 37.3
--- OUTSIDE RECORDS SUMMARY | 2025-04-05 19:58 | XMS_ITS | Continuity of Care Document ---
Author Organization [facility] Address [address] [place] [address] Phone Care Team Providers Care [employer] Supervisor Name Role Phone Fredy Collin HOOK Primary Care Provider [phone] Collin Sanchez DO Attending Provider [phone] Narayan Cheney DO Attending Provider Breana Mullins DO Attending Provider Care Teams Patient Care Team Team Status: Active Member Role/Relationship Status Dates Collin Sanchez DO Primary Care Provider Active Visit Care Team Team Status: Inactive Member Role/Relationship Status Dates Collin Sanchez DO Primary Care Provider Active Start: February 14, 2025 End: February 14diony Sanchez DOAttending ProviderActiveStart: February 14, 2025 End: February 14, [...] March 13, 2025 End: March 13, 2025 Visit Care Team Team Status: Inactive Member Role/Relationship Status Dates Collin Sanchez DO Primary Care Provider Active Start: March 14, 2025 End: March 14, 2025Nicmer Mullins DOAttending ProviderActiveStart: March 14, 2025 End: March 14, 2025 Visit Care Team Team Status: Active Member Role/Relationship Status Dates Collin Sanchez DO Primary Care Provider Active Start: March 27, 2025 Collin Sanchez DOAttending ProviderActiveStart: March 27, 2025 Visit Care Team Team Status: Inactive Member Role/Relationship Status Dates Collin Sanchez DO Primary Care Provider Active Start: March 29, 2025 End: March 29enmarcello Sanchez DOAttending ProviderActiveStart: March 29, 2025 End: March 29, 2025 Visit Care Team Team Status: Inactive Member Role/Relationship Status Dates Collin Sanchez DO Primary Care Provider Active Start: April 05, 2025 End: April 05, 2025Jukrystal Cheney DOAttending ProviderActiveStart: April 05, 2025 End: April 05, 2025 Visit Care Team Team Status: Active Member Role/Relationship Status Dates Collin Sanchez DO Primary Care Provider Active Start: April 05, 2025 Narayan Cheney DOAttending ProviderActiveStart: April 05, 2025 Visit Care Team Team Status: Inactive Member Role/Relationship Status Dates Collin Sanchez DO Primary Care Provider Active Start: April 05, 2025 End: April 05, 2025Jukrystal Cheney DOAttending ProviderActiveStart: April 05, 2025 End: April 05, 2025 Chief Complaint and Reason for Visit Chief Complaint Admit Date 6 mo f/u February 14, 2025 8 :22am Cough/COV- March 09, 2025 9:02am TBH DR SANCHEZ LT KNEE PAIN WX TBH PUSHED N ovember 2024 10:48am 1 year f/u March 14, 2025 8:06am surgical clearance (Dr. Cleary knee repla cement) March 29, 2025 1:45pm M17.12 - Unilateral primary osteoarthrit is, left k April 05, 2025 9:12am Pre-Op LTK April 05, 2025 12:36pm H & P LEFT TOTAL KNEE ARTHROPLASTY 04-10April 05, 2025 1:38pm Reason for Visit Admit Date Ascending aorta dilatation February 14, 2025 8:22am [facility] February 14, 2025 8:22am GERD (gastroesophageal [...] 9:02am Primary osteoarthritis of left knee Nove [facility] 2024 10:48am Hypersomnia March 14, 2025 8:06am Obesity (BMI 30-39.9) March 14 8:06am LAMAR (obstructive sleep apnea) February 252024 8:06am Snoring March 14, 2025 8:06am Ascending aorta dilatation March 29, 2025 1:45pm Cigarette nicotine dependence in [place] on March 29, 2025 1:45pm Elevated cholesterol March 29, 2025 1:45pm GERD (gastroesophageal reflux disease) D ec2024 1:45pm Hypertension March 29, 2025 1 :45pm Mucopurulent chronic bronchitis March 29, 2025 1:45pm LAMAR (obstructive sleep apnea) March 292024 1:45pm Primary osteoarthritis of left knee Dece 2024 1:45pm Preop exam for internal medicine [facility] 2024 1:45pm Primary osteoarthritis of left knee Dece [facility] 2024 1:38pm Allergies, Adverse Reactions, Alerts Allergen Type Severity [...] Unkn own Active Primary osteoarthritis of left kneeNovember 2024 7:43amUnknownActive Cigarette nicotine dependence in remissionApril 2023 7:34amUnknownActive started age 22, 1 ppd, quit 2014LDCT: no suspicious nodules - 11/2022, 11/2023 MenopauseApril 2024 8:09amUnknownActiveMucopurulent chronic bronchitis August 07, 2023 7:34amUnknownActiveHypertriglyceridemiaOctober 2024 8:05amUnknownActiveElevated cholesterolApril 2023 7:34amUnknownActive HypersomniaNovember 2024 8:31amUnknownActivePulmonary noduleApril 2023 7:34amUnknownActiveNo suspicious nodules: 11/2022, 11/2023, 06/2024Osteopenia February 13, 2025 8:11pmUnknownActiveDEXA: 01/2025SnoringNovember 2024 8:31amUnknownActiveSeasonal allergic rhinitis due to pollenApril 2023 8:59amUnknownActiveAscending aorta dilatationJuly 2024 7:27amUnknownActive CT ascending aorta: 4.4cm - 11/2022, 4.6cm - 11/2023.CTA ascending aorta: 4.2cm - 06/2024Left knee painNovember 2024 5:30pmUnknownActiveGERD (gastroesophageal reflux disease)October 07, 2021 1:58pmUnknownActiveHypertensionJune 2021 1:58pmUnknownActiveObesity (BMI 30-39.9)March 14, 2025 8:31amUnknownActive Inactive/Resolved Problems Problem Diagnosis/Recorded Date Onset Date Status [...] Lisinopril-Hydrochlorothiazide 20-25 mg tablet Discont inued 0 .ROUTE.ULYBRSB058Glziy 2023 11:58amOctober 2023 11:10amTAKE 1 TABLET BY MOUTH DAILYAtenolol 25 mg tabletDiscontinued0.ROUTE.LDLZBGR054Fizks 2023 11:58amFebruary 2024 1:13pmTAKE 1 TABLET BY MOUTH DAILYPantoprazole 40 mg tablet,delayed release (DR/EC)Discontinued0.ROUTE.FQTOBLZ974Dyokofy 2023 9:31amAugust 2024 6:43amTAKE 1 TABLET BY MOUTH DAILYFenofibrate 160 mg tabletDiscontinued0.ROUTE.LHDDXVK283Egumozm 2023 4:50pmAugust 2024 6:43amTAKE 1 TABLET BY MOUTH ONCE DAILYLisinopril-Hydrochlorothiazide 10-12.5 mg xrnxigKbznaujgkmpj3XKFWRSqzty54990Oqheerp 2023 11:00pmDecember 2023 10:01amLisinopril-Hydrochlorothiazide 10-12.5 mg uainbwLwrwtqwwuvdm8IGXLVZdrxd21 903December 2023 10:01amOctober 2024 7:53amAtenolol 25 mg tablet Active0.ROUTE.ZQYDUIQ949Okvhatma 2024 1:12pmTAKE 1 TABLET BY MOUTH DAILY UnknownColestipol 1 gram tabletActive0.ROUTE.CXBAUUA0926Efjajlze 2024 6:55amTAKE 1 TABLET BY MOUTH AT BREAKFAST AND EVENING MEALUnknownPrednisone 10 mg jpixuwEfcbgbnlrnat22GKRJ.DJTEQSU8446Sbvjm 2024 12:00amApril 2024 8:12am5 tabs (50mg) taken 13, 7 and 1 hour w/ food prior to CT scan.Fenofibrate 160 mg tabletActive0.ROUTE.PFTECAU607Cqybyx 2024 6:43amTAKE 1 TABLET BY MOUTH ONCE DAILYUnknownPantoprazole 40 mg tablet,delayed release (DR/EC)Active0 .ROUTE.UWTJJCR497Xeddsf 2024 6:43amTAKE 1 TABLET BY MOUTH DAILYUnknown Multivitamin NzjlnpKfrqln1OMJUWFbkwrIoxv 2021 11:00pmUnknownAtenolol 25 mg kovtzzOpavapcsuvsq15LDAXDdidjKoev 2021 11:00pmApril 2023 11:58am Ascorbic Acid (Vitamin C) (Vitamin C) 500 mg MxtniiVdclfm443JJGKYdvbjSrte 2021 11:00pmUnknownPantoprazole 40 mg tablet,delayed release (DR/EC)Discontinued 40MGPODailyJune 2021 11:00pmOctober 2023 9:31amLisinopril- Hydrochlorothiazide 20-25 mg rnlktcIzwiedqcpjwl0OFRXTTvruzPcmw 2021 11:00pmApril 2023 11:58amAspirin 81 mg Tablet,ItqcpeblGqbxrn23LHEMRxjmlOxtr 2021 11:00pmUnknownColestipol 1 gram pkdexvXareqyfuuwvc1USBUAybegLdxc 2021 11:00pmApril 2023 7:36amLoratadine 10 mg SlifyjUcuecj03GAWK Daily as needed for Allergy SymptomsJune 2021 11:00pmUnknownFenofibrate 160 mg dgidhdHntdcykipnoo355NQDTUwxicXmcs 2021 11:00pmOctober 2023 4:50pmCalcium Carbonate-Vitamin D3 (Calcium 600 + D(3)) 600 mg-10 mcg (400 unit) OwmxsrBgjggh6KAWAXNdfzoNuei 2021 11:00pmUnknownOmega 3-Mdm-Izj-Fish Oil (Fish Oil) 300-1,000 mg DeisukuXivvjn0PBIONGcznjIgeg 2021 11:00pmUnknown Colestipol 1 gram cigctvNwyymhhufnmn0VTKMFtdam dailyApril 2023 7:35am June 21, 2024 6:55amAzithromycin 250 mg yjyuvnVsgmuqrqyjmu441FVINDl Gbmwzeiv097Fdkrogmms 2023 11:00pmSeptember 2023 10:29amAlbuterol Sulfate 90 mcg/actuation HFA aerosol zglywmgHxkdiq9SCGDMHLWGLRGHGVixfu 6 hours as needed for shortness of breath or wheezing8.5300September 2023 11:00pm UnknownPrednisone 20 mg qvjgtnJxplwkkblbuh07VRNRPb Dwcgnvsy119Snqtonzqk 2023 11:00pmFebruary 2024 2:17pm1 tab tid w/ food x 3 days, then bid w/ food x 3 days, then qd w/ food x 3 daysAmoxicillin-Pot Clavulanate 875-125 mg xsxyrvPgkfzogbtahi3YYLBDQesgt 12 zjgwc8042Ylcvinfib 2023 11:00pmFebruary 2024 2:17pmCpap (Continuous Positive Airway Pressure) unitActive0.Route10 March 14, 2025 12:00amCPAP mask and all supplies x1 year. Dx OSACoenzyme Q10 (Coq-10) 100 mg zfgnbtvBbdygjsewvpq782HCYOIruogVzdpg 2023 11:00pm March 14, 2025 8:15amPrednisone 20 mg xnmwpnDhvhcugwyadr04CLYJGl Tifwmewv75 0February 2024 12:00amApril 2024 8:12am1 tab tid w/ food x 3 days, then bid w/ food x 3 days, then qd w/ food x 3 daysDoxycycline Hyclate 100 mg fswfgdvFofjvzjvkgzp774DVFXOqhim slnim261Nvmbocta 2024 12:00amNovember 2024 9:41amLisinopril-Hydrochlorothiazide 10-12.5 mg bjisvsKqvonsmbftau9FXSCB Bmaag07661Ikpqwot 2024 7:52amOctober 2024 7:55amLisinopril- Hydrochlorothiazide 20-25 mg vhqxqkXdpsvwlxdaib3RXYLABxcma85750Hqpdyns 2024 11:00pmOctober 2024 7:56amLisinopril-Hydrochlorothiazide 10-12.5 mg cxilqrFqzxotsqbgbk0ORFTWUbdhf73434Oiaujum 2024 7:53amOctober 2024 7:55amLisinopril-Hydrochlorothiazide 20-25 mg lwthcrYwrhpz3LNNSJPjyew48387 February 14, 2025 7:56amUnknownDoxycycline Hyclate 100 mg capsuleDiscontinued 100MGPOTwice roqyj7066Rughmvkn2024 9:41amNovember 2024 8:16am Prednisone 20 mg usvtznAmruphzzwlby20JMTA.XHEZZYS475MvsdnfxoMarch 09, 2025 12:00am March 14, 2025 8:16am20 mg: take bid w/ food x 3 days, then qd w/ food x 2 daysCyclobenzaprine 10 mg tabletActive5 - 63HUFUR4R96220Ugboaraf 10th, 2025 12:00amComplies with drug therapyTramadol 50 mg kaqeoiNhwmna57SEPTZ7U as needed for Ixet7419Mtnvabmk 10th, 2025 12:00amPrimary osteoarthritis of left knee Unilateral primary osteoarthritis, left kneeDispense 42 (forty-two) tablets Diagnosis M17.12 DO NOT FILL UNTIL 04/09/2025omplies with drug therapyAcetaminophen 500 mg hnsmstEszrac0105DXVQI8E058958Evijedwp 10th, 2025 12:00amComplies with drug therapyDocusate Sodium (Colace) 100 mg tywjchyPzuoiw513ZGCGYbjxt mnjnz93159 April 05, 2025 12:00amComplies with drug therapyAspirin 81 mg tablet,cyoczpsnQpsfsr52BWITIomml nonnp99318EvjneivkApril 05, 2025 12:00amComplies with drug therapyDoxycycline Hyclate 100 mg suabnmGnsful522TITURfkgp nleao5462 April 05, 2025 12:00amComplies with drug therapyOxycodone 5 mg tabletActive 5SZOAD1X as needed for Onek2496Lqpluetj 10th, 2025Primary osteoarthritis of left knee Unilateral primary osteoarthritis, left kneeDispense 42 (forty-two) tablets Diagnosis M17.12 DO NOT FILL UNTIL 04/09/2025omplies with drug therapy Immunizations Immunization Event Date Not Given Reason Dose Number Social Services Technician Lot Number Reason(s) Given Vaccine Information Statement (VIS) Detail Administration Location COVID-19 mRNA, Comirnaty (Uniregistry) June 20, 2020 COVID-19 mRNA, Comirnaty (Uniregistry)July 11, 2020Fluzone TIV High-Dose 65YR+ February 08, [id number] [facility] HospitalFl[facility] TIV High-Dose 65YR+ February 14, [id number] [facility] Hospitalinfluenza, unspecified formulationNovember 2019influenza, unspecified formulationOctober 2020influenza, unspecified formulationOctober 2021influenza, unspecified formulationOctober , neumococcal Conjugate Vaccine, 13 valentMarch neumococcal Polysacc. Vaccine, 23 valentNovember 2019Tetanus, Diphtheria adult, 5 Lf pres free absNovember , 2011Tetanus, Diphtheria adult, 5 Lf pres free absNovember , 2012Tetanus, Diphtheria adult, 5 Lf pres free absOctober , 2013Tetanus toxoidMay 2013 Procedures Procedure Date Performed Status XR knee LT 4V* April 05, 2025 9:12am compl eted XR knee LT 4V* February 14, 2025 7:56am comple aristeo Relevant Diagnostic Tests and/or Laboratory Data Laboratory Results Test Collection Date/Time Result Date/Time Result Interpretation Reference Range Result Comment Performing Site Basophils # (Auto) March 27, 2025 10:35am March 27, 2025 10:35am 0.0 10 3/uL 0.0-0.1Anion GapMarch 27, 2025 10:35amDecember 2024 10:35am11.8 Basophils (%) (Auto)March 27, 2025 10:35amDecember 2024 10:35am0.5 % 0.2-2.0Albumin/Globulin RatioMarch 27, 2025 10:35amDecember 2024 10:35am0.9Eosinophils # (Auto)March 27, 2025 10:35amDecember 2024 10:35am0.2 10 3/uL0.0-0.7AlbuminMarch 27, 2025 10:35amMarch 27, 2025 10:35am3.2 g/dLBelow low normal3.4-5.0Eosinophils (%) (Auto)March 27, 2025 10:35amDecember 2024 10:35am3.7 %0.9-7.0Alkaline Phosphatasece2024 10:35amDecember 2024 10:35am52 U/L34-434BkcvixcsooXkxhcele 1st, 2025 10:35amDecember 2024 10:35am42.5 %36.0-48.0Alanine Aminotransferase (ALT/SGPT)March 27, 2025 10:35amDecember 2024 10:35am39 U/L14-59 Hemoglobince2024 10:35amDecember 2024 10:35am14.1 g/dL12.0-16.0 Aspartate Amino Transf (AST/SGOT)March 27, 2025 10:35amDecember 2024 10:35am30 U/A97-83Jrufaiaq Granulocyte # (Auto)March 27, 2025 10:35am March 27, 2025 10:35am0.01 10 3/uL0.00-0.03BUN/Creatinine RatioMarch 27, 2025 10:35amDecember 2024 10:35am21.6Immature Granulocyte % (Auto)March 27, 2025 10:35amDecember 2024 10:35am0.2 %0.0-0.5Blood Urea Nitrogen March 27, 2025 10:35amDecember 2024 10:35am16.0 mg/dL7.0-18.0 Lymphocytes # (Auto)March 27, 2025 10:35amDecember 2024 10:35am2.0 10 3/uL1.2-3.8Calcium LevelMarch 27, 2025 10:35amDecember 2024 10:35am8.9 mg/dL8.5-10.1Lymphocytes (%) (Auto)March 27, 2025 10:35amDecember 2024 10:35am36.0 %20.5-60.0Chloride Levelce2024 10:35amDecember 2024 10:46nc494 mmol/Q81-231Uwpe Corpuscular HemoglobinDecemb2024 10:35am March 27, 2025 10:35am29.7 pg26.7-34.0Carbon Dioxide Levelce2024 10:35amDecember 2024 10:35am27.9 mmol/L21.0-32.0Mean Corpuscular Hemoglobin ConcentMarch 27, 2025 10:35amDecember 2024 10:35am33.2 g/dL29.9-35.2 CreatinineDece2024 10:35amDecember 2024 10:35am0.74 mg/dL 0.55-1.02Mean Corpuscular Volumece2024 10:35amDecemb2024 10:35am89.7 fL81.0-99.0Estimated GFR ()March 27, 2025 10:35amDecemb2024 10:35am>60>=60 mL/min/1.73m 2Monocytes # (Auto) March 27, 2025 10:35amDecember 2024 10:35am0.5 10 3/uL0.3-0.8Estimated GFR (Non- AmericanDe2024 10:35amDecemb2024 10:35am>60 >=60 mL/min/1.73m 2Monocytes (%) (Auto)March 27, 2025 10:35amDecember 2024 10:35am9.0 %1.7-12.0Globulince2024 10:35amDecember 2024 10:35am3.6 g/dLMean Platelet Volumece2024 10:35amDecember 2024 10:35am8.8 fLBelow low normal9.5-13.5Glucose LevelDece2024 10:35am March 27, 2025 10:47dk114 mg/dLAbove high -866Quchrywcrrf # (Auto) March 27, 2025 10:35amDecember 2024 10:35am2.9 10 3/uL1.4-6.5Potassium Levelce2024 10:35amDecember 2024 10:35am3.7 mmol/L3.5-5.1 Neutrophils (%) (Auto)March 27, 2025 10:35amDecember 2024 10:35am50.6 % 43.0-75.0Sodium Levelce2024 10:35amDecember 2024 10:90mv486 mmol/W964-846Qslzxbqq CountMarch 27, 2025 10:35amDecemb2024 10:35am 243 10 3/xU051-416Iunpo Bilirubince2024 10:35amDecember 2024 10:35am0.5 mg/dL0.2-1.0Red Blood CountMarch 27, 2025 10:35amDecemb2024 10:35am4.74 10 6/uL4.20-5.40Total Proteince2024 10:35amDecember 2024 10:35am6.8 g/dL6.4-8.2Red Cell Distribution WidthMarch 27, 2025 10:35amDecember 2024 10:35am12.8 %11.0-15.0Corrected White Blood Count March 27, 2025 10:35amDecemb2024 10:35am5.6 10 3/uL4.0-11.0 Diagnostic Imaging Reports Author Srini Osullivan [facility]20[facility] 10:10pm [facility] [address] [place] [address] XRay Report Signed Patient: Kelly Chou MR#: [id number] : 1950 Acct:[id number] Age/Sex: 75 / F ADM Date: 5 Loc: [facility] Room: Type: [facility] CLI Attending Dr: Narayan Cheney DO Copies to: Narayan Cheney DO~ Ordering Provider: Narayan Cheney DO Date of Service: 04/05/25 XR/XR knee LT 4V*: M17.12 - Unilateral primary osteoarthritis, left knee XR knee LT 4V* 04/05/2025 1:55 PM SIGNS AND SYMPTOMS: Left knee pain anteriorly radiating laterally PROTOCOL: 4 views of the left knee COMPARISON: 02/20/2005 FINDINGS: There is narrowing of the weightbearing joint spaces greatest laterally. There is narrowing of the patellofemoral joint space. There is tricompartmental spurring similar to the prior exam. There is asmall joint effusion. No soft tissue swelling. No fracture or dislocation. XR/XR knee LT 4V* IMPRESSION: Similar tricompartmental degenerative changes. No acute bony injury. Impression dictated by: Srini Osullivan M.D. 04/05/2025 10:10 PM Dictation Location: [place] [address] Transcribed By: [facility] 04/05/252209 Dictated By: Srini Osullivan II, MD 04/05/252208 Signed By: <Electronically signed by Srini Osullivan II, MD in [place]> 04/05/252209 Vital Signs Vital Reading Result Reference Range Collection Date/Time Height 68 [in_i] February 14, 2025 7:73anIjotcs969.03 kgOctober 2024 7:30amHeart Rate60 /hif34-786Kzqzmkp 2024 7:30amRespiratory rate12 /mcy91-56Jhuhinz 2024 7:30amBP Sfysjonp176 mm[Hg]100-140October 2024 7:30amBP Wjtkvyomm35 mm[Hg]60-100October 2024 7:30amBMI (Body Mass Index)37.5 kg/r9Myukfdt 2024 7:04udDcnqcv65 [in_i]March 09, 2025 9:51kkPdnobj273.60 kg March 09, 2025 9:10amHeart Rate70 /ygf52-913WswmvnysMarch 09, 2025 9:10am Respiratory rate12 /vly33-72EiaoezhnMarch 09, 2025 9:10amBP Pizihdky463 mm[Hg] 100-140March 09, 2025 9:10amBP Yiycwoqnp19 mm[Hg]60-100March 09, 2025 9:10amBMI (Body Mass Index)37.7 kg/n0QurklzdiMarch 09, 2025 9:77kcLfyzpb48 [in_i] March 14, 2025 8:28baCxiemq145.58 kgMarch 14, 2025 8:11amHeart Rate63 /gwk93-255DgekzixmMarch 14, 2025 8:11amOxygen saturation by Pulse % 95-100March 14, 2025 8:11amBP Xhlpnmod528 mm[Hg]100-140March 14, 2025 8:11amBP Zsziglkmu98 mm[Hg]60-100March 14, 2025 8:11amBMI (Body Mass Index) 37.4 kg/o8ZehsrhizMarch 14, 2025 8:77mbXihgcj60 [in_i]March 29, 2025 1:55pm Ywvlhd235.69 kgce2024 1:55pmHeart Rate76 /jfa98-292Nsdmxycw 3rd, 2025 1:55pmRespiratory rate12 /obi80-34Ymumirlf 3rd, 2025 1:55pmBP Uyedgvap218 mm[Hg]100-140Decemb2024 1:55pmBP Kxlzveokh91 mm[Hg]60-100Decemb2024 1:55pmBMI (Body Mass Index)37.4 kg/m8Tehgyvlc2024 1:55pm Advance Directives Advance Directive Response Recorded Date/ Time Advance Directives No June 03, 2024 9:11am Insurance Providers Guarantor Da Garcia Address [address] [place] [id number] Info.Home Phone: Coverage Status Update:2025 Payer Group Member ID Coverage Type Subscriber Relationship to Subscriber Effective Date Expiration Date Lam PEREZ/KARIE Id: [id number] Wilder , D Id: [id number] [address] [facility] Home Phone: selfMedicare [id number] Wilder , D Id: [id number] [address] [facility] Home Phone: Self Encounters Encounter Location(s) Arrival/Admit Date Discharge/Departure Date Discharge/Departure Disposition Provider(s) Departed Physician/ Provider Office Visit -[facility] February 14, 2025 8:22am February 14, 2025 9:11am Discharged to home care or self care (routine discharge) Collin Sanchez DO Departed Physician/ Provider Office Visit -[facility] March 09, 2025 9:02am March 09, 2025 9:43am Discharged to home care or self care (routine discharge) Collin Sanchez DO Departed Physician/ Provider Office Visit -[facility] [place] March 13, 2025 10:48am March 13, 2025 11:11am Discharged to home care or self care (routine discharge) Narayan Cheney DO Departed Physician/ Provider Office Visit -[facility] [place] March 14, 2025 8:06am March 14, 2025 8:30am Discharged to home care or self care (routine discharge) Breana Mullins DO Non-patient / Non-visit -[facility] 2024 10:35am Eddi Garzaed Physician/Provider Office Visit-[facility] 20[facility] 2:24pmDischarged to home care or self care (routine discharge)Jerad Garza Clinical-[facility] 20[facility] 9:12am[facility]ce[facility] 2024 9:13amDischarged to home care or self care (routine discharge)ROBERT Carveregnehemiah Recurring-Physical Therapy [facility] 2024 12:36pmJuJerad Flores Physician/Provider Office Visit-[facility] Orth[facility] April 05, 2025 1:38pmDecember 2024 2:04pmDischarged to home care or self care (routine discharge)Narayan Cheney DO Recent Diagnosis Onset Date Admit Date Ascending aorta dilatation Unknown Octob er 2024 8:22am Cigarette nicotine dependence in remission Unkno wn February 14, 2025 8:22am GERD (gastroesophageal reflux disease) Unknown February 14, 2025 8:22am Hypertension Unknown February 14 8:22am Hypertriglyceridemia Unknown January 8:22am Menopause Unknown February 14 8:22am Mucopurulent chronic bronchitis Unknown February 14, 2025 8:22am LAMAR (obstructive sleep apnea) Unknown Oc 2024 8:22am Knee pain Unknown February 14 8:22am Acute bronchitis due to othe r specified organisms Unknown March 09, 2025 9:02am Acute exacerbation of chroni c obstructive pulmonary disease Unknown March 09, 2025 9:02am Primary osteoarthritis of left knee Unknown March 13, 2025 10:48am Hypersomnia Unknown March 14, 025 8:06am Obesity (BMI 30-39.9) Unknown February 252024 8:06am LAMAR (obstructive sleep apnea) Unknown No 2024 8:06am Snoring Unknown March 14, 025 8:06am Ascending aorta dilatation Unknown Dece2024 1:45pm Cigarette nicotine dependence in remission Unkno wn March 29, 2025 1:45pm Elevated cholesterol Unknown March 1:45pm GERD (gastroesophageal reflux disease) Unknown March 29, 2025 1:45pm Hypertension Unknown March 29 1:45pm Mucopurulent chronic bronchitis Unknown March 29, 2025 1:45pm LAMAR (obstructive sleep apnea) Unknown 2024 1:45pm Primary osteoarthritis of left knee Unknown March 29, 2025 1:45pm Preop exam for internal medicine Unknown March 29, 2025 1:45pm Primary osteoarthritis of left knee Unknown April 05, 2025 1:38pm Assessments Diagnosis Onset Date Resolution Status Admit Date Ascending aorta dilatation acuteOctober 2024 8:22amCigarette nicotine dependence in remissionacute February 14, 2025 8:22amGERD (gastroesophageal reflux disease)acuteOctober 2024 8:22amHypertensionacuteOct2024 8:22amHypertriglyceridemia acuteOctober 2024 8:22amMenopauseacuteOct2024 8:22am Mucopurulent chronic bronchitisacuteOctober 2024 8:22amOSA (obstructive sleep apnea)acuteOct2024 8:22amKnee paindeletedOctober 2024 8:22amAcute bronchitis due to other specified organismsdeletedNovember 2024 9:02amAcute exacerbation of chronic obstructive pulmonary diseasedeleted March 09, 2025 9:02amPrimary osteoarthritis of left kneeacuteNov2024 10:48amHypersomniaacuteNovember 2024 8:06amObesity (BMI 30-39.9) acuteNovember 2024 8:06amOSA (obstructive sleep apnea)acuteNovember 2024 8:06amSnoringacuteNovember 2024 8:06amAscending aorta dilatationacute March 29, 2025 1:45pmCigarette nicotine dependence in remissionacute2024 1:45pmElevated cholesterolacuteDece2024 1:45pmGERD (gastroesophageal reflux disease)acuteDece2024 1:45pmHypertensionacute March 29, 2025 1:45pmMucopurulent chronic bronchitisacuteDece2024 1:45pmOSA (obstructive sleep apnea)acuteDece2024 1:45pmPrimary osteoarthritis of left kneeacuteDeceer 2024 1:45pmPreop exam for internal medicinenoneactivece2024 1:45pmPrimary osteoarthritis of left knee acuteDece2024 1:38pm Plan of Treatment Author Breana Mullins [facility] 2024 8:51uh89-nphr-dgl female with a severe obstructive sleep apnea with an apnea hypopnea index of 46 and an oxygen desaturation down to 81%. This does lead to daytime hypersomnolence and snoring. She has her CPAP machine and titrated up to 13 cm of water. This is working well for her. She is using machine 100% of the time with 97% of the time greater than 4 hours average nightly usage 7 hours and 29 minutes and a residual AHI of 1.6. Overall she is doing great. She was unable to wear it for short time due to eye surgery and she did feel worse off the machine and knows it is working well for her. She did make some CPAP headgear padding and that is helping with comfort. She did go down the size and her mask and wishes there was a half-size in between. Overall though however she is doing well. She does have underlying obesity and needs to continue with aggressive diet exercise and weight loss. She is no longer having issues with the bridge of her nose. Plan her compliance download was reviewed.She is compliant as above She needs to continue using the machine whenever sleeping we will send for new supplies. Continue try for 7 to 8 hours of sleep The patient was counseled on the need for aggressive diet, exercise, and weight loss. The patient was counseled on proper sleep hygiene and adequate hours of sleep. The patient was counseled on the risks of stroke, WI, and sudden with LAMAR, along with the need for compliance with the CPAP/BiPAP treatment. The diagnosis was all discussed with the patient.?? All questions were answered and they agreed with the treatment plan.?? Patient will call if there are any new issues or questions. Author Collin Sanchez [facility] 2:29pmI have seen and examined Mrs. Chou for her preoperative evaluation. I have reviewed her perioperative medical management. - she has been instructed to hold her ASA for 10 days prior to surgery Stable, continue strict control of SBP CT ascending aorta: 4.4cm - 11/2022, CT ascending aorta: 4.6cm - 11/2023, CTA ascending aorta: 4.2cm - 06/2024 Stable, continue Lisinopril/HCTZ w/o interruption Stable, continue AZALEA as needed for cough. Stable, continue treatment w/o ingterruption Stable, continue Fenofibrate w/o interruption Stable, continue Pantoprazole w/o interruption Continue abstinence, quit 2013. No recent episodes of acute exacerbation of COPD. Scheduled for left TKA Author Collin Sanchez [facility] CenterAuthoredOctober 2024 8:07amI have instructed this patient to [...] use, the patient reduces the risk for WI, CVA, HTN, cardiac dysrhythmias and sudden cardiac [...] arthritis. Refer to Orthopedics Author Narayan Cheney [facility] CenterAuthoredNovángel 2024 12:05pmSusan presents with left knee DJD. At this [...] was discussed. I have advised against the jail use of narcotic pain medication. I have advised to follow all post-operative instructions in order to obtain the best outcome. Informed consent has been verbally affirmed and signed as indicated. Plan for same-day discharge: Outpatient bed, same-day discharge. Needs PT evaluation in recovery room, [facility]oti for [facility] Antibiotics: Doxycycline 100 mg twice daily x7 [...] myself Narayan Cheney D.O. Author Collin Sanchez [facility] 2024 9:44amI have instructed this patient to [...] 6 days ER for CP or SOB Author Vidya Crowley [facility] ColumbusRubinam[facility] grace 2024 2:00pmSusan presents with left knee DJD. At this [...] was discussed. I have advised against the jail use of narcotic pain medication. I have advised to follow all post-operative instructions in order to obtain the best outcome. Informed consent has been verbally affirmed and signed as indicated. Plan for same-day discharge: Outpatient bed, same-day discharge. Needs PT evaluation in recovery room, makoti for [facility] Antibiotics: Doxycycline 100 mg twice daily x7 [...] move forward with treatment at this time. Patient has failed conservative treatment and decided to proceed with total knee arthroplasty. Pre-op work-up completed. The risks, benefits, alternatives, and complications of the procedure have been fully explained to the patient. Patient understands and agrees to proceed. Plan is for a cemented total knee arthroplasty using the minimally invasive quadriceps sparing surgical technique. List of patient's current medications were reviewed. Patient has been instructed to stop taking Aspirin and NSAID products. Medications to be taken the morning of surgery have also been discussed. All the questions that the patient had have been answered to the patient's satisfaction. Consent signed and all paperwork handled. Patient given post op prescriptions and medication information sheet. Patient given post op outpatient physical therapy order. Patient is to follow up as scheduled after surgery. Note scribed by PAU Collins, reviewed and amended by myself Narayan Cheney D.O. Future Tests Future scheduled test information is unavailable Pending Tests Pending diagnostic test information is unavailable Future Visits Future appointment information is unavailable Future Procedures Future procedure information is unavailable Future Medications Future medication information is unavailable Patient Instructions Patient instructions are unavailable
[2025-04-10] VITALS (14 sets, daily range): BP systolic 105–154; BP diastolic 48–82; PULSE 59–75; TEMP 36.3–36.4; O2SAT 91–98; BMI 36.9
--- OUTSIDE RECORDS SUMMARY | 2025-04-10 06:10 | XMS_ITS | Clinical Summary ---
Author Organization [facility] Address [address] [place] [address] Care Team Providers Care Collection Advisor Name Role Phone Unavailable Primary Care Provider Unavailabl e Social History Tobacco UseTypesPacks/DayYears UsedDateSmoking Tobacco: Never AssessedUT Safety & EnvironmentAnswerDate RecordedFear of Current or Ex-PartnerNot on file 06/18/2023Emotionally AbusedNot on file06/18/2023hysically AbusedNot on file 06/18/2023Sexually AbusedNot on file4Physically or Sexually AbusedNot on file06/18/2023CommentsUnknownSex and Gender InformationValueDate RecordedSex Assigned at BirthNot on fileLegal TysRafobh68/29/2022 11:23 PM EDT Gender IdentityNot on fileSexual OrientationNot on file Plan of Treatment Not on file
--- OUTSIDE RECORDS SUMMARY | 2025-04-10 06:10 | XMS_ITS | Clinical Summary ---
Author Organization [facility] Address [address] [place] [address] Care Team Providers Care Airborne Operations Name Role Phone Unavailable Primary Care Provider [...] Problems ProblemNoted DateDiagnosed DateOSA (obstructive sleep apnea)01/24/2024 Hjnrhojiggp57/29/2024Obesity due to excess mnsmdbeh73/29/2024 Family History Medical HistoryRelationNameCommentsCancerFatherHypertensionFatherCoronary artery diseaseMotherDiabetesMotherHypertensionMotherOsteoporosisMotherRelationName StatusCommentsFatherMother [...] InformationValueDate RecordedSex Assigned at BirthNot on fileLegal IpuFfotnu65/15/2023 6:36 PM EDTGender Identity Not on fileSexual OrientationNot on file Last Filed Vital Signs Vital SignReadingTime TakenCommentsBlood Qkrgtgnt960/7810 8:22 AM EDT Pulse--Temperature--Respiratory Rate--Oxygen Saturation--Inhaled Oxygen Concentration--Uvjdrc868 kg (237 lb)01/28/2024 8:22 AM QXOAjomqd140.7 cm (5' 8 ) 01/28/2024 8:22 AM EDTBody Mass Index36.041 8:22 AM EDT Plan of Treatment Not on file Insurance
[2025-04-10 06:19] LABS: Hematocrit 44.9 % (36.0-48.0); Hemoglobin 15.2 g/dL (12.0-16.0); Immature Granulocytes Abs Auto 0.03 10^3/uL (0.00-0.03); Immature Granulocytes Pct Auto 0.5 % (0.0-0.5); Lymphocytes Absolute Auto 2.7 10^3/uL (1.2-3.8); Mean Corpuscular HGB Conc 33.9 g/dL (29.9-35.2); Mean Corpuscular Hemoglobin 30.2 pg (26.7-34.0); Mean Corpuscular Volume 89.3 fL (81.0-99.0); Platelet Count 270 10^3/uL (150-450); Red Blood Count 5.03 10^6/uL (4.20-5.40); White Blood Count 6.6 10^3/uL (4.0-11.0)
--- NOTE | 2025-04-10 07:13 | W.PM.OPNOTE ---
Surgery Operative Note Operative Note Procedure Date: 04/10/25 Time Out Performed: yes Pre-op Diagnosis: L knee DJD Post-op Diagnosis: same as pre-op Procedures performed: L TKA Primary Surgeon: Narayan Cheney Estimated blood loss (mL): 100 Indications for Procedures: L knee DJD Detailed description of Procedure: OPERATIVE REPORT Kelly Chou 1950 Preoperative Diagnosis: Left knee DJD Postoperative Diagnosis: Same Procedure: 1) Left total knee arthroplasty Surgeon:Narayan Cheney DO [employer] Teacher: See EMR Anesthesiologist: See EMR OR Staff: See EMR EBL: 100 mL Complications: None Dispostion: PACU in stable condition Implants: Mary persona press fit tibia size E, CR femur size 9 narrow, 10 mm MC polyethylene Indications: Kelly is a 75 year old female presenting with knee DJD with failure of conservative treatments. The procedure is indicated to restore the patient's normal knee mechanics with improved chance of pain-free activities of daily living. The patient is awake and alert. After thorough discussion of the risks, benefits, expected outcomes, and alternatives to surgical intervention, the patient agreed to proceed with surgical treatment. Specific risks discussed included, but were not limited to: superficial or deep infection, wound healing complications, DVT/PE, significant bleeding requiring transfusion, damage to named anatomic structures in the immediate area including named neurovascular structures, implant failure, limp or gait change, loss of extensor mechanism function, failure to prevent arthritis, anterior knee pain, and general risks of anesthesia. The patient voiced understanding and written as well as verbal consent was obtained by myself prior to the procedure. Findings: tricompartmental knee DJD with grade 2 changes to the patella Procedure Note: The patient was brought back to the OR and placed supine on the OR table. After successful induction of anesthesia by anesthesia staff, the patient was positioned in the supine position and all bony prominences were padded appropriately. A small bump was placed under the ipsilateral hip to allow for proper rotation of the limb. Well-padded tourniquet was placed on the thigh. The surgical field was then provisionally cleansed and then prepped and draped in the usual sterile fashion. At this time a time-out was performed, with the correct patient, site, and procedure identified. The universal time out as well as sign your site protocols were followed. Preoperative antibiotics were verified as administered. Esmarch was used and tourniquet was inflated. A midline anterior knee incision was made and full thickness flaps were created down to the patella and paratenon. Medial parapatellar arthrotomy was made with the knee in flexion. The knee was then taken into extension and a medial capsular release was performed. The patella was everted and the knee was flexed. Patellar fat pad was removed at this time followed by the suprapatellar pouch. Appropriate retractors were placed. The step drill was used to gain entry into the femoral canal and our intramedullary femoral guide was then placed with the cutting block attached. Once in appropriate position the distal femoral cutting block was then pinned in the place and our distal femoral cut was made. After this was completed the distal femoral cutting block was removed and we turned our attention to the tibia. Our extra medullary tibial guide was then placed around the distal tibia and in line with the tibial crest. It was positioned appropriately off the most worn side of the tibial plateau. We then pinned our cutting block in place. After confirming retractor placement the tibial plateau was then cut and excess bone was removed. After confirmation of this the cutting guide was then removed and we examined our cut with a spacer block with the knee in extension and found this to be appropriate. We then returned our attention to the remainder of our distal femur which still needs to be cut. Using the posterior up guide the distal femoral cutting block was placed in the appropriate's position making sure not to notch the anterior femur. The remainder of the distal femur cuts were made. Cutting block was removed and then we addressed our posterior osteophytes along with the remainder of the soft tissues which were removed from the knee. Retractors were repositioned and our tibial trial was placed and then pinned in appropriate position. Femoral trial was then impacted in position and the trial polyethylene was placed. The knee was then taken through a complete range of motion ensuring appropriate gap balancing and stability of the knee once addressing the mechanics of the knee and confirming our balancing the femoral trial was drilled then removed followed by the polyethylene trial. The tibial keel drill was used followed by the keel punch. Lateral facetectomy of the patella was performed and osteophytes removed. Final implants were opened and prepared. We copiously irrigated the knee with normal saline. Final implants were then impacted into place with the final polyethylene and then. 0.35% Betadine/saline mix was used to irrigate the knee at this point. The tourniquet was released and all bleeding was coagulated. Tourniquet time was 53 minutes The incisions were then irrigated using copious sterile saline and then closed in layered fashion. After capsular closure local injection was given to check for watertightness with range of motion. The surgical sites were infiltrated using local anesthetic, and the leg was sterilely cleansed and dressed. The patient was then subsequently extubated and transferred to PACU in stable condition. All sponge and needle counts were correct at the end of the case. I was present and participated in all aspects of the procedure. X-rays and physical exam were performed in the postoperative care unit and found to be benign. Prognosis: The patient will be allowed to be WBAT on this extremity with range of motion as tolerated. We will encourage physical therapy and Occupational Therapy. We will use DVT prophylaxis is indicated. Antibiotic prophylaxis will be given as indicated. Narayan Cheney, DO Attending Doc Confirm Attending Attestation: Yes
[2025-04-10] MEDS: CEFAZOLIN SODIUM/DEXTROSE,ISO 2 GM/50 ML PIGGYBACK IV (07:26)
[2025-04-10] MEDS: TRANEXAMIC ACID 1,000 MG in 0.9 % SODIUM CHLORIDE 100 ML 440 MG IV ×2 (07:50→09:03)
--- NOTE | 2025-04-10 08:52 | PC.NURSE ---
(0711) Final timeout completed. Patient placed on O2 nasal cannula at 2l/min. Patient also placed on heart monitor and automatic blood pressure cuff. (0713) Patient medicated as ordered per Carlyle Rich ELEVATOR PILOT. (0716) Left knee Saphenous/Popliteal landmarked via Ultrasound per Carlyle Rich ELEVATOR PILOT. (0718) Left saphenous/popliteal injected as ordered per Carlyle Rich CRNA. (0719) Block completed. Patient tolerated it well. See posted vtial signs.
[2025-04-10] MEDS: BUPIVACAINE HCL 0.25% PF 25 MG/10 ML VIAL 30 ML INJ (09:18)
--- NOTE | 2025-04-10 10:20 | XR_ITS ---
[facility] [place] [id number] Patient Name: ANDRZEJ SAAVEDRA MRN: [id number] date: 1950 Sex: F Assigned Patient Location: [facility] Current Patient Location: [facility] Accession/Order Number: [id number] Exam Date: 04/10/2025 10:15 Report Date: 04/10/2025 11:08 At the request of: JUAN F DUNLAP DO Procedure: XR knee LT 2V LEFT KNEE - 2 views COMPARISON: 02/20/2025 CLINICAL DATA: Follow-up knee replacement. AP and lateral views were obtained. There is interval knee arthroplasty. The hardware appears intact and in appropriate position. There is no developing fracture or dislocation. There is air within the joint space as well as within the subcutaneous soft tissues of the anterior knee from surgery. XR/XR knee LT 2V IMPRESSION: SATISFACTORY POSTOPERATIVE APPEARANCE OF KNEE REPLACEMENT. Impression dictated by: Ekaterina Monzon M.D. 04/10/2025 11:08 AM Dictation Location: [place] [id number] Electronically authenticated by: [id number] Y Date: 04/10/2025 11:08
[2025-04-10] MEDS: OXYCODONE HCL 5 MG TABLET PO (11:29)
--- NOTE | 2025-04-10 12:19 | SWNOTE1 ---
PAULA received a call from Brenda at [facility] and pt is having surgery today with ortho. [facility] will need udpates and the referral sent. SW to speak with pt and then send referral. PAULA called PACU and pt is getting ready to work with physical therapy.
--- NOTE | 2025-04-10 13:58 | SWNOTE1 ---
PAULA did stop back and see pt and her in PACU. Pt was aware she was going to be getting home health services. She is in agreement with [facility]. PAULA did send the operative note, face sheet, and dc instructions to [facility].
== END 2025-04-10 13:00 | disposition home or self-care (01) ==
PROVIDERS: Anesthesiology; PCP Internal Medicine; Visit Provider Orthopaedic Surgery Orthopaedic Trauma
PROC: (CPT 27447; principal; 2025-04-10 07:30)
DX: M17.12 Unilateral primary osteoarthritis, left knee (principal); M25.562 Pain in left knee; Z87.891 Personal history of nicotine dependence; G47.33 Obstructive sleep apnea (adult) (pediatric); J45.909 Unspecified asthma, uncomplicated; E78.5 Hyperlipidemia, unspecified; I10 Essential (primary) hypertension; I71.40 Abdominal aortic aneurysm, without rupture, unspecified; K21.9 Gastro-esophageal reflux disease without esophagitis
CPT/HCPCS: 27447; 36415; 64445; 64450; 73560; 76942; 85025; 97161; C1776; J0665; J0690; J1885; J2250; J2371; J2405; J2704; J2795; J3010